=== PATIENT | female | born 1940 | race Caucasian/White ===

== ENCOUNTER 2020-10-06 14:09 | Outpatient (NON) | payer MEDICARE, OTHER, SELFPAY ==
[2020-10-06 17:10] LABS: Appearance Synovial Fluid Cloudy (Clear); Color Synovial Fluid Yellow (Colorless); Lymphocytes Synovial Fluid 51 %; Macrophages Synovial Fluid 28 %; Neutrophils Synovial Fluid 21 % (0-25); Nucleated Cell Synovial Fluid 56 /uL (0-200); RBC Synovial Fluid 6065 /uL (0-0); Source Synovial Fluid Synovial fluid
== END 2020-10-06 14:10 ==
PROVIDERS: PCP Internal Medicine; Visit Provider Orthopaedic Surgery
DX: M25.461 Effusion, right knee (principal)
CPT/HCPCS: 87070; 87075; 87076; 87205; 89051

== ENCOUNTER 2020-10-18 10:23 | Outpatient (CLI) | payer MEDICARE, OTHER, SELFPAY ==
--- NOTE | ~2020-10-18 | CT_ITS ---
EXAMINATION: CT knee RT wo con DATE: 10/18/2020 10:48 INDICATION: Right knee pain due to internal orthopedic prosthetic device. TECHNIQUE: High resolution computed tomography (CT) of the right knee was performed without intraveno us contrast. Additional sagittal and coronal reconstructions were performed. Automated exposure contr ol and iterative reconstruction technique were employed. The dose-length product was 517.01 mGy-cm. COMPARISON: Radiographs dated 10/06/2020 FINDINGS: Cemented right total knee arthroplasty with patellar resurfacing which appears well seated with no pe riprosthetic lucency to suggest loosening or infection. Alignment appears near-anatomic. No fracture. Small knee joint effusion at the suprapatellar pouch. Moderate-sized Valenzuela's cyst. There is thickeni ng of the distal quadriceps tendon with several tiny foci of increased density with appearance sugges ting suture material possibly for prior quadriceps tendon tear repair. Alternatively this could repre sent enthesopathic calcifications. The central portion of the tendon appears to attenuate proximally without visible right rectus femoris musculature suggesting tear along the distal myotendinous juncti on proximal retraction of the muscle belly beyond the cephalad margin of the [id number]. The vastu s intermedius lateralis and medialis musculature and associated portion of the tendon appear to remai n intact. IMPRESSION: 1. Expected appearance of a right total knee arthroplasty with patellar resurfacing which appears in near-anatomic alignment with no evident loosening or other acute osseous abnormality. 2. Suggestion of tear at the myotendinous junction of the rectus femoris portion of the quadriceps te ndon with proximal retraction of the muscle belly. There appears to be possible suture material sugge sting an earlier repair. Correlate with surgical history and if clinically indicated could consider f urther evaluation with MRI. 3. Small right knee joint effusion and moderate-sized Valenzuela's cyst. Reviewed, dictated and finalized at location A. OL AGE TEACHER IMPRESSION: 1. Expected appearance of a right total knee arthroplasty with patellar resurfa cing which appears in near-anatomic alignment with no evident loosening or othe r acute osseous abnormality. 2. Suggestion of tear at the myotendinous junction of the rectus femoris portio n of the quadriceps tendon with proximal retraction of the muscle belly. There appears to be possible suture material suggesting an earlier repair. Correlate with surgical history and if clinically indicated could consider further evalua tion with MRI. 3. Small right knee joint effusion and moderate-sized Valenzuela's cyst.
== END 2020-10-18 10:24 | disposition home or self-care (01) ==
LOC: ANHIMG 10:32
PROVIDERS: PCP Internal Medicine; Visit Provider Orthopaedic Surgery
DX: T84.84XA Pain due to internal orthopedic prosthetic devices, implants and grafts, initial encounter (principal); Z96.651 Presence of right artificial knee joint; M25.461 Effusion, right knee
CPT/HCPCS: 73700

== ENCOUNTER 2020-11-04 12:30 | Outpatient (NON) | payer MEDICARE, OTHER, SELFPAY ==
[2020-11-04 13:37] LABS: Appearance Synovial Fluid Clear (Clear); Color Synovial Fluid Yellow (Colorless); Nucleated Cell Synovial Fluid 1610 /uL (0-200); RBC Synovial Fluid 3940 /uL (0-0); Source Synovial Fluid Synovial fluid
[2020-11-04 13:59] LABS: Crystals Synovial Fluid None Seen (None Seen)
[2020-11-04 14:12] LABS: Lymphocytes Synovial Fluid 56 %; Monocytes Synovial Fluid 15 %; Neutrophils Synovial Fluid 22 % (0-25)
[2020-11-04 14:15] LABS: Other Cells Synovial Fluid 7 %
[2020-11-07 22:42] LABS: Glucose Synovial Fluid 36 mg/dL
== END 2020-11-04 12:31 ==
PROVIDERS: PCP Internal Medicine; Visit Provider Orthopaedic Surgery
DX: M25.461 Effusion, right knee (principal)
CPT/HCPCS: 82945; 84157; 86430; 87070; 87075; 87076; 87205; 89051; 89060

== ENCOUNTER 2021-02-02 07:38 | Outpatient (CLI) | payer MEDICARE, OTHER, SELFPAY | END 2021-02-02 07:39 | disposition home or self-care (01) | LOC: ANHAUDIO 07:40 | PROVIDERS: PCP Internal Medicine; Visit Provider Otolaryngology | DX: H90.3 Sensorineural hearing loss, bilateral (principal); R42 Dizziness and giddiness | CPT/HCPCS: 92537; 92540; 92546; 92557; 92567 ==

== ENCOUNTER 2022-05-04 01:37 | Day surgery (SDC) | payer MEDICARE, OTHER, SELFPAY ==
[2022-04-17 12:52] VITALS: BMI 29.5
--- NOTE | 2022-05-03 13:13 | P.HP_ITS ---
History of Present Illness History of Present Illness Consent: Risks, benefits, and alternatives have been discussed and questions answered. Patient agrees to proceed with procedure. Chief complaint: ulcerative colitis Narrative: Nikky Pena is a 82 year old female With a long history of ulcerative colitis. She is doing relatively well on medication at this time. However she had an episode of fecal incontinence several months ago. She was having ab dominal pain and went to the emergency room where she was found to have a tear of her celiac artery. She has had follow-up scans that are unchanged and has an appointment to see a vascular surgeon. Review of Systems Review of Systems: All systems reviewed & are unremarkable except as noted in HPI and below PMFSH Past Medical History Medical History Arthritis Bleeding nose Claustrophobia Depression Glaucoma History of adverse reaction to anesthesia History of Clostridioides difficile infection History of postoperative complication of surgical procedure Hypertension Myocardial infarction 2006 Painful total knee replacement, right Right knee pain Ulcerative colitis Surgical History Surgical History History of colon resection History of hysterectomy vaginal wall repair History of surgery History of total right knee replacement (TKR) Family History Family History Other History of bone cancer History of lung cancer Social History Social History Smoking status: Never smoker Alcohol intake: never Substance use: never Substance use type: does not use Living arrangements: alone Gender identity (if verbalized by the patient): Female Spiritual care concerns: No Meds Home Medications and Allergies Home Medications Medication Instructions Recorded Confirmed Type amlodipine 5 mg tablet 5 mg PO DAILY 10/06/20 05/04/22 History aspirin 81 mg PO DAILY 04/17/22 05/04/22 History latanoprost 2 ophthalmic insert EACH EYE DAILY 04/17/22 05/04/22 History mesalamine 400 mg capsule (with See Rx Instructions .Route 04/24/22 05/04/22 Rx delayed release tablets inside) .COMPLEX #120 caps Allergies Allergy/AdvReac Type Severity Reaction Status Date / Time meperidine [From Demerol] Allergy Unknown Unknown Verified 05/04/22 09:58 adhesive tape Allergy Blister Verified 05/04/22 09:58 Exam Resp: Auscultation: clear to auscultation bilaterally Cardio: Rate: regular rate Rhythm: regular rhythm GI: GI Palp: Yes Soft to palpation and No Tenderness to palpation present (GI) Assessment and Plan Assessment and plan (1) Ulcerative colitis: Code(s): K51.90 - Ulcerative colitis, unspecified, without complications Status: Acute Assessment and Plan: Colonoscopy with possible biopsy or polypectomy or cautery or injection of substances.
--- NOTE | 2022-05-03 14:40 | WPDANESEPPF ---
Anes - Initial Pre Proc Eval Procedure: Operation Date: 05/04/22 11:00 Proposed Procedures p Colonoscopy - Chin Pedraza MD <Mingo Castro DO - Last Filed: 05/03/22 14:41> Date/Time: 05/03/22 14:40 <Mingo Castro DO - Last Filed: 05/03/22 14:41> Surgeon: Chin Pedraza MD <Mingo Castro DO - Last Filed: 05/03/22 14:41> Pre Op Diagnosis: ulcerative colitis <Mingo Castro DO - Last Filed: 05/03/22 14:41> Patient Data Age: 82 Gender: F Height: 1.73 m Weight: 88 kg <Mingo Castro DO - Last Filed: 05/03/22 14:41> Allergies Allergy/AdvReac Type Severity Reaction Status Date / Time meperidine [From Demerol] Allergy Unknown Unknown Verified 04/10/22 10:02 adhesive tape Allergy Blister Verified 04/17/22 12:53 <Mingo Castro DO - Last Filed: 05/03/22 14:41> Home Medications Medication Instructions Recorded Confirmed Type amlodipine 5 mg tablet 5 mg PO DAILY 10/06/20 04/17/22 History sodium sul 1.479 gram-potas ch See Rx Instructions PO PER PKG DIR 04/12/22 04/17/22 Rx 0.188 gram-magnes sul 0.225 gram #24 tabs tablet (Sutab) aspirin 81 mg PO DAILY 04/17/22 04/17/22 History latanoprost 2 ophthalmic insert EACH EYE DAILY 04/17/22 04/17/22 History mesalamine 400 mg capsule (with See Rx Instructions .Route 04/24/22 Rx delayed release tablets inside) .COMPLEX #120 caps <Mingo Castro DO - Last Filed: 05/03/22 14:41> Patient hx anesthesia problems: post op nausea/vomiting <Randee Montaño CRNA - Last Filed: 05/04/22 09:39> Family hx anesthesia problems: none <Randee Montaño CRNA - Last Filed: 05/04/22 09:39> Results Review: All pre-operative results and documents have been reviewed as part of the pre-operative evaluation. <Mingo Castro DO - Last Filed: 05/03/22 14:41> [facility] [place] Past Medical History Medical History: Medical History (Updated 05/03/22 @ 14:41 by Mingo Castro DO) Arthritis Bleeding nose Claustrophobia Depression Glaucoma History of adverse reaction to anesthesia History of Clostridioides difficile infection History of postoperative complication of surgical procedure Hypertension Myocardial infarction 2006 Painful total knee replacement, right Right knee pain Ulcerative colitis <Mingo Castro DO - Last Filed: 05/03/22 14:41> Surgical History Surgical History: Surgical History History of colon resection History of hysterectomy vaginal wall repair History of surgery History of total right knee replacement (TKR) <Mingo Castro DO - Last Filed: 05/03/22 14:41> Family History Family History: Family History Other History of bone cancer History of lung cancer <Mingo Castro DO - Last Filed: 05/03/22 14:41> Social History Social History: Social History Smoking status: Never smoker Alcohol intake: never Substance use: never Substance use type: does not use Living arrangements: alone Gender identity (if verbalized by the patient): Female Spiritual care concerns: No <Mingo Castro DO - Last Filed: 05/03/22 14:41> Anes - Eval Final PreProcedure Day of Procedure 05/03/22 14:40 <Mingo Castro DO - Last Filed: 05/03/22 14:41> Patient weight: overweight <Mingo Castro DO - Last Filed: 05/03/22 14:41> Heart: regular rate and rhythm <Mingo Castro DO - Last Filed: 05/03/22 14:41> Lungs: clear to auscultation <Mingo Castro DO - Last Filed: 05/03/22 14:41> Airway: Mallampati scale class II <Mingo Castro DO - Last Filed: 05/03/22 14:41> Neurological: alert and oriented <Mingo Castro DO - Last Filed: 05/03/22 14:
[2022-05-04 10:00] VITALS: BP 130/82; PULSE 72; RESP 20; TEMP 36.3; O2SAT 97; BMI 28.6
[2022-05-04] MEDS: LACTATED RINGERS 1,000 ML 150 ML IV CONT (10:12)
[2022-05-04 11:10] VITALS: BP 113/72; PULSE 77; RESP 24; O2SAT 96
[2022-05-04 11:20] VITALS: BP 138/87; PULSE 69; RESP 24; O2SAT 96
[2022-05-04 11:30] VITALS: BP 141/78; PULSE 66; RESP 18; O2SAT 96
== END 2022-05-04 11:39 | disposition home or self-care (01) ==
PROVIDERS: PCP Internal Medicine; Visit Provider Internal Medicine Gastroenterology
PROC: 0DJD8ZZ Inspection of Lower Intestinal Tract, Via Natural or Artificial Opening Endoscopic (ICD-10-PCS; CPT 45378; principal; 2022-05-04 11:00)
DX: K51.00 Ulcerative (chronic) pancolitis without complications (principal); K64.8 Other hemorrhoids; K57.30 Diverticulosis of large intestine without perforation or abscess without bleeding; H40.9 Unspecified glaucoma; I25.2 Old myocardial infarction; I10 Essential (primary) hypertension
CPT/HCPCS: 45380; 88305; J2704; J7120

== ENCOUNTER 2023-11-09 12:41 | Emergency (ER) | payer MEDICARE, OTHER, SELFPAY ==
--- NOTE | ~2023-11-09 | XR_ITS ---
XR hand LT min 3V DATE: 11/09/2023 13:05 INDICATION: Patient fell and struck hand against wall. Swelling, bruising TECHNIQUE: 3 views COMPARISON: None FINDINGS: There is a linear oblique fracture through the distal shaft, neck and head of the fifth met acarpal bone, with overriding and one cortical width lateral displacement at the fracture site. There is severe osteoarthritic change at the first carpometacarpal joint. There is osteoarthritic change at multiple interphalangeal joints as well as first metacarpal phalang eal joint. IMPRESSION: Fifth metacarpal fracture Polyarticular osteoarthritis Reviewed, dictated and finalized at location A. P CHIEF OPERATOR
[2023-11-09 12:52] VITALS: BP 144/82; PULSE 79; RESP 16; TEMP 36.2; O2SAT 95
--- NOTE | 2023-11-09 13:07 | ED.UPPEXIN ---
HPI - Extremity Injury (Upper) General Chief Complaint: Extremity Injury, Upper Stated Complaint: Left Hand Swollen Time Seen by Provider: 11/09/23 13:07 Source: patient Mode of arrival: ambulatory Limitations: no limitations History of Present Illness HPI narrative: 83 yo F presents with c/o L hand pain and swelling. Two nights ago stood up from table and tripped and hit L hand against wall. Was able to catch herself and did not fall to the ground. ROM decreased due to pain. distal NV intact. Pt's son concerned for fracture. All systems reviewed and negative except as noted above. Related Data Home Medications Medication Instructions Recorded Confirmed amlodipine 5 mg tablet 5 mg PO DAILY 10/06/20 11/09/23 aspirin 81 mg PO DAILY 04/17/22 11/09/23 latanoprost 2 drp EACH EYE DAILY 04/17/22 11/09/23 mesalamine 400 mg capsule (with 400 mg PO DAILY 11/09/23 11/09/23 delayed release tablets inside) Allergies Allergy/AdvReac Type Severity Reaction Status Date / Time meperidine [From Demerol] Allergy Unknown Unknown Verified 11/09/23 13:09 adhesive tape Allergy Blister Verified 11/09/23 13:09 Review of Systems Review of Systems: CONSTITUTIONAL: Denies fever, chills, or sweats. EYES: Denies visual changes, redness, or discharge. ENT: Denies rhinorrhea, congestion, sore throat, or otalgia. CARDIOVASCULAR: Denies chest pain, palpitations, or edema. RESPIRATORY: Denies cough or dyspnea. GASTROINTESTINAL: Denies abdominal pain, nausea, vomiting, or diarrhea. GENITOURINARY: Denies dysuria or hematuria. SKIN: Denies rash or itching. MUSCULOSKELETAL: Denies back pain, joint pain, or myalgia. Reports pain and swelling to left hand. NEUROLOGIC: Denies headache, numbness, or weakness. PSYCHIATRIC: Denies anxiety or depression. All other systems reviewed are negative, except as documented in HPI. [facility] Past Medical History Medical History Arthritis Bleeding nose Claustrophobia Depression Glaucoma History of adverse reaction to anesthesia History of Clostridioides difficile infection History of postoperative complication of surgical procedure Hypertension Myocardial infarction 2006 Painful total knee replacement, right Right knee pain Ulcerative colitis Surgical History Surgical History History of colon resection History of hysterectomy vaginal wall repair History of surgery History of total right knee replacement (TKR) Family History Family History Other History of bone cancer History of lung cancer Social History Social History Smoking status: Never smoker Alcohol intake: never Substance use: never Substance use type: does not use Living arrangements: alone Gender identity (if verbalized by the patient): Female Spiritual care concerns: No Comments At time of signature, agree with nursing past medical, surgical, social and family history. There is no relevant family history pertinent to the presenting complaint. Exam Narrative: GENERAL: This is a well-nourished, well-developed patient, in no apparent distress. HEAD: normocephalic, atraumatic. EYES: PERRL. Sclera clear/white. Vision is grossly intact. EARS: External ears normal NOSE: External nose normal NECK: Neck supple, non-tender without lymphadenopathy, masses or thyromegaly. CARDIOVASCULAR: Regular rate and rhythm without murmurs, gallops, or rubs. RESPIRATORY: Clear to auscultation. Breath sounds equal bilaterally. No wheezes, rales, or rhonchi. SKIN: warm, Dry, intact with no suspicious lesions or rash, good texture and turgor. NEURO: awake, alert, and oriented to person, place and time. There were no obvious focal neurologic abnormalities. EXTREMITIES: tenderness on palpation of L 5th metacarpal with
== END 2023-11-09 13:45 | disposition home or self-care (01) ==
PROVIDERS: Emergency Provider Nurse Practitioner Family; PCP Internal Medicine
DX: S62.337A Displaced fracture of neck of fifth metacarpal bone, left hand, initial encounter for closed fracture (principal); W01.198A Fall on same level from slipping, tripping and stumbling with subsequent striking against other object, initial encounter; M19.90 Unspecified osteoarthritis, unspecified site; H40.9 Unspecified glaucoma; I10 Essential (primary) hypertension; I25.2 Old myocardial infarction; Z96.651 Presence of right artificial knee joint
CPT/HCPCS: 29125; 73130; 99214; A4565; G0463

== ENCOUNTER 2023-11-14 01:30 | Day surgery (SDC) | payer MEDICARE, OTHER, SELFPAY ==
--- NOTE | 2023-11-13 13:14 | WPDANESEPPF ---
Anes - Initial Pre Proc Eval Procedure: Operation Date: 11/14/23 12:00 Proposed Procedures p Left Fifth Metacarpal Closed Reduction Percutaneous Pinning, Possible Open Reduction Internal Fixation - Desmond Matias MD Date/Time: 11/13/23 13:14 Surgeon: Desmond Matias MD Pre Op Diagnosis: fx left metacarpal bone Patient Data Age: 83 Gender: F Height: Weight: Allergies Allergy/AdvReac Type Severity Reaction Status Date / Time meperidine [From Demerol] Allergy Unknown Nausea and Verified 11/14/23 10:04 Vomiting adhesive tape Allergy Blister Verified 11/14/23 10:04 Home Medications Medication Instructions Recorded Confirmed Type amlodipine 5 mg tablet 5 mg PO DAILY 10/06/20 11/14/23 History aspirin 81 mg PO HS 04/17/22 11/14/23 History latanoprost 1 drp EACH EYE HS 04/17/22 11/14/23 History mesalamine 400 mg capsule (with 800 mg PO BID 11/09/23 11/14/23 History delayed release tablets inside) acetaminophen 500 mg capsule 1,000 mg PO Q6H PRN Pain 11/13/23 11/14/23 History pantoprazole 40 mg tablet,delayed 40 mg PO DAILY 11/13/23 11/14/23 History release Patient hx anesthesia problems: none Family hx anesthesia problems: none Results Review: All pre-operative results and documents have been reviewed as part of the pre-operative evaluation. [facility] Past Medical History Medical History Arthritis Bleeding nose Claustrophobia Depression Glaucoma History of adverse reaction to anesthesia History of Clostridioides difficile infection History of postoperative complication of surgical procedure Hypertension Myocardial infarction 2006 Painful total knee replacement, right Right knee pain Ulcerative colitis Surgical History Surgical History History of colon resection History of hysterectomy vaginal wall repair History of surgery History of total right knee replacement (TKR) Family History Family History Other History of bone cancer History of lung cancer Social History Social History (Updated 11/12/23 @ 14:23 by Trinidad Puente MA) Smoking status: Never smoker Alcohol intake: never Substance use: never Substance use type: does not use Do You Feel Safe in your Home?: Yes Lack of Transportation: No Lack of Food: Never True Current Housing: I Have Housing Concerned About Future Housing: No Difficulty Paying Gas/Electric Bills: No Difficulty Paying for Meds: No Currently Unemployed: No Education: High School Diploma/GED Difficulty w/ Childcare or Family Care: No Living arrangements: alone Gender identity (if verbalized by the patient): Female Spiritual care concerns: No Anes - Eval Final PreProcedure Day of Procedure 11/13/23 13:14 Patient weight: normal Heart: regular rate and rhythm Lungs: clear to auscultation and normal air movement Airway: Mallampati scale class II Neurological: alert and oriented Last oral intake: >/= 8 hours ASA classification: III Emergent: no Anesthetic plan: proceed Anesthesia type and monitoring: general GIVS and standard monitoring Results Review: All pre-operative results and documents have been reviewed as part of the pre-operative evaluation. Informed Consent: The patient's anesthetic plan and its attendant risks and benefits were discussed with the patient/family/POA. Questions were solicited and answers provided to the satisfaction of the patient/family/POA.
--- NOTE | 2023-11-13 13:44 | PC.NURSE ---
Report to the Outpatient Waiting Room, entrance under the green pavilion located off [facility], at time __1000 on date _11/14/23 . Planned Procedure Time: ___1200 . Time changes happen often and if your time is changed the preop area will call you the afternoon before. - You and your visitor will be asked to self-screen and do not enter if you have any COVID symptoms. - A mask is optional within the hospital at this time. Take the following medications with a SIP of water the morning of surgery: ____AMLODIPINE DO NOT STOP ANY OF YOUR OTHER PRESCRIPTION MEDICATIONS PRIOR TO SURGERY ?EXCEPT THE FOLLOWING Medications to discontinue per physician NOTHING TO EAT OR DRINK 8 HOURS PRIOR TO SURGERY Please no make-up, nail bahamian, hairspray, perfume, deodorant, or body powder the day of surgery. No jewelry (including any body piercings) or valuables the day of surgery, leave them at home. Please take a shower or bath the night before, or the morning of, surgery with an antibacterial soap. Wear comfortable, loose fitting clothing. Children are encouraged to wear pajamas. - Jewelry must be removed prior to entering the operating room. Rings and piercings that are not removed may be cut off. - The hospital will not accept responsibility for valuables. - Please leave all valuables, including medications, at home the day of surgery. If you are going home after surgery, a licensed paratransit driver must drive you home. - NO public transportation without another adult if you receive anesthesia. - We recommend that an adult stay with you for 24 hours following discharge. - We also recommend that you do not drive, make important decision, drink alcoholic beverages, or take any drugs that were not prescribed by your health care provider for at least 24 hours after your discharge time. Follow any additional instructions given to you from your surgeon. If you or anyone in your household have experienced Covid symptoms in the past week, please notify your surgeon or the nurse liaison at the phone number below for possible testing. Telephone instructions given to __PATIENT and asked if any additional questions and then verbalized understanding. Patient advised to call surgeon office or pre surgery nurse liaison [phone] if any additional questions.
[2023-11-13 13:51] VITALS: BMI 30.4
--- NOTE | ~2023-11-14 | XR_ITS ---
EXAMINATION: XR surgery orthopedic DATE: 11/14/2023 12:27 INDICATION: ORIF left fifth metacarpal fracture TECHNIQUE: 2 fluoroscopic images of the left hand were obtained during procedure performed by Dr. Julien lal. Radiologist was not present for the imaging or procedure. The amount of fluoroscopy time use d during this procedure was 0.6 minutes. COMPARISON: 11/09/2023 FINDINGS: Interval reduction and percutaneous pin fixation of the oblique fracture at the head and neck of the left fifth metacarpal. The fracture is fixed with an axially directed and extending from the head to the base of the fifth metacarpal as well as a transversely directed percutaneous pin extending across the heads of the fourth and fifth metatarsals. Alignment appears near anatomic. No other fractures i dentified. Mild joint space widening at the fifth metacarpophalangeal joint. IMPRESSION: 1. Fluoroscopy utilized during reduction and percutaneous pin fixation of a fracture of the distal le ft fifth metacarpal. Reviewed, dictated and finalized at location A. NG TUMBLER OPERATOR IMPRESSION: 1. Fluoroscopy utilized during reduction and percutaneous pin fixation of a fra cture of the distal left fifth metacarpal.
[2023-11-14 10:00] VITALS: BP 138/79; PULSE 78; RESP 18; TEMP 36.4; O2SAT 96
[2023-11-14] MEDS: LACTATED RINGERS 1,000 ML 30 ML IV CONT (10:30)
[2023-11-14 10:46] LABS: Anion Gap 9 mmol/L (8-16); Blood Urea Nitrogen 17 mg/dL (7-17); Calcium 9.7 mg/dL (8.4-10.2); Carbon Dioxide 24 mmol/L (22-30); Chloride 105 mmol/L (98-107); Estimated CRCL calculation 51 ml/min; Estimated Glomerular Filt Rate 60; Glucose 105 mg/dL (65-110); Potassium 4.2 mmol/L (3.4-5.0); Sodium 138 mmol/L (137-145)
[2023-11-14 10:48] LABS: Prothrombin Time 13.7 Seconds (11.1-14.7)
[2023-11-14 10:49] LABS: Partial Thromboplastin Time 43.5 SECONDS (22.3-36.8)
--- NOTE | 2023-11-14 11:25 | WPDHPUPDATE1 ---
History and Physical Update Update Date/Time: 11/14/23 11:25 Patient seen and examined in pre-operative holding area. No interval change in medical history or symptoms. Patient recalls previous discussion of benefits and alternatives to procedure. Continues to desire to proceed with left fifth metacarpal fracture closed possible open reduction and fixation. Reviewed procedure, post-op expectations and risks including but not limited to bleeding, infection, injury to tendon/nerve/vessel, decreased hand function, stiffness, RSD, no change or worsening of symptoms, malunion, nonunion. I discussed the possible use of assistants and their participation in the case. Patient stated understanding and signed the consent form wishing to proceed.
--- NOTE | 2023-11-14 11:26 | W.PM.PROC2 ---
Procedure Note - Detailed Date of Procedure 11/14/23 Pre-op Diagnosis fx left fifth metacarpal Post-op Diagnosis Same Procedure Performed closed reduction perc pinning left fith metacarpal Surgeon Desmond Matias MD Anesthesia General Description of Procedure INFORMED CONSENT: The patient was seen and examined and marked in the pre-op area.? The patient signed the consent form. PROCEDURE IN DETAIL:The patient taken back to OR on the stretcher in supine position. Time out performed with anesthesia, surgeon and staff agreeing on patient's name site and surgery to be performed SCDs were placed on the lower extremities and inflated. A tourniquet was placed on {left} upper extremity and antibiotics given IV After anesthesia administered sedation I injected {8}cc 1%lido with epi and 0.5% marcaine plain at the operative site The?{left upper extremity}?was prepped and draped in sterile fashion the??{left upper extremity} was? exsanguinated with Esmarch bandage and tourniquet inflated to 250mmHg The mini c-arm was brought into the field verifying fracture and displacement. Reduction maneuvers were performed achieving adequate reduction of the fracture fragment of 5th metacarpal. This reduction was maintained with placing two 0.045 k-wires, one retrograde and the second to anchor 5th metacarpal head into 4th metacarpal head, with verification on multiple views of fluoroscopy. There was no impingement on finger range of motion with near full passive ROM. The pins were trimmed and covered with betadine soaked alcohol swabs. A dressing of , 4x4, koffi, and an ulnar gutter splint was applied in safe position and secured with an sissy bandage after the tourniquet was let down noting the hand was warm and well perfused. The patient was then awaken from anesthesia and transferred to the recovery room in stable condition.? Complications - none EBL- 0cc Disposition - home in stable conditions [facility] Billing Surgery - Charge Forward: Surgery Billing ([id number] )
[2023-11-14] MEDS: ceFAZolin 2 GM/D5W 50 ML 2 GM/50 ML BAG IVPB (11:56)
[2023-11-14] MEDS: BUPivacaine HCL 0.5% PF 30 ML VIAL INFILTRATE (12:12)
[2023-11-14] MEDS: LIDOCAINE HCL 1% LOCAL INJ 20 ML VIAL INFILTRATE (12:12)
[2023-11-14 12:26] VITALS: BP 96/76; PULSE 70; RESP 17; O2SAT 94
[2023-11-14 12:50] VITALS: BP 115/74; PULSE 76; RESP 16; O2SAT 93
[2023-11-14 13:20] VITALS: BP 131/77; PULSE 70
== END 2023-11-14 13:40 | disposition home or self-care (01) ==
PROVIDERS: Anesthesiology; PCP Internal Medicine; Visit Provider Plastic Surgery
PROC: (CPT 26608; principal; 2023-11-14 12:00)
DX: S62.337A Displaced fracture of neck of fifth metacarpal bone, left hand, initial encounter for closed fracture (principal); W22.01XA Walked into wall, initial encounter; H40.9 Unspecified glaucoma; I10 Essential (primary) hypertension; I25.2 Old myocardial infarction; K51.90 Ulcerative colitis, unspecified, without complications; Z79.82 Long term (current) use of aspirin; Z90.49 Acquired absence of other specified parts of digestive tract
CPT/HCPCS: 26608; 36415; 80048; 85610; 85730; 99199; A9270; C1713; J0690; J1100; J2405; J2704; J3010; J7120

== ENCOUNTER 2023-11-28 09:41 | Outpatient (CLI) | payer MEDICARE, OTHER, SELFPAY ==
--- NOTE | ~2023-11-28 | XR_ITS ---
EXAMINATION: XR hand LT min 3V INDICATION: Displaced fracture of the fifth metacarpal, follow-up TECHNIQUE: Three views of the left hand are obtained. COMPARISON: 11/09/2023 FINDINGS: There has been interval percutaneous pinning of the previously described fifth metacarpal n david fracture. The distal fracture fragment remains laterally displaced by approximately 2 mm. No geo tional fracture is identified. No definite calcified callus is identified. A splint has been applied. There is advanced osteoarthritis at the first carpometacarpal joint. Mild osteoarthritis is noted in multiple interphalangeal joints. IMPRESSION: 1. Interval percutaneous pinning and splinting of the previously described fifth metacarpal neck frac ture, otherwise no change. Reviewed, dictated and finalized at location L. TION SPECIALIST IMPRESSION: 1. Interval percutaneous pinning and splinting of the previously described fift h metacarpal neck fracture, otherwise no change.
== END 2023-11-28 09:42 | disposition home or self-care (01) ==
LOC: ANHIMG 09:43
PROVIDERS: PCP Internal Medicine; Visit Provider Physician Assistant Surgical
DX: S62.339A Displaced fracture of neck of unspecified metacarpal bone, initial encounter for closed fracture (principal); X58.XXXA Exposure to other specified factors, initial encounter
CPT/HCPCS: 73130

== ENCOUNTER 2023-12-12 12:39 | Outpatient (CLI) | payer MEDICARE, OTHER, SELFPAY ==
--- NOTE | ~2023-12-12 | XR_ITS ---
EXAMINATION: XR hand LT min 3V DATE: 12/12/2023 13:01 INDICATION: Left fifth metacarpal fracture 5 days prior now post fixation pin removal TECHNIQUE: Posteroanterior, oblique and lateral views of the left hand were obtained. COMPARISON: None. FINDINGS: The prior fixation pins which extended across the heads of the fourth and fifth metacarpals and along the length of the fifth metacarpal have been removed. No retained radiopaque foreign bodies. No funez ge in 2 mm palmar/radial displacement of the oblique fracture at the neck of the fifth metacarpal. Th ere is suggestion of small amount of callus formation however assessment of fine bone and soft tissue detail is limited by the superimposed fiberglass splinting material. There is still some discernible lucency along the fracture plane. Diffuse osteopenia. No other fractures identified. 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 There is some widening of the scapholunate in terval which suggests possibility of scapholunate ligament insufficiency. IMPRESSION: 1. Unchanged 2 mm pulmonary/radial displacement of a likely healing external to the fracture the neck of the fifth metacarpal with removal of prior fixation pins. Reviewed, dictated and finalized at location A. IT DEPARTMENT MANAGER IMPRESSION: 1. Unchanged 2 mm pulmonary/radial displacement of a likely healing external to the fracture the neck of the fifth metacarpal with removal of prior fixation p ins.
== END 2023-12-12 12:40 | disposition home or self-care (01) ==
PROVIDERS: PCP Internal Medicine; Visit Provider Physician Assistant Surgical
DX: S62.337A Displaced fracture of neck of fifth metacarpal bone, left hand, initial encounter for closed fracture (principal); X58.XXXA Exposure to other specified factors, initial encounter
CPT/HCPCS: 73130

== ENCOUNTER 2024-01-13 15:23 | Inpatient (IN) | payer MEDICARE, OTHER, SELFPAY ==
[2024-01-13] VITALS (23 sets, daily range): BP systolic 80–157; BP diastolic 43–103; PULSE 88–124; RESP 16–31; TEMP 36.4–36.6; O2SAT 92–98
--- NOTE | ~2024-01-13 | CT_ITS ---
EXAMINATION: CTA chest PE protocol DATE: 01/13/2024 20:59 INDICATION: Shortness of breath, upper back pain TECHNIQUE: Computed tomography angiography (CTA) of the chest was performed with 100 mL Omnipaque-350 intravenous contrast timed to evaluate the pulmonary arteries. Coronal maximum intensity projection 3D-reconstructions were created by the technologist. The dose-length product (DLP) was 432.27 mGy-cm. Automated exposure control and iterative reconstruction technique were employed. COMPARISON: None. FINDINGS: The pulmonary arteries are well-opacified. No pulmonary embolism is identified. Cardiomegal y is noted. There are small pleural effusions. There is smooth interlobular septal thickening of the lungs. There are a few areas of focal airspace opacity in the right lung. There are patchy airspace o pacities of the left lung. There is mild bilateral hilar lymphadenopathy. There is moderate thoracic spondylosis. There is a 2.2 cm cyst of the left kidney. IMPRESSION: 1. No pulmonary embolism identified. 2. Bilateral airspace opacities, consistent with pneumonia and mild pulmonary edema. Reviewed, dictated and finalized at location F. IMPRESSION: 1. No pulmonary embolism identified. 2. Bilateral airspace opacities, consistent with pneumonia and mild pulmonary e eric.
--- NOTE | ~2024-01-13 | XR_ITS ---
EXAMINATION: XR chest 2V DATE: 01/13/2024 15:53 INDICATION: Shortness of breath TECHNIQUE: PA and lateral views of the chest are obtained. COMPARISON: None FINDINGS: There are patchy opacities of the mid and lower lung zones. There are small pleural effusio ns. No pneumothorax is identified. The cardiomediastinal silhouette is normal. There is moderate thor acic spondylosis. IMPRESSION: 1. Airspace opacities of the mid and lower lung zones, consistent with atelectasis versus pneumonia. Reviewed, dictated and finalized at location F. IMPRESSION: 1. Airspace opacities of the mid and lower lung zones, consistent with atelecta sis versus pneumonia.
--- NOTE | 2024-01-13 15:24 | ECG_ITS ---
Measurements Intervals [place] Rate: 115 P: GA: 0 QRS: 11 QRSD: 90 T: 46 QT: 334 QTc: 463 Interpretive Statements ATRIAL FIBRILLATION WITH RAPID VENTRICULAR RESPONSE VENTRICULAR PREMATURE COMPLEX LOW QRS VOLTAGE IN PRECORDIAL LEADS BORDERLINE T WAVE ABNORMALITY- INFERIOR LEADS BASELINE ARTIFACT- I, II, AVR, AVL ABNORMAL ECG NO PREVIOUS ECG AVAILABLE FOR COMPARISON Electronically Signed On 01-13-2024 16:52:57 CDT by Jairo Spivey D.O.
--- NOTE | 2024-01-13 17:33 | ED.SOB ---
HPI - SOB/Dyspnea General Chief Complaint: Shortness of Breath/Dyspnea <Randa Jain PA-C - Last Filed: 01/13/24 23:24> Stated Complaint: SOB/nausea/back pain <Randa Jain PA-C - Last Filed: 01/13/24 23:24> Time Seen by Provider: 01/13/24 17:25 <Randa Jain PA-C - Last Filed: 01/13/24 23:24> Source: patient <Randa Jain PA-C - Last Filed: 01/13/24 23:24> Mode of arrival: ambulatory <VIVIANA Hatch Last Filed: 01/13/24 23:24> Limitations: no limitations <VIVIANA Hatch Last Filed: 01/13/24 23:24> History of Present Illness HPI Narrative: Patient is a 84 y/o female who presents the ED with report of shortness of breath. Patient reports she has been feeling intermittently short of breath over the last several weeks. Shortness became worse today, worse with exertion. Denies CP. She has been having intermittent pain in her upper back, between her scapula for the last few weeks as well, but denies any currently. Denies pain or swelling in lower extremities. Denies recent fevers, cough, cold sx's. Denies palpations. Denies dizziness, lightheadedness, nausea, vomiting. Denies history of AFib. She was scheduled to see Dr. Short with cardiology next week. She has been seen Dr. Matias for a recent L 5th metacarpal fx and undergoing therapy for this. <Randa Jain PA-C - Last Filed: 01/13/24 23:24> Related Data Home Medications: Home Medications Medication Instructions Recorded Confirmed amlodipine 5 mg tablet 5 mg PO DAILY 10/06/20 01/14/24 aspirin 81 mg capsule 81 mg PO HS ##0 04/17/22 01/14/24 latanoprost 1 drp EACH EYE HS 04/17/22 01/14/24 mesalamine 400 mg capsule (with 800 mg PO BID 11/09/23 01/14/24 delayed release tablets inside) acetaminophen 500 mg capsule 1,000 mg PO Q6H PRN Pain 11/13/23 01/14/24 pantoprazole 40 mg tablet,delayed 40 mg PO DAILY 11/13/23 01/14/24 release lorazepam 1 mg tablet 1 mg PO HS PRN Anxiety 01/14/24 01/14/24 <Randa Jain PA-C - Last Filed: 01/13/24 23:24> Allergies/Adverse Reactions: Allergies Allergy/AdvReac Type Severity Reaction Status Date / Time meperidine [From Demerol] Allergy Unknown Nausea and Verified 01/13/24 14:33 Vomiting adhesive tape Allergy Blister Verified 01/13/24 14:33 <Randa Jain PA-C - Last Filed: 01/13/24 23:24> Review of Systems Review of Systems: CONSTITUTIONAL: Denies fever, chills, or sweats. ENT: Denies rhinorrhea, congestion, sore throat. CARDIOVASCULAR: Denies chest pain, palpitations, or edema. RESPIRATORY: See HPI GASTROINTESTINAL: Denies abdominal pain, nausea, vomiting MUSCULOSKELETAL: See HPI NEUROLOGIC: Denies headache, dizziness, numbness, or weakness. <Randa Jain PA-C - Last Filed: 01/13/24 23:24> All systems reviewed & are unremarkable except as noted in HPI and below <Randa Jain PA-C - Last Filed: 01/13/24 23:24> [facility] Past Medical History Medical History: Medical History (Updated 01/14/24 @ 14:34 by Radha Peters PA-C) Arthritis Claustrophobia Depression Glaucoma History of adverse reaction to anesthesia History of Clostridioides difficile infection Hypertension Myocardial infarction 2006 Steatohepatitis Ulcerative colitis <Randa Jain PA-C - Last Filed: 01/13/24 23:24> Surgical History Surgical History: Surgical History (Updated 01/14/24 @ 14:36 by Radha Peters PA-C) History of bilateral knee arthroplasty History of colonoscopy with polypectomy History of hysterectomy History of partial colectomy For hemorrhoidal bleeding. History of repair of right rotator cuff History of uterosacral colpopexy History of ventral hernia repair <Randa Jain PA-C - Last Filed: 01/13/24 23:24> Family History Family History: Family History Other His
[2024-01-13 17:42] LABS: Basophils Absolute Auto 0.2 K/mm3 (0.0-0.1); Basophils Percent Auto 1.6 % (0.2-1.2); Eosinophils Absolute Auto 0.4 K/mm3 (0-0.3); Hematocrit 37.5 % (37.0-47.0); Hemoglobin 11.6 g/dL (12.0-15.0); Immature Granulocyte Absolute 0.06 K/mm3 (0.00-0.031); Immature Granulocyte Percent A 0.6 % (0-0.5); Lymphocytes Absolute Auto 2.38 K/mm3 (0.9-3.2); Lymphocytes Percent Auto 23.3 % (18.3-44.2); Mean Corpuscular HGB Conc 30.9 g/dl (32-36); Mean Corpuscular Volume 84.1 fl (80-100); Mean Platelet Volume 10.9 fl (7.4-10.4); Monocytes Absolute Auto 1.3 K/mm3 (0.1-0.6); Monocytes Percent Auto 12.3 % (2.6-8.5); Neutrophils Absolute Auto 5.9 K/mm3 (1.3-6.7); Neutrophils Percent Auto 58.2 % (45.5-73.1); Platelet Count Result 420 k/mm3 (150-375); Red Blood Count 4.46 M/mm3 (4.2-5.4); Red Cell Distribution Width 16.9 % (11.5-14.5); White Blood Count 10.2 K/mm3 (4.5-10.0)
[2024-01-13 17:52] LABS: Alanine Aminotransferase 53 U/L (6-35); Albumin Level 4.4 g/dL (3.5-5.1); Alkaline Phosphatase 111 U/L (38-126); Anion Gap 6 mmol/L (8-16); Aspartate Amino Transferase 44 U/L (14-36); Bilirubin,Total 0.9 mg/dL (0.2-1.3); Blood Urea Nitrogen 17 mg/dL (7-17); Calcium 9.7 mg/dL (8.4-10.2); Carbon Dioxide 24 mmol/L (22-30); Chloride 109 mmol/L (98-107); Estimated CRCL calculation 56 ml/min; Estimated Glomerular Filt Rate > 60; Glucose 102 mg/dL (65-110); Sodium 139 mmol/L (137-145)
[2024-01-13] MEDS: METOPROLOL TARTRATE INJ 5 MG/5 ML VIAL IV PUSH (18:03)
[2024-01-13 18:04] LABS: NT Pro B Type Natriuretic Pept 2330 pg/mL (19.9-100); Troponin I < 0.012 ng/mL (0.000-0.034)
[2024-01-13 18:07] LABS: Magnesium 2.2 mg/dL (1.6-2.3)
[2024-01-13 18:22] LABS: D Dimer 1.38 ug/mL (<0.48)
[2024-01-13 18:30] LABS: Prothrombin Time 14.1 Seconds (11.1-14.7)
[2024-01-13] MEDS: METOPROLOL TARTRATE 25 MG TABLET PO ×2 (18:30→23:17)
[2024-01-13 18:31] LABS: Partial Thromboplastin Time 39.4 Seconds (22.3-36.8)
[2024-01-13 18:37] LABS: Influenza A QL RT-PCR Negative (Negative); Influenza B QL RT-PCR Negative (Negative); RSV RNA, RT-PCR Negative (Negative); SARS-CoV-2 RNA PCR Negative (Negative)
[2024-01-13] MEDS: ACETAMINOPHEN 500 MG TABLET 1000 MG PO (20:58)
[2024-01-13] MEDS: ONDANSETRON INJ 4 MG/2 ML VIAL IV PUSH (20:58)
--- NOTE | 2024-01-13 22:39 | PM.IMHP ---
H&P: HPI History of Present Illness Date/Time: 01/13/24 21:30 Chief Complaint: Shortness of breath. Narrative: This is a very pleasant 84-year-old female with reports of [place] in 2006, hypertension, gastroesophageal reflux disease, and ulcerative colitis who presented to the emergency department via private vehicle for evaluation of shortness of breath. The patient provides the following history. She endorses intermittent but increasing dyspnea on exertion over the last month or so which has gotten worse in the past couple of days. She has occasional sensations of racing heart and irregular heartbeat which she notices when sitting down and resting but that seems to be fleeting. At times she feels a bit lightheaded or dizzy with that and can have some nausea with that as well. She also complains of pain in the mid to low back but that is a chronic and unchanged finding for her. She is scheduled to see Dr. Short sometime next week for evaluation of the symptoms. Due to worsening shortness of breath she decided to come in today for evaluation. She denies syncope, near syncope, sweats, pleuritic pain, orthopnea (although she does report feelings of restlessness at night causing her to get up for appeared of time), paroxysmal nocturnal dyspnea, lower extremity edema, and calf pain. No known history of cardiac dysrhythmia. She denies significant caffeine and alcohol use. No history of thyroid disease or sleep apnea to her knowledge. She denies sick contacts, sinus congestion, sore throat, and cough. In the ED she was found to be in atrial fibrillation with rapid ventricular response; her rate has not gone above 120. She was given metoprolol tartrate 25 mg p.o. x1 and her heart rate has been in the 80s to 90 since that time. Labs were significant for a WBC count of 10.2, hemoglobin 11.6, D-dimer 1.39, AST 44, ALT 53, troponin less than 0.012, proBNP 2330. She tested negative for influenza, RSV, and COVID. Chest x-ray showed airspace opacities of the mid and lower lung zones consistent with atelectasis versus pneumonia. Chest CTA showed no evidence of pulmonary embolism but did show bilaterally status opacities consistent with pneumonia and mild pulmonary edema. Review of Systems Review of Systems: 12 systems were reviewed and are negative except for as per HPI. [facility] Past Medical History Medical History (Updated 01/14/24 @ 14:34 by Radha Peters PA-C) Arthritis Claustrophobia Depression Glaucoma History of adverse reaction to anesthesia History of Clostridioides difficile infection Hypertension Myocardial infarction 2006 Steatohepatitis Ulcerative colitis Surgical History Surgical History (Updated 01/14/24 @ 14:36 by Radha Peters PA-C) History of bilateral knee arthroplasty History of colonoscopy with polypectomy History of hysterectomy History of partial colectomy For hemorrhoidal bleeding. History of repair of right rotator cuff History of uterosacral colpopexy History of ventral hernia repair Family History Family History Other History of bone cancer History of lung cancer Social History Social History (Updated 01/14/24 @ 14:36 by Radha Peters PA-C) Smoking status: Never smoker Alcohol intake: never Substance use: never Substance use type: does not use Do You Feel Safe in your Home?: Yes Lack of Transportation: No Lack of Food: Never True Current Housing: I Have Housing Concerned About Future Housing: No Difficulty Paying Gas/Electric Bills: No Difficulty Paying for Meds: No Currently Unemployed: No Education: High School Diploma/GED Difficulty w/ Childcare or Family Care: No Living arrangements: alone Spiritual care concerns: No Meds Home Medications and Allergies Home Medications Medication Instructions Recorded Confirmed Type amlodipine 5 mg tablet 5 mg PO DAILY 10/06/20 01/14/24 History aspirin
[2024-01-13] MEDS: LORazepam INJ (*CRX) 2 MG/ML VIAL 0.5 MG IV PUSH (23:17)
[2024-01-13] MEDS: DOXYCYCLINE HYCLATE 100 MG TABLET PO (23:17)
[2024-01-13] MEDS: ENOXAPARIN 100 MG/ML SYRINGE 90 MG SUB-Q (23:18)
[2024-01-14] VITALS (39 sets, daily range): BP systolic 104–142; BP diastolic 56–106; PULSE 74–118; RESP 15–38; TEMP 36.3–36.6; O2SAT 91–98; BMI 31.1
--- NOTE | 2024-01-14 | PC.NURSE ---
Pt continues to try and get out of bed and is pacing around the room. Pt continues to explain she is very anxious. States Normal behavior for her at night time.
[2024-01-14] MEDS: LORazepam INJ (*CRX) 2 MG/ML VIAL 1 MG IV PUSH (00:49)
--- NOTE | 2024-01-14 06:00 | ECHO_ITS ---
Patient Info Name: Nikky Pena Age: 84 years : 1940 Gender: Female Ht: 68 in Wt: 200 lbs BSA: 2.11 m2 HR: 94 bpm BP: 142 / 90 mmHg Technical Quality: Good Exam Date: 01/14/2024 9:55 AM Exam Location: Echo Lab Patient Status: Outpatient Admit Date: 01/13/2024 Staff Ordering Physician: Randa Jain PA-C Stationary Plant Operators: Jose Eduardo Patel RDCS Attending Provider: Sancho Rosario MD Referring Physician: Cristobal WORTHY; Exam Type: CA echo dop color flow w con Study Info Indications - new onset A FIB with RVR, elevated bnp Complete two-dimensional, color flow and Doppler transthoracic echocardiogram is performed with contrast to opacify the left ventricle and to improve the deliniation of the left ventricle endocardial borders. Contrast/Agitated Saline Contrast/Ag. Saline: Definity Amount: 2.00 ml Summary 1. Left ventricular chamber dimension is normal. 2. Left ventricular systolic function is mildly reduced, estimated at 45-50%. 3. Right ventricular chamber dimension is moderately enlarged. 4. Right ventricular systolic function is normal. 5. Left atrial chamber dimension is severely enlarged. 6. Right atrial chamber dimension is severely enlarged. 7. There is severe mitral valve regurgitation. 8. There is severe tricuspid valve regurgitation. Left Ventricle Left ventricular chamber dimension is normal. Left ventricular systolic function is mildly reduced, estimated at 45-50%. There is no increased left ventricular wall thickness. Right Ventricle Right ventricular chamber dimension is moderately enlarged. Right ventricular systolic function is normal. Left Atria Left atrial chamber dimension is severely enlarged. Right Atria Right atrial chamber dimension is severely enlarged. Atrial Septum Intact interatrial septum visualized by color flow imaging. Aortic Valve The aortic valve is trileaflet. There is no aortic valve stenosis. There is no aortic valve regurgitation. Pulmonic Valve The pulmonic valve is not well visualized. Mitral Valve There is severe mitral valve regurgitation. Tricuspid Valve There is severe tricuspid valve regurgitation. Pericardium/Pleural There is no pericardial effusion. Inferior Vena Cava Inferior vena cava is not well visualized. Aorta The aortic root size at the sinus of Valsalva is normal. Left Ventricular Outflow Tract Name Value Normal LVOT 2D LVOT Diameter 2.06 cm LVOT Doppler LVOT Peak Gradient 3 mmHg LVOT Mean Gradient 2 mmHg LVOT VTI 14.87 cm LVOT VTI/AV VTI Ratio 0.76 LVOT Stroke Volume 49.36 ml LVOT CO 4.59 l/min LVOT CI 2.17 L/min/m2 Pulmonic Valve Name Value Normal RVOT Doppler RVOT Peak Gradient 2 mmHg
--- NOTE | 2024-01-14 06:20 | ADMGEN ---
This patient, Nikky Pena, was admitted to IMU Room 206-01. Patient/family oriented to hospital policies and general routines including ID bracelet, bed and alarms, visiting hours, pain management, procedures, bathroom and other care routines, personal items, smoking policy, room service/diet, and visiting hours. Information on how to activate the Rapid Response Team has been discussed. Patient/Family are encouraged to report perceived risks to care and to ask questions if they do not understand what they are told or what they should do.
[2024-01-14 08:36] LABS: Anion Gap 8 mmol/L (8-16); Blood Urea Nitrogen 22 mg/dL (7-17); CRP 2.5 mg/dL (<1.0); Calcium 9.2 mg/dL (8.4-10.2); Carbon Dioxide 22 mmol/L (22-30); Chloride 109 mmol/L (98-107); Estimated CRCL calculation 42 ml/min; Estimated Glomerular Filt Rate 48; Glucose 116 mg/dL (65-110); Magnesium 2.2 mg/dL (1.6-2.3); Potassium 4.1 mmol/L (3.4-5.0); Sodium 139 mmol/L (137-145)
[2024-01-14 08:42] LABS: Basophils Absolute Auto 0.2 K/mm3 (0.0-0.1); Basophils Percent Auto 1.7 % (0.2-1.2); Eosinophils Absolute Auto 0.2 K/mm3 (0-0.3); Eosinophils Percent Auto 2.3 % (0-4.4); Hematocrit 36.4 % (37.0-47.0); Hemoglobin 10.8 g/dL (12.0-15.0); Immature Granulocyte Absolute 0.07 K/mm3 (0.00-0.031); Immature Granulocyte Percent A 0.7 % (0-0.5); Lymphocytes Absolute Auto 1.74 K/mm3 (0.9-3.2); Lymphocytes Percent Auto 17.3 % (18.3-44.2); Mean Corpuscular HGB Conc 29.7 g/dl (32-36); Mean Corpuscular Hemoglobin 25.3 pg (26-34); Mean Corpuscular Volume 85.2 fl (80-100); Mean Platelet Volume 11.1 fl (7.4-10.4); Monocytes Absolute Auto 1.5 K/mm3 (0.1-0.6); Monocytes Percent Auto 14.4 % (2.6-8.5); Neutrophils Absolute Auto 6.4 K/mm3 (1.3-6.7); Neutrophils Percent Auto 63.6 % (45.5-73.1); Platelet Count Result 397 k/mm3 (150-375); Red Blood Count 4.27 M/mm3 (4.2-5.4); Red Cell Distribution Width 17.2 % (11.5-14.5); White Blood Count 10.1 K/mm3 (4.5-10.0)
[2024-01-14] MEDS: DOXYCYCLINE HYCLATE 100 MG TABLET PO ×2 (08:58→20:15)
[2024-01-14] MEDS: METOPROLOL TARTRATE 25 MG TABLET PO (08:58)
[2024-01-14 08:59] LABS: Procalcitonin 0.1 ng/mL
--- NOTE | 2024-01-14 09:00 | PM.CNCAR ---
Assessment and Plan Assessment and plan (1) Atrial fibrillation with RVR: Code(s): I48.91 - Unspecified atrial fibrillation Status: Acute Assessment and Plan: This is a new diagnosis. Likely recent onset with symptoms recognized ~36 hours ago. I discussed this diagnosis including pathophysiology, complications, and management strategies. Discussed rate control vs. rhythm control. She has already been started on oral metoprolol and her rate is better controlled. Will continue with rate control and begin anticoagulation with intention of outpatient cardioversion in ~4 weeks. Will increase metoprolol to 37.5mg q12h to achieve better rate control. This can be up titrated as needed/BP tolerates She has a CHADs2 Vasc score of 5 (age, female gender, HTN, CAD). Anticoagulation is recommended. Will start Eliquis 5mg b.i.d. Echo has been ordered Continue to monitor on telemetry If echo unremarkable and rate remains controlled, OK for d/c later today from a cardiac perspective (2) Shortness of breath: Code(s): R06.02 - Shortness of breath Status: Acute Assessment and Plan: Resolved. Secondary to tachycardia, possible pneumonia. (3) Elevated brain natriuretic peptide (BNP) level: Code(s): R79.89 - Other specified abnormal findings of blood chemistry Status: Acute Assessment and Plan: NTpro BNP elevated at 2330 but clinically she does not have any evidence of congestive heart failure. Echo has been ordered and is pending. (4) Hypertension: Code(s): I10 - Essential (primary) hypertension Status: Acute Assessment and Plan: Currently at goal. (5) CAD (coronary artery disease): Code(s): I25.10 - Atherosclerotic heart disease of [place] coronary artery without angina pectoris Status: Acute Assessment and Plan: History of [place] in 2006. Not reporting any anginal symptoms, however, new AF may be related to worsening CAD. Troponin levels were negative. Can perform outpatient ischemia evaluation History of Present Illness History of Present Illness Consult date/time: 01/14/24 09:00 Requesting physician: Randa Jain PA-C Consult reason: atrial fibrillation Reason For Visit: New onset AFib w/RVR, SOB, Elevated BNP Narrative: Nikky Pena is an 84 year old female with history of coronary artery disease who was previously followed at [facility] by Dr. Short, but patient has not followed up in several years. She comes to the hospital with a chief complaint of shortness of breath. She began experiencing shortness of breath yesterday morning around 0300. She was also feeling palpitations. On her arrival to the emergency department, EKG showed atrial fibrillation with rapid ventricular response with a heart rate of 115. She's been started on oral metoprolol and her rate is generally reasonably controlled, but she does still have heart rates in the 120's at times. She is now free from any symptoms. She denies ever having chest pain. Review of Systems Review of Systems: All systems reviewed & are unremarkable except as noted in HPI and below PMFSH Past Medical History Medical History Arthritis Claustrophobia Depression Glaucoma History of adverse reaction to anesthesia History of Clostridioides difficile infection History of postoperative complication of surgical procedure Hypertension Myocardial infarction 2006 Painful total knee replacement, right Right knee pain Steatohepatitis Ulcerative colitis Surgical History Surgical History History of colon resection History of hysterectomy vaginal wall repair History of surgery History of total right knee replacement (TKR) Family History Family History Other History of bone cancer History of lung cancer Soci
--- NOTE | 2024-01-14 09:45 | PM.IMPN ---
Progress Note: A&P Assessment and Plan (1) New onset atrial fibrillation: Code(s): I48.91 - Unspecified atrial fibrillation Status: Acute Assessment and Plan: EKG on admission shows atrial fibrillation with a rapid ventricular response, rate 115 She received metoprolol tartrate 25 mg 1 dose in the ER and her rate has been controlled in the 80s and 90s Chads Vasc score of 5 She was started on metoprolol tartrate 37.5 mg p.o. b.i.d. Eliquis 5 mg p.o. b.i.d. Monitor on telemetry BMP 2330 Echo pending TSH elevated 11.7. Free T4 pending Cardiology consult and recommendations appreciated (2) Pneumonia: Code(s): J18.9 - Pneumonia, unspecified organism Status: Acute Assessment and Plan: CTA chest shows bilateral air opacities consistent with pneumonia and pulmonary edema Mild leukocytosis of 10.2 on admission Mycoplasma some IgM, urine pneumococcal antigen, urine Legionella pneumophila antigen pending Blood cultures ordered Procalcitonin 0.1, CRP mildly elevated 2.5 Incentive spirometry, pep therapy Started on Rocephin and doxycycline (3) Hypertension: Code(s): I10 - Essential (primary) hypertension Status: Acute Assessment and Plan: On amlodipine 5 mg daily Resume antihypertensive agent Blood pressure stable 105-115 systolic She is being started on metoprolol tartrate 37.5 mg b.i.d. Monitor blood pressures Subjective Date/time seen: 01/14/24 09:45 Interval history: This is a very pleasant 84-year-old female with reports of [place] in 2006, hypertension, gastroesophageal reflux disease, and ulcerative colitis who presented to the emergency department via private vehicle for evaluation of shortness of breath.? Please see the remainder of H&P for further details. 01/13: Patient is seen today resting in bed in no acute distress. She is tired because she did not sleep much last night. She reports that her shortness of breath has resolved with control of her rate. She no longer is having fluttering in her chest. She denies lightheaded or dizziness today. Review of Systems Review of Systems: All systems reviewed & are unremarkable except as noted in HPI and below Exam Narrative: General: well appearing, well developed, well nourished, appears stated age. HEENT: normocephalic, atraumatic. Mucous membranes moist. EOMI, PERRLA, bilateral sclera anicteric, no conjunctival injection. Neck supple without JVD, lymphadenopathy, or bruit. Respiratory: clear to auscultation bilaterally. No rales/rhonic/wheezes. Cardiovascular: irregular rate and rhythm, normal S1-S2 upon auscultation. No murmurs, rubs, or clicks. PMI is nondisplaced, capillary re-fill less than 3 second. Abdomen: Soft, flat, no pulsatile masses, non-distended and non-tender. No rebound, no guarding. No CVA tenderness, no hepatosplenomegaly. Bowel sounds present to all four quadrants. No high pitch or tinkling sounds, resonant to percussion. Extremities: No cyanosis, clubbing, or edema present. Pulses are palpable 2/2. Active ROM to all four extremities. Neuro: Alert and orientated x 4. PERRLA. Cranial nerves 2-12 intact without focal deficit. Skin: Warm, dry, and intact, without rash, erythema, or lesion. Lines: Incisions: Psych: pleasant, cooperative, normal speech, normal affect, no hallucinations, no dysarthria Objective Data Vital Signs Vital Signs: Vital Signs - 24 hr 01/13/24 15:29 01/13/24 18:03 01/13/24 18:19 Temperature 97.9 F Pulse Rate 100 108 H Respiratory Rate 20 Blood Pressure 148/98 H Pulse Oximetry 98 Oxygen Delivery Room Air Room Air 01/13/24 18:00 01/13/24 18:21 01/13/24 18:30 Temperature 97.6 F Pulse Rate 115 H 89 102 H Respiratory Rate 20 20 Blood Pressure 157/103 H 135/100 H Pulse Oximetry 95 95 Oxygen Delivery 01/13/24 23:17 01/13/24 17:41 01/13/24 17:47 Temperature Pulse Rate 124 H 112 H 121 H Respiratory Rate 23 H 25 H
[2024-01-14] MEDS: PERFLUTREN LIPID MICROSPHERES 1.5 ML VIAL DILUTED TO 10 ML TOTAL VOLUME IV PUSH (09:50)
[2024-01-14 10:54] LABS: Free T4 Free Thyroxine Reflex 1.17 ng/dL (0.78-2.19)
[2024-01-14] MEDS: MESALAMINE 400 MG DELAYED RELEASE CAPSULE 800 MG PO ×2 (12:22→20:40)
[2024-01-14] MEDS: APIXABAN 5 MG TABLET PO ×2 (12:22→20:15)
[2024-01-14] MEDS: ACETAMINOPHEN 500 MG TABLET 1000 MG PO (12:23)
[2024-01-14 12:27] LABS: Total Triiodothyronine (T3) 1.38 NG/ML (0.97-1.69)
[2024-01-14] MEDS: SODIUM CHLORIDE 0.9% IV 1,000 ML 75 ML IV CONT (18:53)
[2024-01-14] MEDS: ASPIRIN 81 MG ENTERIC TABLET PO (20:15)
[2024-01-14] MEDS: METOPROLOL TARTRATE 12.5 MG TABLET 37.5 MG PO (20:15)
[2024-01-14] MEDS: LORazepam (*CRX) 1 MG TABLET PO (20:15)
[2024-01-14] MEDS: LATANOPROST 0.005% OP SOLN 2.5 ML BTL 1 DROP EACH EYE (20:15)
[2024-01-15] VITALS (11 sets, daily range): BP systolic 94–132; BP diastolic 48–93; PULSE 81–116; RESP 18–24; TEMP 36.2–36.7; O2SAT 93–98
[2024-01-15 05:03] LABS: Basophils Absolute Auto 0.2 K/mm3 (0.0-0.1); Basophils Percent Auto 1.8 % (0.2-1.2); Eosinophils Absolute Auto 0.2 K/mm3 (0-0.3); Eosinophils Percent Auto 2.6 % (0-4.4); Hematocrit 34.3 % (37.0-47.0); Hemoglobin 10.2 g/dL (12.0-15.0); Immature Granulocyte Absolute 0.06 K/mm3 (0.00-0.031); Immature Granulocyte Percent A 0.7 % (0-0.5); Lymphocytes Absolute Auto 1.83 K/mm3 (0.9-3.2); Lymphocytes Percent Auto 20.6 % (18.3-44.2); Mean Corpuscular HGB Conc 29.7 g/dl (32-36); Mean Corpuscular Hemoglobin 25.5 pg (26-34); Mean Corpuscular Volume 85.8 fl (80-100); Mean Platelet Volume 11.9 fl (7.4-10.4); Monocytes Absolute Auto 1.3 K/mm3 (0.1-0.6); Monocytes Percent Auto 15.1 % (2.6-8.5); Neutrophils Absolute Auto 5.3 K/mm3 (1.3-6.7); Neutrophils Percent Auto 59.2 % (45.5-73.1); Platelet Count Result 350 k/mm3 (150-375); Red Cell Distribution Width 17.1 % (11.5-14.5); White Blood Count 8.9 K/mm3 (4.5-10.0)
[2024-01-15 05:10] LABS: Alanine Aminotransferase 76 U/L (6-35); Albumin Level 3.4 g/dL (3.5-5.1); Alkaline Phosphatase 74 U/L (38-126); Anion Gap 7 mmol/L (4-12); Aspartate Amino Transferase 86 U/L (14-36); Bilirubin,Total 0.9 mg/dL (0.2-1.3); Blood Urea Nitrogen 23 mg/dL (7-17); Calcium 8.7 mg/dL (8.4-10.2); Carbon Dioxide 22 mmol/L (22-30); Chloride 110 mmol/L (98-107); Estimated CRCL calculation 42 ml/min; Estimated Glomerular Filt Rate 48; Glucose 91 mg/dL (65-110); Potassium 3.9 mmol/L (3.4-5.0); Sodium 139 mmol/L (137-145)
[2024-01-15 05:36] LABS: Anisocytosis 1+; Hypochromasia 1+; Platelet Estimate Adequate (Adequate); Poikilocytosis 1+; Schistocytes None Seen
[2024-01-15] MEDS: DOXYCYCLINE HYCLATE 100 MG TABLET PO ×2 (09:06→19:55)
[2024-01-15] MEDS: PANTOPRAZOLE 40 MG TABLET PO (09:07)
[2024-01-15] MEDS: MESALAMINE 400 MG DELAYED RELEASE CAPSULE 800 MG PO ×2 (09:07→17:08)
[2024-01-15] MEDS: METOPROLOL TARTRATE 12.5 MG TABLET 37.5 MG PO (09:07)
[2024-01-15] MEDS: amLODIPine BESYLATE 5 MG TABLET PO (09:08)
[2024-01-15] MEDS: APIXABAN 5 MG TABLET PO ×2 (09:09→19:55)
--- NOTE | 2024-01-15 11:16 | PM.PNCARD ---
Progress Note: A&P Assessment and Plan (1) Atrial fibrillation with RVR: Code(s): I48.91 - Unspecified atrial fibrillation Status: Acute Assessment and Plan: This is a new diagnosis. Likely recent onset with symptoms recognized ~36 hours ago. I discussed this diagnosis including pathophysiology, complications, and management strategies. Discussed rate control vs. rhythm control. She has already been started on oral metoprolol and her rate is better controlled. Will continue with rate control and begin anticoagulation with intention of outpatient cardioversion in ~4 weeks. Because of her cardiomyopathy, will transition her to Toprol XL 75 mg p.o. daily and up titrate as able. She has a CHADs2 Vasc score of 5 (age, female gender, HTN, CAD). Continue Eliquis 5mg b.i.d. Severe mitral and tricuspid regurgitation. Continue to monitor on telemetry (2) Shortness of breath: Code(s): R06.02 - Shortness of breath Status: Acute Assessment and Plan: Recurrent. Will start furosemide (3) Elevated brain natriuretic peptide (BNP) level: Code(s): R79.89 - Other specified abnormal findings of blood chemistry Status: Acute Assessment and Plan: She has a mild cardiomyopathy insignificant valvular heart disease. Will start furosemide 40 mg daily and 20 mEq of potassium chloride. Discontinue amlodipine and will add low-dose Entresto 12/13 mg 1 tablet p.o. b.i.d.. (4) Hypertension: Code(s): I10 - Essential (primary) hypertension Status: Acute Assessment and Plan: Currently at goal. But with the additions to her regimen, BP will need to be monitored (5) CAD (coronary artery disease): Code(s): I25.10 - Atherosclerotic heart disease of [place] coronary artery without angina pectoris Status: Acute Assessment and Plan: History of [place] in 2006. Not reporting any anginal symptoms, however, new AF may be related to worsening CAD. Troponin levels were negative. Can perform outpatient ischemia evaluation (6) Valvular heart disease: Code(s): I38 - Endocarditis, valve unspecified Status: Acute Assessment and Plan: Echo shows severe mitral and tricuspid regurgitation. (7) Cardiomyopathy: Code(s): I42.9 - Cardiomyopathy, unspecified Status: Acute Assessment and Plan: EF 45-50%. Changing to long-acting metoprolol. Adding Entresto. Starting furosemide and potassium supplementation. Needs ischemic evaluation. And heart rate control. Subjective Date/time seen: 01/15/24 11:16 Interval history: This is a very pleasant 84-year-old female with reports of [place] in 2006, hypertension, gastroesophageal reflux disease, and ulcerative colitis who presented to the emergency department via private vehicle for evaluation of shortness of breath.? Date of service 01/15/2024: Still short of breath. Heart rate 95-110. No chest pain Review of Systems Review of Systems: All systems reviewed & are unremarkable except as noted in HPI and below Cardiovascular: Cardiovascular: Denies chest pain and Denies palpitations Respiratory: Respiratory: Reports dyspnea Exam Const: General: comfortable, no acute distress, alert and awake Orientation/consciousness: patient oriented x3 HENMT: Head: normal to inspection Eyes: General: appearance normal, both eyes and all related structures Sclera: sclerae normal Neck: Neck: normal visual inspection, supple and no JVD Carotids: normal carotid upstroke Resp: Effort & Inspection: normal respiratory effort Auscultation: clear to auscultation bilaterally Cardio: Rate: tachycardic Rhythm: abnormal rhythm irregularly irregular Heart sounds: S1 normal heart sound present, S2 normal heart sound present and no murmurs GI: Auscultation: normal bowel sounds Skin: General skin exam: normal color Neuro: General: patient oriented x3 Cranial nerves: Yes Equal, round and reactive pupils present Ex
[2024-01-15] MEDS: METOPROLOL SUCCINATE EXT REL 25 MG, METOPROLOL SUCCINATE EXT REL 50 MG 75 MG PO (13:08)
[2024-01-15] MEDS: FUROSEMIDE 40 MG TABLET PO (13:09)
--- NOTE | 2024-01-15 15:40 | PM.IMPN ---
Progress Note: A&P Assessment and Plan (1) New onset atrial fibrillation: Code(s): I48.91 - Unspecified atrial fibrillation Status: Acute Assessment and Plan: EKG on admission shows atrial fibrillation with a rapid ventricular response, rate 115 Chads Vasc score of 5 Cardiology following change metoprolol to 75 XL and titrate as able Eliquis 5 mg p.o. b.i.d. Monitor on telemetry Echo showed severe mitral and tricuspid regurgitation TSH elevated 11.7. Free T4 WNL Adding Entresto. Starting furosemide and potassium supplementation. Needs ischemic evaluation (2) Pneumonia: Code(s): J18.9 - Pneumonia, unspecified organism Status: Acute Assessment and Plan: CTA chest shows bilateral air opacities consistent with pneumonia and pulmonary edema Mycoplasma some IgM, urine pneumococcal antigen, urine Legionella pneumophila antigen pending Blood cultures pending Procalcitonin 0.1, CRP mildly elevated 2.5 Incentive spirometry, pep therapy con't Rocephin and doxycycline (3) Hypertension: Code(s): I10 - Essential (primary) hypertension Status: Chronic Assessment and Plan: On amlodipine 5 mg daily Resume antihypertensive agent Monitor blood pressures Subjective Date/time seen: 01/15/24 15:40 Interval history: Patient in no acute distress, denies any pain, chest but endorses SOB with exertion and when out of bed. Cardiology following, will follow recs and plan for d/c when cleared and stable. Continue to treat for PNA, patient reports improvement with her cough. Review of Systems Review of Systems: All systems reviewed & are unremarkable except as noted in HPI and below Exam Narrative: General: well appearing, well developed, well nourished, appears stated age. HEENT: normocephalic, atraumatic. Mucous membranes moist. EOMI, PERRLA Respiratory: clear to auscultation bilaterally. No rales/rhonic/wheezes. Cardiovascular: irregular rate and rhythm, normal S1-S2 u Abdomen: Soft, flat, non-distended and non-tender. Bowel sounds present to all four quadrants. Extremities: No cyanosis, clubbing, or edema present. Pulses are palpable 2/2. Active ROM to all four extremities. Neuro: Alert and orientated x 3. Cranial nerves 2-12 intact without focal deficit. Skin: Warm, dry, and intact, without rash, erythema, or lesion. Psych: pleasant, cooperative, normal speech, normal affect, no hallucinations, no dysarthria Objective Data Vital Signs Vital Signs: Vital Signs - 24 hr 01/14/24 16:00 01/14/24 18:56 01/14/24 16:00 Temperature 97.3 F L 97.4 F L Pulse Rate 106 H 99 99 Respiratory Rate 20 22 H Blood Pressure 113/83 135/98 H Pulse Oximetry 98 98 Oxygen Delivery 01/14/24 20:00 01/14/24 20:15 01/14/24 20:00 Temperature Pulse Rate 99 93 114 H Respiratory Rate 22 H Blood Pressure Pulse Oximetry 98 Oxygen Delivery Room Air 01/14/24 23:49 01/15/24 00:00 01/15/24 04:00 Temperature 97.7 F Pulse Rate 90 81 100 Respiratory Rate 18 Blood Pressure 106/56 L Pulse Oximetry 92 Oxygen Delivery 01/15/24 05:21 01/15/24 08:12 01/15/24 09:07 Temperature 97.9 F 97.7 F Pulse Rate 103 H 107 H 84 Respiratory Rate 18 20 Blood Pressure 117/51 L 126/93 H Pulse Oximetry 97 94 Oxygen Delivery 01/15/24 08:00 01/15/24 08:00 01/15/24 12:09 Temperature 97.5 F L Pulse Rate 84 101 H Respiratory Rate 24 H Blood Pressure 113/65 Pulse Oximetry 93 Oxygen Delivery Room Air 01/15/24 12:00 01/15/24 13:08 Temperature Pulse Rate 107 H 98 Respiratory Rate Blood Pressure Pulse Oximetry Oxygen Delivery Intake/Output Intake/Output: Intake & Output 01/12/24 01/13/24 01/14/24 01/15/24 23:59 23:59 23:59 23:59 Intake Total 50 1120 1670 Output Total 750 Balance 50 370 1670 Meds/Results Medications: Active Medications Generic Name Dose Route Start Last Admin Trade
[2024-01-15] MEDS: POTASSIUM CHLORIDE 20 MEQ ER TABLET PO (17:04)
[2024-01-15] MEDS: LATANOPROST 0.005% OP SOLN 2.5 ML BTL 1 DROP EACH EYE (19:55)
[2024-01-15] MEDS: ASPIRIN 81 MG ENTERIC TABLET PO (19:55)
[2024-01-15] MEDS: SACUBITRIL/VALSARTAN 12-13 MG TABLET 1 TAB PO (20:10)
[2024-01-16] VITALS (11 sets, daily range): BP systolic 106–127; BP diastolic 59–89; PULSE 52–108; RESP 18; TEMP 36.3–36.7; O2SAT 92–97
[2024-01-16] MEDS: LORazepam (*CRX) 1 MG TABLET PO (01:20)
[2024-01-16 04:58] LABS: Basophils Absolute Auto 0.2 K/mm3 (0.0-0.1); Basophils Percent Auto 1.5 % (0.2-1.2); Eosinophils Absolute Auto 0.2 K/mm3 (0-0.3); Eosinophils Percent Auto 2.2 % (0-4.4); Hematocrit 32.6 % (37.0-47.0); Hemoglobin 9.9 g/dL (12.0-15.0); Immature Granulocyte Absolute 0.11 K/mm3 (0.00-0.031); Lymphocytes Percent Auto 22.7 % (18.3-44.2); Mean Corpuscular HGB Conc 30.4 g/dl (32-36); Mean Corpuscular Volume 85.6 fl (80-100); Mean Platelet Volume 11.8 fl (7.4-10.4); Monocytes Absolute Auto 1.5 K/mm3 (0.1-0.6); Monocytes Percent Auto 13.2 % (2.6-8.5); Neutrophils Absolute Auto 6.6 K/mm3 (1.3-6.7); Neutrophils Percent Auto 59.4 % (45.5-73.1); Nucleated Red Blood Cells Perc 0.3 % (0.0-0.2); Platelet Count Result 341 k/mm3 (150-375); Red Blood Count 3.81 M/mm3 (4.2-5.4); Red Cell Distribution Width 17.2 % (11.5-14.5)
[2024-01-16 05:08] LABS: Alanine Aminotransferase 138 U/L (6-35); Albumin Level 3.3 g/dL (3.5-5.1); Alkaline Phosphatase 83 U/L (38-126); Anion Gap 4 mmol/L (4-12); Aspartate Amino Transferase 161 U/L (14-36); Bilirubin,Total 0.8 mg/dL (0.2-1.3); Blood Urea Nitrogen 22 mg/dL (7-17); Calcium 8.8 mg/dL (8.4-10.2); Carbon Dioxide 25 mmol/L (22-30); Chloride 109 mmol/L (98-107); Estimated CRCL calculation 42 ml/min; Estimated Glomerular Filt Rate 48; Glucose 95 mg/dL (65-110); Sodium 138 mmol/L (137-145)
[2024-01-16 05:54] LABS: Potassium 3.5 mmol/L (3.4-5.0)
[2024-01-16 08:54] LABS: Hepatitis B Surface Antigen Negative (Negative)
[2024-01-16 09:00] LABS: HAV RESULT Negative (Negative); Hepatitis B Core IgM Result Negative (Negative)
[2024-01-16] MEDS: METOPROLOL SUCCINATE EXT REL 25 MG, METOPROLOL SUCCINATE EXT REL 50 MG 75 MG PO (09:05)
[2024-01-16] MEDS: DOXYCYCLINE HYCLATE 100 MG TABLET PO ×2 (09:06→21:31)
[2024-01-16] MEDS: MESALAMINE 400 MG DELAYED RELEASE CAPSULE 800 MG PO ×2 (09:06→17:10)
[2024-01-16] MEDS: FUROSEMIDE 40 MG TABLET PO (09:06)
[2024-01-16] MEDS: SACUBITRIL/VALSARTAN 12-13 MG TABLET 1 TAB PO ×2 (09:06→21:31)
[2024-01-16] MEDS: APIXABAN 5 MG TABLET PO ×2 (09:06→21:31)
[2024-01-16] MEDS: POTASSIUM CHLORIDE 20 MEQ ER TABLET PO (09:07)
[2024-01-16] MEDS: PANTOPRAZOLE 40 MG TABLET PO (09:07)
[2024-01-16 09:12] LABS: Hepatitis C Virus Antibody Negative (Negative)
--- NOTE | 2024-01-16 10:13 | PM.PNCARD ---
Progress Note: A&P Assessment and Plan (1) Atrial fibrillation with RVR: Code(s): I48.91 - Unspecified atrial fibrillation Status: Acute Assessment and Plan: This is a new diagnosis. Likely recent onset with symptoms recognized ~36 hours ago. I discussed this diagnosis including pathophysiology, complications, and management strategies. Discussed rate control vs. rhythm control. She has already been started on oral metoprolol and her rate is better controlled. Will continue with rate control and begin anticoagulation with intention of outpatient cardioversion in ~4 weeks. Because of her cardiomyopathy, will transition her to Toprol XL 75 mg p.o. daily and up titrate as able. She has a CHADs2 Vasc score of 5 (age, female gender, HTN, CAD). Continue Eliquis 5mg b.i.d. Severe mitral and tricuspid regurgitation. Continue to monitor on telemetry (2) Shortness of breath: Code(s): R06.02 - Shortness of breath Status: Acute Assessment and Plan: Improving. Continue furosemide. (3) Elevated brain natriuretic peptide (BNP) level: Code(s): R79.89 - Other specified abnormal findings of blood chemistry Status: Acute Assessment and Plan: She has a mild cardiomyopathy and significant valvular heart disease. - furosemide 40 mg daily and 20 mEq of potassium chloride. - Entresto 12/13 mg 1 tablet p.o. b.i.d.. (4) Hypertension: Code(s): I10 - Essential (primary) hypertension Status: Chronic Assessment and Plan: Currently at goal. But with the additions to her regimen, BP will need to be monitored. Tolerating GSMT so far. (5) CAD (coronary artery disease): Code(s): I25.10 - Atherosclerotic heart disease of [place] coronary artery without angina pectoris Status: Acute Assessment and Plan: History of [place] in 2006. Not reporting any anginal symptoms, however, new AF may be related to worsening CAD. Troponin levels were negative. Can perform outpatient ischemia evaluation (6) Valvular heart disease: Code(s): I38 - Endocarditis, valve unspecified Status: Acute Assessment and Plan: Echo shows severe mitral and tricuspid regurgitation. (7) Cardiomyopathy: Code(s): I42.9 - Cardiomyopathy, unspecified Status: Acute Assessment and Plan: EF 45-50%. -Continue Toprol XL -Continue Entresto. -Continue furosemide -Needs ischemic evaluation. -Heart rate control. Subjective Date/time seen: 01/16/24 10:13 Interval history: This is a very pleasant 84-year-old female with reports of [place] in 2006, hypertension, gastroesophageal reflux disease, and ulcerative colitis who presented to the emergency department via private vehicle for evaluation of shortness of breath.? Date of service 01/15/2024: Still short of breath. Heart rate 95-110. No chest pain Date of service 01/16/2024: Feeling better today. Heart rate remains controlled. Denies shortness of breath, chest pain. Review of Systems Review of Systems: All systems reviewed & are unremarkable except as noted in HPI and below Cardiovascular: Cardiovascular: Denies chest pain, Denies palpitations and Reports dyspnea Respiratory: Respiratory: Reports dyspnea Endocrine: Endocrine: Denies palpitations Exam Const: General: comfortable, no acute distress, alert and awake Orientation/consciousness: patient oriented x3 HENMT: Head: normal to inspection Eyes: General: appearance normal, both eyes and all related structures Sclera: sclerae normal Pupils: Equal, round and reactive pupils present Neck: Neck: normal visual inspection, supple and no JVD Carotids: normal carotid upstroke Resp: Effort & Inspection: normal respiratory effort Auscultation: clear to auscultation bilaterally Cardio: Rate: regular rate Rhythm: abnormal rhythm irregularly irregular Heart sounds: S1 normal heart sound present, S2 normal heart sound present and no murmurs GI:
--- NOTE | 2024-01-16 15:48 | IVDEFINITY ---
Prior to administration of IV Definity the patient was educated on the risks and benefits of the imaging enhancing agent including potential adverse side effects. The patient verbalized understanding. Allergies were verified. No exclusion criteria were identified and at least one of the following inclusion criteria were met: 1) physician request, 2) patient technically difficult to image (per the [place] [employer] guidelines of two or more segments not discernable within the apical view), or 3) questionable left ventricular function. ?
--- NOTE | 2024-01-16 16:02 | PM.IMPN ---
Progress Note: A&P Assessment and Plan (1) New onset atrial fibrillation: Code(s): I48.91 - Unspecified atrial fibrillation Status: Acute Assessment and Plan: EKG on admission shows atrial fibrillation with a rapid ventricular response, rate 115 Chads Vasc score of 5 Cardiology following change metoprolol to 75 XL and titrate as able Eliquis 5 mg p.o. b.i.d. Monitor on telemetry Echo showed severe mitral and tricuspid regurgitation TSH elevated 11.7. Free T4 WNL Adding Entresto. Starting furosemide and potassium supplementation. Needs ischemic evaluation, can be done outpatient per cardiology (2) Pneumonia: Code(s): J18.9 - Pneumonia, unspecified organism Status: Acute Assessment and Plan: CTA chest shows bilateral air opacities consistent with pneumonia and pulmonary edema Mycoplasma some IgM, urine pneumococcal antigen, urine Legionella pneumophila antigen pending Blood cultures pending Procalcitonin 0.1, CRP mildly elevated 2.5 Incentive spirometry, pep therapy con't Rocephin and doxycycline (3) Hypertension: Code(s): I10 - Essential (primary) hypertension Status: Chronic Assessment and Plan: On amlodipine 5 mg daily Resume antihypertensive agent Monitor blood pressures Subjective Date/time seen: 01/16/24 16:02 Interval history: Patient in no acute distress, denies any pain, chest but endorses SOB with exertion and when out of bed. Cardiology following, will plan for d/c when cleared and stable. Review of Systems Review of Systems: All systems reviewed & are unremarkable except as noted in HPI and below Exam Narrative: General: well appearing, well developed, well nourished, appears stated age. HEENT: normocephalic, atraumatic. Mucous membranes moist. EOMI, PERRLA Respiratory: clear to auscultation bilaterally. No rales/rhonic/wheezes. Cardiovascular: irregular rate and rhythm, normal S1-S2 u Abdomen: Soft, flat, non-distended and non-tender. Bowel sounds present to all four quadrants. Extremities: No cyanosis, clubbing, or edema present. Pulses are palpable 2/2. Active ROM to all four extremities. Neuro: Alert and orientated x 3. Cranial nerves 2-12 intact without focal deficit. Skin: Warm, dry, and intact, without rash, erythema, or lesion. Psych: pleasant, cooperative, normal speech, normal affect, no hallucinations, no dysarthria Objective Data Vital Signs Vital Signs: Vital Signs - 24 hr 01/15/24 20:00 01/15/24 20:00 01/15/24 20:00 Temperature 98.0 F Pulse Rate 116 H 116 H 113 H Respiratory Rate 20 20 Blood Pressure 132/78 Pulse Oximetry 93 96 Oxygen Delivery Nasal Cannula Oxygen Flow Rate 2 01/16/24 00:00 01/16/24 00:36 01/16/24 04:00 Temperature 97.4 F L Pulse Rate 97 103 H 90 Respiratory Rate 18 Blood Pressure 116/76 Pulse Oximetry 92 Oxygen Delivery Oxygen Flow Rate 01/16/24 04:00 01/16/24 08:00 01/16/24 08:33 Temperature 97.7 F 97.6 F Pulse Rate 75 108 H Respiratory Rate 18 18 Blood Pressure 127/85 115/59 L Pulse Oximetry 93 92 92 Oxygen Delivery Room Air Oxygen Flow Rate 01/16/24 09:05 01/16/24 08:00 01/16/24 08:00 Temperature Pulse Rate 97 97 Respiratory Rate Blood Pressure Pulse Oximetry Oxygen Delivery Room Air Oxygen Flow Rate 01/16/24 12:00 01/16/24 12:00 Temperature 97.5 F L Pulse Rate 65 103 H Respiratory Rate 18 Blood Pressure 122/88 Pulse Oximetry 97 Oxygen Delivery Oxygen Flow Rate Intake/Output Intake/Output: Intake & Output 01/13/24 01/14/24 01/15/24 01/16/24 23:59 23:59 23:59 23:59 Intake Total 50 1120 2210 560 Output Total 750 400 Balance 50 370 1810 560 Meds/Results Medications: Active Medications Generic Name Dose Route Start Last Admin Trade Name Freq PRN Reason Stop Dose Admin Acetaminophen 1,000 mg 01/14/24 10:04 01/14/24 12:23 Acetaminophen 500 Mg Tab
--- NOTE | 2024-01-16 17:27 | PC.NURSE ---
patient to room 244 from IMU 206. Oriented to new room and instructed to use call button for any assistance.
[2024-01-16] MEDS: ASPIRIN 81 MG ENTERIC TABLET PO (21:31)
[2024-01-16] MEDS: LATANOPROST 0.005% OP SOLN 2.5 ML BTL 1 DROP EACH EYE (21:33)
[2024-01-17] VITALS (11 sets, daily range): BP systolic 122–126; BP diastolic 69–74; PULSE 72–125; RESP 16–18; TEMP 36.3–36.5; O2SAT 96
[2024-01-17 00:32] LABS: Legionella pneumophila Ag Ur Not Detected (Not Detected)
[2024-01-17 01:27] LABS: Pneumococcal Antigen Urine Not Detected (Not Detected)
[2024-01-17 05:44] LABS: Basophils Absolute Auto 0.2 K/mm3 (0.0-0.1); Basophils Percent Auto 1.6 % (0.2-1.2); Eosinophils Absolute Auto 0.3 K/mm3 (0-0.3); Eosinophils Percent Auto 2.6 % (0-4.4); Hematocrit 35.2 % (37.0-47.0); Hemoglobin 10.5 g/dL (12.0-15.0); Immature Granulocyte Absolute 0.08 K/mm3 (0.00-0.031); Immature Granulocyte Percent A 0.7 % (0-0.5); Lymphocytes Absolute Auto 2.29 K/mm3 (0.9-3.2); Lymphocytes Percent Auto 20.2 % (18.3-44.2); Mean Corpuscular HGB Conc 29.8 g/dl (32-36); Mean Corpuscular Hemoglobin 25.1 pg (26-34); Mean Corpuscular Volume 84.2 fl (80-100); Mean Platelet Volume 11.7 fl (7.4-10.4); Monocytes Absolute Auto 1.6 K/mm3 (0.1-0.6); Monocytes Percent Auto 14.1 % (2.6-8.5); Neutrophils Absolute Auto 6.9 K/mm3 (1.3-6.7); Neutrophils Percent Auto 60.8 % (45.5-73.1); Nucleated Red Blood Cells Perc 0.2 % (0.0-0.2); Platelet Count Result 411 k/mm3 (150-375); Red Blood Count 4.18 M/mm3 (4.2-5.4); Red Cell Distribution Width 17.2 % (11.5-14.5); White Blood Count 11.3 K/mm3 (4.5-10.0)
[2024-01-17 05:53] LABS: Alanine Aminotransferase 119 U/L (6-35); Albumin Level 3.4 g/dL (3.5-5.1); Alkaline Phosphatase 84 U/L (38-126); Anion Gap 3 mmol/L (4-12); Aspartate Amino Transferase 87 U/L (14-36); Bilirubin,Total 0.9 mg/dL (0.2-1.3); Blood Urea Nitrogen 17 mg/dL (7-17); Calcium 8.6 mg/dL (8.4-10.2); Carbon Dioxide 28 mmol/L (22-30); Chloride 107 mmol/L (98-107); Estimated CRCL calculation 51 ml/min; Estimated Glomerular Filt Rate 60; Glucose 97 mg/dL (65-110); Potassium 3.5 mmol/L (3.4-5.0); Sodium 138 mmol/L (137-145)
[2024-01-17 06:33] LABS: Anisocytosis 1+; Hypochromasia 1+; Platelet Estimate Adequate (Adequate)
[2024-01-17 06:34] LABS: Poikilocytosis 1+; Schistocytes None Seen
--- NOTE | 2024-01-17 08:36 | PM.PNCARD ---
Progress Note: A&P Assessment and Plan (1) Atrial fibrillation with RVR: Code(s): I48.91 - Unspecified atrial fibrillation Status: Acute Assessment and Plan: This is a new diagnosis. Likely recent onset with symptoms recognized ~36 hours ago. I discussed this diagnosis including pathophysiology, complications, and management strategies. Discussed rate control vs. rhythm control. She has already been started on oral metoprolol and her rate is better controlled. Will continue with rate control and begin anticoagulation with intention of outpatient cardioversion in ~4 weeks. Generally rate controlled but does have some tachycardia with activity Increase Toprol XL to 100 mg p.o. daily and up titrate as able Give additional Toprol XL 25mg now She has a CHADs2 Vasc score of 5 (age, female gender, HTN, CAD). Continue Eliquis 5mg b.i.d. Severe mitral and tricuspid regurgitation. Continue to monitor on telemetry If heart rate better controlled with increased dose of metoprolol, OK for discharge later today (2) Shortness of breath: Code(s): R06.02 - Shortness of breath Status: Acute Assessment and Plan: Improving. Continue furosemide. (3) Elevated brain natriuretic peptide (BNP) level: Code(s): R79.89 - Other specified abnormal findings of blood chemistry Status: Acute Assessment and Plan: She has a mild cardiomyopathy and significant valvular heart disease. - furosemide 40 mg daily and 20 mEq of potassium chloride. - Entresto 12/13 mg 1 tablet p.o. b.i.d.. (4) Hypertension: Code(s): I10 - Essential (primary) hypertension Status: Chronic Assessment and Plan: Currently at goal. But with the additions to her regimen, BP will need to be monitored. Tolerating GSMT so far. (5) CAD (coronary artery disease): Code(s): I25.10 - Atherosclerotic heart disease of [place] coronary artery without angina pectoris Status: Acute Assessment and Plan: History of [place] in 2006. Not reporting any anginal symptoms, however, new AF may be related to worsening CAD. Troponin levels were negative. Can perform outpatient ischemia evaluation (6) Valvular heart disease: Code(s): I38 - Endocarditis, valve unspecified Status: Acute Assessment and Plan: Echo shows severe mitral and tricuspid regurgitation. (7) Cardiomyopathy: Code(s): I42.9 - Cardiomyopathy, unspecified Status: Acute Assessment and Plan: EF 45-50%. -Continue Toprol XL -Continue Entresto. -Continue furosemide -Needs ischemic evaluation. -Heart rate control. Subjective Date/time seen: 01/17/24 08:36 Interval history: This is a very pleasant 84-year-old female with reports of [place] in 2005, hypertension, gastroesophageal reflux disease, and ulcerative colitis who presented to the emergency department via private vehicle for evaluation of shortness of breath.? Date of service 01/15/2024: Still short of breath. Heart rate 95-110. No chest pain Date of service 01/16/2024: Feeling better today. Heart rate remains controlled. Denies shortness of breath, chest pain. Date of service 01/17/2024: Feels okay today. She does have some tachycardia with activity - she does not feel palpitations or shortness of breath when she is tachycardic but states she feels tired. No chest pain. Review of Systems Review of Systems: All systems reviewed & are unremarkable except as noted in HPI and below Cardiovascular: Cardiovascular: Denies chest pain, Denies palpitations and Reports dyspnea Respiratory: Respiratory: Reports dyspnea Endocrine: Endocrine: Denies palpitations Exam Const: General: comfortable, no acute distress, alert and awake Orientation/consciousness: patient oriented x3 HENMT: Head: normal to inspection Eyes: General: appearance normal, both eyes and all related structures Sclera: sclerae normal Pupils: Equal, round and reactive
[2024-01-17] MEDS: FUROSEMIDE 40 MG TABLET PO (09:07)
[2024-01-17] MEDS: APIXABAN 5 MG TABLET PO ×2 (09:07→20:42)
[2024-01-17] MEDS: DOXYCYCLINE HYCLATE 100 MG TABLET PO ×2 (09:07→20:42)
[2024-01-17] MEDS: MESALAMINE 400 MG DELAYED RELEASE CAPSULE 800 MG PO ×2 (09:07→17:52)
[2024-01-17] MEDS: METOPROLOL SUCCINATE EXT REL 25 MG, METOPROLOL SUCCINATE EXT REL 50 MG 75 MG PO (09:07)
[2024-01-17] MEDS: POTASSIUM CHLORIDE 20 MEQ ER TABLET PO (09:08)
[2024-01-17] MEDS: PANTOPRAZOLE 40 MG TABLET PO (09:08)
[2024-01-17] MEDS: SACUBITRIL/VALSARTAN 12-13 MG TABLET 1 TAB PO ×2 (09:08→20:42)
[2024-01-17] MEDS: METOPROLOL SUCCINATE EXT REL 25 MG TABCR PO (12:42)
[2024-01-17 13:15] LABS: Mycoplasma IgM Antibody Titer 19 U/mL (<770)
--- NOTE | 2024-01-17 16:08 | PM.IMPN ---
Progress Note: A&P Assessment and Plan (1) New onset atrial fibrillation: Code(s): I48.91 - Unspecified atrial fibrillation Status: Acute Assessment and Plan: EKG on admission shows atrial fibrillation with a rapid ventricular response, rate 115 Chads Vasc score of 5 Cardiology following metoprolol increased to 100 XL daily, additional 25 mg given this am Eliquis 5 mg p.o. b.i.d. Monitor on telemetry Echo showed severe mitral and tricuspid regurgitation TSH elevated 11.7. Free T4 WNL Entresto. furosemide and potassium supplementation. Needs ischemic evaluation, can be done outpatient per cardiology (2) Pneumonia: Code(s): J18.9 - Pneumonia, unspecified organism Status: Acute Assessment and Plan: CTA chest shows bilateral air opacities consistent with pneumonia and pulmonary edema Mycoplasma some IgM, urine pneumococcal antigen, urine Legionella pneumophila antigen pending Blood cultures pending Procalcitonin 0.1, CRP mildly elevated 2.5 Incentive spirometry, pep therapy transition to PO Augmentin and doxycycline for 5 day course (3) Hypertension: Code(s): I10 - Essential (primary) hypertension Status: Chronic Assessment and Plan: amlodipine 5 mg daily Monitor blood pressures Subjective Date/time seen: 01/17/24 16:08 Interval history: Patient feels ready to go home. No distress, denies chest pain or SOB. Her heart rate is still not controlled. Cardiology following, hopeful for d/c tomorrow if rate can be better controlled as it was still tachycardic at times on tele this afternoon. Review of Systems Review of Systems: All systems reviewed & are unremarkable except as noted in HPI and below Exam Narrative: General: well appearing, well developed, well nourished, appears stated age. HEENT: normocephalic, atraumatic. Mucous membranes moist. EOMI, PERRLA Respiratory: clear to auscultation bilaterally. Cardiovascular: irregular rate and rhythm, normal S1-S2 Abdomen: Soft, flat, non-distended and non-tender. Bowel sounds present Extremities: No cyanosis, clubbing, or edema present. Pulses are palpable 2/2. Neuro: Alert and orientated x 3. Cranial nerves 2-12 intact without focal deficit. Skin: Warm, dry, and intact, without rash, erythema, or lesion. Psych: pleasant, cooperative, normal speech, normal affect Objective Data Vital Signs Vital Signs: Vital Signs - 24 hr 01/16/24 16:30 01/16/24 22:01 01/16/24 20:00 Temperature 97.6 F 98.1 F Pulse Rate 52 L 107 H Respiratory Rate 18 18 Blood Pressure 106/89 122/82 Pulse Oximetry 94 97 Oxygen Delivery Room Air 01/16/24 20:00 01/17/24 00:00 01/17/24 04:00 Temperature Pulse Rate 95 104 H 99 Respiratory Rate Blood Pressure Pulse Oximetry Oxygen Delivery 01/17/24 05:55 01/17/24 09:07 01/17/24 08:00 Temperature 97.7 F Pulse Rate 88 88 103 H Respiratory Rate 18 Blood Pressure 122/69 Pulse Oximetry 96 Oxygen Delivery 01/17/24 08:00 01/17/24 12:42 01/17/24 12:00 Temperature Pulse Rate 88 114 H Respiratory Rate Blood Pressure Pulse Oximetry Oxygen Delivery Room Air 01/17/24 14:00 Temperature 97.6 F Pulse Rate 72 Respiratory Rate 18 Blood Pressure 124/74 Pulse Oximetry 96 Oxygen Delivery Intake/Output Intake/Output: Intake & Output 01/14/24 01/15/24 01/16/24 01/17/24 23:59 23:59 23:59 23:59 Intake Total 1120 2210 1330 240 Output Total 824 673 4058 Balance 370 1810 330 240 Meds/Results Medications: Active Medications Generic Name Dose Route Start Last Admin Trade Name Freq PRN Reason Stop Dose Admin Acetaminophen 1,000 mg 01/14/24 10:04 01/14/24 12:23 Acetaminophen 500 Mg Tablet PO 1,000 mg Q6H PRN Administration Pain Amoxicillin/Clavulanate Potassium 1 tablet 01/17/24 21:00 Amoxicillin/Clavulanate K 875-125 Mg Tab PO 01/18/24 09:01 Q12HR [facility]
[2024-01-17] MEDS: ACETAMINOPHEN 500 MG TABLET 1000 MG PO (20:41)
[2024-01-17] MEDS: LATANOPROST 0.005% OP SOLN 2.5 ML BTL 1 DROP EACH EYE (20:41)
[2024-01-17] MEDS: AMOXICILLIN/CLAVULANATE K 875-125 MG TAB 1 TABLET PO (20:42)
[2024-01-17] MEDS: LORazepam (*CRX) 1 MG TABLET PO (20:42)
[2024-01-17] MEDS: ASPIRIN 81 MG ENTERIC TABLET PO (20:42)
[2024-01-18] VITALS (8 sets, daily range): BP systolic 110–128; BP diastolic 83–89; PULSE 78–126; RESP 16–20; TEMP 36.3–36.6; O2SAT 94–96
[2024-01-18 06:01] LABS: Hematocrit 35.6 % (37.0-47.0); Hemoglobin 10.8 g/dL (12.0-15.0); Mean Corpuscular HGB Conc 30.3 g/dl (32-36); Mean Corpuscular Hemoglobin 25.5 pg (26-34); Mean Corpuscular Volume 84.2 fl (80-100); Mean Platelet Volume 11.7 fl (7.4-10.4); Platelet Count Result 418 k/mm3 (150-375); Red Blood Count 4.23 M/mm3 (4.2-5.4); Red Cell Distribution Width 17.2 % (11.5-14.5); White Blood Count 9.5 K/mm3 (4.5-10.0)
[2024-01-18 06:12] LABS: Anion Gap 7 mmol/L (4-12); Blood Urea Nitrogen 18 mg/dL (7-17); Calcium 8.7 mg/dL (8.4-10.2); Carbon Dioxide 26 mmol/L (22-30); Chloride 105 mmol/L (98-107); Estimated CRCL calculation 51 ml/min; Estimated Glomerular Filt Rate 60; Glucose 134 mg/dL (65-110); Sodium 138 mmol/L (137-145)
[2024-01-18] MEDS: FUROSEMIDE 40 MG TABLET PO (08:50)
[2024-01-18] MEDS: POTASSIUM CHLORIDE 20 MEQ PACKET (FOR LIQUID) 40 MEQ PO (08:50)
[2024-01-18] MEDS: MESALAMINE 400 MG DELAYED RELEASE CAPSULE 800 MG PO (08:50)
[2024-01-18] MEDS: APIXABAN 5 MG TABLET PO (08:51)
[2024-01-18] MEDS: DOXYCYCLINE HYCLATE 100 MG TABLET PO (08:51)
[2024-01-18] MEDS: POTASSIUM CHLORIDE 20 MEQ ER TABLET PO (08:51)
[2024-01-18] MEDS: METOPROLOL SUCCINATE EXT REL 100 MG TABCR PO (08:51)
[2024-01-18] MEDS: SACUBITRIL/VALSARTAN 12-13 MG TABLET 1 TAB PO (09:02)
[2024-01-18] MEDS: AMOXICILLIN/CLAVULANATE K 875-125 MG TAB 1 TABLET PO (09:02)
[2024-01-18] MEDS: PANTOPRAZOLE 40 MG TABLET PO (09:03)
--- NOTE | 2024-01-18 13:07 | PM.PNCARD ---
Progress Note: A&P Assessment and Plan (1) Atrial fibrillation with RVR: Code(s): I48.91 - Unspecified atrial fibrillation Status: Acute Assessment and Plan: This is a new diagnosis. Likely recent onset with symptoms recognized ~36 hours ago. I discussed this diagnosis including pathophysiology, complications, and management strategies. Discussed rate control vs. rhythm control. She has already been started on oral metoprolol and her rate is better controlled. Will continue with rate control and begin anticoagulation with intention of outpatient cardioversion in ~4 weeks. Generally rate controlled but does have some tachycardia with activity Increase Toprol XL to 100 mg p.o. daily and up titrate as able Give additional Toprol XL 25mg now She has a CHADs2 Vasc score of 5 (age, female gender, HTN, CAD). Continue Eliquis 5mg b.i.d. Severe mitral and tricuspid regurgitation. Continue to monitor on telemetry Heart rate control marginal with activity up to 130s very brief feel to 140 in AFib. Will given additional Toprol XL 25 mg p.o. x1 as she received yesterday and recommend increase Toprol XL to 150 mg daily starting tomorrow. Heart rate is acceptable although not ideal for reason for discharge at this time. Patient is hemodynamically stable and tolerating activity. She would like to go home which I feel is reasonable. She is well compensated at present. Follow-up in the office as scheduled. Will observe for least an hour so after additional Toprol XL p.o. x1 now and if stable be discharged this afternoon. (2) Cardiomyopathy: Code(s): I42.9 - Cardiomyopathy, unspecified Status: Acute Assessment and Plan: EF 45-50%. -Continue Toprol XL -Continue Entresto. -Continue furosemide -Needs ischemic evaluation. -Heart rate control. Management as above. Optimize medical therapy as tolerated. (3) CAD (coronary artery disease): Code(s): I25.10 - Atherosclerotic heart disease of [place] coronary artery without angina pectoris Status: Acute Assessment and Plan: History of OK in 2006. Not reporting any anginal symptoms, however, new AF may be related to worsening CAD. Troponin levels were negative. Can perform outpatient ischemia evaluation (4) Hypertension: Code(s): I10 - Essential (primary) hypertension Status: Chronic Assessment and Plan: Currently at goal. But with the additions to her regimen, BP will need to be monitored. Tolerating GSMT so far. BP stable. (5) Elevated brain natriuretic peptide (BNP) level: Code(s): R79.89 - Other specified abnormal findings of blood chemistry Status: Acute Assessment and Plan: She has a mild cardiomyopathy and significant valvular heart disease. - furosemide 40 mg daily and 20 mEq of potassium chloride. -continue Entresto 12/13 mg 1 tablet p.o. b.i.d.. (6) Shortness of breath: Code(s): R06.02 - Shortness of breath Status: Acute Assessment and Plan: Improving. Continue furosemide 40 mg daily. Compensated.. (7) Valvular heart disease: Code(s): I38 - Endocarditis, valve unspecified Status: Acute Assessment and Plan: Echo shows severe mitral and tricuspid regurgitation. Outpatient management. Subjective Date/time seen: Date of service: 01/18/24 13:07 Interval history: This is a very pleasant 84-year-old female with reports of OK in 2005, hypertension, gastroesophageal reflux disease, and ulcerative colitis who presented to the emergency department via private vehicle for evaluation of shortness of breath.? Date of service 01/15/2024: Still short of breath. Heart rate 95-110. No chest pain Date of service 01/16/2024: Feeling better today. Heart rate remains controlled. Denies shortness of breath, chest pain. Date of service 01/17/2024: Feels okay today. She does have some tachycardia with activity - she does not feel palpitations or shortn
[2024-01-18] MEDS: METOPROLOL SUCCINATE EXT REL 25 MG TABCR PO (13:18)
--- NOTE | 2024-01-18 15:05 | PM.DS ---
DS: Admitting Diagnosis Discharge Date 01/18/24 Admitting Diagnosis New onset Atrial fibrillation Pneumonia Hypertension DS: Discharge Diagnosis Discharge Diagnosis (1) New onset atrial fibrillation: Code(s): I48.91 - Unspecified atrial fibrillation Status: Acute (2) Pneumonia: Code(s): J18.9 - Pneumonia, unspecified organism Status: Acute (3) Hypertension: Code(s): I10 - Essential (primary) hypertension Status: Chronic DS: Summary Hospital Course Reason for hospitalization: New onset Atrial fibrillation Pneumonia Hypertension Hospital Course: This is an 84-year-old female who presented to the hospital on 01/13/2024 with complaints of shortness of breath. In the ED they found that she was in AFib with RVR her rate was 120 and she was given and metoprolol 25 mg x 1 and her heart rate came down into the 80s to 90s. Other workup in the hospital includes a chest x-ray which showed airspace opacities of the mid and lower lung zones consistent with atelectasis versus pneumonia. She also had a chest CTA which was negative for pulmonary embolism but did show bilaterally opacities consistent with pneumonia and mild pulmonary edema. Labs are significant for a white blood cell count of 10.2, hemoglobin 11.6, D-dimer 1.39, AST 44, ALT 53, troponin was less than 0.12, proBNP was 2330. She did have blood cultures which were negative to date however this is preliminary reading. She did finish a course of antibiotics for the pneumonia. An echo was performed which shown mildly reduced LV systolic function with an estimated EF of 45-50%, normal RV systolic function, severe mitral and tricuspid valve regurgitation, left atrial enlargement. Cardiology was consulted and recommended metoprolol succinate XL 150 mg daily for rate control and they will follow up with her on an outpatient basis. On the metoprolol she is rate controlled while at rest she is 80s to 90s, with activity she can range 110 to 115. Cardiology was fine with her being discharged today. Labs today showed a white blood cell count down to 9.5 today, hemoglobin 10.8, potassium 3.0. She was given some potassium replacement. On exam today she is alert oriented x3, walking about the room. She is more than ready to go home however cardiology needed to see her 1st. She denies any fever, chills, nausea, vomiting, diarrhea, abdominal pain, chest pain, shortness a breath. She is stable for discharge at this time. She will need to follow up with her primary care in 1 week and with Cardiology within 2 weeks. Final diagnosis: New onset atrial fibrillation, pneumonia, hypertension Status at Discharge Cognitive/behavioral status at discharge: Alert oriented x4 Functional status at discharge: independent ambulation Overall status at discharge: patient is progressing back to baseline Time Spent with Patient Time attestation: Total time spent providing and/or coordinating discharge services: Time spent: Greater than 30 minutes Exam Narrative: General: In no acute distress, well nourished Head: atraumatic, no encephalopathy Eyes: EOMI, PERRLA, sclera clear ENT: moist mucous membranes, nasal passages clear Neck: supple, no JVD, no adenopathy, trachea midline Cardiac: Normal S1 and S2. Irregular rate and rhythm, AFib on monitor,, No murmur, gallops or friction rubs, peripheral pulses intact. Respiratory: Lungs clear to auscultation, no adventitious lung sounds currently on room air Gastrointestinal: soft, non-distended, non-tender, normoactive bowel sounds. : voiding without difficulty. Extremities: moves all extremities well, no edema, good ROM, strength 5/5 Skin: clean, dry, intact. No wounds or lesions. Neuro: Alert and oriented x4, cranial nerves intact, no neuro deficits. Psych: normal mood, normal affect, interactive DS: Data Data Completed and Pending Completed studies during hospitalization: Chest x-ray Chest CTA Pending studies at discha
--- NOTE | 2024-01-21 10:20 | PC.NURSE ---
Blood cx are negative.
== END 2024-01-18 15:45 | disposition home or self-care (01) | DRG 308 ==
LOC: ANHED 19:08 → ANH3MEDSUR 22:32 → ANHIMU 01-14 05:54 → ANH2MED 01-16 16:24
PROVIDERS: Emergency Medicine; Nurse Practitioner; Nurse Practitioner Acute Care; Physician Assistant; Admitting Provider Internal Medicine; Emergency Provider Physician Assistant; PCP Internal Medicine; Visit Provider Nurse Practitioner Acute Care
DX: I48.91 Unspecified atrial fibrillation (principal); J18.9 Pneumonia, unspecified organism; I10 Essential (primary) hypertension; Z20.822 Contact with and (suspected) exposure to COVID-19; M19.90 Unspecified osteoarthritis, unspecified site; H40.9 Unspecified glaucoma; F32.A Depression, unspecified; I25.10 Atherosclerotic heart disease of native coronary artery without angina pectoris; K21.9 Gastro-esophageal reflux disease without esophagitis; S62.307G Unspecified fracture of fifth metacarpal bone, left hand, subsequent encounter for fracture with delayed healing; X58.XXXD Exposure to other specified factors, subsequent encounter; I25.2 Old myocardial infarction; Z79.82 Long term (current) use of aspirin; Z96.653 Presence of artificial knee joint, bilateral; Z90.710 Acquired absence of both cervix and uterus; I42.9 Cardiomyopathy, unspecified; I34.0 Nonrheumatic mitral (valve) insufficiency; I07.1 Rheumatic tricuspid insufficiency
CPT/HCPCS: 36415; 71046; 71275; 80048; 80053; 80074; 83735; 83880; 84145; 84439; 84443; 84480; 84484; 85025; 85027; 85380; 85610; 85730; 86140; 86738; 87040; 87449; 87637; 87899; 93005; 94667; 96365; 96372; 96375; 96376; 97161; 97165; 97530; 97535; 99285; A9270; C8929; G0378; J0696; J1650; J2060; J2405; J7030; Q9957; Q9967

== ENCOUNTER 2024-02-12 12:41 | Outpatient (CLI) | payer MEDICARE, OTHER, SELFPAY ==
[2024-02-12 13:22] LABS: Anion Gap 8 mmol/L (4-12); Blood Urea Nitrogen 28 mg/dL (7-17); Calcium 9.8 mg/dL (8.4-10.2); Carbon Dioxide 24 mmol/L (22-30); Chloride 104 mmol/L (98-107); Estimated Glomerular Filt Rate 39; Glucose 113 mg/dL (65-110); Potassium 4.3 mmol/L (3.4-5.0); Sodium 136 mmol/L (137-145)
== END 2024-02-12 12:42 | disposition home or self-care (01) ==
PROVIDERS: PCP Internal Medicine; Visit Provider Nurse Practitioner
DX: I42.0 Dilated cardiomyopathy (principal)
CPT/HCPCS: 36415; 80048

== ENCOUNTER 2024-02-19 02:24 | Day surgery (SDC) | payer MEDICARE, OTHER, SELFPAY ==
[2024-02-19] VITALS (11 sets, daily range): BP systolic 87–127; BP diastolic 57–94; PULSE 62–125; RESP 14–24; TEMP 36.4; O2SAT 95–100; BMI 28.5
--- NOTE | 2024-02-19 09:00 | ECG_ITS ---
SEE SCANNED COPY FOR CONFIRMED REPORT. MTDD
[2024-02-19 09:21] LABS: Alanine Aminotransferase 20 U/L (6-35); Albumin Level 4.7 g/dL (3.5-5.1); Alkaline Phosphatase 83 U/L (38-126); Anion Gap 9 mmol/L (4-12); Aspartate Amino Transferase 28 U/L (14-36); Bilirubin,Total 1.1 mg/dL (0.2-1.3); Blood Urea Nitrogen 34 mg/dL (7-17); Calcium 10.1 mg/dL (8.4-10.2); Carbon Dioxide 24 mmol/L (22-30); Chloride 107 mmol/L (98-107); Estimated Glomerular Filt Rate 33; Glucose 117 mg/dL (65-110); Potassium 4.4 mmol/L (3.4-5.0); Sodium 140 mmol/L (137-145)
[2024-02-19 09:23] LABS: Magnesium 2.4 mg/dL (1.6-2.3)
--- NOTE | 2024-02-19 10:45 | ECG_ITS ---
SEE SCANNED COPY FOR CONFIRMED REPORT. MTDD
--- NOTE | 2024-02-19 10:48 | WPDHPUPDATE1 ---
History and Physical Update Update Date/Time: 02/19/24 10:48 History and Physical has been reviewed, including an updated exam of the patient. There are NO changes in the patient's condition. Risks, benefits, and alternatives have been discussed and questions answered. Patient agrees to proceed with procedure.
--- NOTE | 2024-02-19 10:49 | WPDMODSED ---
Moderate Sedation Note-Pt Data Patient Data Diagnosis: Atrial fibrillation Present Complaint: Atrial fibrillation Procedure to be performed/Plan: Synchronized electrical cardioversion Allergies Allergy/AdvReac Type Severity Reaction Status Date / Time meperidine [From Demerol] Allergy Unknown Nausea and Verified 02/19/24 08:55 Vomiting adhesive tape Allergy Blister Verified 02/19/24 08:55 morphine AdvReac Nausea Verified 02/19/24 08:55 Home Medications Medication Instructions Recorded Confirmed Type aspirin 81 mg capsule 81 mg PO HS ##0 04/17/22 02/19/24 History mesalamine 400 mg capsule (with 800 mg PO BID 11/09/23 02/19/24 History delayed release tablets inside) pantoprazole 40 mg tablet,delayed 40 mg PO DAILY 11/13/23 02/19/24 History release lorazepam 1 mg tablet 1 mg PO HS PRN Anxiety 01/14/24 02/19/24 History apixaban 5 mg tablet (Eliquis) 5 mg PO Q12HR 30 days #60 tabs 01/17/24 02/19/24 Rx furosemide 40 mg tablet 40 mg PO DAILY #30 tabs 01/17/24 02/18/24 Rx potassium chloride 20 mEq 20 meq PO DAILY #30 tabs 01/17/24 02/19/24 Rx tablet,extended release (K-Tab) sacubitril 24 mg-valsartan 26 mg 1 tablet PO Q12HR 30 days #60 tabs 01/17/24 02/19/24 Rx tablet (Entresto) acetaminophen 325 mg tablet 650 mg PO Q4-6H PRN Pain 02/18/24 02/19/24 History azelastine 137 mcg (0.1 %) nasal 1 spray intranasal Q12H PRN 02/18/24 02/19/24 History spray aerosol Allergy Symptoms latanoprost 0.005 % eye drops 1 drp EACH EYE HS 02/18/24 02/19/24 History metoprolol succinate 100 mg 150 mg PO HS Atrial fibrillation 02/18/24 02/19/24 History tablet,extended release 24 hr Current Medications: Active Medications Sodium Chloride (Normal Saline Iv) 1,000 mls @ 30 mls/hr IV CONT .Q24H [facility] Sedation/Anesthesia: No previous sedation/anesthesia problems (including family history). [facility] Past Medical History Medical History Arthritis Cardiomyopathy Claustrophobia Depression Glaucoma History of adverse reaction to anesthesia History of Clostridioides difficile infection Hypertension Myocardial infarction 2006 Steatohepatitis Ulcerative colitis Surgical History Surgical History History of bilateral knee arthroplasty History of colonoscopy with polypectomy History of hysterectomy History of partial colectomy For hemorrhoidal bleeding. History of repair of right rotator cuff History of uterosacral colpopexy History of ventral hernia repair Family History Family History Other History of bone cancer History of lung cancer Social History Social History Smoking packs per day: 0 Smoking cigarettes per day: 0.0 Years smoked: 0 Smoking pack-years: 0.00 Smoking status: Never smoker Second hand tobacco smoke exposure: No Alcohol intake: current Substance use: never Substance use type: does not use Do You Feel Safe in your Home?: Yes Lack of Transportation: No Lack of Food: Never True Current Housing: I Have Housing Concerned About Future Housing: No Difficulty Paying Gas/Electric Bills: No Difficulty Paying for Meds: No Currently Unemployed: No Education: High School Diploma/GED Difficulty w/ Childcare or Family Care: No Living arrangements: alone Gender identity (if verbalized by the patient): Female Sexual Orientation (if Verbalized by the Patient): Straight or Heterosexual Spiritual care concerns: No Mod Sed Physical Exam Physical Exam Pre Procedural Exam: Normal: Appearance, Lungs, Neuro Exam, Extremities and Skin and Variation: Heart Rate (Atrial fibrillation with RVR) and Heart Rhythm (Atrial fibrillation with RVR) Hours since solid foods: 12 Hours since liquid intake: 8 Mallampati Classification: class II Internal Medicine - PN: Obj
--- NOTE | 2024-02-19 10:50 | WPDCARDVER ---
Cardioversion Cardioversion Date of procedure: 02/19/24 Procedure: Synchronized electrical cardioversion Pre-op diagnosis: Atrial fibrillation Post-op diagnosis: Other (Sinus bradycardia ) Indications: Atrial fibrillation Description of procedure: Written informed consent obtained. Defibrillator pads placed in an AP position. Time out performed by HARRIETT Ramirez. Total of Propofol 40mg IV was administered by me. Once patient was adequately sedated, synchronized electrical cardioversion was performed with 1 shock at 200 joules, which successfully restored sinus rhythm. Patient was hemodynamically monitored throughout the procedure. Procedure start time: 10:42 Procedure end time: 1046 Sedation: Total of Propofol 40mg IV was administered by me. Findings: Successful cardioversion to sinus rhythm with 1 shock at 200 joules. Conclusion: Successful cardioversion to sinus rhythm with 1 shock at 200 joules.
== END 2024-02-19 12:00 | disposition home or self-care (01) ==
PROVIDERS: PCP Internal Medicine; Visit Provider Internal Medicine
PROC: 5A2204Z Restoration of Cardiac Rhythm, Single (ICD-10-PCS; principal; 2024-02-19 10:30)
DX: I48.91 Unspecified atrial fibrillation (principal); R00.1 Bradycardia, unspecified; I42.0 Dilated cardiomyopathy; I10 Essential (primary) hypertension; I25.2 Old myocardial infarction; I25.10 Atherosclerotic heart disease of native coronary artery without angina pectoris; K76.0 Fatty (change of) liver, not elsewhere classified; H40.9 Unspecified glaucoma; Z90.49 Acquired absence of other specified parts of digestive tract; Z79.01 Long term (current) use of anticoagulants; Z79.82 Long term (current) use of aspirin; Z95.1 Presence of aortocoronary bypass graft
CPT/HCPCS: 36415; 80053; 83735; 92960; J2704; J7030

== ENCOUNTER 2024-03-25 01:04 | Day surgery (SDC) | payer MEDICARE, OTHER, SELFPAY ==
[2024-03-24 10:24] VITALS: BMI 28.1
[2024-03-25] VITALS (13 sets, daily range): BP systolic 100–127; BP diastolic 52–86; PULSE 48–75; RESP 14–20; TEMP 36; O2SAT 93–97; BMI 29.0
[2024-03-25 07:39] LABS: Basophils Absolute Auto 0.2 K/mm3 (0.0-0.1); Eosinophils Absolute Auto 0.4 K/mm3 (0-0.3); Eosinophils Percent Auto 5.1 % (0-4.4); Hematocrit 45.3 % (37.0-47.0); Hemoglobin 13.9 g/dL (12.0-15.0); Immature Granulocyte Absolute 0.04 K/mm3 (0.00-0.031); Immature Granulocyte Percent A 0.5 % (0-0.5); Lymphocytes Absolute Auto 1.66 K/mm3 (0.9-3.2); Lymphocytes Percent Auto 20.5 % (18.3-44.2); Mean Corpuscular HGB Conc 30.7 g/dl (32-36); Mean Corpuscular Volume 81.6 fl (80-100); Mean Platelet Volume 10.5 fl (7.4-10.4); Neutrophils Absolute Auto 4.9 K/mm3 (1.3-6.7); Neutrophils Percent Auto 59.9 % (45.5-73.1); Platelet Count Result 339 k/mm3 (150-375); Red Blood Count 5.55 M/mm3 (4.2-5.4); White Blood Count 8.1 K/mm3 (4.5-10.0)
[2024-03-25 07:40] LABS: Anion Gap 7 mmol/L (4-12); Blood Urea Nitrogen 22 mg/dL (7-17); Calcium 9.8 mg/dL (8.4-10.2); Carbon Dioxide 26 mmol/L (22-30); Chloride 102 mmol/L (98-107); Estimated CRCL calculation 37 ml/min; Estimated Glomerular Filt Rate 43; Glucose 102 mg/dL (65-110); Potassium 4.4 mmol/L (3.4-5.0); Sodium 135 mmol/L (137-145)
--- NOTE | 2024-03-25 08:26 | WPDHPUPDATE1 ---
History and Physical Update Update Date/Time: 03/25/24 08:26 History and Physical has been reviewed, including an updated exam of the patient. There are NO changes in the patient's condition. Risks, benefits, and alternatives have been discussed and questions answered. Patient agrees to proceed with procedure.
--- NOTE | 2024-03-25 08:26 | WPDMODSED ---
Moderate Sedation Note-Pt Data Patient Data Diagnosis: Coronary artery disease Present Complaint: Coronary artery disease Procedure to be performed/Plan: Coronary angiography, left heart cath, +/- PCI Allergies Allergy/AdvReac Type Severity Reaction Status Date / Time adhesive tape Allergy Blister Verified 03/25/24 07:21 meperidine [From Demerol] AdvReac Unknown Nausea and Verified 03/25/24 07:21 Vomiting morphine AdvReac Nausea Verified 03/25/24 07:21 Home Medications Medication Instructions Recorded Confirmed Type aspirin 81 mg capsule 81 mg PO HS ##0 04/17/22 03/24/24 History mesalamine 400 mg capsule (with 800 mg PO BID 11/09/23 03/24/24 History delayed release tablets inside) pantoprazole 40 mg tablet,delayed 40 mg PO DAILY 11/13/23 03/24/24 History release lorazepam 1 mg tablet 1 mg PO HS PRN Anxiety 01/14/24 03/24/24 History apixaban 5 mg tablet (Eliquis) 5 mg PO Q12HR 30 days #60 tabs 01/17/24 03/24/24 Rx furosemide 40 mg tablet 40 mg PO DAILY #30 tabs 01/17/24 03/24/24 Rx potassium chloride 20 mEq 20 meq PO DAILY #30 tabs 01/17/24 03/24/24 Rx tablet,extended release (K-Tab) sacubitril 24 mg-valsartan 26 mg 1 tablet PO Q12HR 30 days #60 tabs 01/17/24 03/24/24 Rx tablet (Entresto) acetaminophen 325 mg tablet 650 mg PO Q4-6H PRN Pain 02/18/24 03/24/24 History azelastine 137 mcg (0.1 %) nasal 1 spray intranasal Q12H PRN 02/18/24 03/24/24 History spray aerosol Allergy Symptoms latanoprost 0.005 % eye drops 1 drp EACH EYE DAILY 02/18/24 03/24/24 History metoprolol succinate 100 mg 150 mg PO HS Atrial fibrillation 02/18/24 03/24/24 History tablet,extended release 24 hr Current Medications: Active Medications Sodium Chloride (Normal Saline Iv) 500 mls @ 100 mls/hr IV CONT .Q5H [facility] Sedation/Anesthesia: No previous sedation/anesthesia problems (including family history). PMFSH Past Medical History Medical History Arthritis Cardiomyopathy Claustrophobia Depression Glaucoma History of adverse reaction to anesthesia History of Clostridioides difficile infection Hypertension Myocardial infarction 2006 Steatohepatitis Ulcerative colitis Surgical History Surgical History History of bilateral knee arthroplasty History of colonoscopy with polypectomy History of hysterectomy History of partial colectomy For hemorrhoidal bleeding. History of repair of right rotator cuff History of uterosacral colpopexy History of ventral hernia repair Family History Family History Other History of bone cancer History of lung cancer Social History Social History Smoking packs per day: 0 Smoking cigarettes per day: 0.0 Years smoked: 0 Smoking pack-years: 0.00 Smoking status: Never smoker Second hand tobacco smoke exposure: No Alcohol intake: current Alcohol use details: Beer 1/3 bottle every other day Substance use: never Substance use type: does not use Do You Feel Safe in your Home?: Yes Lack of Transportation: No Lack of Food: Never True Current Housing: I Have Housing Concerned About Future Housing: No Difficulty Paying Gas/Electric Bills: No Difficulty Paying for Meds: No Currently Unemployed: No Education: High School Diploma/GED Difficulty w/ Childcare or Family Care: No Living arrangements: alone Gender identity (if verbalized by the patient): Female Sexual Orientation (if Verbalized by the Patient): Straight or Heterosexual Spiritual care concerns: No Mod Sed Physical Exam Physical Exam Pre Procedural Exam: Normal: Appearance, Lungs, Heart Rate, Heart Rhythm, Neuro Exam, Abdomen, Extremities and Skin Hours since solid foods: 12 Hours since liquid intake: 8 Mallampati Classification: class II Internal Medicine - PN: O
--- NOTE | 2024-03-25 08:27 | WPDCARDPROC ---
Cardiac Cath Procedure Note Date of procedure:: 03/25/24 Performing physician:: CATHETERIZATION LABORATORY REPORT Procedure Date: 03/25/2024 Supervisor Accounts Receivable: Adalgisa Randolph M.D., [facility]? Referring Physician: Adalgisa Randolph M.D. Anesthesia: Versed and Fentanyl were ordered and given in my presence at 08:52, procedure ended at 09:13. Supervision of nurse monitored moderate sedation with Versed and Fentanyl was provided for 21 minutes. Total of Versed 1.5mg and Fentanyl 50mcg were administered by the Cable Rigger RN Carley Juan. Pre-op Diagnosis: Coronary artery disease Post-op Diagnosis: 1. Mild non-obstructive coronary artery disease 2. Left ventricular end-diastolic pressure of 13mmHg Procedure(s): 1. Moderate sedation 2. Ultrasound-guided access of the right radial artery 3. Coronary angiography 4. Left heart catheterization Access Site: Right radial artery Brief History and Clinical Indications: Patient is an 84 year old female who is referred for [facility] for abnormal stress test. All risks, benefits and alternatives to left heart catheterization with or without percutaneous coronary intervention was discussed at length with the patient. Risk of complications including but not limited to bleeding, infection, arrhythmia, stroke, worsening kidney function, blood loss, groin hematoma, limb loss, emergency coronary artery bypass grafting, and even were discussed with the patient and all questions were answered. The patient understood and wished to proceed. Time out called, patient name, date of , medical record number, allergies, procedure performed, identify Supervisor Accounts Receivable, patient and staff member concurred with accurate data, procedure carried on. Findings: LEFT HEART CATHETERIZATION FINDINGS: 1. Left main: The left main coronary artery is widely patent without any significant obstructive disease. 2. Left anterior descending: The proximal and mid LAD has mild diffuse disease. Slow flow noted in LAD. Diagonal branches have luminal irregularities. 3. Left circumflex: The left circumflex is co-dominant. The left circumflex and main marginal branches ave mild luminal irregularities without any significant obstructive angiographic disease. 4. Right coronary artery: The RCA is a co-dominant vessel. The mid RCA has mild diffuse disease. No significant obstructive angiographic disease. Slow flow noted on initial RCA angiogram. 5. Left ventricle: A. End-diastolic pressure 13 mmHg. B. LV gram deferred. C. No significant gradient across aortic valve on catheter pullback. Description of Procedure: Informed consent signed and placed in the chart. Patient transferred to rags laborer room. Prepped and draped in usual sterile fashion. 2% lidocaine injected subcutaneously in right wrist area. 22-gauge venipuncture catheter used to access the right radial artery under ultrasound guidance. 6-FR slender sheath placed in right radial artery. Nitroglycerine and Verapamil were given intraarterial through the sheath. Versacore wire advanced under fluoroscopy 5F Tig 4 diagnostic catheter engaged Left Main Coronary Artery. 5F Tig 4 diagnostic catheter engaged Right Coronary Artery Multiple orthogonal angiogram obtained and reviewed 5F Pigtail diagnostic catheter crossed aortic valve to obtain LVEDP, LV angiogram deferred. Hemostasis was achieved by application of TR band. Post Operative Condition: Stable No significant blood loss Disposition: Home Plan: The patient will be monitored in the recovery area. Discharge home after post cath bed rest is completed. The above findings were discussed with the referring physician. Continue aggressive medical therapy and risk factor modification. ? Adalgisa Randolph M.D. Interventional Cardiology
== END 2024-03-25 12:05 | disposition home or self-care (01) ==
PROVIDERS: PCP Internal Medicine; Visit Provider Internal Medicine
PROC: 4A023N7 Measurement of Cardiac Sampling and Pressure, Left Heart, Percutaneous Approach (ICD-10-PCS; CPT 93452; principal; 2024-03-25 08:30)
DX: I25.10 Atherosclerotic heart disease of native coronary artery without angina pectoris (principal); R94.39 Abnormal result of other cardiovascular function study; I10 Essential (primary) hypertension; I25.2 Old myocardial infarction; I42.9 Cardiomyopathy, unspecified; K75.81 Nonalcoholic steatohepatitis (NASH); H40.9 Unspecified glaucoma; F32.A Depression, unspecified; Z79.82 Long term (current) use of aspirin; Z79.01 Long term (current) use of anticoagulants
CPT/HCPCS: 36415; 80048; 85025; 93458; C1769; C1887; C1894; J1644; J2250; J2305; J3010; J7040

== ENCOUNTER 2024-06-23 09:05 | Outpatient (CLI) | payer MEDICARE, OTHER, SELFPAY ==
--- NOTE | 2024-07-16 12:11 | WPDSLEEPSTUD ---
Sleep Study Date of Study: 06/23/24 Ordering Provider: SID Gottlieb Interpreting Physician: Carolyn Briones DO Sleep Study Type: Polysomnogram Height: 1.73 m Weight: 84.822 kg Body Mass Index: 28.4 Neck Circumference (inches): 14.5 [place]: 10 Reason for Sleep Study Difficulty staying asleep Sleep History The patient is an 84-year-old female had a sleep study ordered by the pulmonary group evaluation sleep apnea. She rarely awakens from sleep short of breath. She rarely awakens at night with heartburn, belching or cough. She rarely has trouble sleeping when she has a cold. She denies waking up gasping for air throughout the night. She denies sweating excessively at night. She rarely has heart palpitations or irregular heartbeats during the night. She frequently falls asleep during the day but never while driving. She denies sleep paralysis, cataplexy and hypnagogic / hypnopompic hallucinations. She denies having trouble at school or work due to sleepiness. She denies feeling afraid of to sleep. She rarely has nightmares. She rarely remembers her dreams. She frequently has thoughts racing through her mind. She rarely feels sad or depressed. She occasionally has anxiety. She occasionally has muscular tension. She occasionally notices parts of her body jerk. She rarely kicks during the night. She occasionally has crawling and aching feelings in her legs but rarely has leg pain during the night. She rarely grinds her teeth during sleep and rarely awakens with morning jaw pain. She is frequently bothered by pain during the day and occasionally awakened by pain during the night. She occasionally wakes up feeling stiff morning. She rarely wakes up with sore or achy muscles. She goes to bed between 10:30 p.m. to 12:00 a.m. on both weekdays and weekends. She wakes up twice throughout the night for unknown reasons and a can take anywhere from 15 minutes to 2 hours to fall back asleep. She wakes up between 6-7 a.m. both weekdays and weekends. She typically gets 5 hours of sleep per night. She will stay in bed for 30-60 minutes after waking morning. She currently lives alone. She denies consuming any caffeinated beverages within 2 hours of bedtime. She denies engaging in physical exercise before bedtime. She will watch television before falling asleep. She will take naps in the afternoon or the evening. She does consume caffeinated soda throughout the day. She does not consume a significant amount of alcohol. She denies tobacco use. [facility] Past Medical History Medical History Arthritis Cardiomyopathy Claustrophobia Depression Glaucoma History of adverse reaction to anesthesia History of Clostridioides difficile infection Hypertension Myocardial infarction 2006 Steatohepatitis Ulcerative colitis Surgical History Surgical History History of bilateral knee arthroplasty History of colonoscopy with polypectomy History of hysterectomy History of partial colectomy For hemorrhoidal bleeding. History of repair of right rotator cuff History of uterosacral colpopexy History of ventral hernia repair Family History Family History Other History of bone cancer History of lung cancer Social History Social History Smoking packs per day: 0 Smoking cigarettes per day: 0.0 Years smoked: 0 Smoking pack-years: 0.00 Smoking status: Never smoker Second hand tobacco smoke exposure: No Alcohol intake: current Alcohol use details: Beer 1/3 bottle every other day Substance use: never Substance use type: does not use Do You Feel Safe in your Home?: Yes Lack of Transportation: No Lack of Food: Never True Current Housing: I Have Housing Concerned About Future
[2024-07-16 12:12] VITALS: BMI 28.4
== END 2024-06-24 03:46 | disposition home or self-care (01) ==
LOC: ANHCSM 09:05
PROVIDERS: PCP Internal Medicine; Visit Provider Physician Assistant
DX: G47.10 Hypersomnia, unspecified (principal); I48.91 Unspecified atrial fibrillation; G47.33 Obstructive sleep apnea (adult) (pediatric)
CPT/HCPCS: 95810

== ENCOUNTER 2024-07-08 10:10 | Outpatient (CLI) | payer MEDICARE, OTHER, SELFPAY ==
[2024-07-08 11:00] LABS: Anion Gap 9 mmol/L (4-12); Blood Urea Nitrogen 18 mg/dL (7-17); Calcium 9.5 mg/dL (8.4-10.2); Carbon Dioxide 24 mmol/L (22-30); Chloride 104 mmol/L (98-107); Estimated Glomerular Filt Rate 53; Glucose 110 mg/dL (65-110); Potassium 3.8 mmol/L (3.4-5.0); Sodium 137 mmol/L (137-145)
== END 2024-07-08 10:11 | disposition home or self-care (01) ==
LOC: ANHLAB 10:12
PROVIDERS: PCP Internal Medicine; Visit Provider Nurse Practitioner Adult Health
DX: I42.0 Dilated cardiomyopathy (principal)
CPT/HCPCS: 36415; 80048

== ENCOUNTER 2024-09-01 07:54 | Outpatient (CLI) | payer MEDICARE, OTHER, SELFPAY ==
--- NOTE | 2024-09-28 12:45 | WPDSLEEPSTUD ---
Sleep Study Date of Study: 09/01/2024 Ordering Provider: Luis Manuel Gaviria APRN Interpreting Physician: Carolyn Briones DO Sleep Study Type: CPAP Titration Height: 1.73 m Weight: 88.904 kg Body Mass Index: 29.7 Neck Circumference (inches): 14.5 [place]: 10 Reason for Sleep Study Polysomnogram on 06/23/2024 showed an overall AHI of 50 with desaturation down to 84%. Sleep History The patient is an 84-year-old female had a sleep study ordered by the pulmonary group evaluation sleep apnea. She rarely awakens from sleep short of breath. She rarely awakens at night with heartburn, belching or cough. She rarely has trouble sleeping when she has a cold. She denies waking up gasping for air throughout the night. She denies sweating excessively at night. She rarely has heart palpitations or irregular heartbeats during the night. She frequently falls asleep during the day but never while driving. She denies sleep paralysis, cataplexy and hypnagogic / hypnopompic hallucinations. She denies having trouble at school or work due to sleepiness. She denies feeling afraid of to sleep. She rarely has nightmares. She rarely remembers her dreams. She frequently has thoughts racing through her mind. She rarely feels sad or depressed. She occasionally has anxiety. She occasionally has muscular tension. She occasionally notices parts of her body jerk. She rarely kicks during the night. She occasionally has crawling and aching feelings in her legs but rarely has leg pain during the night. She rarely grinds her teeth during sleep and rarely awakens with morning jaw pain. She is frequently bothered by pain during the day and occasionally awakened by pain during the night. She occasionally wakes up feeling stiff morning. She rarely wakes up with sore or achy muscles. She goes to bed between 10:30 p.m. to 12:00 a.m. on both weekdays and weekends. She wakes up twice throughout the night for unknown reasons and a can take anywhere from 15 minutes to 2 hours to fall back asleep. She wakes up between 6-7 a.m. both weekdays and weekends. She typically gets 5 hours of sleep per night. She will stay in bed for 30-60 minutes after waking morning. She currently lives alone. She denies consuming any caffeinated beverages within 2 hours of bedtime. She denies engaging in physical exercise before bedtime. She will watch television before falling asleep. She will take naps in the afternoon or the evening. She does consume caffeinated soda throughout the day. She does not consume a significant amount of alcohol. She denies tobacco use. [facility] Past Medical History Medical History Arthritis Cardiomyopathy Claustrophobia Depression Glaucoma History of adverse reaction to anesthesia History of Clostridioides difficile infection Hypertension Myocardial infarction 2006 Steatohepatitis Ulcerative colitis Surgical History Surgical History History of bilateral knee arthroplasty History of colonoscopy with polypectomy History of hysterectomy History of partial colectomy For hemorrhoidal bleeding. History of repair of right rotator cuff History of uterosacral colpopexy History of ventral hernia repair Family History Family History Other History of bone cancer History of lung cancer Social History Social History Smoking packs per day: 0 Smoking cigarettes per day: 0.0 Years smoked: 0 Smoking pack-years: 0.00 Smoking status: Never smoker Second hand tobacco smoke exposure: No Alcohol intake: current Alcohol use details: Beer 1/3 bottle every other day Substance use: never Substance use type: does not use Do You Feel Safe in your Home?: Yes Lack of Transportation: No Lack of Food: Never True Current Housing: I Have Housing Concerned About Future Housing: No Difficulty Paying Gas/Electric Bills: No Difficulty Paying for Meds: No Currently Unemployed: No Education: High School Diploma/GED Difficulty w/ Childcare or Family Care: No Living arrangements: alone Gender identity (if verbalized by the patient): Female Sexual Orientation (if Verbalized by the Patient): Straight or Heterosexual Spiritual care concerns: No Medications Home Medications Medication Instructions Recorded Confirmed Type aspirin 81 mg capsule 81 mg PO HS ##0 04/17/22 05/11/24 History mesalamine 400 mg capsule (with 800 mg PO BID 11/09/23 05/11/24 History delayed release tablets inside) pantoprazole 40 mg tablet,delayed 40 mg PO DAILY 11/13/23 05/11/24 History release apixaban 5 mg tablet (Eliquis) 5 mg PO Q12HR 30 days #60 tabs 01/17/24 05/11/24 Rx furosemide 40 mg tablet 40 mg PO DAILY #30 tabs 01/17/24 05/11/24 Rx potassium chloride 20 mEq 20 meq PO DAILY #30 tabs 01/17/24 05/11/24 Rx tablet,extended release (K-Tab) sacubitril 24 mg-valsartan 26 mg 1 tablet PO Q12HR 30 days #60 tabs 01/17/24 05/11/24 Rx tablet (Entresto) azelastine 137 mcg (0.1 %) nasal 1 spray intranasal Q12H PRN 02/18/24 05/11/24 History spray Allergy Symptoms latanoprost 0.005 % eye drops 1 drp EACH EYE DAILY 02/18/24 05/11/24 History metoprolol succinate 100 mg 150 mg PO HS Atrial fibrillation 02/18/24 05/11/24 History tablet,extended release 24 hr acetaminophen 325 mg tablet 650 mg PO Q4-6H PRN Pain 05/11/24 05/11/24 History zolpidem 10 mg tablet 10 mg PO ONCE #1 tablet 08/31/24 Rx Sleep Procedure A full night CPAP Titration using the [employer] multi-channel system recorded the standard physiologic parameters including EEG, EOG, submentalis EMG, anterior tibialis EMG, EKG, body position, nasal and oral airflow using nasal pressure sensor and thermistor.? Respiratory parameters of chest and abdominal movements were recorded with Respiratory Inductance Plethysmography belts. Oxygen saturation was recorded by pulse oximetry. Video monitoring was also performed. Sleep stages, periodic limb movements, and EEG arousals were scored in 30 second epochs according to the criteria of the AASM Scoring Manual. The Apnea-Hypopnea Index was calculated using CMS guidelines for definition of hypopnea with 4% O2 desaturations while scoring respiratory events. Sleep Architecture The total recording time was 435.2 minutes.? The total sleep time was 0 minutes. Sleep was never achieved. REM sleep was never achieved. Sleep efficiency was 0.0%. Respiratory Analysis The patient had no respiratory events during sleep for an overall Apnea Hypopnea Index of 0 events per hour because she spent the entire study awake. Arousals There were no arousals scored during sleep because the patient did not fall asleep. Periodic Limb Movements There were no isolated or periodic limb movements scored during sleep because the patient did not fall asleep. Oximetry Data The patient had an average oxygen saturation of 93.7% in wake with a minimum oxygen saturation of 83% and a maximum oxygen saturation of 98%. The patient spent 48.9 minutes, 11.4% of total sleep time with an oxygen saturation below 88%. Snoring Profile Snoring was not present during this study. Cardiac Profile The EKG showed normal sinus rhythm with occasional PVCs. The patient had an average pulse rate of 63.9 bpm with a minimum pulse rate of 33 bpm and a maximum pulse rate of 214 bpm. EEG Profile No signs of seizure activity seen. Assessment and Plan Assessment and Plan (1) CAYLA (obstructive sleep apnea): Code(s): G47.33 - Obstructive sleep apnea (adult) (pediatric) Status: Acute Assessment and Plan: The patient was unable to fall asleep during this study due to anxiety. She was started on CPAP 5 cm H2O but was unable to keep the mask on. She ran the remainder of the study with only the EKG leads and pulse ox on. I recommend that the patient work on treating her anxiety of CPAP with exposure therapy while wearing the CPAP mask and then eventually repeating the CPAP Titration. The patient should be counseled that her sleep apnea is likely contributing to her atrial fibrillation, cardiomyopathy and increasing her risk of future heart attacks. Data The data obtained during this sleep study is NOT adequate for interpretation. Certification This sleep study has been reviewed by a board certified sleep medicine physician.
[2024-09-28 16:10] VITALS: BMI 29.7
== END 2024-09-02 07:36 | disposition home or self-care (01) ==
LOC: ANHCSM 07:54
PROVIDERS: PCP Internal Medicine; Visit Provider Nurse Practitioner Family
DX: G47.33 Obstructive sleep apnea (adult) (pediatric) (principal)
CPT/HCPCS: 95811

== ENCOUNTER 2024-10-29 14:02 | Outpatient (CLI) | payer MEDICARE, OTHER, SELFPAY ==
[2024-10-29 15:26] LABS: Hematocrit 40.6 % (37.0-47.0); Hemoglobin 12.7 g/dL (12.0-15.0); Mean Corpuscular HGB Conc 31.3 g/dl (32-36); Mean Corpuscular Hemoglobin 26.8 pg (26-34); Mean Corpuscular Volume 85.7 fl (80-100); Mean Platelet Volume 10.5 fl (7.4-10.4); Platelet Count Result 427 k/mm3 (150-375); Red Blood Count 4.74 M/mm3 (4.2-5.4); Red Cell Distribution Width 15.2 % (11.5-14.5); White Blood Count 9.4 K/mm3 (4.5-10.0)
[2024-10-29 15:40] LABS: INR 1.3; Prothrombin Time 16.7 Seconds (11.1-14.7)
[2024-10-29 15:58] LABS: Erythrocyte Sedimentation Rate 19 mm/hr (0-20)
[2024-10-29 16:41] LABS: Potassium 4.2 mmol/L (3.4-5.0)
[2024-10-29 16:57] LABS: Alanine Aminotransferase 14 U/L (6-35); Albumin Level 4.3 g/dL (3.5-5.1); Alkaline Phosphatase 111 U/L (38-126); Anion Gap 10 mmol/L (4-12); Aspartate Amino Transferase 26 U/L (14-36); Bilirubin,Total 0.6 mg/dL (0.2-1.3); Blood Urea Nitrogen 20 mg/dL (7-17); CRP < 0.5 mg/dL (<1.0); Carbon Dioxide 24 mmol/L (22-30); Chloride 103 mmol/L (98-107); Estimated Glomerular Filt Rate 49; Glucose 96 mg/dL (65-110); Sodium 137 mmol/L (137-145)
[2024-11-03 16:37] LABS: ALT 10 U/L (6-29); Alpha-2-Macroglobulin 288 mg/dL (106-279); Apolipoprotein A1 182 mg/dL (101-198); Fibrosis Score 0.25; Fibrosis Stage F0-F1; GGT 17 U/L (3-65); Haptoglobin 156 mg/dL (43-212); Necroinflammat Act Grade A0; Reference ID 5285471; Total Bilirubin 0.3 mg/dL (0.2-1.2)
== END 2024-10-29 14:03 | disposition home or self-care (01) ==
LOC: ANHLAB 14:04
PROVIDERS: PCP Internal Medicine; Visit Provider Nurse Practitioner
DX: K51.90 Ulcerative colitis, unspecified, without complications (principal); K75.81 Nonalcoholic steatohepatitis (NASH)
CPT/HCPCS: 36415; 80053; 81596; 85027; 85610; 85652; 86140

== ENCOUNTER 2024-11-16 09:32 | Outpatient (CLI) | payer MEDICARE, OTHER, SELFPAY ==
--- OUTSIDE RECORDS SUMMARY | 2024-11-16 10:11 | XMS_ITS | Continuity of Care Document ---
Author Organization [facility] Address [address] [place] [phone] Phone Care Team Providers Care Dredge Pipe Installer Name Role Phone Rivas Francois Unavailable Unavailable Procedures Procedure Date Office/outpatient Visit, Est Optic Nerve Head Eval IPO Reduced 15% Visual Field Examination-Professional Harini Visual Field Examination(s) Office/outpatient Visit, Est Optic Nerve Head Eval IPO Reduced 15% Office/outpatient Visit, Est Optic Nerve Head Eval IPO Reduced 15% No Script Visual Field Examination-Professional Martinez -2008 Visual Field Examination(s) Eye Exam & Treatment Optic Nerve Head Eval Office/outpatient Visit, Est Optic Nerve Head Eval Fundus Photography W/ Report Visual Field Examination-Professional Seamus r-2007 Visual Field Examination(s) Office/outpatient Visit, Est Optic Nerve Head Eval Office/outpatient Visit, Est Optic Nerve Head Eval Visual Functional Status Assessed Visual Field Examination-Professional Martinez r--2006 Visual Field Examination(s) Advance Directives Directive Yes / No Effective Date File Name No Information Encounters Encounter Description Practice Location Reason(s) For Visit Diagnoses Date Provider Providers Copied on Encounter [facility]pat [facility], [facility], [address], [place], [place], [id number], [place] tel:[phone] [facility] [place] No Information 2-201 0 Alessandro Hathaway. [address] [place] [address] , [address], [place], [place], [facility], . tel:[phone] [facility], [address] [place] [address] [address], [place], [place], [id number], [place] tel:[phone] [facility] No Information 4-201 0 Alessandro Hathaway. [address] [place] [address] , [address], [place], [place], [facility], . tel:[phone] Referring Provider: Rivas Garcia, [address] [place] [address] [address], [place], [place], [facility]. tel:[phone] [facility], [address] [place] [address] [address], [place], [place], [id number], [place] tel:[phone] [facility] No Information 0-201 0 Alessandro Hathaway. [address] [place] [address] , [address], [place], [place], [facility], . tel:[phone] Referring Provider: Rivas Garcia, [address] [place], [place] [address]ate Center [address], [place], [facility]. tel:[phone] [facility]pat [facility], [facility], [address] [place] [address] [address], [place], [place], [id number], [place] tel:[phone] [facility] [place] No Information 8-201 0 Alessandro Hathaway. [address] [place] [address] Center , [address], [place], [facility], . tel:[phone] Office/outpat ient Visit, [facility], [address], [place], [place], [id number], [place] tel:[phone] [facility] No Information Oct-0 5-200 9 Alessandro Hathaway. [address] [place], [place] [address]ate Center , [address], [place], [facility], [place]. tel:[phone] [facility], [address], [place], [place], [id number], [place] tel:[phone] [facility] No Information February-2 9-200 9 Doiyuni Hathaway. [address] [place], [place] [address]ate Center , [address], [place], [facility], [place]. tel:[phone] Referring Provider: Rivas Garcia, [address] [place], [place] [address]ate [address], [place], [facility]. tel:[phone] [facility], [address] [place] [address] [address], [place], [place], [id number], [place] tel:[phone] [facility] No Information 2 8-200 9 Alessandro Hathaway. [address] [place], [place] [address]ate Center , [address], [place], [facility], [place]. tel:[phone] Referring Provider: Rivas Garcia, [address] [place], [place] [address]ate [address], [place], [facility]. tel:[phone] [facility], [address] [place] [address] [address], [place], [place], [id number], [place] tel:[phone] [facility] No Information 2 2-200 8 Alessandro Hathaway. [address] [place], [place] [address]ate Center , [address], [place], [address], [place]. tel:[phone] Office/outpat ient Visit, Est [facility], [address], [place], [place], [id number], [place] tel:[phone] [facility] [place] No Information May-1 3-200 8 Alessandro Hathaway. [address] , [address], [place], [facility], . tel:[phone] Referring Provider: Rivas Garcia, [facility] [address], [place], [facility]. tel:[phone] [facility], [address] [place] [address] [address], [place], [place], [id number], [place] tel:[phone] [facility] [place] No Information Apr-3 0-200 8 Alessandro Hathaway. [address] [place] [address] Center , [address], [place], [facility], [place]. tel:[phone] Referring Provider: Rivas Garcia, [address] [place], [place] [address]ate Center [address], [place], [facility]. tel:[phone] [facility], [address] [place] [address] [address], [place], [place], [id number], tel:[phone] [facility] [place] No Information Apr-1 5-200 8 Alessandro Hathaway. [address] [place] [address] , [address], [place], [facility], [place]. tel:[phone] Referring Provider: Rivas Garcia, [address] [place], [place] [address]ate Center [address], [place], [facility]. tel:[phone] Office/outpat ient Visit, [facility], [address] [place] [address] [address], [place], [place], [id number], [place] tel:[phone] [facility] [place] No Information Dec-1 0-200 7 Alessandro Hathaway. [address] [place] [address] Center , [address], [place], [facility], [place]. tel:[phone] Office/outpat ient Visit, [facility], [address] [place] [address] [address], [place], [place], [id number], [place] tel:[phone] [facility] [place] No Information Naren-0 9-200 7 Alessandro Hathaway. [facility] [address], [address], [place], [facility], . tel:[phone] Referring Provider: Adalgisa [facility] [address], [place], [facility]. tel:[phone] [facility], [address] [place] [address] [address], [place], [place], [id number], tel:[phone] [facility] [place] No Information Mar-1 3-200 7 Alessandro Hathaway. Adalgisa [facility] [address], [place], [facility], . tel:[phone] Referring Provider: Adalgisa [facility] [address], [place], [facility]. tel:[phone] [facility], [address] [place] [address] [address], [place], [place], [id number], tel:[phone] [facility] [place] No Information Mar-0 7-200 7 Alessandro Hathaway. [facility] [address], [place], [facility], . tel:[phone] Referring Provider: Adalgisa [facility] [address], [place], [facility]. tel:[phone] Family History Family Member Type Diagnosis Age At Onset No Information Payers Payer name Insurance type Covered green party ID Authorluisa aubree(s) [place] [id number] Social History Type Description Quantity Date Captured Comments Sex Female Smoking Status No Information Chief Complaint And Reason For Visit No Information Reason For Referral Reason For Referral No Information History Of Present Illness Encounter Date Complaint History Of Prese nt Illness No Information Functional Status Date Functional Assessmen t No Information Instructions Date Instruction Additional Infor mation No Information Assessments Type Assessment Date No Information Patient Care Teams Name Effective Dates (start - stop) Status Members No Information
--- OUTSIDE RECORDS SUMMARY | 2024-11-16 10:11 | XMS_ITS | Clinical Summary ---
Author Organization [facility] Address [address] [place] [address] Care Team Providers Care Bread Racker Name Role Phone Tnavir Davalos MD Primary Care Provider [phone] Source Comments [facility],non-owned Affiliates and Associated Physician Practices is amultiple site organization consisting of ambulatory clinics and hospital sitesin [place], [place], [place] and [place]. This disclosure is being madepursuant to the Care Everywhere program and may not contain all information available regarding this patient. Last updated 18.[facility] Allergies Active Allergy Reactions Criticality Noted Date Comments Aspirin Other 01/29/2022 Clopidogrel Other 01/29/2022 Meperidine 09/07/2014 Morphine Other Low 10/22/2019 Upset stomach Ranexa Other 07/05/2015 Medications * Be aware that medications may not be up to date on this document. Alwaysverify current medications with the patient. Medication Sig Dispensed Refills Start Date End Date Status piroxicam (FELDENE) 20 MG capsule Take 1 Cap by mouth once daily. 30 Cap 11 09/01/2014 Active Additional Information Patient not taking.Reported on 01/29/2022 amLODIPine (NORVASC) 5 MG tablet Take 5 mg by mouth once daily. Active rosuvastatin (CRESTOR) 5 MG tablet Take 5 mg by mouth once daily. Active LORazepam (ATIVAN) 0.5 MG tablet Take 0.5 mg by mouth every 8 hours as needed for Anxiety. Active azelastine (ASTELIN) 0.1 % nasal spray azelastine 137 mcg (0.1 %) nasal spray aerosol 01/17/[address] (DELZICOL) 400 MG capsule 01/19/2022 Active Social History Tobacco Use Types Packs/Day Years Used Date Smoking Tobacco: Never Smokeless Tobacco: Never Alcohol Use Standard Drinks/Week Comments No 0 (1 standard drink = 0.6 oz pur e alcohol) AUDIT-C Answer Date Recorded Q1: How often do you have a drink containing alc ohol? Never 01/04/2022 Average Number of Drinks Not on file 022 Q3: How often do you have si x or more drinks on one occasion? Never 01/04/2022 Sex and Gender Information Value Date Recorded Sex Assigned at Not on file Gender Identity Not on file Sexual Orientation Not on file Last Filed Vital Signs Vital Sign Reading Time Taken Comments Blood Pressure 142/78 01/29/2022 1:26 PM CDT Pulse 68 01/29/2022 1:26 PM CDT Temperature 36.8 ??C (98.2 ??F) 01/29/2022 1:26 PM CD T Respiratory Rate 17 01/04/2022 8:37 AM CDT Oxygen Saturation 98% 01/29/2022 1:26 PM CDT Inhaled Oxygen Concentration - - Weight 90.7 kg (200 lb) 01/04/2022 8:37 AM CDT Height 172.7 cm (5' 8 ) 01/29/2022 1:26 PM CDT Body Mass Index 30.41 01/04/2022 8:37 AM CDT Plan of Treatment Health Maintenance Due Date Last Done Comments BONE DENSITY TESTING 1940 MEDICARE AWV ? 12 MONTHS 1940 DTAP/TDAP/TD VACCINES (1 - Tdap) 1961 PNEUMOCOCCAL VACCINE 50+ (1 of 1 - PCV) 01/02/1992 ZOSTER VACCINE (1 of 2) 01/02/1992 Respiratory Syncytial Virus (RSV) Vaccine Pt: or over 60 yrs (1 - 1-dose 75+ series) 2017 COVID-19 VACCINE ( - 2023-2 5 season) 2024 INFLUENZA VACCINE (#1) 2024 DEPRESSION SCREENING 10/21/2024 HEPATITIS B VACCINE Aged Out No longe r eligible based on patient's age to complete this topic HIB VACCINE Aged Out No longer eligi ble based on patient's age to complete this topic HPV VACCINE Aged Out No longer eligi ble based on patient's age to complete this topic MENINGOCOCCAL (Group B) VACCINE Aged Out No longer eligible based on patient's age to complete this topic MENINGOCOCCAL VACCINE Aged Out No selene rosette eligible based on patient's age to complete this topic Care Teams Bread Racker Relationship Specialty Start Date End Date Tanvir Davalos MD [address] [place] [address] [address] [place] [address] PCP - General Internal Medicine 01/04/22
--- OUTSIDE RECORDS SUMMARY | 2024-11-16 10:11 | XMS_ITS | Clinical Summary ---
Author Organization [facility] Address [address] [place] [address] Care Team Providers Care Merchandise Adjustment Clerk Name Role Phone Tanvir Davalos MD Primary Care Provider Allergies Active Allergy Reactions Criticality Noted Date Comments Meperidine Vomiting Low Morphine Other (See comments) Low 10/22/2019 Upset stomach Medications latanoprost (XALATAN) 0.005 % ophthalmic solutionIndicati ons:open angle glaucoma Administer 1 drop into both eyes nightly 4 08/13/20 19 Active DELZICOL 400 mg capsule (with del rel tablets)Indicati ons:Ulcerative Colitis Take 2 capsules (800 mg total) by mouth 2 (two) times a day 08/05/[address] (PROTONIX) 40 mg EC tabletIndication s:gerd Take 1 tablet (40 mg total) by mouth every morning 04/14/20 20 Active azelastine (ASTELIN) 137 mcg (0.1 %) nasal spray Administer 2 sprays into each nostril as needed 01/18/20 21 Active acetaminophen 500 mg capsuleIndicatio ns:Pain Take 2 capsules (1,000 mg total) by mouth every 8 (eight) hours as needed for pain 30 tablet 03/10/20 21 Active aspirin 81 mg enteric coated tablet Take 1 tablet (81 mg total) by mouth daily Active Entresto 24-26 mg tablet TAKE 1 TABLET TWICE A DAY 180 tablet 2 05/19/20 24 Active Additional Information Patient taking differently: 0.5 tabletoral 2 times daily, Reported on 09/28/2024 metoprolol XL (TOPROL-XL) 100 mg 24 hr tabletIndication s:Paroxysmal atrial fibrillation (CMS/HCC) (HCC) Take 0.5 tablets (50 mg total) by mouth daily 09/28/20 24 Active Eliquis 5 mg tablet Take 1 tablet (5 mg total) by mouth 2 (two) times a day 180 tablet 3 10/30/19 25 Active Eliquis 5 mg tablet Take 1 tablet (5 mg total) by mouth 2 (two) times a day 28 tablet 08/19/20 24 025 Discontin ued(Reord er) Active Problems Problem Noted Date Diagnosed Date Heart failure with mid-range ejection fraction 0 03/13/2024 Abnormal stress test 03/13/2024 Nonrheumatic mitral valve regurgitation 03/13/20 Atrial fibrillation (CMS/HCC) 03/13/2024 Nonrheumatic tricuspid valve regurgitation 03/13 Coronary arteriosclerosis 03/10/2021 Essential hypertension 03/10/2021 Ulcerative colitis 03/10/2021 Incisional hernia, without obstruction or gangre ne 04/15/2020 Encounters Date Type Department Care Team Description 10/29/2024 Telephone [facility] Cardiology [address] [place] [address] [place] [phone] Adalgisa Randolph MD 09/28/2024 11:00 AM SAMPLE TESTER GRINDER Office Visit [facility] Cardiology [address] [place] [phone] Urvashi Frank NP History of CHF (congestive heart failure) (Primary Dx); History of cardiomyopathy; Hypertensive heart disease without heart failure; Paroxysmal atrial fibrillation (CMS/HCC) (HCC) 08/19/2024 Telephone [facility] Cardiology [address] [place] [phone] Adalgisa Randolph MD from Last 3 Months Surgical History Surgery Date Site/Laterality Comments COLECTOMY HYSTERECTOMY JOINT REPLACEMENT knee replacement INCISIONAL HERNIA REPAIR 03/09/2021 Robotic AWR Medical History Medical History Date Comments Hypertension GERD (gastroesophageal reflux disease) Myocardial infarction (HCC) PONV (postoperative nausea and vomiting) Family History Medical History Relation Name Comments Cancer Father Stroke Mother Bone cancer Sister Relation Name Status Comments Father Mother Sister Social History Tobacco Use Types Packs/Day Years Used Date Smoking Tobacco: Never Smokeless Tobacco: Never Tobacco Cessation:Counseling Given: Not Answered AUDIT-C Answer Date Recorded Q1: How often do you have a drink containing alc ohol? Never 02/09/2021 Average Number of Drinks Not on file 021 Q3: How often do you have si x or more drinks on one occasion? Never 02/09/2021 Comments No Sex and Gender Information Value Date Recorded Sex Assigned at Not on file Legal Sex Female 8:38 PM SAMPLE TESTER GRINDER Gender Identity Not on file Sexual Orientation Not on file Obstetrics History Last Filed Vital Signs Vital Sign Reading Time Taken Comments Blood Pressure 142/76 09/28/2024 10:56 AM SAMPLE TESTER GRINDER Pulse 64 09/28/2024 10:56 AM SAMPLE TESTER GRINDER Temperature 36.2 ??C (97.2 ??F) 04/27/2022 10:59 AM C DT Respiratory Rate 16 03/10/2021 11:00 AM CDT Oxygen Saturation 95% 09/28/2024 10:56 AM SAMPLE TESTER GRINDER Inhaled Oxygen Concentration - - Weight 90.3 kg (199 lb) 09/28/2024 10:56 AM SAMPLE TESTER GRINDER Height 172.7 cm (5' 8 ) 09/28/2024 10:56 AM SAMPLE TESTER GRINDER Body Mass Index 30.26 09/28/2024 10:56 AM SAMPLE TESTER GRINDER Plan of Treatment Health Maintenance Due Date Last Done Comments Depression Screening 1940 Osteoporosis Screening-Bone Density Scan 1940 Hepatitis B Screening 01/02/1960 Zoster Vaccine (1 of 2) 01/02/1992 Pneumococcal vaccine 65+ (1 of 1 - PCV) 2007 Well Visit 65+ 2007 Fall Risk Assessment 03/10/2022 03/10/2021 Influenza Vaccine (#1) 2024 DTaP/Tdap/Td Vaccine (3 - Td or Tdap) 02/27/202707/2017, 02/27/2017 Medical Devices Implanted Type Area Sample Color Maker Device Identifier Shelf Expiration Date Model / Serial / Lot [employer]/C R Bard [id number] Monofilament Soft Lightweight Low Profile Square - [id number] - [id number] Implanted:Qty: 1 on 03/09/2021 by Jesu Breen MD at [facility] Mesh N/A: Abdomen [employer] Bard [id number] 10/17/2025 [id number] / [id number] / [id number] Insurance MEDICARE [facility] MEDICARE MEDICARE [facility] Advance Directives For more information, please contact: [phone] * Full Code (Latest Code Status on File) Date Activated Date Inactivated Comments 03/09/2021 3:21 PM 03/10/2021 6:44 PM Care Teams Merchandise Adjustment Clerk Relationship Specialty Start Date End Date Tanvir Davalos MD [address] [place] [address] PCP - General Internal Medicine 08/21/19
--- OUTSIDE RECORDS SUMMARY | 2024-11-16 10:11 | XMS_ITS | Referral Summary ---
Author Organization [facility] Address [address] [place] [address] Care Team Providers Care Logistics Account Manager Name Role Phone Tanvir Davalos MD Primary Care Provider Encounters Date Type Department Care Team Description 10/29/[address] [facility] Medical [facility] Cardiology [address] [place] [phone] Adalgisa Randolph MD 09/28/2024 11:00 AM CONSERVATION ENGINEER Office Visit [facility] Cardiology [address] [place] [phone] Urvashi Frank NP History of CHF (congestive heart failure) (Primary Dx); History of cardiomyopathy; Hypertensive heart disease without heart failure; Paroxysmal atrial fibrillation (CMS/HCC) (HCC) 08/19/2024 Telephone [facility] Cardiology [address] [place] [phone] Adalgisa Randolph MD from Last 3 Months Allergies Active Allergy Reactions Criticality Noted Date [...] mg total) by mouth every morning 04/14/20 Active azelastine (ASTELIN) 137 mcg (0.1 %) nasal spray Administer 2 sprays into each nostril as needed 01/18/20 Active acetaminophen 500 mg capsuleIndicatio ns:Pain Take [...] (50 mg total) by mouth daily 09/28/20 Active Eliquis 5 mg tablet Take 1 [...] hernia, without obstruction or gangre ne 04/15/2020 Social History Tobacco Use Types Packs/Day Years [...] on file Legal Sex Female 8:38 PM CONSERVATION ENGINEER Gender Identity Not on file Sexual Orientation Not on file Last Filed Vital Signs Vital Sign Reading Time Taken Comments Blood Pressure 142/76 09/28/2024 10:56 AM CONSERVATION ENGINEER Pulse 64 09/28/2024 10:56 AM CONSERVATION ENGINEER Temperature 36.2 ??C (97.2 ??F) 04/27/2022 10:59 AM C DT Respiratory Rate 16 03/10/2021 11:00 AM CDT Oxygen Saturation 95% 09/28/2024 10:56 AM CONSERVATION ENGINEER Inhaled Oxygen Concentration - - Weight 90.3 kg (199 lb) 09/28/2024 10:56 AM CONSERVATION ENGINEER Height 172.7 cm (5' 8 ) 09/28/2024 10:56 AM CONSERVATION ENGINEER Body Mass Index 30.26 09/28/2024 10:56 AM CONSERVATION ENGINEER Plan of Treatment Not on file Medical Devices Implanted Type Area Time Analysis Clerk Device Identifier Shelf Expiration Date Model / Serial / Lot [employer]/C R Bard [id number] Monofilament Soft Lightweight Low Profile Square - [id number] - [id number] Implanted:Qty: 1 on 03/09/2021 by Jesu Breen MD at [facility] Mesh N/A: Abdomen [employer] Bard [id number] 10/17/2025 [id number] / [id number] / [id number] Insurance MEDICARE [facility] Advance Directives For more information, please contact: [phone] * Full Code (Latest Code Status on File) Date Activated Date Inactivated Comments 03/09/2021 3:21 PM 03/10/2021 6:44 PM Care Teams Logistics Account Manager Relationship Specialty Start Date End Date Tanvir Davalos MD [address] [address] PCP - General Internal Medicine 08/21/19
--- OUTSIDE RECORDS SUMMARY | 2024-11-16 10:12 | XMS_ITS | Referral Summary ---
Author Organization [facility] [employer] Address [address] [place] [address] Care Team Providers Care Lens Silverer Name Role Phone Tanvir Davalos MD Primary Care Provider [phone] Source Comments [facility],non-owned Affiliates and Associated Physician Practices is amultiple site organization consisting of ambulatory clinics and hospital sitesin [place] and [place]. This disclosure is being madepursuant to the Care Everywhere program and may not contain all information available regarding this patient. Last updated 18.[facility] [employer] Allergies Active Allergy Reactions Criticality Noted Date [...] 01/04/2022 8:37 AM CDT Plan of Treatment Not on file Care Teams Lens Silverer Relationship Specialty Start Date End Date Tanvir Davalos MD [address] [place] [address] [address] [place] [address] PCP - General Internal Medicine 01/04/22
--- OUTSIDE RECORDS SUMMARY | 2024-11-16 10:12 | XMS_ITS | Patient Health Summary ---
Author Organization [facility] Address [address] [place] [address] Care Team Providers Care Dynamo Tender Name Role Phone Tanvir Davalos MD Primary Care Provider [phone] Note from [facility],non-owned Affiliates and Associated Physician Practices is amultiple site organization consisting of ambulatory clinics and hospital sitesin [place], [place], [place] and [place]. This disclosure is being madepursuant to the Care Everywhere program and may not contain all information available regarding this patient. Last updated 18.[facility] Allergies * Aspirin(Other) * Clopidogrel(Other) * Meperidine * Morphine(Other) -Low Criticality * Ranexa(Other) Medications * Be aware that medications may not be up to date on this document. Alwaysverify current medications with the patient. * piroxicam (FELDENE) 20 MG capsule(Started 09/01/2014) Take 1 Cap by mouth once daily. 11 refills left * amLODIPine (NORVASC) 5 MG tablet Take 5 mg by mouth once daily. * rosuvastatin (CRESTOR) 5 MG tablet Take 5 mg by mouth once daily. * LORazepam (ATIVAN) 0.5 MG tablet Take 0.5 mg by mouth every 8 hours as needed for Anxiety. * azelastine (ASTELIN) 0.1 % nasal spray(Started 01/17/2021) azelastine 137 mcg (0.1 %) nasal spray aerosol * mesalamine DR (DELZICOL) 400 MG capsule(Started 01/19/2022) Social History Tobacco Use Types Packs/Day Years [...] Mass Index 30.41 01/04/2022 8:37 AM CDT Procedures * CT ANGIO ABDOMEN PELVIS(Performed 08/06/2022) Performed for Celiac artery dissection (HCC) * CREATININE - POCT INTERFACED(Performed 08/06/2022) * CT ANGIO ABDOMEN(Performed 01/29/2022) Performed for Celiac artery dissection (HCC) * CREATININE - POCT INTERFACED(Performed 01/29/2022) * PTT [facility](Performed 01/04/2022) * PT-INR [facility](Performed 01/04/2022) Results * CT ANGIO ABDOMEN PELVIS (08/06/2022 12:49 PM CDT) Anatomical Region Laterality Modality Abdomen, Pelvis Computed Tomogra phy 08/06/2022 2:34 PM CDT Impressions 08/06/2022 3:28 PM CDT Impression: 1.Redemonstrated unchanged appearance of short segment intimal flap of the celiac trunk without occlusion. There is no evidence of dissection in the common hepatic, splenic, left gastric arteries. 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 2.Small hiatal hernia. > Dictated by Gideon Young MD (radiology transporter) I, Kylah Lux MD have personally reviewed and interpreted this examination/study. 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 including 3D post processing CTA image reconstruction. CONTRAST: ?? IOPAMIDOL 76 % IV SOLN:100 mL FINDINGS: Abdominal aorta: There is no aortic dissection, intramural hematoma, penetrating atherosclerotic ulcer, or aneurysm. The aorta is normal in course and caliber. Abdominal aortic branches: Celiac axis: Atherosclerosis at the origin of the celiac axis causing mild stenosis with poststenotic dilatation measuring approximately 1 cm in small diameter unchanged. Redemonstrated intimal flap of the celiac trunk extending to its bifurcation consistent with dissection (series 8 image 42 and series 11 image 66), grossly unchanged as compared to prior exam. The common hepatic and splenic arteries as well as left gastric artery appears to arise from the true lumen and do not show signs of dissection. There is no evidence of occlusion. Superior mesenteric artery: Patent without significant focal stenosis. Inferior mesenteric artery: Atherosclerotic at its origin with focal stenosis but patent. Right renal artery: Atherosclerotic at the origin but patent without significant focal stenosis. Left renal artery: Atherosclerotic at the origin but patent without significant focal stenosis. Right common iliac artery: Atherosclerotic but patent without significant focal stenosis. Left common iliac artery: Atherosclerotic but patent without significant focal stenosis. The vessel is slightly ectatic. Lower Chest: Mild bilateral dependent atelectasis is present in the visualized lung bases. Subtle ground glass opacities are seen at the bilateral lung bases with associated interlobular septal thickening which can be seen in the setting of pulmonary edema. Heart size appears prominent. There is no pericardial thickening or effusion. Hepatobiliary: Diffuse hepatic status is noted. There is no intra or extra hepatic biliary dilatation. The gallbladder is nondistended. There is no gallbladder wall thickening or pericholecystic fluid. No radiopaque gallstones are seen.. Spleen: Normal. Pancreas: There is fatty atrophy of the pancreas. Adrenals: The right adrenal gland is normal. There is a 1.0 cm stable indeterminate nodule of the medial limb of the left adrenal gland, unchanged. Kidneys: The right kidney is normal. There is a 2.4 cm hypoattenuating lesion within the superior pole of the left kidney, likely a simple cyst. Gastrointestinal: The distal esophagus appear unremarkable. Small hiatal hernia is noted. Hyperdense foci within the gastric lumen likely ingested materials. There is no abnormally dilated loops of small or large bowel. Mesentery/Peritoneum/Retroperitoneum: There are no enlarged lymph nodes. There is no free intraperitoneal air or fluid. Bones: There are multilevel degenerative changes seen through the visualized spine. The visible osseous structures are intact. Soft tissues: Complex fat-containing midline ventral abdominal hernia is noted. 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 including 3D post processing CTA image reconstruction. CONTRAST: IOPAMIDOL 76 % IV SOLN:100 mL FINDINGS: Abdominal aorta: There is no aortic dissection, intramural hematoma, penetrating atherosclerotic ulcer, or aneurysm. The aorta is normal in course and caliber. Abdominal aortic branches: Celiac axis: Atherosclerosis at the origin of the celiac axis causingmild stenosis with poststenotic dilatation measuring approximately 1 cm insmall diameter unchanged. Redemonstrated intimal flap of the celiac trunk extending to its bifurcation consistent with dissection (series 8 image42 and series 11 image 66), grossly unchanged as compared to prior exam.The common hepatic and splenic arteries as well as left gastric arteryappears to arise from the true lumen and do not show signs of dissection. Thereis no evidence of occlusion. Superior mesenteric artery: Patent without significant focal stenosis. Inferior mesenteric artery: Atherosclerotic at its origin with focal stenosis but patent. Right renal artery: Atherosclerotic at the origin but patent without significant focal stenosis. Left renal artery: Atherosclerotic at the origin but patent without significant focal stenosis. Right common iliac artery: Atherosclerotic but patent withoutsignificant focal stenosis. Left common iliac artery: Atherosclerotic but patent without significant focal stenosis. The vessel is slightly ectatic. Lower Chest: Mild bilateral dependent atelectasis is present in the visualized lung bases. Subtle ground glass opacities are seen at the bilateral lungbases with associated interlobular septal thickening which can be seen in the setting of pulmonary edema. Heart size appears prominent. There is no pericardial thickening or effusion. Hepatobiliary: Diffuse hepatic status is noted. There is no intra or extra hepaticbiliary dilatation. The gallbladder is nondistended. There is no gallbladderwall thickening or pericholecystic fluid. No radiopaque gallstones are seen.. Spleen: Normal. Pancreas: There is fatty atrophy of the pancreas. Adrenals: The right adrenal gland is normal. There is a 1.0 cm stableindeterminate nodule of the medial limb of the left adrenal gland, unchanged. Kidneys: The right kidney is normal. There is a 2.4 cm hypoattenuating lesionwithin the superior pole of the left kidney, likely a simple cyst. Gastrointestinal: The distal esophagus appear unremarkable. Small hiatal hernia is noted. Hyperdense foci within the gastric lumen likely ingested materials.There is no abnormally dilated loops of small or large bowel. Mesentery/Peritoneum/Retroperitoneum: There are no enlarged lymph nodes. There is no free intraperitoneal airor fluid. Bones: There are multilevel degenerative changes seen through the visualized spine. The visible osseous structures are intact. Soft tissues: Complex fat-containing midline ventral abdominal hernia is noted. Impression: 1.Redemonstrated unchanged appearance of short segment intimal flap ofthe celiac trunk without occlusion. There is no evidence of dissection inthe common hepatic, splenic, left gastric arteries. Stenosis at origin ofthe celiac axis with poststenotic dilatation is again noted withoutsignificant change from prior studies dating back to July 10, 2016. 2.Small hiatal hernia. > Dictated by Gideon Young MD (radiology transporter) I, Kylah Lux MD have personally reviewed and interpreted this examination/study. > Interpreting Provider: Kylah Lux MD on 23:28 PM Beth Lerner MD CT ORDERABLES * (ABNORMAL) CREATININE - POCT INTERFACED (08/06/2022 12:30 PM CDT) Only the most recent of2 resultswithin the time period is included. Creatinine POCT 1.10 0.30 - 1.30 mg/dL 08/06/2022 12:48 PM CDT [facility] Comment:CT range acceptable eGFR 51(L) >90 mL/min/1.7 3 m2 08/06/2022 12:48 PM CDT [facility] Blood BLOOD SPECIMEN / Unknown 08/06/2022 12:30 PM CDT 08/06/2022 12:48 PM CDT Beth Lerner MD LAB - POINT OF CARE ORDERABLES Performing Organization Address City/State/[facility] Co de Phone Number [address] [address], [facility] [phone] * CT ANGIO ABDOMEN (01/29/2022 12:19 PM CDT) Anatomical Region Laterality Modality Abdomen Computed Tomogra phy 01/29/2022 1:09 PM CDT Impressions 01/29/2022 2:57 PM CDT Impression: 1.Redemonstrated stable appearance of 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 There is no evidence of dissection in the common hepatic, splenic, left gastric arteries. 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 3. Left upper pole indeterminate renal cystic lesion has increased in size, now measuring approximately 2.1 cm, previously measuring 1.6 cm from study dated January 07, 2019. Recommend ultrasound evaluation. Dictated by Sigifredo Theodore MD (radiology transporter). I, Dr. JONNY COULTER M.D. have personally reviewed and interpreted this examination/study. This report was electronically signed by JONNY COULTER M.D. ??on 01/29/2022 2:57 PM . Narrative 01/29/2022 2:57 PM CDT Procedure Information: DATE: 01/29/2022 12:19 PM EXAMINATION: Computed tomography (CT) angiography of the abdomen without and with contrast TECHNIQUE: CT of the abdomen and pelvis was performed prior to and following the uneventful administration of 100 mL of Isovue 370 intravenous contrast according to an angiographic protocol. Three dimensional postprocessing was performed by the technologist and sent to the workstation for review. 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 The aorta is normal in course and caliber. Abdominal aortic branches: Celiac axis: Atherosclerosis at the origin of the celiac axis causing mild stenosis with poststenotic dilatation measuring 1 centimeter in diameter similar to the prior studies. Redemonstrated dissection of the celiac trunk up to its bifurcation. (series 10 image 40 and series 8 images 40-43). Dissection appears to be stable (coronal series 10 image 40 versus coronal series 203 image 42 on the prior study) The common hepatic and splenic arteries as well as left gastric artery appears to arise from the true lumen and do not show signs of dissection. There is no evidence of occlusion. Superior mesenteric artery: Patent without significant focal stenosis. Inferior mesenteric artery: Atherosclerotic at its origin with focal stenosis but patent. Right renal artery: Atherosclerotic at the origin but patent without significant focal stenosis. Left renal artery: Atherosclerotic at the origin but patent without significant focal stenosis. Right common iliac artery: Atherosclerotic but patent without significant focal stenosis. Left common iliac artery: Atherosclerotic but patent without significant focal stenosis. Lower Chest: Mild bilateral dependent atelectasis is present in the visualized lung bases. Liver: Normal. Gallbladder and Bile Ducts: Normal. Spleen: Normal. Pancreas: There is atrophy of the pancreas. Adrenals: The right adrenal gland is normal. There is a 1.5 cm stable indeterminate nodule of the medial limb of the left adrenal gland, stable. Kidneys: The right kidney is normal. There is a 2.4 cm hypoattenuating lesion within the superior pole of the left kidney - ?complex cyst. Gastrointestinal: Hiatal hernia. Mesentery/Peritoneum/Retroperitoneum: There are no enlarged lymph nodes. There is no free intraperitoneal air or fluid Bones: There are degenerative changes seen through the visualized spine. The visible osseous structures are intact. Soft tissues: Questionable ? small fat-containing umbilical hernia not completely imaged Procedure Note Jonny Coulter MD - 01/29/2022 Procedure Information: DATE: 01/29/2022 12:19 PM EXAMINATION: Computed tomography (CT) angiography of the abdomen without and with contrast TECHNIQUE: CT of the abdomen and pelvis was performed prior to and following the uneventful administration of 100 mL of Isovue 370 intravenous contrast according to an angiographic protocol. Three dimensional postprocessing was performed by the technologist and sent to the workstation for review. 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 The aorta is normal in course and caliber. Abdominal aortic branches: Celiac axis: Atherosclerosis at the origin of the celiac axis causingmild stenosis with poststenotic dilatation measuring 1 centimeter in diameter similar to the prior studies. Redemonstrated dissection of the celiac trunk up to its bifurcation. (series 10 image 40 and series 8 images 40-43). Dissection appears to be stable (coronal series 10 image 40versus coronal series 203 image 42 on the prior study) The common hepatic and splenic arteries as well as left gastric artery appears to arise fromthe true lumen and do not show signs of dissection. There is no evidence of occlusion. Superior mesenteric artery: Patent without significant focal stenosis. Inferior mesenteric artery: Atherosclerotic at its origin with focal stenosis but patent. Right renal artery: Atherosclerotic at the origin but patent without significant focal stenosis. Left renal artery: Atherosclerotic at the origin but patent without significant focal stenosis. Right common iliac artery: Atherosclerotic but patent withoutsignificant focal stenosis. Left common iliac artery: Atherosclerotic but patent without significant focal stenosis. Lower Chest: Mild bilateral dependent atelectasis is present in the visualized lung bases. Liver: Normal. Gallbladder and Bile Ducts: Normal. Spleen: Normal. Pancreas: There is atrophy of the pancreas. Adrenals: The right adrenal gland is normal. There is a 1.5 cm stableindeterminate nodule of the medial limb of the left adrenal gland, stable. Kidneys: The right kidney is normal. There is a 2.4 cm hypoattenuating lesion within the superior pole of the left kidney - ?complex cyst. Gastrointestinal: Hiatal hernia. Mesentery/Peritoneum/Retroperitoneum: There are no enlarged lymph nodes. There is no free intraperitoneal airor fluid Bones: There are degenerative changes seen through the visualized spine. The visible osseous structures are intact. Soft tissues: Questionable ? 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 There is no evidence of dissection inthe common hepatic, splenic, left gastric arteries. Stenosis at origin ofthe celiac axis with poststenotic dilatation is again noted without significant change from prior studies dating back to July 10, 2016 2.Small- moderate hiatal hernia. 3. Left upper pole indeterminate renal cystic lesion has increased in size, now measuring approximately 2.1 cm, previously measuring 1.6 cmfrom study dated January 07, 2019. Recommend ultrasound evaluation. Dictated by Sigifredo Theodore MD (radiology transporter). I, Dr. JONNY COULTER M.D. have personally reviewed and interpreted this examination/study. This report was electronically signed by JONNY COULTER M.D. on 01/29/2022 2:57 PM . Beth Lerner MD CT ORDERABLES * (ABNORMAL) PTT [facility] (01/04/2022 9:02 AM CDT) APTT 45.7(H) 23.0 - 38.4 Seconds 01/04/2022 9:32 AM CDT [facility] Comment:Suggested therapeuti c range for full dose I.V. unfractionated heparin therapy for venous thromboembolism is 71 to 109 seconds. Blood BLOOD SPECIMEN / Unknown Venipuncture / Unknown 01/04/2022 9:02 AM CDT 01/04/2022 9:04 AM CDT Steven Sal MD LAB - COAGULATI ON ORDERABLES Performing Organization Address City/[facility] Co de Phone Number [address] [address], [facility] [phone] * PT-INR [facility] (01/04/2022 9:02 AM CDT) PT 13.9 12.1 - 14.8 Seconds 01/04/2022 9:31 AM CDT [facility] INR 1.1 See Comment 01/04/2022 9:31 AM T [facility] Comment:The suggested therap eutic range for standard coumadin (warfarin) therapy is an INR of 2.0-3.0. For high-risk patients (Mechanical Mitral Valve Prosthesis, etc.), the suggested prophylactic therapeutic range is an INR of 2.5-3.5. Blood BLOOD SPECIMEN / Unknown Venipuncture / Unknown 01/04/2022 9:02 AM CDT 01/04/2022 9:04 AM CDT Steven Sal MD LAB - COAGULATI ON ORDERABLES [address] [address], [place] [phone] Care Teams Dynamo Tender Relationship Specialty Start Date End Date Tanvir Davalos MD [address] [place] [address] [phone] PCP - General Internal Medicine 01/04/22
--- OUTSIDE RECORDS SUMMARY | 2024-11-16 10:12 | XMS_ITS | Continuity of Care Document ---
Author Organization [facility] Address [address] [place] [address] Phone Care Team Providers Care Corrugator Supervisor Name Role Phone Kayla Calloway Unavailable Unavaila ble Advance Directives Directive Yes / No Effective Date File Name No Information Encounters Encounter Description Practice Location Reason(s) For Visit Diagnoses Date Provider Providers Copied on Encounter [facility], [address], [place], [place], [id number], [place] tel:[phone] [facility] No Information Claudio Garza. [id number] , [address] [facility] [address], [place], [place], [id number], [place]. tel:[phone] Family History Family Member Type Diagnosis Age At Onset No Information Payers Payer name Insurance type Covered alliance party ID Authoriza tion(s) No Information Social History Type Description Quantity Date Captured [...]
--- OUTSIDE RECORDS SUMMARY | 2024-11-16 10:12 | XMS_ITS | CONTINUITY OF CARE DOCUMENT ---
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 diff , has ventral hernia active Reji Short MD CardiomyopathyEf now 60% active Reji ledbetter MD EPISTAXIS, RECURRENT S/P CAUTERIZATION active Reji Short MD CARDIOMYOPATHY EF 45 %, ECHO 05, IMPROVED TO 60% 03/24/13 completed - Reji Short MD HTN CONTROLLED active Reji Short MD Hypercholesterolemia, mixed active Trina Hodges ENCOUNTERS Date Type Provider Location Encounter Diag nosis - In-person encounter Office Visit Reji Short MD [facility] - In-person encounter Office Visit Reji Short MD [facility] - In-person encounter Office Visit Reji Short MD [facility] - In-person encounter Office Visit Reji Short MD [facility] - In-person encounter Office Visit Reji Short MD [facility] CARDIOMYOPATHY EF 45 %, ECHO 05, IMPROVED TO 60% 03/24/13Abdominal pain s/p c. diff , has ventral herniaCardiomyopathyEf now 60% - In-person encounter Office Visit Reji Short MD [facility] CAD false pos stress test , tortous LAD, no significant CAD - In-person encounter Office Visit Reji Short MD [facility] CAD false pos stress test , tortous LAD, no significant CADAbdominal pain s/p c. diff , has ventral hernia - In-person encounter Office Visit Reji Short MD [facility] CAD false pos stress test , tortous LAD, no significant CAD - In-person encounter Office Visit Reji Short MD [facility] - In-person encounter Office Visit Reji Short MD [facility] EPISTAXIS, RECURRENT S/P CAUTERIZATION - In-person encounter Office Visit Reji Short MD [facility] - In-person encounter Office Visit Lori Hernandez MD [facility] - In-person encounter Office Visit Reji Short MD [facility] - In-person encounter Office Visit Reji Short MD [facility] CAD false pos stress test , tortous LAD, no significant CADHypercholesterolemia, mixedHTN CONTROLLEDCARDIOMYOPATHY EF 45 %, ECHO 05, IMPROVED TO 60% 03/24/13ARTHRITIS STATUS POST KNEE AND SHOULDER SURGERY VITAL SIGNS Date Observation Value Provider Body Mass Index (Ratio) 30.56 kg/m2 Feliberto Short MD blood pressure, diastolic 80 mm[Hg] Toni Shearer blood pressure, systolic 140 mm[Hg] Shelton minor Shearer oxygen saturation, oximetry 96 [facility]min Dov Martin pulse rate 79 /min Dov Shearer weight E&M 204 [lb_av] Dov Shearer height E&M 68.5 [in_i] Dov Shearer Body Mass Index (Ratio) 30.98 kg/m2 Feliberto Short MD blood pressure, diastolic 94 mm[Hg] Martinez Mistryabdon Casper blood pressure, systolic 158 mm[Hg] Vilma Casper oxygen saturation, oximetry 96 % Alfonzo Casper respiratory rate E&M 18 /min Mingo Casper pulse rate 79 /min Alfonzo Caceres nson weight E&M 206.8 [lb_av] Alfonzo escobedoon height E&M 68.5 [in_i] Alfonzo Caceres nson Body Mass Index (Ratio) 29.63 kg/m2 Feliberto Short MD blood pressure, cuff size regular Ke rri Carroll blood pressure, diastolic 80 mm[Hg] Ke rri Jaquelinenedelviner blood pressure, systolic 140 mm[Hg] Jim Hodges oxygen saturation, oximetry 97 % Trina Hodges respiratory rate E&M 18 /min Trina escalona pulse rate 65 /min Trina rizvier weight E&M 197.8 [lb_av] Trina borja height E&M 68.5 [in_i] Trina rizvier Body Mass Index (Ratio) 28.77 kg/m2 Feliberto Short MD blood pressure, diastolic 100 mm[Hg] Ki hailey Shearer blood pressure, systolic 160 mm[Hg] Shelton ivánabdon Calvertam oxygen saturation, oximetry 96 % [place] Shearer respiratory rate E&M 16 /min Dov Shearer pulse rate 78 /min Dovgene Calvertam weight E&M 192 [lb_av] Dov Cal[place]am height E&M 68.5 [in_i] Dov Calvertam Body Mass Index (Ratio) 26.97 kg/m2 Feliberto Short MD blood pressure, cuff size regular Mary Jane Bird blood pressure, diastolic 80 mm[Hg] aMry Jane salazar Bird blood pressure, systolic 140 mm[Hg] Nadine macdonald Bird oxygen saturation, oximetry 96 % Beatris Bird respiratory rate E&M 16 /min Beatris Bird pulse rate 71 /min Beatris Bird weight E&M 180 [lb_av] Beatris Bird height E&M 68.5 [in_i] Beatrisdakota Bird blood pressure, diastolic 86 mm[Hg] Martinez Townsend Casper blood pressure, systolic 120 mm[Hg] Vilma Porter Casper Body Mass Index (Ratio) 28.47 kg/m2 Kerri Casper pulse rate 66 /min Alfonzo Caceres kelly oxygen saturation, oximetry 96 % Alfonzo Casper respiratory rate E&M 16 /min Mingo marvin Casper weight E&M 190 [lb_av] Alfonzo Caceres kelly Body Mass Index (Ratio) 27.87 kg/m2 Sushma ssa Andry pulse rate 78 /min Makayla Andry respiratory rate E&M 16 /min Makayla Andry oxygen saturation, oximetry 96 % Makayla Andry blood pressure, diastolic 78 mm[Hg] Me radha Andry blood pressure, systolic 132 mm[Hg] Abena charles Andry weight E&M 186 [lb_av] Makayla Andry Body Mass Index (Ratio) 27.12 kg/m2 Sushma ssa Andry blood pressure, diastolic 94 mm[Hg] Me radha Wilde blood pressure, systolic 148 mm[Hg] Abena Wilde pulse rate 78 /min Makayla Wilde oxygen saturation, oximetry 97 % Makayla Wilde respiratory rate E&M 16 /min Makayla Wilde weight E&M 181 [lb_av] Makayla Wilde Body Mass Index (Ratio) 27.81 kg/m2 Pamela Bonnerdney blood pressure, diastolic 88 mm[Hg] Tomy Bonnerdney blood pressure, systolic 139 mm[Hg] Lelo Bonnerdney pulse rate 76 /min Gorge Bonnerdney oxygen saturation, oximetry 95 % Gorge Bonnerdney respiratory rate E&M 16 /min Gorge Yrn weight E&M 185.6 [lb_av] Gorge Yrn blood pressure, diastolic 82 mm[Hg] Ruben Duffy RN blood pressure, systolic 146 mm[Hg] Devyn Duffy RN pulse rate 58 /min Devyn Duffy RN oxygen saturation, oximetry 96 % Devyn Duffy RN respiratory rate E&M 17 /min Devyn rai RN Body Mass Index (Ratio) 27.97 kg/m2 Devyn Duffy RN weight E&M 186 [lb_av] Devyn Duffy RN height E&M 68.5 [in_i] Devyn Duffy RN pulse rate 76 /min Stephanie Hernandez [employer] respiratory rate E&M 22 /min Stephanie mancia [employer] blood pressure, diastolic 94 mm[Hg] Ruben Hernandez [employer] blood pressure, systolic 141 mm[Hg] Zak Hernandez [employer] weight E&M 180 [lb_av] Stephanie Hernandez [employer] blood pressure, diastolic, left arm 102 m m[Hg] Devyn Duffy RN blood pressure, systolic, left arm 139 mm [Hg] Devyn Zamans RN blood pressure, diastolic, right arm 91 m m[Hg] Devyn Zamans RN blood pressure, systolic, right arm 134 m m[Hg] Devyn Zamans RN blood pressure, diastolic 109 mm[Hg] Ruben coppola Duffy RN blood pressure, systolic 139 mm[Hg] Devyn Zamans RN pulse rate 98 /min Devyn Zamans RN oxygen saturation, oximetry 97 % Devyn Zamans RN respiratory rate E&M 18 /min Devyn rai RN weight E&M 180 [lb_av] Devyn Zamans RN blood pressure, diastolic, left arm 89 mm [Hg] Devyn Zamans RN blood pressure, systolic, left arm 132 mm [Hg] Devyn Zamans RN blood pressure, diastolic, right arm 92 m m[Hg] Devyn Zamans RN blood pressure, systolic, right arm 138 m m[Hg] Devyn Zamans RN blood pressure, diastolic 89 mm[Hg] Ruben coppola Duffy RN blood pressure, systolic 132 mm[Hg] Devyn Zamans RN pulse rate 69 /min Devyn Zamans RN oxygen saturation, oximetry 96 % Devyn Zamans RN respiratory rate E&M 18 /min Devyn toscanos RN weight E&M 182 [lb_av] Devyn Duffy RN blood pressure, diastolic 80 mm[Hg] Read blood pressure, systolic 134 mm[Hg] Donato Millan pulse rate 62 /min Sukhjinder Millan oxygen saturation, oximetry 97 % Sukhjinder Millan respiratory rate E&M 16 /min Sukhjinder Millan weight E&M 187 [lb_av] Sukhjinder Millan ALLERGIES Allergy Name Onset Date Reaction Criticality Status RANEXA brown urine Low Criticality active DEMEROL nausea vomiting Low Criticality acti ve RESULTS Date Observation Value Provider Reference Range Interpretation Location prothrombin time (patient) 10.0 s [facility] 9.0-11.5 Normal international normalized ratio (INR) 1.0 [facility] Normal basophils as percent of blood leukocytes 1.9 % [facility] Normal eosinophils as percent of blood leukocytes 5.4 % [facility] Normal monocyte count, blood 15.0 % [facility] Normal lymphocyte count, blood 28.5 % [facility] Normal neutrophils as percent of blood leukocytes 49.2 % [facility] Normal basophils, absolute, manual 116 cells/mcL [facility] 0-200 Normal eosinophils, absolute, manual 329 cells/mcL [facility] 15-500 Normal monocytes, absolute, manual 915 cells/mcL [facility] 200-950 Normal lymphocytes, absolute 1739 CELLS/UL [facility] 850-3900 Normal Absolute Neutrophil count 3001 cells/mcL [facility] 6047-5796 Normal mean platelet volume 10.0 fL [facility] 7.5-11.5 Normal platelet count 207 THOUSAND/UL [facility] 140-400 Normal red blood cell distribution width 14.3 % [facility] 11.0-15.0 Normal mean corpuscular hemoglobin concentration, RBC 32.7 G/DL [facility] 32.0-36.0 Normal mean corpuscular hemoglobin, RBC 29.8 pg [facility] 27.0-33.0 Normal mean corpuscular volume, RBC 91.3 fL [facility] 80.0-100.0 Normal hematocrit, blood 42.5 % [facility] 35.0-45.0 Normal hemoglobin electrophoresis, blood 13.9 [facility] 11.7-15.5 Normal erythrocyte (RBC) count 4.65 MILLION/UL [facility] 3.80-5.10 Normal leukocyte (white blood cells) count, blood 6.1 THOUSAND/UL [facility] 3.8-10.8 Normal calcium, serum 9.5 mg/dL [facility] 8.6-10.4 Normal carbon dioxide, venous blood 23 mmol/L [facility] 19-30 Normal chloride, serum 104 mmol/L [facility] 98-110 Normal potassium, serum 4.4 mmol/L [facility] 3.5-5.3 Normal sodium, serum 136 mmol/L [facility] 135-146 Normal urea nitrogen/creatinine ratio, serum NOT APPLICABLE (calc) [facility] 6-22 Estimated Glomerular Filtration Rate (calc) 79 mL/min/{1.73_ m2} [facility] > OR = 60 Normal creatinine, serum 0.85 mg/dL [facility] 0.60-0.93 Normal urea nitrogen, blood 19 mg/dL [facility] 7-25 Normal blood glucose, random 90 mg/dL [facility] 65-99 Normal cholesterol, non-HDL, total 106 MG/DL (CALC) [facility] Normal cholesterol/HDL ratio, serum, percent 2.7 (calc) [facility] < OR = 5.0 Normal LDL cholesterol, serum 83 MG/DL (CALC) [facility] <130 Normal triglyceride, serum, fasting 115 mg/dL [facility] <150 Normal HDL cholesterol, serum 61 mg/dL [facility] > OR = 46 Normal [facility], [facility] 167 [facility] Normal triglyceride, serum, fasting 74 mg/dL [facility] HDL cholesterol, serum 93 mg/dL [facility] cholesterol/HDL ratio, serum 1.6 [facility] lipoprotein, beta, serum, point, quantitative, calculated 38 mg/dL [facility] cholesterol, serum 146 mg/dL [facility] alanine aminotransferase (SGPT), serum 12 1/L [facility] aspartate aminotransferase (SGOT), serum 16 1/L [facility] creatinine, serum 0.87 mg/dL [email or web address] potassium, serum 4.4 mmol/L [facility] sodium, serum 140 mmol/L [facility] lipoprotein, beta, serum, point, quantitative, calculated 61 mg/dL [facility] cholesterol, serum 154 mg/dL [facility] alanine aminotransferase (SGPT), serum 15 1/L aspartate aminotransferase (SGOT), serum 18 1/L [facility] creatinine, serum 0.92 mg/dL [email or web address] potassium, serum 4.8 mmol/L [facility] sodium, serum 138 mmol/L [facility] lipoprotein, beta, serum, point, quantitative, calculated 61 mg/dL [facility] cholesterol, serum 164 mg/dL [facility] alanine aminotransferase (SGPT), serum 17 1/L aspartate aminotransferase (SGOT), serum 22 1/L [facility] creatinine, serum 1.00 mg/dL [facility] potassium, serum 4.9 mmol/L [facility] sodium, serum 141 mmol/L [facility] very low density lipoproteins 27 mg/dL [facility] triglyceride, serum, fasting 134 mg/dL [facility] HDL cholesterol, serum 75 mg/dL [facility] LDL cholesterol, serum 63 mg/dL [facility] cholesterol, serum 165 mg/dL [facility] globulins, serum, total 2.5 g/dL [facility] Estimated Glomerular Filtration Rate (calc) 62 mL/min/{1.73_ m2} [facility] albumin/globulin ratio, serum 1.8 [facility] protein, total, serum 7.0 g/dL [facility] albumin, serum 4.5 g/dL [facility] bilirubin, serum, total 0.7 mg/dL [facility] alkaline phosphatase, serum 91 1/L alanine aminotransferase (SGPT), serum 33 1/L aspartate aminotransferase (SGOT), serum 24 1/L [facility] calcium, serum 9.5 mg/dL [email or web address] blood glucose, fasting 85 mg/dL [facility] creatinine, serum 0.94 mg/dL [email or web address] urea nitrogen, blood 12 mg/dL [email or web address] carbon dioxide, serum, total 25 mmol/L chloride, serum 103 mmol/L potassium, serum 4.4 mmol/L [email or web address] sodium, serum 139 mmol/L [facility] very low density lipoproteins 22 mg/dL [facility] triglyceride, serum, fasting 109 mg/dL [email or web address] HDL cholesterol, serum 77 mg/dL [facility] LDL cholesterol, serum 68 mg/dL [email or web address] cholesterol, serum 167 mg/dL [email or web address] globulins, serum, total 2.7 g/dL [facility] Estimated Glomerular Filtration Rate (calc) 59 mL/min/{1.73_ m2} [facility] albumin/globulin ratio, serum 1.7 [email or web address] protein, total, serum 7.2 g/dL [email or web address] albumin, serum 4.5 g/dL [email or web address] bilirubin, serum, total 0.5 mg/dL [facility] alkaline phosphatase, serum 103 1/L [email or web address] alanine aminotransferase (SGPT), serum 14 1/L [facility] aspartate aminotransferase (SGOT), serum 18 1/L [facility] calcium, serum 9.8 mg/dL [facility] blood glucose, fasting 91 mg/dL [facility] creatinine, serum 0.98 mg/dL [facility] urea nitrogen, blood 16 mg/dL [facility] carbon dioxide, serum, total 23 mmol/L [facility] chloride, serum 105 mmol/L [facility] potassium, serum 4.3 mmol/L [facility] sodium, serum 139 mmol/L [facility] triglyceride, serum, fasting 141 mg/dL [facility] HDL cholesterol, serum 69 mg/dL [facility] LDL cholesterol, serum 62 mg/dL [facility] cholesterol, serum 159 mg/dL [facility] albumin/globulin ratio, serum 1.7 [facility] protein, total, serum 7.1 g/dL [facility] albumin, serum 4.5 g/dL [facility] bilirubin, serum, total 0.7 mg/dL [facility] alkaline phosphatase, serum 105 1/L [facility] alanine aminotransferase (SGPT), serum 18 1/L [facility] aspartate aminotransferase (SGOT), serum 21 1/L [facility] calcium, serum 9.5 mg/dL [facility] blood glucose, fasting 79 mg/dL [facility] creatinine, serum 0.85 mg/dL [facility] urea nitrogen, blood 12 mg/dL [facility] carbon dioxide, serum, total 22 mmol/L [facility] chloride, serum 102 mmol/L [facility] potassium, serum 4.4 mmol/L [facility] sodium, serum 138 mmol/L [facility] albumin/globulin ratio, serum 1.6 [facility] protein, total, serum 7.5 g/dL [facility] albumin, serum 4.6 g/dL [facility] bilirubin, serum, total 0.8 mg/dL [facility] alkaline phosphatase, serum 102 1/L [facility] alanine aminotransferase (SGPT), serum 20 1/L [facility] aspartate aminotransferase (SGOT), serum 23 1/L [facility] calcium, serum 9.9 mg/dL [facility] blood glucose, fasting 91 mg/dL [facility] creatinine, serum 0.91 mg/dL [facility] urea nitrogen, blood 10 mg/dL [facility] carbon dioxide, serum, total 22 mmol/L [facility] chloride, serum 101 mmol/L [facility] potassium, serum 4.5 mmol/L [facility] sodium, serum 139 mmol/L [facility] triglyceride, serum, fasting 140 mg/dL [facility] HDL cholesterol, serum 69 mg/dL [facility] LDL cholesterol, serum 59 mg/dL [facility] cholesterol, serum 156 mg/dL [facility] HISTORY OF MEDICATION USE Medication Status Instructions Dates Provider Indications Com ments PROTONIX 40 MG ORAL TABLET DELAYED RELEASE active Once a day Trina Hodges TYLENOL 325 MG ORAL TABLET completed 1 tab daily as needed for pain - [facility] TRAMADOL HCL 50 MG ORAL TABLET completed 1 tab daily as needed for pain - [facility] DELZICOL 400 MG ORAL CAPSULE DELAYED RELEASE active 2 caps 3x daily [facility] CENTRUM ADULTS ORAL TABLET completed 1 tab daily - [facility] FERROUS SULFATE 325 (65 FE) MG ORAL TABLET completed ONE PER DAY - [facility] ACID CONTROL MAXIMUM STRENGTH 20 MG ORAL TABLET completed Take 1 Tablet Once a Day. - Reji Short MD FELDENE 20 MG ORAL CAPSULE completed ONCE DAILY - Dov Shearer AYR INHA completed - Makayla Wilde LATANOPROST SOLUTION completed 1 gtt @hs - Reji Short MD FLORASTOR CAPSULE completed one tab daily - Makayla Andry VAGIFEM 10 MCG VAGINAL TABLET completed twice weekly - Makayla Wilde TRAMADOL HCL 50 MG ORAL TABLET completed as needed - Makayla Wilde AMLODIPINE BESYLATE 5 MG ORAL TABLET active Once a day Trina Hodges AMLODIPINE BESY-BENAZEPRIL HCL 5-10 MG ORAL CAPSULE completed 1 TAB DAILY - Devyn Duffy RN LORAZEPAM 0.5 MG ORAL TABLET completed 1 TAB DAILY as needed - Trina Hodges CRESTOR 5 MG ORAL TABLET completed 1 TAB every other day - Makayla Wilde ASPIRIN 81 MG ORAL TABLET completed 1 TAB DAILY - Devyn Duffy RN SOCIAL HISTORY Date Observation Value Provider social history E&M Marital Statu s: L mihir with family/friends E thnicity: Smoking History: P aamir has never smoked. Reji Short MD social history reviewed E&M revi ewed - no changes required Reji Short MD physical exercise, f requency, days per week yes [facility] alcohol use, average drinks per day none [facility] alcohol use no Dov Shearer caffeine use, averag e drinks per day no [place] drug use no Dov Shearer passive cigarette sm kenneth exposure no [facility] smoking status Never smoker Dov [facility] social history E&M Marital Statu s: L mihir with family/friends E thnicity: Reji Short MD social history reviewed E&M revi ewed - no changes required Reji Short MD physical exercise, f requency, days per week yes Alfonzo Casper alcohol use, average drinks per day none Alfonzo Casper alcohol use no Alfonzo mendoza caffeine use, averag e drinks per day no Alfonzo Casper drug use no Alfonzo yanon passive cigarette sm kenneth exposure no Alfonzo Casper smoking status Never smoker Alfonzo Granado social history reviewed E&M revi ewed - no changes required Reji Short MD physical exercise, f requency, days per week yes Trina Carroll alcohol use, average drinks per day none Trina Carroll alcohol use no Trina [place] caffeine use, averag e drinks per day no Trina Carroll drug use no Trina Baumderekrhiannon er passive cigarette sm kenneth exposure no Trina [place] smoking status Never smoker Trina Baumabdon garcia social history reviewed E&M revi ewed - no changes required Reji Short MD number of grandchildren Reji Short MD K antonellamarvin Shearer physical exercise, f requency, days per week yes Dov Shearer alcohol use, average drinks per day none Dov Shearer alcohol use no [place] Shearer caffeine use, averag e drinks per day no [place] Shearer drug use no Dov Shearer passive cigarette sm kenneth exposure no Dov Shearer smoking status Never smoker Dov Calvert m social history reviewed E&M revi ewed - no changes required Reji Short MD physical exercise, f requency, days per week yes Beatris Bird alcohol use, average drinks per day none Beatris Bird alcohol use no Beatris Bird caffeine use, averag e drinks per day no Beatris Pelon drug use no Beatris Bird passive cigarette sm kenneth exposure no Beatris Bird smoking status Never smoker Beatris Bird social history reviewed E&M revi ewed - no changes required Reji Short MD physical exercise, f requency, days per week yes Alfonzo Casper alcohol use, average drinks per day none Alfonzo Casper caffeine use, averag e drinks per day no Alfonzo Casper drug use no Alfonzo Caceres farrahon passive cigarette sm kenneth exposure no Alfonzo Casper smoking status Never smoker Alfonzo Granado social history reviewed E&M revi ewed - no changes required Reji Short MD physical exercise, f requency, days per week yes Makayla Wilde alcohol use, average drinks per day none Makayla Wilde caffeine use, averag e drinks per day no Makayla Wilde drug use no Makayla Wilde passive cigarette sm kenneth exposure no Makayla Wilde smoking status Never smoker Makayla Wilde social history reviewed E&M revi ewed - no changes required Reji Short MD physical exercise, f requency, days per week yes Makayla Andry alcohol use, average drinks per day none Makayla Wilde caffeine use, averag e drinks per day no Makayla Wilde drug use no Makayla Wilde passive cigarette sm kenneth exposure no Makayla Wilde smoking status Never smoker Makayla Wilde smoking status Never smoker Gorge gomez drug use no Devyn Duffy RN social history reviewed E&M reviewed Devyn Duffy RN smoking status never smoker Devyn Duffy RN passive cigarette sm kenneth exposure no Lori Hernandez MD smoking/tobacco cess ation, patient education and counseling yes Lori Hernandez MD social history reviewed E&M reviewed Devyn Duffy RN social history reviewed E&M reviewed Devyn Duffy RN social history E&M Marital Statu s: L mihir with family/friends E thnicity: Reji Short MD drug use none Reji Short MD social history reviewed E&M reviewed Reji Short MD physical exercise, f requency, days per week yes [facility] caffeine use, averag e drinks per day no [facility] alcohol use, average drinks per day none [facility] smoking status Non-smoker [facility] FUNCTIONAL STATUS Date Observation Value Provider HRA, CV Assess/Plan, Angina (inactive) Management Plan continue current therapy Reji Short MD HRA, CV Assess/Plan, Angina (inactive) Management Plan continue current therapy Reji Short MD HRA, CV Assess/Plan, Angina (inactive) Management Plan continue current therapy Reji Short MD HRA, CV Assess/Plan, Angina (inactive) Management Plan continue current therapy Reji Short MD HRA, CV Assess/Plan, Angina (inactive) Management Plan continue current therapy Reji Short MD MENTAL STATUS Date Observation Value Provider assessment of judgme nt and insight E&M anxious. Devyn Duffy RN assessment of judgme nt and insight E&M anxious. Stephanie Hernandez NP assessment of judgme nt and insight E&M anxious. Lori Hernandez MD assessment of judgme nt and insight E&M Alert and oriented to time, place and person. Mood and affect are normal. Devyn Duffy RN assessment of judgme nt and insight E&M Alert and oriented to time, place and person. Mood and affect are normal. Reji Short MD FAMILY HISTORY Family Member Condition Mother Family History of Co ronary Artery Disease: Mother Family History of Hy pertension: INSURANCE PROVIDERS Payer name Policy type / Coverage type [employer] party ID [place] [employer] Medicare [id number] [facility] [employer] [phone] ADVANCE DIRECTIVES Name Date DISCUSSED - NO DECISION MADE TREATMENT PLAN Date Name Performer Cardiology Reji Short MD Cardiology Reji Short MD Cardiology Reji Short MD Cardiology Reji Short MD Cardiology Reji Short MD Cardiology:BP today: 158/94 P rior BP: 140/80 (04/01/2018) She needs to get a new blood pressure monitor. Recommended to note her BP readings at home. If runs in 140s, please call the office and let us know. Reji Short MD Cardiology:LDL 98 Reji Shah Cardiology:Denies cp, sob. Nj Short MD Cardiology:04/07 ech o showed normal LV functio nof 60% with no regurgitation. Reji Short MD Cardiology Follow up Reji ledbetter MD Cardiology Follow up Reji ledbetter MD Cardiology Follow up Reji ledbetter MD Cardiology Follow up Reji ledbetter MD Cardiology:Had anoth er episode, used Afrin. 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 Reji Short MD Cardiology Reji Short MD Cardiology:Echo on a rrival for next visit. O rders: C omplete Echo ([id number]) Reji Short MD Cardiology:Elevated today. Will increase amlodipine to 10mg once daily. Updated Rx sent. B P today: 160/100 P rior BP: 140/80 (03/25/2017) Prior 10 Yr Risk Heart Disease: N/A (05/28/2012) Labs Reviewed: C reat: 0.85 (05/28/2015) C hol: 167 (05/28/2015) HDL: 61 (05/28/2015) LDL: 83 MG/DL (CALC) (05/28/2015) T (05/28/2015) Reji Short MD Cardiology Follow up Reji ledbetter MD Cardiology Follow up Reji ledbetter MD Cardiology Follow up Reji ledbetter MD Cardiology Follow up Reji ledbetter MD Cardiology Reji Short MD Cardiology Reji Short MD Cardiology Reji Short MD Cardiology Reji Short MD follow up:abnormal s tress test, cath H er updated medication list for this problem includes: Amlodipine Besylate 5 Mg Tabs (Amlodipine besylate) ..... One tab daily Reji Short MD FOLLOW UP: H er updated medication list for this problem includes: Crestor 5 Mg Tabs (Rosuvastatin calcium) ..... 1 tab every other day Reji Short MD FOLLOW UP Reji Short MD FOLLOW UP Reji Short MD FOLLOW UP: H er updated medication list for this problem includes: Amlodipine Besylate 5 Mg Tabs (Amlodipine besylate) ..... One tab daily Reji Short MD FOLLOW UP: H er updated medication list for this problem includes: Amlodipine Besylate 5 Mg Tabs (Amlodipine besylate) ..... One tab daily Reji Short MD routine: H er updated medication list for this problem includes: Crestor 5 Mg Tabs (Rosuvastatin calcium) ..... 1 tab every other day BP today: / Prior BP: 141/94 (05/28/2012) C HOL: 146 (01/30/2013) LDL: 38 (01/30/2013) HDL: 93 (01/30/2013) T (01/30/2013) Reji Short MD routine: T he following medications were removed from the medication list: Amlodipine Besy-benazepril Hcl 5-10 Mg Caps (Amlodipine besy-benazepril hcl) ..... 1 tab daily Her updated medication list for this problem includes: Amlodipine Besylate 5 Mg Tabs (Amlodipine besylate) ..... One tab daily Prior BP: 141/94 (05/28/2012) Prior 10 Yr Risk Heart Disease: N/A (05/28/2012) Labs Reviewed: C reat: 0.87 (01/30/2013) C hol: 146 (01/30/2013) HDL: 93 (01/30/2013) LDL: 38 (01/30/2013) T (01/30/2013) Reji Short MD routine: T he following medications were removed from the medication list: Amlodipine Besy-benazepril Hcl 5-10 Mg Caps (Amlodipine besy-benazepril hcl) ..... 1 tab daily Her updated medication list for this problem includes: Amlodipine Besylate 5 Mg Tabs (Amlodipine besylate) ..... One tab daily BP today: / Prior BP: 141/94 (05/28/2012) N uclear Stress Findings: 1. Normal Jose protocol exercise tolerance test. 2 . Normal left ventricular size and mildly reduced function with a calculated ejection fraction of 47%. 3 . Myocardial scintigraphy is normal without evidence for previous myocardial infarction or reversible ischemia. GC (03/07/2011) C HOL: 146 (01/30/2013) LDL: 38 (01/30/2013) HDL: 93 (01/30/2013) T (01/30/2013) B UN: 12 (08/20/2011) Creat: 0.87 (01/30/2013) Glucose: 85 (08/20/2011) N a+: 140 (01/30/2013) K+: 4.4 (01/30/2013) Cl: 103 (08/20/2011) Reji Short MD routine Reji Short MD routine: H er updated medication list for this problem includes: Crestor 5 Mg Tabs (Rosuvastatin calcium) ..... 1 tab daily BP today: 132/89 Prior BP: 134/80 (03/06/2011) C HOL: 165 (08/20/2011) LDL: 63 (08/20/2011) HDL: 75 (08/20/2011) T (08/20/2011) Reji Short MD routine: H er updated medication list for this problem includes: Aspirin 81 Mg Tabs (Aspirin) ..... 1 tab daily Amlodipine Besy-benazepril Hcl 5-10 Mg Caps (Amlodipine besy-benazepril hcl) ..... 1 tab daily BP today: 132/89 P rior BP: 134/80 (03/06/2011) Labs Reviewed: C reat: 0.94 (08/20/2011) C hol: 165 (08/20/2011) HDL: 75 (08/20/2011) LDL: 63 (08/20/2011) T (08/20/2011) Reji Short MD routine eRji Short MD routine: H er updated medication list for this problem includes: Aspirin 81 Mg Tabs (Aspirin) ..... 1 tab daily Amlodipine Besy-benazepril Hcl 5-10 Mg Caps (Amlodipine besy-benazepril hcl) ..... 1 tab daily BP today: 132/89 Prior BP: 134/80 (03/06/2011) N uclear Stress Findings: 1. Normal Jose protocol exercise tolerance test. 2 . Normal left ventricular size and mildly reduced function with a calculated ejection fraction of 47%. 3 . Myocardial scintigraphy is normal without evidence for previous myocardial infarction or reversible ischemia. GC (03/07/2011) C HOL: 165 (08/20/2011) LDL: 63 (08/20/2011) HDL: 75 (08/20/2011) T (08/20/2011) B UN: 12 (08/20/2011) Creat: 0.94 (08/20/2011) Glucose: 85 (08/20/2011) N a+: 139 (08/20/2011) K+: 4.4 (08/20/2011) Cl: 103 (08/20/2011) Reji Short MD new patient: H er updated medication list for this problem includes: Aspirin 81 Mg Tabs (Aspirin) ..... 1 tab daily Amlodipine Besy-benazepril Hcl 5-10 Mg Caps (Amlodipine besy-benazepril hcl) ..... 1 tab daily BP today: 134/80 Prior BP: / () C HOL: 167 (02/21/2011) LDL: 68 (02/21/2011) HDL: 77 (02/21/2011) T (02/21/2011) B UN: 16 (02/21/2011) Creat: 0.98 (02/21/2011) Glucose: 91 (02/21/2011) N a+: 139 (02/21/2011) K+: 4.3 (02/21/2011) Cl: 105 (02/21/2011) Reji Short MD new patient: H er updated medication list for this problem includes: Aspirin 81 Mg Tabs (Aspirin) ..... 1 tab daily Amlodipine Besy-benazepril Hcl 5-10 Mg Caps (Amlodipine besy-benazepril hcl) ..... 1 tab daily BP today: 134/80 Labs Reviewed: C reat: 0.98 (02/21/2011) C hol: 167 (02/21/2011) HDL: 77 (02/21/2011) LDL: 68 (02/21/2011) T (02/21/2011) Reji Short MD new patient: H er updated medication list for this problem includes: Aspirin 81 Mg Tabs (Aspirin) ..... 1 tab daily Crestor 5 Mg Tabs (Rosuvastatin calcium) ..... 1 tab daily Amlodipine Besy-benazepril Hcl 5-10 Mg Caps (Amlodipine besy-benazepril hcl) ..... 1 tab daily BP today: 134/80 Prior BP: / () C HOL: 167 (02/21/2011) LDL: 68 (02/21/2011) HDL: 77 (02/21/2011) T (02/21/2011) B UN: 16 (02/21/2011) Creat: 0.98 (02/21/2011) Glucose: 91 (02/21/2011) N a+: 139 (02/21/2011) K+: 4.3 (02/21/2011) Cl: 105 (02/21/2011) Reji Short MD new patient: H er updated medication list for this problem includes: Crestor 5 Mg Tabs (Rosuvastatin calcium) ..... 1 tab daily BP today: 134/80 Prior BP: / () C HOL: 167 (02/21/2011) LDL: 68 (02/21/2011) HDL: 77 (02/21/2011) T (02/21/2011) Reji Short MD Date Name Complete Echo PROTHROMBIN TIME WIT H INR CBC (INCLUDES DIFF/P LT) LIPID PANEL BASIC METABOLIC PANE L W/EGFR HISTORY OF PROCEDURES Procedure Date Procedure Name Provider Procedure Notes S tatus EKG Reji Short MD completed Cardiolite, 2 units Reij Short MD completed SPECT Images Adore Cruz MD completed Stress EKG Dileep Starkey MD completed EKG Reji Short MD completed SNOMED-CT: 031241913411808 Current Medications Documented Reji Short MD completed SNOMED-CT: 36285070 Physical Exam, Performed: Pulse Exam of Foot Reji Short MD completed EKG Reji Short MD completed SNOMED-CT: [id number] Current Medications Documented Reji Short MD completed EKG Reji Short MD completed EKG Reji Short MD completed EKG Reji Short MD completed Schedule Followup Lori cook MD in 2 to 3 months completed ePrescribe - Check t his box if eRx is used Reji Short MD completed EKG Reji Short MD completed
--- OUTSIDE RECORDS SUMMARY | 2024-11-16 10:12 | XMS_ITS | Data Portability ---
Author Organization [facility], Main Office Address [address] [place] [address] Assessment No assessment recorded. Plan of Treatment Reminders Order Date Submit Date Provider Last Modified By Organization Details Last Modified Time Details Appointments None recorded. Lab CBC w/ auto diff 2023 024 [facility], [address] [place], [address], 4 13:04:40 CMP, serum or plasma 2023 024 [facility], [address] [place], [address], 4 13:30:49 amylase + lipase, serum 2023 024 [email or web address] [facility], [address] [place], [address], 4 09:51:02 vitamin B12, serum 2023 024 [email or web address] [facility], [address] [place], [address], 4 10:39:33 magnesium, serum or plasma 2023 024 [email or web address] [facility], [address] [place], [address], 4 10:39:34 lipid panel, serum 2023 024 [email or web address] [facility], [address] [place], [address], 4 10:39:33 CMP, serum or plasma 2023 [email or web address] [facility], [address], [place], [address], 10:39:33 Referral None recorded. Procedures None recorded. Surgeries None recorded. Imaging None recorded. Medication Orders doxycycline hyclate 100 mg capsule 2023 [id number], [address] , [place], [place], [id number], 11:46:57 Patient TargetsNo targets recorded. Patient Instructions Encounter Date Encounter Id Patient Instructions Last Modified By Organization Details Last Modified Time 09/17/2023 [id number] dementia rating scale-2* [email or web address] Not available 09/17/2023 11:20:57 alcohol misuse* [email or web address] Not available 09/17/2023 11:20:57 depression screening* [email or web address] Not available 09/17/2023 11:20:57 Timed Up and Go test (TUG)* Not available 09/17/2023 11:20:57 multi-dimensiona l health assessment questionnaire* [email or web address] Not available 09/17/2023 11:20:57 Personalized [facility] Plan and Screening Recommendations Advance Directives - Do you have one? Yes Advance Directives - Do we have your advance directive on file in your health record? Primary Prevention/Interven tion (prevents or decreases the chance of common diseases from occurring) Smoking Risk: Non Smoker Alcohol Misuse Screening: Negative Weight: Appropriate Overwei ght continue your current weight loss efforts try to lose 5% of your body weight try to lose 10% of your body weight Physical activity: Nutrition: Good Average Fall Risk (screened today): Low Intermediate Vaccines Pneumococcal: Ordered Recommended today Recommended today, but you have declined Influenza: Ordered Recommended today Recommended today, but you have declined Chronic Disease Risks Stroke: Low Risk Intermediate Risk I have no recommendations Act sunshine diagnosis, Continue current treatment plan Heart Attack: Low risk Intermediate Risk I have no recommendations Act sunshine diagnosis, Continue current treatment plan Clogging of the Arteries: Low risk Intermediate Risk I have no recommendations Act sunshine diagnosis, Continue current treatment plan Diabetes: Low Risk Intermediate Risk I have no recommendations Ref er to attached handout ? P re-diabetes: After Your Visit? Drastica lly limit sugar and products made with any type of flour (bread, pasta, cereal, cookies, crackers, etc.) Secondary Prevention/Interven tion (detects treatable diseases before they may cause symptoms, disability, or ) Breast Cancer Screening with mammogram: Cervical/Uterine/Ov zulay Cancer Screening: Osteoporosis Screening: Date Screening Last Performed: Colon Cancer Screening: Colonoscopy Date Screening Last Performed: _2019___ Eye Disease Screening: Dementia Risk: Low I have no recommendations Depression Screening: Negative Not available 09/17/2023 11:07:04 Medicare [facility] evaluation risk assessment stable. Follow-up for mild coronary artery disease -hypertension -mild hyperlipidemia -GERD -obesity class one. All clinically stable at this time. Last blood work looked excellent. This was back in May. Will hold off on any additional blood work at this time. He has refused to have any other immunizations and had recommended these past. Will continue on current Rx follow-up in four months. Standard immunizations of RSV, COVID, influenza and shingles as recommended. Portions of the record may have been created with voice recognition software. Occasional wrong-word or ? [id number]? substitutions may have occurred due to the inherent limitations of voice recognition software. Read the chart carefully and recognize, using context, where substitutions have occurred. [email or web address] Not available 09/17/2023 11:20:31 01/06/2024 [id number] Abdominal pain, coronary artery disease, hypertension and hyperlipidemia all clinically stable. Will need blood work in the form of CBC, CMP, lipase and amylase. Will set up for CT scan of the abdomen with contrast for evaluation of left lower quadrant abdominal pain. Will continue on current Rx pending those results instructed the pain recurs to go to the emergency room immediately. Portions of the record may have been created with voice recognition software. Occasional wrong-word or ? [id number]-t-[id number]? substitutions may have occurred due to the inherent limitations of voice recognition software. Read the chart carefully and recognize, using context, where substitutions have occurred. CT scan of abdomen pelvis with contrast either today or tomorrow for left lower quadrant abdominal pain. Keep Appt: Sat 09:50 AM Haley [email or web address] Not available 01/06/2024 16:09:23 01/24/2024 [id number] Follow-up hypertension, paroxysmal atrial fibrillation, hyperlipidemia and GERD all clinically stable. Will check a rhythm strip. Will continue on current medications. Scheduled to follow with cardiology next week. No change in medication. Was recently hospitalized needs no blood work at this time. Will follow-up in two months. Next Appt: 2 Months Approximate Date: 03/24/2024 Portions of the record may have been created with voice recognition software. Occasional wrong-word or ? [id number]? substitutions may have occurred due to the inherent limitations of voice recognition software. Read the chart carefully and recognize, using context, where substitutions have occurred. Not available 01/24/2024 15:12:30 04/28/2024 [id number] Follow-up talbert ry artery disease, paroxysmal atrial fibrillation, essential hypertension, hyperlipidemia and GERD all clinically stable. Check a lipid and CMP panel. Also check magnesium and B12 level. Otherwise doing well. Will continue on current Rx and follow-up in four months. Next Appointment: 4 Months Approximate Date: 08/26/2024 Portions of the record may have been created with voice recognition software. Occasional wrong-word or ? [id number]? substitutions may have occurred due to the inherent limitations of voice recognition software. Read the chart carefully and recognize, using context, where substitutions have occurred. [email or web address] Not available 04/28/2024 10:55:01 09/01/2024 [id number] Follow-up talbert ry artery disease, essential hypertension, atrial fibrillation and GERD all clinically stable. Does have a small lesion on the left angle of the mouth. Looked like it may have been a small furuncle which is subsequently broken. Has had some associated bleeding likely secondary to her Eliquis. Will cover with some antibiotics in the form of doxycycline 100 mg twice daily. Instructed to let us know this does not clear up. Will check blood work on next visit in four months. Continue on current Rx. Additional Orders - Directives - Recommendations 1. Doxycycline 100 mg twice daily for 10 days for a lesion on the left angle of the mouth. 2. Instructed with us know if there is no improvement or healing within the next week to 10 days. Follow Up: 4 Months Approximate Date: 12/30/2024 Portions of the record may have been created with voice recognition software. Occasional wrong-word or ? [id number]-h-[id number]? substitutions may have occurred due to the inherent limitations of voice recognition software. Read the chart carefully and recognize, using context, where substitutions have occurred. [email or web address] Not available 09/01/2024 11:45:56 Reason for Referral None Reported. Results Created Date Observation Date Name Description Value Unit Range Abnormal Flag Note LastModifiedBy Organization Detail LastModifiedTime 01/07/20 24 01/07/2024 CBC/C OMPLE TE BLD COUNT W/DIF F white blood cells 8.8 x10'3 /uL 4.2-10 .8 Not Available [facility] (Lab) [address] [place], [address], 01/07/2024 13:04:40 01/07/20 24 01/07/2024 CBC/C OMPLE TE BLD COUNT W/DIF F red blood cells 4.58 x10'6 /uL 3.80-5 .20 Not Available [facility] (Lab) [address] [place], [address], 01/07/2024 13:04:40 01/07/20 24 01/07/2024 CBC/C OMPLE TE BLD COUNT W/DIF F hemoglobin 12.0 g/dL 12.0-1 5.6 Not Available [facility] (Lab) [address] [place], [address], 01/07/2024 13:04:40 01/07/20 24 01/07/2024 CBC/C OMPLE TE BLD COUNT W/DIF F hematocrit 39.1 % 35.7-4 5.7 Not Available [facility] (Lab) [address] [place], [address], 01/07/2024 13:04:40 01/07/20 24 01/07/2024 CBC/C OMPLE TE BLD COUNT W/DIF F mean red cell volume 85.4 fL 82.0-9 9.0 Not Available [facility] (Lab) [address] [place], [address], 01/07/2024 13:04:40 01/07/20 24 01/07/2024 CBC/C OMPLE TE BLD COUNT W/DIF F mean red cell hemoglobin 26.2 pg 27.0-3 3.0 low Not Available [facility] (Lab) [address] [place], [address], 01/07/2024 13:04:40 01/07/20 24 01/07/2024 CBC/C OMPLE TE BLD COUNT W/DIF F mean RBC HGB concentratio n 30.7 g/dL 31.0-3 6.0 low Not Available [facility] (Lab) [address] [place], [address], 01/07/2024 13:04:40 01/07/20 24 01/07/2024 CBC/C OMPLE TE BLD COUNT W/DIF F red cell distribution width 16.5 % 11.8-1 5.5 high Not Available [facility] (Lab) [address] [place], [address], 01/07/2024 13:04:40 01/07/20 24 01/07/2024 CBC/C OMPLE TE BLD COUNT W/DIF F platelets 443 x10'3 /uL 150-40 0 high Not Available [facility] (Lab) [address] [place], [address], 01/07/2024 13:04:40 01/07/20 24 01/07/2024 CBC/C OMPLE TE BLD COUNT W/DIF F mean platelet volume 11.5 fL 9.0-12 .4 Not Available [facility] (Lab) [address] [place], [address], 01/07/2024 13:04:40 01/07/20 24 01/07/2024 CBC/C OMPLE TE BLD COUNT W/DIF F neutrophils 61.0 % 39.0-7 2.0 Not Available [facility] (Lab) [address] [place], [address], 01/07/2024 13:04:40 01/07/20 24 01/07/2024 CBC/C OMPLE TE BLD COUNT W/DIF F lymphocytes 22.4 % 16.0-4 7.0 Not Available [facility] (Lab) [address] [place], [address], 01/07/2024 13:04:40 01/07/20 24 01/07/2024 CBC/C OMPLE TE BLD COUNT W/DIF F monocytes 11.6 % 5.0-12 .0 Not Available [facility] (Lab) [address] [place], [address], 01/07/2024 13:04:40 01/07/20 24 01/07/2024 CBC/C OMPLE TE BLD COUNT W/DIF F eosinophils 3.0 % 1.0-7. 0 Not Available [facility] (Lab) [address] [place], [address], 01/07/2024 13:04:40 01/07/20 24 01/07/2024 CBC/C OMPLE TE BLD COUNT W/DIF F basophils 1.7 % 0.0-2. 0 Not Available [facility] (Lab) [address] [place], [address], 01/07/2024 13:04:40 01/07/20 24 01/07/2024 CBC/C OMPLE TE BLD COUNT W/DIF F immature granulocytes 0.3 % 0.00-0 .50 Not Available [facility] (Lab) [address] [place], [address], 01/07/2024 13:04:40 01/07/20 24 01/07/2024 CBC/C OMPLE TE BLD COUNT W/DIF F neutrophils, absolute count 5.34 x10'3 /uL 1.5-8. 0 Not Available [facility] (Lab) [address] [place], [address], 01/07/2024 13:04:40 01/07/20 24 01/07/2024 CBC/C OMPLE TE BLD COUNT W/DIF F lymphocytes, absolute count 1.96 x10'3 /uL 1.07-3 .43 Not Available [facility] (Lab) [address] [place], [address], 01/07/2024 13:04:40 01/07/20 24 01/07/2024 CBC/C OMPLE TE BLD COUNT W/DIF F monocytes, absolute count 1.02 x10'3 /uL 0.29-0 .99 high Not Available [facility] (Lab) [address] [place], [address], 01/07/2024 13:04:40 01/07/20 24 01/07/2024 CBC/C OMPLE TE BLD COUNT W/DIF F eosinophils, absolute count 0.26 x10'3 /uL 0.02-0 .53 Not Available [facility] (Lab) [address] [place], [address], 01/07/2024 13:04:40 01/07/20 24 01/07/2024 CBC/C OMPLE TE BLD COUNT W/DIF F basophils, absolute count 0.15 x10'3 /uL 0.01-0 .08 high Not Available [facility] (Lab) [address] [place], [address], 01/07/2024 13:04:40 01/07/20 24 01/07/2024 CBC/C OMPLE TE BLD COUNT W/DIF F immature granulocytes ,absolute 0.03 x10'3 /uL 0.00-0 .05 Not Available [facility] (Lab) [address] [place], [address], 01/07/2024 13:04:40 01/07/20 24 01/07/2024 CBC/C OMPLE TE BLD COUNT W/DIF F nucleated red blood cells 0.0 % -0 Not Available [facility] (Lab) [address] [place], [address], 01/07/2024 13:04:40 01/07/20 24 01/07/2024 CBC/C OMPLE TE BLD COUNT W/DIF F NRBC# 0.00 x10'3 /uL Not Available [facility] (Lab) [address] [place], [address], 01/07/2024 13:04:40 01/07/20 24 01/07/2024 COMPR EHENS SUNSHINE METAB OLIC PANEL sodium 139 mmol/ L 137-14 5 Not Available [facility] (Lab) [address] [place], [address], 01/07/2024 13:30:49 01/07/20 24 01/07/2024 COMPR EHENS SUNSHINE METAB OLIC PANEL potassium 5.1 mmol/ L 3.5-5. 1 Not Available [facility] (Lab) [address] [place], [address], 01/07/2024 13:30:49 01/07/20 24 01/07/2024 COMPR EHENS SUNSHINE METAB OLIC PANEL chloride 104 mmol/ L 98-107 Not Available [facility] (Lab) [address] [place], [address], 01/07/2024 13:30:49 01/07/20 24 01/07/2024 COMPR EHENS SUNSHINE METAB OLIC PANEL carbon dioxide 27 mmol/ L 22-30 Not Available [facility] (Lab) [address] [place], [address], 01/07/2024 13:30:49 01/07/20 24 01/07/2024 COMPR EHENS SUNSHINE METAB OLIC PANEL anion gap 13.1 mmol/ L 14-22 low Not Available [facility] (Lab) [address] [place], [address], 01/07/2024 13:30:49 01/07/20 24 01/07/2024 COMPR EHENS SUNSHINE METAB OLIC PANEL glucose 107 mg/dL 70-99 high Not Available [facility] (Lab) [address] [place], [address], 01/07/2024 13:30:49 01/07/20 24 01/07/2024 COMPR EHENS SUNSHINE METAB OLIC PANEL BUN 13 mg/dL 8-19 Not Available [facility] (Lab) [address] [place], [address], 01/07/2024 13:30:49 01/07/20 24 01/07/2024 COMPR EHENS SUNSHINE METAB OLIC PANEL creatinine 0.92 mg/dL 0.66-1 .25 Not Available [facility] (Lab) [address] [place], [address], 01/07/2024 13:30:49 01/07/20 24 01/07/2024 COMPR EHENS SUNSHINE METAB OLIC PANEL GFR 58 Refer ence Range : [place] ge GFR Healt hy Adult : >60 mL/mi n/1.7 3 m2 Chron ic Kidne y Disea se: 15-60 mL/mi n/1.7 3 m2 Kidne y Failu re: <15/m L/min /1.73 m2 www.n iddk. nih.g ov The MDRD study equat ion has not been valid ated in child beverly <18 years of age; pregn ant women ; the elder ly >85 years of age; or in some racia l or ethni c subgr oups, such as Hispa nics. Outsi de the valid ated abrahan eters , estim ated GFR is less accur ate, requi ring clini florence judgm ent on a case- by-ca se basis . Clini florence inter preta tion for other races and ages must be made by the clini florin. The MDRD study equat ion has not been valid ated for the evalu ation of serum creat inine relat ed to nutri ene l statu s or medic ation usage . For perso ns <18 years of age, a pedia tric GFR calcu lator is avail able on the [facility] websi te: https ://erika w.zuleika pearly.o rg/pr ofess ional s/kdo qi/gf r_cal culat or Not Available [facility] (Lab) [address] [place], [address], 01/07/2024 13:30:49 01/07/20 24 01/07/2024 COMPR EHENS SUNSHINE METAB OLIC PANEL alkaline phosphatase 92 U/L 38-126 Not Available [facility] (Lab) [address] [place], [address], 01/07/2024 13:30:49 01/07/20 24 01/07/2024 COMPR EHENS SUNSHINE METAB OLIC PANEL alanine aminotransfe rase 42 U/L 0-35 high Not Available [facility] (Lab) [address] [place], [address], 01/07/2024 13:30:49 01/07/20 24 01/07/2024 COMPR EHENS SUNSHINE METAB OLIC PANEL aspartate aminotransfe rase 42 U/L 15-37 high Not Available [facility] (Lab) [address] [place], [address], 01/07/2024 13:30:49 01/07/20 24 01/07/2024 COMPR EHENS SUNSHINE METAB OLIC PANEL bilirubin, total 1.30 mg/dL 0.20-1 .30 Not Available [facility] (Lab) [address] [place], [address], 01/07/2024 13:30:49 01/07/20 24 01/07/2024 COMPR EHENS SUNSHINE METAB OLIC PANEL calcium 9.9 mg/dL 8.4-10 .2 Not Available [facility] (Lab) [address] [place], [address], 01/07/2024 13:30:49 01/07/20 24 01/07/2024 COMPR EHENS SUNSHINE METAB OLIC PANEL total protein 7.5 g/dL 6.3-8. 2 Not Available [facility] (Lab) [address] [place], [address], 01/07/2024 13:30:49 01/07/20 24 01/07/2024 COMPR EHENS SUNSHINE METAB OLIC PANEL albumin 4.6 g/dL 3.0-4. 4 high Not Available [facility] (Lab) [address] [place], [address], 01/07/2024 13:30:49 01/07/20 24 01/07/2024 COMPR EHENS SUNSHINE METAB OLIC PANEL globulin 2.9 g/dL 2.6-4. 2 Not Available [facility] (Lab) [address] [place], [address], 01/07/2024 13:30:49 01/07/20 24 01/07/2024 COMPR EHENS SUNSHINE METAB OLIC PANEL A/G ratio 1.6 ratio 1.0-2. 0 Not Available [facility] (Lab) [address] [place], [address], 01/07/2024 13:30:49 01/07/20 24 01/07/2024 AMYLA SE SERUM amylase 38 U/L 30-110 Not Available [facility] (Lab) [address] [place], [address], 01/07/2024 13:30:51 01/07/20 24 01/07/2024 LIPAS E SERUM lipase 50 U/L 23-300 Not Available [facility] (Lab) [address] [place], [address], 01/07/2024 13:30:55 01/07/20 24 01/07/2024 CREAT INGIRMA , I-STA T creatinine 1.0 mg/dL 0.6-1. 3 Not Available [facility] (Lab) [address] [place], [address], 01/09/2024 10:35:05 05/14/20 24 05/14/2024 LIPID PANEL cholesterol 205 mg/dL 140-19 9 high NIH HANG NSUS RECOM MENDA TION FOR JAYLIN STERO L: ADULT CHILD LOW RISK: <200 <170 BORDE RLINE : <200- 239 ----- HIGH RISK: >240 >200 Not Available [facility] (Lab) [address] [place], [address], 05/14/2024 13:15:24 05/14/20 24 05/14/2024 LIPID PANEL triglyceride s 160 mg/dL 0-150 high NIH HANG NSUS REPOR T RECOM MENDA TION FOR TRIGL YCERI MICHAEL: ADULT CHILD LOW RISK: <150 ----- BODER LINE: 150-1 99 ----- HIGH RISK: >200 ----- Not Available [facility] (Lab) [address] [place], [address], 05/14/2024 13:15:24 05/14/20 24 05/14/2024 LIPID PANEL HDL cholesterol 64 mg/dL 40- Not Available [facility] (Lab) [address] [place], [address], 05/14/2024 13:15:24 05/14/20 24 05/14/2024 LIPID PANEL LDL cholesterol, calculated 109 mg/dL 0-130 NIH HANG NSUS REPOR T RECOM MENDA TIONS FOR LDL: ADULT CHILD LOW RISK <130 <110 (OPTI MAL LDL) <100 ----- BORDE RLINE : 130-1 59 ----- HIGH RISK: >160 >130 A TRIGL YCERI DE RESUL T >400 INVAL IDATE S THE CALCU LATIO N FOR LDL FRACT IONAT ION - THE LDL RESUL T WILL NOT BE REPOR ERIN. Not Available [facility] (Lab) [address] [place], [address], 05/14/2024 13:15:24 05/14/20 24 05/14/2024 COMPR EHENS SUNSHINE METAB OLIC PANEL sodium 138 mmol/ L 137-14 5 Not Available [facility] (Lab) [address] [place], [address], 05/14/2024 13:15:30 05/14/20 24 05/14/2024 COMPR EHENS SUNSHINE METAB OLIC PANEL potassium 4.7 mmol/ L 3.5-5. 1 Not Available [facility] (Lab) [address] [place], [address], 05/14/2024 13:15:30 05/14/20 24 05/14/2024 COMPR EHENS SUNSHINE METAB OLIC PANEL chloride 107 mmol/ L 98-107 Not Available [facility] (Lab) [address] [place], [address], 05/14/2024 13:15:30 05/14/20 24 05/14/2024 COMPR EHENS SUNSHINE METAB OLIC PANEL carbon dioxide 26 mmol/ L 22-30 Not Available [facility] (Lab) [address] [place], [address], 05/14/2024 13:15:30 05/14/20 24 05/14/2024 COMPR EHENS SUNSHINE METAB OLIC PANEL anion gap 9.7 mmol/ L 14-22 low Not Available [facility] (Lab) [address] [place], [address], 05/14/2024 13:15:30 05/14/20 24 05/14/2024 COMPR EHENS SUNSHINE METAB OLIC PANEL glucose 101 mg/dL 70-99 high Not Available [facility] (Lab) [address] [place], [address], 05/14/2024 13:15:30 05/14/20 24 05/14/2024 COMPR EHENS SUNSHINE METAB OLIC PANEL BUN 30 mg/dL 8-19 high Not Available [facility] (Lab) [address] [place], [address], 05/14/2024 13:15:30 05/14/20 24 05/14/2024 COMPR EHENS SUNSHINE METAB OLIC PANEL creatinine 1.20 mg/dL 0.66-1 .25 Not Available [facility] (Lab) [address] [place], [address], 05/14/2024 13:15:30 05/14/20 24 05/14/2024 COMPR EHENS SUNSHINE METAB OLIC PANEL GFR 43 Refer ence Range : [place] ge GFR Healt hy Adult : >60 mL/mi n/1.7 3 m2 Chron ic Kidne y Disea se: 15-60 mL/mi n/1.7 3 m2 Kidne y Failu re: <15/m L/min /1.73 m2 www.n iddk. nih.g ov The MDRD study equat ion has not been valid ated in child beverly <18 years of age; pregn ant women ; the elder ly >85 years of age; or in some racia l or ethni c subgr oups, such as [facility] nics. Outsi de the valid ated abrahan eters , estim ated GFR is less accur ate, requi ring clini florence judgm ent on a case- by-ca se basis . Clini [place] inter preta tion for other races and ages must be made by the clini florin. The MDRD study equat ion has not been valid ated for the evalu ation of serum creat inine relat ed to nutri ene l statu s or medic ation usage . For perso ns <18 years of age, a pedia tric GFR calcu lator is avail able on the [facility] websi te: https ://erika munoz.zuleika perdomo.o rg/pr ofess ional s/kdo qi/gf r_cal culat or Not Available [facility] (Lab[facility] [address] [facility] [place], [address], 05/14/2024 13:15:30 05/14/20 24 05/14/2024 COMPR EHENS SUNSHINE METAB OLIC PANEL alkaline phosphatase 132 U/L 38-126 high Not Available [facility] (Lab) [address] [place], [address], 05/14/2024 13:15:30 05/14/20 24 05/14/2024 COMPR EHENS SUNSHINE METAB OLIC PANEL alanine aminotransfe rase 14 U/L 0-35 Not Available [facility] (Lab) [address] [place], [address], 05/14/2024 13:15:30 05/14/20 24 05/14/2024 COMPR EHENS SUNSHINE METAB OLIC PANEL aspartate aminotransfe rase 27 U/L 15-37 Not Available [facility] (Lab) [address] [place], [address], 05/14/2024 13:15:30 05/14/20 24 05/14/2024 COMPR EHENS SUNSHINE METAB OLIC PANEL bilirubin, total 0.90 mg/dL 0.20-1 .30 Not Available [facility] (Lab) [address] [place], [address], 05/14/2024 13:15:30 05/14/20 24 05/14/2024 COMPR EHENS SUNSHINE METAB OLIC PANEL calcium 10.1 mg/dL 8.4-10 .2 Not Available [facility] (Lab) [address] [place], [address], 05/14/2024 13:15:30 05/14/20 24 05/14/2024 COMPR EHENS SUNSHINE METAB OLIC PANEL total protein 7.8 g/dL 6.3-8. 2 Not Available [facility] (Lab) [address] [place], [address], 05/14/2024 13:15:30 05/14/20 24 05/14/2024 COMPR EHENS SUNSHINE METAB OLIC PANEL albumin 4.4 g/dL 3.0-4. 4 Not Available [facility] (Lab) [address] [place], [address], 05/14/2024 13:15:30 05/14/20 24 05/14/2024 COMPR EHENS SUNSHINE METAB OLIC PANEL globulin 3.4 g/dL 2.6-4. 2 Not Available [facility] (Lab) [address] [place], [address], 05/14/2024 13:15:30 05/14/20 24 05/14/2024 COMPR EHENS SUNSHINE METAB OLIC PANEL A/G ratio 1.3 ratio 1.0-2. 0 Not Available [facility] (Lab) [address] [place], [address], 05/14/2024 13:15:30 05/14/20 24 05/14/2024 MAGNE SIUM magnesium 2.1 mg/dL 1.6-2. 3 Not Available [facility] (Lab) [address] [place], [address], 05/14/2024 13:15:34 05/14/20 24 05/14/2024 VITAM IN B12 (AUGUST FERMIN ) vb12 426 pg/mL 239-93 1 Not Available [facility] (Lab) [address] [place], [address], 05/14/2024 14:18:48 11/09/19 24 11/09/2023 XR, hand No observ ation record ed. [address], [place], [address], 11/10/2023 09:05:13 11/14/19 24 11/14/2023 XR, hand No observ ation record ed. [place] [id number] [facility] [address] [place] [place], [address], 11/14/2023 22:27:02 11/28/19 24 11/28/2023 XR, hand No observ ation record ed. [address] [facility] [address], [place], [address], 11/28/2023 13:43:22 12/12/19 24 12/12/2023 XR, hand No observ ation record ed. [place] [id number] [facility] [address], [place], [address], 12/13/2023 08:01:26 01/08/[address], abdom en + pelvi s, w/ contr ast [facility] [address] [place] [address] Patien t Name: NIKKY DAMON Access ion #: [id number] Sex: F : 1939 3 Dictat ed By: Bob Garcia Attend ing Physic preet: SHERRY DAVALOS CE Orderi Physic preet: SHERRY DAVALOS CE Exam Date: 2023 10:42 AM Exam Name: CT ABDOME N/PELV IS W Admitt ing Diagno sis(es ): Exam: CT abdome n and pelvis with contra st dated 024 10:42 AM CDT Histor y: 84 years old Female with nausea Compar kaylah Study: 5-12-2 3 TECHNI QUE: A digita l loading dock hand image was obtain ed. During the uneven tful, intrav enous admini strati on of contra st materi al, multis lice data acquis ition was obtain ed throug h the abdome n and pelvis . The data set was subseq uently recons tructe d into axial images . Images were review ed on a work statio n using a combin ation of axial and multip lanar using a variet y of window levels and settin gs. Radiat ion Dose Inform ation: CT Dose: CTDI volume is 25 mGy. Dose-l ength produc t is 250 mGy*cm FINDIN GS: Lung Bases: No acute or signif icant lung base findin g. Cardio megaly . No pleura l or perica rdial effusi on. Liver: Hepati c steato sis. Gallbl adder and Biliar y Tree: Unrema rkable Spleen : Unrema rkable Pancre as: The pancre as is normal in appear ance withou t focal lesion s or abnorm al enhanc ement. Adrena l Glands : Unrema rkable Page 1 [facility] [address] [place] [address] Patien t Name: NIKKY DAMON Access ion #: [id number] Sex: F : 1939 3 Dictat ed By: Bob Garcia Attend ing Physic preet: [facility] Physic preet: SHERRY DAVALOS CE Exam Date: 2023 10:42 AM Exam Name: CT ABDOME N/PELV IS W Admitt ing Diagno sis(es ): Kidney s: Kidney s demons trate normal symmet alida enhanc ement withou t focal lesion s, calcul i or hydron ephros is. 2 cm left renal cyst. Bladde r: Unrema rkable Bowel: The stomac h is grossl y normal in appear ance. Small bowel and colon are normal in calibe r and distri bution . The append ix is not visual ized; howeve r, no second jony findin gs of acute append icitis identi fied. Ascite s: Absent Lympha denopa thy: No mesent karla, retrop eriton eal or peripo rtal lympha denopa thy. Abdomi nal Wall and Mesent taz: Unrema rkable . Vascul ature: The visual ized abdomi nal aorta is normal in size and calibe r. Abdomi nal and pelvic vessel s demons trate normal enhanc ement. Pelvic Organs : Unrema rkable Muscul oskele beryl: No aggres sive focal bony lesion s, acute fractu res or disloc ation. Soft tissue s: Unrema rkable . IMPRES JERAD: No acute abnorm ality in the abdome n or pelvis . Cardio megaly Hepati c steato sis All CT scans at this medica l facili ty are perfor med using dose modula tion techni ques as approp riate to a perfor med exam includ ing the follow ing: Automa erin exposu re contro l was utiliz ed; adjust ment of the MA and/or KV accord ing to patien t size; and use of iterat sunshine recons tructi on techni que. Electr onical ly Signed by: Bob Garcia at 2023 08:02: 05 AM Page [address] (Imaging) [address] [place], [address], 01/08/2024 09:05:58 01/13/20 24 01/13/2024 XR, chest , 1 view No observ ation record ed. [place] [id number], [place], [address], 01/14/2024 07:56:45 01/13/20 24 01/13/2024 CT, chest , w/ contr ast No observ ation record ed. [address], [place], [address], 01/14/2024 08:01:25 01/14/20 24 01/14/2024 US, echoc ardio gram No observ ation record ed. [address], [place], [address], 01/14/2024 16:53:27 01/24/20 elect giovanna henry am No observ ation record ed. [place] [id number] Not Available 2023 15:46:26 07/16/20 24 06/23/2024 sleep study , diagn ostic (PROC ) No observ ation record ed. [address], [place], [address], 07/16/2024 14:27:19 09/28/20 24 09/01/2024 sleep study , diagn ostic (PROC ) No observ ation record ed. [address], [place], [address], 09/28/2024 17:44:11 Result Notes None recorded. 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 Not Available [facility] 4 23:36:51 Gastroesop hageal reflux disease 825707126 Active Not Available [facility] 4 23:36:51 Gastroesop hageal reflux disease without esophagiti s 338694479 Active Not Available [facility] 4 23:36:51 Anemia 162394720 Active Not Available [facility] 4 23:36:51 Knee pain Active Not Available [facility] 4 23:36:52 Restless legs 78225711 Active 2021 Not Available [facility] 4 23:36:52 Umbilical hernia 920349304 Active Not Available [facility] 4 23:36:52 Nausea 940252145 Active 2021 Not Available [facility] 4 23:36:52 Clostridiu m difficile colitis 532117655 Active Not Available [employer] 4 23:36:52 Coronary arterioscl erosis 68027511 Active Not Available [employer] 4 23:36:52 Essential hypertensi on 47828012 Active Not Available [facility] 4 23:36:52 Ulcerative colitis 34016294 Active Not Available [facility] 4 23:36:52 Hemorrhoid s 35476055 Active Not Available [facility] 4 23:36:52 Lightheade dness 217388140 Active 2022 Not Available [facility] 4 23:36:52 Obese class I 4700803525908 07 Active 2022 Not Available [facility] 4 23:36:52 Insomnia 086322451 Active 2022 Not Available [facility] 4 23:36:51 Anxiety 70353568 Active 2022 Not Available [facility] 4 23:36:52 Chronic insomnia 978852458 Active 2022 Not Available [facility] 4 23:36:52 Acute sinusitis 80222684 Active 2022 Not Available [facility] 4 23:36:51 Left lower quadrant pain 739972839 Active 2023 Tanvir Davalos MD [address], [place], [address] , [facility] [employer] [facility] 4 16:04:13 Gastroente ritis 59308636 Active 2023 Leena Bolton CMA null, [facility] [employer] [facility] 4 11:29:35 Atrial fibrillati on 60383897 Active 2023 Tanvir Davalos MD [address], [place], [address] , [facility] [employer] [facility] 4 15:06:42 Abscess of face 725488723 Active 2023 Tanvir Davalos MD [address], [place], [address] , [facility] [employer] [facility] 4 11:46:39 Problem Notes None recorded. Procedures Surgical History Date Name Laterality Status Provider Name and Address Organization Details Recorded Time 09/17/20 Medicare Wellness CPT Code, subsequent completed Greer Gong RN [facility] 09/17/2023 11:01:34 02/07/20 19 Date of Last Colonoscopy completed Not Available [facility] 12/19/2022 05:54:09 Imaging Results Imaging Date Name Status LastModified by Organization Details LastModified Time 11/09/2023 XR, hand completed [place] [address], [place], [address], 11/10/2023 09:05:13 11/14/2023 XR, hand completed [address], [address], 11/14/2023 22:27:02 11/28/2023 XR, hand completed [place] [address], [place], [address], 11/28/2023 13:43:22 12/12/2023 XR, hand completed [address], [address], 12/13/2023 08:01:26 01/08/2024 CT, abdomen + pelvis, w/ contrast completed [address] (Im[address]) [address] [place], [address], 01/08/2024 09:05:58 01/13/2024 XR, chest, 1 view completed [address], [address], 01/14/2024 07:56:45 01/13/2024 CT, chest, w/ contrast completed [address], [address], 01/14/2024 08:01:25 01/14/2024 US, echocardiogram completed [address], [address], 01/14/2024 16:53:27 01/24/2024 electrocardiogram completed [place] [address] Informa tion not available 01/24/2024 15:46:26 06/23/2024 sleep study, diagnostic (PROC) completed [address], [place], [address], 07/16/2024 14:27:19 09/01/2024 sleep study, diagnostic (PROC) completed [address], [place], [address], 09/28/2024 17:44:11 Procedure Notes None recorded. Medical Equipment None Reported. Allergies Allergen ID Allergen Name Allergen Category Reaction Reaction Severity Criticality Documentation Date Start Date Code Code System Note Provider Name and Address Organization Details Recorded Time 39910 Plavix medicatio n Not available Not available Not available 12/19/2022 99193 2 RxNorm bleed ing Not Available [facility] 3 06:04:11 59019 Demerol medicatio n vomiting severe Not available 12/19/2022 76388 1 RxNorm Not Available [facility] 3 06:04:11 86847 Product containin g angiotens in II receptor antagonis t (product) medicatio n cough Not available Not available 12/19/2022 52978 008 SNOMED Not Available [facility] 3 06:04:11 95864 Product containin g angiotens in-conver ting enzyme inhibitor (product) medicatio n cough Not available Not available 12/19/2022 49056 009 SNOMED Not Available [facility] 3 06:04:12 99401 aspirin medicatio n Not available Not available Not available 12/19/2022 1191 RxNorm bleed ing Not Available [facility] 3 06:04:12 Medications Name Sig Start Date Stop Date Status Note LastModified by Organization Details LastModified Time amoxicillin 500 mg capsule TAKE 4 CAPSULES BY MOUTH 1 HOUR BEFORE DENTAL APPOINTME NT active Not Available Not Available No t Available furosemide 40 mg tablet TAKE 1 TABLET BY MOUTH EVERY DAY active Not Available Not Available No t Available latanoprost 0.005 % eye drops INSTILL 1 DROP INTO BOTH EYES AT BEDTIME active Not Available Not Available No t Available doxycycline hyclate 100 mg capsule Take 1 capsule twice a day by oral route. active Not Available Not Available No t Available ropinirole 1 mg tablet TAKE 1 TABLET BY MOUTH EVERYDAY AT BEDTIME 05/24 completed Not Available Not Available Not Available azithromyci n 250 mg tablet TAKE 2 TABLETS BY MOUTH TODAY, THEN TAKE 1 TABLET DAILY FOR 4 DAYS 09/17 completed Not Available Not Available Not Available alprazolam 1 mg tablet Take 1 tablet as needed by oral route at bedtime. 06/07 completed Not Available Not Available Not Available benzonatate 200 mg capsule TAKE 1 CAPSULE BY MOUTH THREE TIMES A DAY 09/17 completed Not Available Not Available Not Available ondansetron HCl 4 mg tablet One qid as needed for nausea 09/17 completed Not Available Not Available Not Available prednisone 20 mg tablet Take by oral route. 2013 active Not Available Not Available Not Avai lable Toradol 10 mg tablet Take 1 tablet every 6 hours by oral route. 2013 active Not Available Not Available Not Avai lable metoprolol succinate ER 100 mg tablet,exte nded release 24 hr TAKE 1 AND 1/2 TABLETS BY MOUTH DAILY FOR ATRIAL FIBRILLAT ION active Not Available Not Available No t Available Anucort-HC 25 mg suppository active Not Available Not Available Not Available travoprost 0.004 % eye drops INSTILL 1 DROP INTO AFFECTED EYE(S) BY OPHTHALMI C ROUTE ONCE DAILY INTHE EVENING 04/28 completed Not Available Not Available Not Available promethazin e 6.25 mg-codeine 10 mg/5 mL syrup Take 5 ML EVERY 6 HOURS by oral route PRN for cough active Not Available Not Available No t Available meclizine 12.5 mg tablet Take 1 tablet 3 times a day by oral route. active Not Available Not Available No t Available metronidazo le 500 mg tablet active Not Available Not Available Not Available acetaminoph en 300 mg-codeine 30 mg tablet active Not Available Not Available Not Available amlodipine 5 mg tablet TAKE 1 TABLET DAILY 04/28 completed Not Available Not Available Not Available Tamiflu 75 mg capsule Take 1 capsule every day by oral route for 10 days. 11/20 completed Not Available Not Available Not Available aspirin 81 mg tablet,karin yed release Take 1 tablet every day by oral route. active Not Available Not Available No t Available tramadol 50 mg tablet Take 1 tablet(s) EVERY 8 HOURS by oral route for pain active Not Available Not Available No t Available amoxicillin 500 mg tablet Take 1 tablet 3 times a day by oral route. 08/14 completed Not Available Not Available Not Available oxycodone-a cetaminophe n 5 mg-325 mg tablet active Not Available Not Available No t Available potassium chloride ER 20 mEq tablet,exte nded release(par t/cryst) active Not Available Not Available Not Available famotidine 20 mg tablet active Not Available Not Available Not Available meclizine 25 mg tablet Take 1 tablet 3 times a day by oral route. 09/11 completed Not Available Not Available Not Available benzonatate 100 mg capsule 01/08 completed Not Available Not Available Not Available cephalexin 500 mg capsule TAKE 1 CAPSULE BY MOUTH EVERY 8 HOURS 01/23 completed Not Available Not Available Not Available pantoprazol e 40 mg tablet,karin yed release TAKE 1 TABLET DAILY active Not Available Not Available No t Available ferrous sulfate 325 mg (65 mg iron) tablet TAKE ONE TABLET TWICE DAILY 02/28 completed Not Available Not Available Not Available metoprolol tartrate 50 mg tablet Take 1 tablet twice a day by oral route. 2021 active Not Available Not Available Not Avai lable pramipexole 0.125 mg tablet ONE 2-3 HOURS BEFORE BEDTIME 09/17 completed Not Available Not Available Not Available Levaquin 500 mg tablet Take 1 tablet every 24 hours by oral route. 11/20 completed Not Available Not Available Not Available lorazepam 1 mg tablet TAKE 1 TABLET BY MOUTH EVERYDAY AT BEDTIME 09/17 completed Not Available Not Available Not Available azelastine 137 mcg (0.1 %) nasal spray [place] 2 sprays twice a day by intranasa l route for 30 days. active Not Available Not Available No t Available Ativan 0.5 mg tablet Take 1 tablet 3 times a day by oral route as needed. 11/20 completed Not Available Not Available Not Available zolpidem 10 mg tablet active Not Available Not Available No t Available methylpredn isolone 4 mg tablets in a dose pack TAKE 6 TABLETS ON DAY 1 DIRECTED ON PACKAGE AND DECREASE BY 1 TAB EACH DAY FOR A TOTAL OF 6 DAYS 01/05 completed Not Available Not Available Not Available neomycin 500 mg tablet active Not Available Not Available Not Available Lomotil 2.5 mg-0.025 mg tablet Take 1 tablet 4 times a day by oral route as needed. 04/08 completed Not Available Not Available Not Available Ethridge 5 mg-325 mg tablet Take 1 tablet every 6 hours by oral route. active Not Available Not Available No t Available cefdinir 300 mg capsule Take 1 capsule every 12 hours by oral route. 12/11 completed Not Available Not Available Not Available piroxicam 20 mg capsule TAKE 1 CAPSULE BY MOUTH EVERY DAY 09/17 completed Not Available Not Available Not Available Ambien 5 mg tablet Take 1 tablet every day by oral route at bedtime. 11/20 completed Not Available Not Available Not Available doxycycline hyclate 100 mg tablet TAKE 1 TABLET BY MOUTH EVERY 12 HOURS 01/23 completed Not Available Not Available Not Available amoxicillin 875 mg-potassiu m clavulanate 125 mg tablet TAKE 1 TABLET BY MOUTH EVERY 12 HOURS 01/23 completed Not Available Not Available Not Available Flexeril 10 mg tablet Take 1 tablet twice a day by oral route. 2013 active Not Available Not Available Not Avai lable oxycodone 5 mg tablet 04/21 completed Not Available Not Available Not Available Crestor 5 mg tablet Take 1 tablet every day by oral route. active Not Available Not Available No t Available eszopiclone 2 mg tablet TAKE 1 TABLET BY MOUTH ONCE. TAKE WITH YOU TO THE SLEEP LAB ON THE NIGHT OF SLEEP STUDY active Not Available Not Available No t Available Canasa 1,000 mg rectal suppository active Not Available Not Available Not Available vancomycin 2015 active Not Available Not Available Not Avai lable Ranexa 500 mg tablet,exte nded release active Not Available Not Available Not Available Eliquis 5 mg tablet TAKE 1 TABLET BY MOUTH EVERY 12 HOURS X 30 DAYS active Not Available Not Available No t Available Delzicol 04/08 completed Not Available Not Available Not Available potassium chloride ER 20 mEq tablet,exte nded release Take 1 tablet every day by oral route. active Not Available Not Available No t Available Entresto 24 mg-26 mg tablet TAKE 1 TABLET BY MOUTH EVERY 12 HOURS X 30 DAYS active Not Available Not Available No t Available mesalamine 400 mg capsule (with delayed release tablets inside) TAKE 2 CAPSULES BY MOUTH TWICE DAILY active Not Available Not Available No t Available Paxlovid 150 mg-100 mg tablets in a dose pack (Renal Dose) TAKE 1 TABLET (NIRMATRE LVIR) + 1 TABLET (RITONAVI R) BY MOUTH TWICE A DAY FOR 5 DAYS 09/01 completed Not Available Not Available Not Available Vitals Date Recorded Body height Body mass index (BMI) Body weight Heart rate Body temperature Oxygen saturation Oxygen saturation in Arterial blood by Pulse oximetry Systolic blood pressure Diastolic blood pressure Provider Name and Address Organization Details Last Updated DateTime 3 172.72 cm 30.9 kg/m2 67663.2 5 g 85 /min 97 [degF] 97 % 97 % 132 mm[Hg] 84 mm[Hg] [employer] 3 10:55:03 Date Recorded Body height Body mass index (BMI) Body weight Heart rate Body temperature Oxygen saturation Oxygen saturation in Arterial blood by Pulse oximetry Systolic blood pressure Diastolic blood pressure Provider Name and Address Organization Details Last Updated DateTime 4 172.72 cm 30.9 kg/m2 77680.2 5 g 108 /min 98.1 [degF] 94 % 94 % 120 mm[Hg] 64 mm[Hg] [employer] 4 15:59:08 Date Recorded Body height Body mass index (BMI) Body weight Heart rate Body temperature Oxygen saturation Oxygen saturation in Arterial blood by Pulse oximetry Systolic blood pressure Diastolic blood pressure Provider Name and Address Organization Details Last Updated DateTime 4 172.72 cm 29.6 kg/m2 52485.5 1 g 92 /min 97 [degF] 96 % 96 % 102 mm[Hg] 78 mm[Hg] [employer] 4 14:45:37 Date Recorded Body height Body mass index (BMI) Body weight Heart rate Body temperature Oxygen saturation Oxygen saturation in Arterial blood by Pulse oximetry Systolic blood pressure Diastolic blood pressure Provider Name and Address Organization Details Last Updated DateTime 4 172.72 cm 28.7 kg/m2 18118.9 6 g 63 /min 97.4 [degF] 98 % 98 % 118 mm[Hg] 80 mm[Hg] MAGDY Garcia - JACOB [facility] [employer] 4 10:38:40 Date Recorded Body height Body mass index (BMI) Body weight Heart rate Body temperature Oxygen saturation Oxygen saturation in Arterial blood by Pulse oximetry Systolic blood pressure Diastolic blood pressure Provider Name and Address Organization Details Last Updated DateTime 4 172.72 cm 29.8 kg/m2 58692.1 g 60 /min 97 [degF] 98 % 98 % 120 mm[Hg] 82 mm[Hg] MAGYD Garcia [facility] [employer] [facility] 4 11:07:16 Social History Question Answer Notes LastModified by Organization Details LastModified Time Tobacco Smoking Status Never Smoker Not Available [facility] 12/19/2022 05:53:27 Do You Have An Advance Directive? Yes [email or web address].[id number] [id number] Information not available 12/19/2022 What Is Your Level Of Alcohol Consumption? None [email or web address].030 [id number] Information not available 12/19/2022 Are You Blind Or Do You Have Difficulty Seeing? No MIGRATION.0301 [id number] Information not available 12/19/2022 Are You Deaf Or Do You Have Serious Difficulty Hearing? No MIGRATION.0301 [id number] Information not available 12/19/2022 What Type Of Diet Are You Following? REGULAR MIGRATION.0301 [id number] Information not available 12/19/2022 Do You Or Have You Ever Used E-cigarettes Or Vape? Never Used Electronic Cigarettes MIGRATION.0301 [id number] Information not available 12/19/2022 Have There Been Any Changes To Your Family Or Social Situation? Yes Patient Has Lost 5-6 Family Members/f riends In The Past 13 Months. MIGRATION.0301 [id number] Information not available 12/19/2022 What Is The Fluoride Status Of Your Home? Unknown MIGRATION.0301 [id number] Information not available 12/19/2022 Are There Any Guns Present In Your Home? Yes MIGRATION.0301 [id number] Information not available 12/19/2022 Do You Use Insect Repellent Routinely? No MIGRATION.0301 [id number] Information not available 12/19/2022 Where Do You Live? [place]House MIGRATION.0301 [id number] Information not available 12/19/2022 Guns Present In The Home? Yes [email or web address] Information not available 09/17/2023 Are You Able To Care For Yourself? Yes Information not available 09/17/2023 Are You Blind Or Do Yo Have Difficulty Seeing? No [email or web address] Information not available 09/17/2023 Are You Deaf Or Do You Have Serious Difficulty Hearing? No [email or web address] Information not available 09/17/2023 Live Alone Of With Others? Alone [email or web address] Information not available 09/17/2023 Do You Have A Medical Power Of Him Manager? Yes [email or web address] Information not available 09/17/2023 What Was The Date Of Your Most Recent Tobacco Screening? 09/17/2023 [email or web address] Information not available 09/17/2023 Do You Have Any Pets? No [email or web address] Information not available 09/17/2023 What Is Your Relationship Status? MIGRATION.0301 [id number] Information not available 12/19/2022 Do You Use Your Seat Belt Or Car Seat Routinely? No MIGRATION.0301 [id number] Information not available 12/19/2022 Do You Have Smoke And Carbon Monoxide Detectors In Your Home? Yes MIGRATION.0301 [id number] Information not available 12/19/2022 Are You Passively Exposed To Smoke? No MIGRATION.0301 [id number] Information not available 12/19/2022 Do You Or Have You Ever Used Smokeless Tobacco? Never Used Smokeless Tobacco MIGRATION.0301 [id number] Information not available 12/19/2022 Are There Any Smokers In Your House? No MIGRATION.0301 [id number] Information not available 12/19/2022 How Much Tobacco Do You Smoke? No MIGRATION.0301 [id number] Information not available 12/19/2022 Do You Feel Stressed (tense, Restless, Nervous, Or Anxious, Or Unable To Sleep At Night)? [id number] MIGRATION.0301 [id number] Information not available 12/19/2022 Do You Use Sunscreen Routinely? No MIGRATION.0301 [id number] Information not available 12/19/2022 Has Tobacco Cessation Counseling Been Provided? No MIGRATION.0301 [id number] Information not available 12/19/2022 Do You Have Any Dietary Restrictions? No MIGRATION.0301 551406 Information not available 12/19/2022 Do You Or Have You Ever Used Any Other Forms Of Tobacco Or Nicotine? No MIGRATION.0301 [id number] Information not available 12/19/2022 Sex: Unknown Functional Status Question Answer Note LastModified by Organizat ion Details LastModified Time Do you have difficulty walking or climbing stairs? Yes having knee problems MIGRATION.55147 [id number] Information not available 12/19/2022 Do you have transportation difficulties? No MIGRATION.93865 [id number] Information not available 12/19/2022 Are you able to walk? YESWOREST MIGRATION.33825 96468 Information not available 12/19/2022 Do you have difficulty doing errands alone? No MIGRATION.87796 74821 Information not available 12/19/2022 Are you able to care for yourself? Yes MIGRATION.59490 43530 Information not available 12/19/2022 Do you have difficulty dressing or bathing? No MIGRATION.65687 19114 Information not available 12/19/2022 What is your exercise level? None MIGRATION.71967 40400 Information not available 12/19/2022 Mental Status Question Answer Note LastModified by Organizat ion Details LastModified Time Do you have difficulty concentrating, remembering or making decisions? No MIGRATION.[id number] Information not available 12/19/2022 Family History Nothing Reported Notes:Mother 91 yea rs old Father 70 years old 1 Brothers 1 Living 2 Sisters 2 both from Cancer likely lung Mother Hx ASHD Father Hx Ca of Lung, COPD Brother Hx COPD (1) Medical History Condition Response BLINDNESS N NERVE DISEASE N RHEUMATIC FEVER N BLADDER PROBLEMS N KIDNEY STONES N MRSA N OTHER # 1 N POLIO N LUNG DISEASE/DISORDER N HISTORY OF DRUG ABUSE N RADIATION / CHEMOTHERAPY N COPD N Other # 2 N BLOOD DISEASES N EAR OR HEARING PROBLEMS N MUMPS N SHINGLES N BOWEL PROBLEMS N DEPRESSION (INCLUDING POST ) N STROKE/TIA N ULCERS N BENIGN PROSTATIC HYPERPLASIA N MEASLES N HYPOTENSION N MYOCARDIAL INFARCTION N OBESITY N GERD/NAUSEA N ANEURYSM N URINARY/BLADDER/KIDNEY PROBLEMS N CORONARY ARTERY DISEASE (CAD) Y ADDICTION CONCERNS N Impotence N ENDOMETRIOSIS N USE OF BLOOD THINNERS N SKIN PROBLEMS N GASTROINTESTINAL DISORDER N PERIPHERAL VASCULAR DISEASE N MUSCLE,JOINT OR BONE PROBLEMS N GASTROINTESTINAL BLEEDING N BLOOD CLOTS N ASTHMA N CATARACTS N ERECTILE DYSFUNCTION N VARICOSITIES N GI PROBLEMS N Low Testosterone N INFERTILITY N AIDS/HIV N CHEMOTHERAPY / RADIATION N LIVER DISEASE N MALE HYPOGONADISM N HYPERTENSION Y Deficiency N TOURETTE'S N ANXIETY DISORDER N BLOOD TRANSFUSION N ANEMIA/BLOOD DISORDER N CHRONIC EAR INFECTIONS N BRONCHITIS N TUBERCULOSIS N GLAUCOMA N FOOT PROBLEM N DIVERTICULITIS N SLEEP APNEA N CHICKENPOX N INFECTIOUS DISEASE N PROSTATE N HEART ARRHYTHMIA N INSOMNIA N HIGH CHOLESTEROL / HYPERLIPIDEMIA Y HYPERTHYROIDISM N EYE PROBLEMS N NEUROLOGICAL PROBLEMS Y EDEMA N CHRONIC PAIN SYNDROME N HYPOTHYROIDISM N CONSTIPATION N CAROTID BLOCKAGE N BACK / NECK PROBLEMS N HAVE YOU BEEN HOSPITALIZED OR SEEN IN [facility] IN THE PAST YEAR ? N ATHEROSCLEROSIS N BREAST PROBLEMS N DIALYSIS N ECZEMA N OSTEOPOROSIS N ARTHRITIS Y NO SIGNIFICANT PAST MEDICAL HISTORY N APPENDICITIS N DIABETES, TYPE N BAD TEETH N ENT N HEARTBURN / REFLUX N AUTISM SPECTRUM DISORDER (ASD) N HEPATITIS / LIVER DISEASE N GOUT N SLEEP DISORDER N ALZHEIMER'S DISEASE N Brain Problems N HERPES N DEMENTIA N SEIZURES/EPILEPSY N HEADACHES/MIGRAINES N VASCULAR DISEASE N PACEMAKER N Blood Disorder N DIZZINESS N KIDNEY DISEASE N HEART DISEASE/HEART PROBLEMS N MULTIPLE SCLEROSIS N CARDIAC ARRHYTHMIA N CANCER: SPECIFY N Gall Stones N ATRIAL FIBRILLATION N PULMONARY EMBOLISM N AUTOIMMUNE DISEASE N Gynecological History Statement/Question Response Date of Last Mammogram 04/28/2020 Date of Last Colonoscopy 02/06/2019 Most Recent Bone Density Obstetrics History GPAL:G 0 P 0 0 0 0 Immunizations Vaccine Type Date Status Note Provider Jose e and Address Organization Details Recorded Time Tdap 7 completed Not Available Critical access hospital 12/09/2023 23:36:52 Td (adult), 2 Lf tetanus toxoid, preservative free, adsorbed 7 completed Not Available Critical access hospital 12/09/2023 23:36:52 Past Encounters Encounter ID Performer Location Encounter Start Date Encounter Closed Date Diagnosis/Indication Diagnosis SNOMED-CT Code Diagnosis ICD10 Code Diagnosis Note [id number] [facility] [place] [address] [facility] [address] [place] [address] 01/12/2021 00:00:00 01/12/2021 11:45:56 [id number] [facility] [place] [address] [place] [address] 01/17/2021 00:00:00 01/17/2021 12:32:52 [id number] [facility] [place] [address] [place] [address] [place] [address] 04/21/2021 00:00:00 04/21/2021 12:43:37 [id number] [facility] Internal Med [place] [address] Liza, [address] [place] [address] 07/31/2021 00:00:00 07/31/2021 15:42:25 [id number] [facility] Internal Med [place] [address] [place] [address] [place] [address] 11/14/2021 00:00:00 11/14/2021 11:14:20 [id number] [facility] Internal [place] [address] [place] [address] [place] [address] 02/20/2022 00:00:00 02/20/2022 14:46:35 [id number] [facility] [place] [address] [place] [address] [place] [address] 05/15/2022 00:00:00 05/15/2022 11:05:36 [id number] [facility] Internal [facility] [place] [address] [place] [address] [place] [address] 09/11/2022 00:00:00 09/11/2022 11:27:01 [id number] Tanvir Davalos MD [facility] Internal [facility] [place] [address] [place] [address] [place] [address] 01/08/2023 11:25:54 01/08/2023 12:29:22 Coronary arteriosclerosis 53047490 I25.10 Essential hypertension 66815648 I10 Gastroesop hageal reflux disease 059336225 K21.9 Hypercholesterolemia 136 90004 E78.00 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.9 Restless legs 66668880 G 25.81 [id number] Tanvir Davalos MD [facility] Internal [facility] [place] [address] [place] [address] [place] [address] 05/21/2023 10:33:25 05/21/2023 11:03:58 Coronary arteriosclerosis 47257714 I25.10 Hypercholesterolemia 136 38496 E78.00 Ulcerative colitis 64683 004 K51.90 Lightheadedness 10434777 8 R42 Obese class I 3219005367 11504 E66.9 Gastroesop hageal reflux disease 362588378 K21.9 [id number] Tanvir Davalos MD [facility] Internal Med [place] [address] [place] [address] [place] [address] 09/17/2023 10:43:31 09/17/2023 11:27:27 Adult health examination 725472082 Z00.00 Screening for disorder 843810512 Z13.9 Coronary arteriosclerosis 14837924 I25.10 Essential hypertension 68903977 I10 Hypercholesterolemia 136 00226 E78.00 Gastroesop hageal reflux disease 983866636 K21.9 Obese class I 7328514776 89044 E66.9 [id number] Tanvir Davalos MD [facility] Internal Med [place] [address] [facility] [address] [place] [address] 01/06/2024 15:46:48 01/06/2024 16:15:26 Coronary arteriosclerosis 90066869 I25.10 Essential hypertension 07680268 I10 Hypercholesterolemia 136 73041 E78.00 Left lower quadrant pain 358568512 R10.32 [id number] Tanvir Davalos MD [facility] Internal Med [place] [address] [place] [address] [place] [address] 01/24/2024 14:37:52 01/24/2024 15:32:06 Essential hypertension 97939811 I10 Atrial fibrillation 4943 6004 I48.91 Hypercholesterolemia 136 35367 E78.00 Gastroesop hageal reflux disease without esophagitis 866894266 K21.9 [id number] Tanvir Davalos MD [facility] Internal Med [place] [address] [place] [address] [place] [address] 04/28/2024 10:28:42 04/28/2024 10:59:21 Coronary arteriosclerosis 74014702 I25.10 Atrial fibrillation 4943 6004 I48.91 Essential hypertension 06640974 I10 Hypercholesterolemia 136 47219 E78.00 Gastroesop hageal reflux disease without esophagitis 149720792 K21.9 [id number] Tanvir Davalos MD [facility] [place] [address] [facility] [place] [address] 09/01/2024 10:45:52 09/01/2024 11:53:16 Atrial fibrillation 12783385 I48.91 Coronary arteriosclerosis 41731010 I25.10 Essential hypertension 43079406 I10 Gastroesop hageal reflux disease 381042236 K21.9 Abscess of face 79740136 4 L02.01 Health Concerns Section Related Observation LastModified by Organization Detai ls LastModified Time None Recorded Concern Status LastModified by Organization Details LastModified Time None Recorded Advance Directives Directive Y: Payers Encounter Date Sequence Insurance Name Policy Number Policy Gerber Covered Member ID Gerber Member ID Guarantor Name 09/17/2023 1 [place] Nikky Jose Oestricker [id number] Nikky Garcia Oestricker 09/17/2023 2 [employer] [place] - PLAN G (MEDICARE SUPPLEMENT) Nikky Jose Oestricker [id number] Nikky Jose Oestricker 01/06/2024 1 [place] Nikky Garcia Oestricker [id number] Nikky Jose Oestricker 01/06/2024 2 [employer] [place] - PLAN G (MEDICARE SUPPLEMENT) Nikky Jose Oestricker [id number] Nikky Jose Oestricker 01/24/2024 1 [place] Nikky Jose Oestricker [id number] Nikky Jose Oestricker 01/24/2024 2 [employer] [place] - PLAN G (MEDICARE SUPPLEMENT) Nikky Jose Oestricker [id number] Nikky Jose Oestricker 04/28/2024 1 [place] Nikky Garcia Oestricker [id number] Nikky Jose Oestricker 04/28/2024 2 [employer] [place] - PLAN G (MEDICARE SUPPLEMENT) Nikky Jose Oestricker [id number] Nikky Garcia Oestricker 09/01/2024 1 [place] Nikky Pena [id number] Nikky Pena 09/01/2024 2 [employer] [place] - PLAN G (MEDICARE SUPPLEMENT) Nikky Pena [id number] Nikky Pena Notes Date Note Type Note Provider Name and Address Organization Details Recorded Time 3 text/html Patient Name: Nikky PenaDate Of Service: Saturday ( 09.17.2023 ): 1940 Age: 83 There has been approximately a 3 lb weight loss since 05/21/2023. This represents approximately a 1.5% change in weight. Weight change attributable to lifestyle changes. Vital Signs:Blood Pressure: Sitting Rt. Arm 132/84Pulse: Sitting 85 /min and RegularRespiratory Rate: 12Height 68 in or 1.7 mWeight 203 lb or 92.1 kgBMI 30.9Temperature: 97 F or 36.1 CPulse Oximetry: 97 % at rest on no oxygen Chief Complaint: Addressed in HPI Problems or conditions discussed in the HPI were the only ones reviewed during the encounter.Only social and family history addressed in the HPI were reviewed during this encounter. A significant, separate E/M service was performed to evaluate the current and new problems. Attendant(s): NoneConstitutional and Systemic Symptoms:none Medication Reconciliation: from medication list. History of Present Illness Reviewed the findings of the preventative health visit. Addressed all areas with the patient, patient's family or caregivers. Preventative examinations and testing immunizations - vaccinations, colonic neoplasm screening, mammograms and DEXA Scan all reviewed and ordered where patient was amenable to the recommendations. Cognitive function was normal. Depression addressed and where necessary medications were adjusted or instituted. End of life and living will briefly discussed with patient and where these can be filled out and legally executed. Other blood and imaging studies were ordered if considered necessary. Other recommendations may be found in the encounter note. #1. Coronary Artery Disease: There has been no change in frequency - duration - intensity in frequency, duration or intensity of chest pain. Other Complaints: none The frequency of anginal attacks is none at all. Additional Symptoms: none Therapy reviewed regarding cardiovascular management includes Aspirin and Norvasc #2. Essential Hypertension: Stage: Stage I Interval Neurological Complaints no headaches, dizziness, weakness, visual changes, ataxia, aphasia and apraxia. No shortness of breath, orthopnea or cardiovascular symptoms. No other symptoms related to end organ damage. Pressure has been under excellent control. Currently normal. No other end organ symptoms or findings. Therapy reviewed regarding management of hypertension and includes salt restriction and Norvasc. #3. Type II Hypercholesterolaemia: Currently not taking medication. No interval complaints of any muscle pain or arthralgia. No significant liver changes with medications. Last lipid panel: excellent control. Therapy reviewed regarding treatment of cholesterol management and include diet. #4. Hx of esophageal reflux currently stable. Hx of Complications: none The severity, duration and intensity of symptoms have improved. Frequency: most meals Treatment consists medications taken on intermittent basis. Current therapy includes Protonix. There has been no nausea, eructation, vomiting, hematemesis, dysphagia, velopharyngeal insufficiency and odynophagia. No change in he frequency or intensity of symptoms. Has had no melena. Has had no hematemesis. Discuss the possibility of trying to reduce the frequency of the use of any PPI inhibitors or H2 antagonist to see if symptoms can be controlled with last intensive therapy #5. Hx of obesity. Currently Class 1 Obesity BMI 30-34.99. Has tried numerous dietary support and supplements with no benefit. Instructed on the health consequences of the obese status particularly cancer - diabetes and heart disease. Discussed new modalities of weight loss including GLP-1 medications that are used to treat diabetes. Potential candidate for bariatric surgery: No. Wishes to be evaluated by Dietary: No and was offered to be evaluated and instructed by body shop floorperson on weight loss diet.Medication List Reviewed and Reconciled 09/17/2023Norvasc 5 MG One Daily For Blood PressureTravatan Z 0.004% One Drop Daily In Each EyeDelzicol 400 MG (CAPSULE, DELAYED RELEASE - ORAL) As DirectedProtonix 40 MG (FOR SUSPENSION, DELAYED RELEASE - ORAL) One DailyAspirin 81 MG TABLET Once DailyADRs List Reviewed 09/17/2023lavix Excessive BruisingVasotec CoughAvapro Cough And FlushingCapoten CoughStrattera VomittingVaccination and Fpsvdkxxluko3308-55 Tetanus BoosterSurgical HistoryLap Ventral Hernia Repair (Mesh), Lap Sigmoidectomy, Rt. Rotator Cuiff, Lt. Knee Replacement, Rt. Knee ReplacementPreventative Testing Confirmed by Our Gkztkpk8205/21/2023 ALBUMIN 4.4 G/DL N004/28/2020 MAMMOGRAM COLONOSCOPY (10 YEARS) DEXA SCANSocial HistorySOCIAL HISTORY:Does not smoke cigarettes. 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 HistoryFAMILY HISTORY:Mother 91 years oldFather 70 years old1 Brothers 1 Living2 Sisters 2 both from Cancer likely lungMother Hx: ASHDFather Hx: Ca of Lung, COPDBrother Hx: COPD (1) TEST RESULT RANGE UNITSCBC/COMPLETE BLD COUNT W/DIFF Date: 05/21/2023WHITE BLOOD CELLS 8.7 4.2-10.8 X10'3/ULHEMOGLOBIN 12.9 12.0-15.6 G/DLHEMATOCRIT 42.4 35.7-45.7 %PLATELETS 470 150-400 X10'3/ULLIPID PANEL Date: 05/21/2023HOLESTEROL 184 140-199 MG/DLTRIGLYCERIDES 149 0-150 MG/DLHDL CHOLESTEROL 72 40- MG/DLLDL CHOLESTEROL, CALCULATED 82 0-130 MG/DLCOMPREHENSIVE METABOLIC PANEL Date: 05/21/2023SODIUM 138 137-145 MMOL/LPOTASSIUM 5.3 3.5-5.1 MMOL/LGLUCOSE 103 70-99 MG/DLBUN 18 8-19 MG/DLCREATININE 0.98 0.66-1.25 MG/DLGFR 54ALKALINE PHOSPHATASE 116 38-126 U/LALANINE AMINOTRANSFERASE 25 0-35 U/LASPARTATE AMINOTRANSFERASE 31 15-37 U/LBILIRUBIN, TOTAL 0.50 0.20-1.30 MG/DL Tanvir Davalos MD [address] [facility], [place], [address], [facility] [employer] 09/17/2023 11:21:02 4 text/html Patient Name: Nikky Garcia JeanDate Of Service: Saturday ( 01.06.2024 ): 1940 Age: 84 Vital Signs:Blood Pressure: Sitting Rt. Arm 120/64Pulse: Sitting 108 /min and RegularRespiratory Rate: 12Height 68 in or 1.7 mWeight 203 lb or 92.1 kgBMI 30.9Temperature: 98.1 F or 36.7 CPulse Oximetry: 94 % at rest on no oxygen Chief Complaint: Addressed in HPI Problems or conditions discussed in the HPI were the only ones reviewed during the encounter.Only social and family history addressed in the HPI were reviewed during this encounter. Attendant(s): DaughterConstitutional and Systemic Symptoms:none Medication Reconciliation: from medication list. History of Present Illness #1. Approximately 4-5 day history of intermittent episodic abdominal pain. Location epigastrium left lower quadrant. No associated nausea, vomiting, diarrhea or constipation. Denied any associated fever, chills or other systemic or constitutional symptoms. This been no associated nausea or vomiting. Pain on a scale of 1-10 reaches a seven or eight. May last for 15-20 minutes the tends of 8 minutes recurrent. Denies any urinary tract symptomatology. No previous history of diverticulitis in the past has had a history of asymptomatic gallstones. Has been no change in the color of the urine.: #2. Coronary Artery Disease: There has been no change in frequency - duration - intensity in frequency, duration or intensity of chest pain. Other Complaints: none The frequency of anginal attacks is none at all. Additional Symptoms: none Therapy reviewed regarding cardiovascular management includes Aspirin and Norvasc #3. Essential Hypertension: Stage: Stage I Interval Neurological Complaints no headaches. No shortness of breath, orthopnea or cardiovascular symptoms. No other symptoms related to end organ damage. Pressure has been under fair control. Currently normal. No other end organ symptoms or findings. Therapy reviewed regarding management of hypertension and includes salt restriction and Norvasc. #4. Type II Hypercholesterolaemia: Currently not taking medication. No interval complaints of any muscle pain or arthralgia. No significant liver changes with medications. Last lipid panel: fair control. Therapy reviewed regarding treatment of cholesterol management and include diet. Active Medication ListNorvasc 5 MG One Daily For Blood PressureTravatan Z 0.004% One Drop Daily In Each EyeDelzicol 400 MG (CAPSULE, DELAYED RELEASE - ORAL) As DirectedProtonix 40 MG (FOR SUSPENSION, DELAYED RELEASE - ORAL) One DailyAspirin 81 MG TABLET Once Daily Adverse Drug Reactions ReviewedPlavix Excessive BruisingVasotec CoughAvapro Cough And FlushingCapoten CoughStrattera Vomitting Vaccination and Ctqokbtduavr4473-70 Tetanus Booster Surgical Xhejilh8162-20 Lap Ventral Hernia Repair (Mesh)2015- Lap Yufllmmilcgso1420-09 Rt. Rotator Jmpne6560-81 Lt. Knee Vxvoodzgntq8846-62 Rt. Knee Replacement Preventative Fcwmvuj6305/21/2023 ALBUMIN 4.4 G/DL N004/28/2020 MAMMOGRAM COLONOSCOPY (10 YEARS) DEXA SCAN Social HistorySOCIAL HISTORY:Does not smoke cigarettes. 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 This represents approximately a 3.9% change in weight. Weight change attributable to lifestyle changes. Vital Signs:Blood Pressure: Sitting Rt. Arm 102/78Pulse: Sitting 92 /min and IrregularRespiratory Rate: 12Height 68 in or 1.7 mWeight 195 lb or 88.5 kgBMI 29.6Temperature: 97 F or 36.1 CPulse Oximetry: 96 % at rest on no oxygen Chief Complaint: Addressed in HPI Problems or conditions discussed in the HPI were the only ones reviewed during the encounter.Only social and family history addressed in the HPI were reviewed during this encounter. Attendant(s): DaughterConstitutional and Systemic Symptoms:none, night sweats, anorexia, weight loss, weight gain, generalized fatigue, myalgia and arthralgia Medication Reconciliation: from medication list. [id number]: CT of abdomen and pelvis unremarkable. No findings to suggest cause of abdominal pain. Blood work was fine as well. If persists with need to see GI 01-13-2024: Echocardiogram shows an estimated ejection fraction 45-50% with severe tricuspid as well as mitral valve regurgitation. Mild decrease any and left ventricular systolic function. History of Present Illness #1. Essential Hypertension: Stage: Stage I Interval Neurological Complaints no headaches, dizziness, weakness, visual changes, ataxia, aphasia and apraxia. No shortness of breath, orthopnea or cardiovascular symptoms. No other symptoms related to end organ damage. Pressure has been under excellent control. Currently normal. No other end organ symptoms or findings. Therapy reviewed regarding management of hypertension and includes salt restriction and Entresto, Metoprolol Succinate and Norvasc. #2. Coronary Artery Disease: There has been no change in frequency - duration - intensity in frequency, duration or intensity of chest pain. Other Complaints: none The frequency of anginal attacks is none at all. Additional Symptoms: none Therapy reviewed regarding cardiovascular management includes Aspirin, Eliquis, Entresto, Lasix, Metoprolol Succinate and Norvasc #3. Type II Hypercholesterolaemia: Currently not taking medication. No interval complaints of any muscle pain or arthralgia. No significant liver changes with medications. Last lipid panel: no testing done recently. Therapy reviewed regarding treatment of cholesterol management and include cannot tolerate statins or related agents. #4. Hx of esophageal reflux currently stable. Hx of Complications: none The severity, duration and intensity of symptoms have improved. Frequency: most meals Treatment consists medications taken on a regular basis. Current therapy includes Protonix. There has been no nausea, eructation, vomiting, hematemesis, dysphagia, velopharyngeal insufficiency and odynophagia. No change in he frequency or intensity of symptoms. Has had no melena. Has had no . Discussed use of H2 antagonists and the possibility of trying to reduce the frequency of the use of any PPI inhibitors and try H2 antagonists to see if symptoms can be controlled with lease intensive therapy since a number of complications are associated with chronic prolonged use of PPI inhibitors. Active Medication ListNorvasc 5 MG One Daily For Blood PressureTravatan Z 0.004% One Drop Daily In Each EyeDelzicol 400 MG (CAPSULE, DELAYED RELEASE - ORAL) As DirectedProtonix 40 MG (FOR SUSPENSION, DELAYED RELEASE - ORAL) One DailyAspirin 81 MG TABLET Once DailyEliquis 5 MG TABLET, FILM COATED One Twice A DayEntresto 24; 26 MG; MG TABLET, FILM COATED One Twice A DayLasix 40 MG TABLET Once DailyPotassium Chloride 20 MEQ TABLET, EXTENDED RELEASE One Tablet DailyMesalamine 400 MG CAPSULE, DELAYED RELEASE Take 2 Capsultes Twice A DayMetoprolol Succinate 100 MG CAPSULE, EXTENDED RELEASE Take One And Half Tablets For Atrial Fib Adverse Drug Reactions ReviewedPlavix Excessive BruisingVasotec CoughAvapro Cough And FlushingCapoten CoughStrattera Vomitting Vaccination and Qqgkctphojgv7591-61 Tetanus Booster Surgical Mrcfqnp2696-37 Lap Ventral Hernia Repair (Mesh)2016-01 Lap Zqvehsyhfisss9860-00 Rt. Rotator Kxakx4475-16 Lt. Knee Gcpzkfcoqfc5090-84 Rt. Knee Replacement Preventative Mjtoplb7101/07/2024 ALBUMIN 4.6 G/DL 04/28/2020 MAMMOGRAM COLONOSCOPY (10 YEARS) DEXA SCAN Social HistorySOCIAL HISTORY:Does not smoke cigarettes. 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 This represents approximately a 3.1% change in weight. Weight change attributable to lifestyle changes. Vital Signs:Blood Pressure: Sitting Rt. Arm 118/80Pulse: Sitting 63 /min and RegularRespiratory Rate: 12Height 68 in or 1.7 mWeight 189 lb or 85.7 kgBMI 28.7Temperature: 97.4 F or 36.3 CPulse Oximetry: 98 % at rest on no oxygen Chief Complaint: Addressed in HPI Problems or conditions discussed in the HPI were the only ones reviewed during the encounter.Only social and family history addressed in the HPI were reviewed during this encounter. Attendant(s): NoneConstitutional and Systemic Symptoms:none Medication Reconciliation: from medication list. [id number]: CT of abdomen and pelvis unremarkable. No findings to suggest cause of abdominal pain. Blood work was fine as well. If persists with need to see GI 01-13-2024: Echocardiogram shows an estimated ejection fraction 45-50% with severe tricuspid as well as mitral valve regurgitation. Mild decrease any and left ventricular systolic function. 03-25-2024: Cardiac catheterization left main coronary is widely patent without any significant obstructive disease. LAD and proximal LAD mid mild diffuse disease with no significant stenosis. Left circumflex mild luminal irregularities but no significant obstructive disease noted. Right coronary artery is codominant some mild diffuse disease but no significant obstruction. End-diastolic pressure 13 mmHg. History of Present Illness #1. Coronary Artery Disease: There has been no change in frequency - duration - intensity in frequency, duration or intensity of chest pain. Other Complaints: none The frequency of anginal attacks is none at all. Additional Symptoms: none Therapy reviewed regarding cardiovascular management includes Aspirin, Eliquis, Entresto, Lasix and Metoprolol Succinate #2. Essential Hypertension: Stage: Stage I Interval Neurological Complaints no headaches. No shortness of breath, orthopnea or cardiovascular symptoms. No other symptoms related to end organ damage. Pressure has been under excellent control. Currently normal. No other end organ symptoms or findings. Therapy reviewed regarding management of hypertension and includes salt restriction and Entresto, Lasix and Metoprolol Succinate. #3. Atrial Fibrillation: Type: Paroxysmal with recurrent episodes lasting less than 7 days. Further classification: Non-valvular. Associated history of essential hypertension. No attending hx of any shortness of breath, palpitations, syncopal or neurological symptoms. Current medications: Eliquis and Metoprolol Succinate. Rate control: controlled ventricular response [id number] Criteria: Age > 75 and and considered moderate risk for embolic phenomenon. Anticoagulation: Eliquis #4. Type II Hypercholesterolaemia: Currently taking medication and tolerating well. No interval complaints of any muscle pain or arthralgia. No significant liver changes with medications. Last lipid panel: fair control. Therapy reviewed regarding treatment of cholesterol management and include diet. #5. Hx of esophageal reflux currently stable. Hx of Complications: none The severity, duration and intensity of symptoms have improved. Frequency: most meals Treatment consists medications taken on intermittent basis. Current therapy includes Protonix. There has been no nausea. No change in he frequency or intensity of symptoms. Has had no melena. Has had no . Discussed use of H2 antagonists and the possibility of trying to reduce the frequency of the use of any PPI inhibitors and try H2 antagonists to see if symptoms can be controlled with lease intensive therapy since a number of complications are associated with chronic prolonged use of PPI inhibitors. Active Medication ListProtonix 40 MG (FOR SUSPENSION, DELAYED RELEASE - ORAL) One DailyLatanoprost .05 MG/ML SOLUTION/ DROPS Every Night At BedtimeAspirin 81 MG TABLET Once DailyEliquis 5 MG TABLET, FILM COATED One Twice A DayEntresto 24; 26 MG; MG TABLET, FILM COATED One Twice A DayLasix 40 MG TABLET Once DailyPotassium Chloride 20 MEQ TABLET, EXTENDED RELEASE One Tablet DailyMesalamine 400 MG CAPSULE, DELAYED RELEASE Take 2 Capsultes Twice A DayMetoprolol Succinate 100 MG CAPSULE, EXTENDED RELEASE Take One And Half Tablets For Atrial Fib Adverse Drug Reactions ReviewedPlavix Excessive BruisingVasotec CoughAvapro Cough And FlushingCapoten CoughStrattera Vomitting Vaccination and [id number] Tetanus Booster Surgical [id number] Lap Ventral Hernia Repair (Mesh)2015- Lap Zqetuqdgokcra9781-04 Rt. Rotator [id number] Lt. Knee Xqynpttwaon7989-25 Rt. Knee Replacement Preventative Vsxxivq6302/04/2024 ZKGTTOCWJKVZL54/19/2024 ALBUMIN 4.6 G/DL H004/28/2020 MAMMOGRAM COLONOSCOPY (10 YEARS) DEXA SCAN Social HistorySOCIAL HISTORY:Does not smoke cigarettes. 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 Family HistoryFAMILY HISTORY:Mother 91 years oldFather 70 years old1 Brothers 1 Living2 Sisters 2 both from Cancer likely lungMother Hx: ASHDFather Hx: Ca of Lung, COPDBrother Hx: COPD (1) TEST RESULT RANGE UNITSLIPID PANEL Date: 3CHOLESTEROL 184 140-199 MG/DLTRIGLYCERIDES 149 0-150 MG/DLHDL CHOLESTEROL 72 40- MG/DLLDL CHOLESTEROL, CALCULATED 82 0-130 MG/DL Tanvir Davalos MD [address] [facility], [address], [place], [address], [facility] 04/28/2024 10:55:24 4 text/html Patient Name: Nikky PenaDate Of Service: Saturday ( 09.01.2024 ): 1940 Age: 84 There has been approximately a 7 lb weight gain since 04/28/2024. This represents approximately a 3.7% change in weight. Weight change attributable to lifestyle changes. Vital Signs:Blood Pressure: Sitting Rt. Arm 120/82Pulse: Sitting 60 /min and RegularRespiratory Rate: 16Height 68 in or 1.7 mWeight 196 lb or 88.9 kgBMI 29.8Temperature: 97 F or 36.1 CPulse Oximetry: 98 % at rest on no oxygen Chief Complaint: Addressed in HPI Problems or conditions discussed in the HPI were the only ones reviewed during the encounter.Only social and family history addressed in the HPI were reviewed during this encounter. Attendant(s): NoneConstitutional and Systemic Symptoms:none Medication Reconciliation: from medication list. [id number]: CT of abdomen and pelvis unremarkable. No findings to suggest cause of abdominal pain. Blood work was fine as well. If persists with need to see GI 01-13-2024: Echocardiogram shows an estimated ejection fraction 45-50% with severe tricuspid as well as mitral valve regurgitation. Mild decrease any and left ventricular systolic function. 03-25-2024: Cardiac catheterization left main coronary is widely patent without any significant obstructive disease. LAD and proximal LAD mid mild diffuse disease with no significant stenosis. Left circumflex mild luminal irregularities but no significant obstructive disease noted. Right coronary artery is codominant some mild diffuse disease but no significant obstruction. End-diastolic pressure 13 mmHg. History of Present Illness #1. Essential Hypertension: Stage: Stage I Interval Neurological Complaints no headaches, dizziness, weakness, visual changes, ataxia, aphasia and apraxia. No shortness of breath, orthopnea or cardiovascular symptoms. No other symptoms related to end organ damage. Pressure has been under excellent control. Currently normal. No other end organ symptoms or findings. Therapy reviewed regarding management of hypertension and includes salt restriction. #2. Type II Hypercholesterolaemia: Currently not taking medication. No interval complaints of any muscle pain or arthralgia. No significant liver changes with medications. Last lipid panel: suboptimal by ATP III guidelines. Therapy reviewed regarding treatment of cholesterol management and include diet. #3. Atrial Fibrillation: Type: Paroxysmal with recurrent episodes lasting less than 7 days. Further classification: Non-valvular. Associated history of HTN. No attending hx of any shortness of breath, palpitations, syncopal or neurological symptoms. Current medications: Eliquis, Entresto and Metoprolol Succinate. Rate control: controlled ventricular response [id number] Criteria: congestive heart failure for embolic phenomenon. Anticoagulation: Eliquis #4. Hx of esophageal reflux currently stable. Hx of Complications: none The severity, duration and intensity of symptoms have improved. Frequency: most meals Treatment consists medications taken on no regular basis. Current therapy includes Protonix. There has been no nausea, eructation, vomiting, hematemesis, dysphagia, velopharyngeal insufficiency and odynophagia. No change in he frequency or intensity of symptoms. Has had no melena. Has had no . Discussed use of H2 antagonists and the possibility of trying to reduce the frequency of the use of any PPI inhibitors and try H2 antagonists to see if symptoms can be controlled with lease intensive therapy since a number of complications are associated with chronic prolonged use of PPI inhibitors. Active Medication ListProtonix 40 MG (FOR SUSPENSION, DELAYED RELEASE - ORAL) One DailyLatanoprost .05 MG/ML SOLUTION/ DROPS Every Night At BedtimeAspirin 81 MG TABLET Once DailyEliquis 5 MG TABLET, FILM COATED One Twice A DayEntresto 24; 26 MG; MG TABLET, FILM COATED One Twice A DayLasix 40 MG TABLET Once DailyPotassium Chloride 20 MEQ TABLET, EXTENDED RELEASE One Tablet DailyMesalamine 400 MG CAPSULE, DELAYED RELEASE Take 2 Capsultes Twice A DayMetoprolol Succinate 100 MG CAPSULE, EXTENDED RELEASE Take One And Half Tablets For Atrial Fib Adverse Drug Reactions ReviewedPlavix Excessive BruisingVasotec CoughAvapro Cough And FlushingCapoten CoughStrattera Vomitting Vaccination and Immunization(X) 2004- TETANUS BOOSTER Surgical Stkisld1885-60 Lap Ventral Hernia Repair (Mesh)2015- Lap Eiycbipeesmka2566-80 Rt. Rotator Icunu7928-83 Lt. Knee Umvtowurjnu5836-96 Rt. Knee Replacement Preventative Testing( ) 07/30/2024 Ophthalmology( ) 05/14/2024 Albumin 4.4 G/DL( ) 04/28/2020 Mammogram( ) 01/27/2019 Colonoscopy (10 Years) 01/27/2029( ) 09/06/2009 DEXA Scan 09/06/2011 Social HistorySOCIAL HISTORY:Does not smoke cigarettes. 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
--- OUTSIDE RECORDS SUMMARY | 2024-11-16 10:12 | XMS_ITS | Encounter Summary ---
Author Organization [facility] Healthcare Address [address] [place] [address] Care Team Providers Care Scrub Wheel Operator Name Role Phone Tanvir Davalos MD Primary Care Provider Encounter Details Date Type Department Care Team (Late st Contact Info) Description 01/13/2024 Orders Only [facility] Health Information Management [address] [place] [address] [id number] Scanning, Provider Social History Tobacco Use Types Packs/Day Years Used Date Smoking Tobacco: Never Smokeless Tobacco: Never AUDIT-C Answer Date Recorded Q1: How often do you have a drink containing alc ohol? Never 02/09/2021 Average Number of Drinks Not on file 021 Q3: How often do you have si x or more drinks on one occasion? Never 02/09/2021 Comments No Sex and Gender Information Value Date Recorded Sex Assigned at Not on file Legal Sex Female 8:38 PM [employer] Gender Identity Not on file Sexual Orientation Not on file documented as of this encounter Plan of Treatment Not on file documented as of this encounter Procedures Procedure Name Priority Date/Time Associated Diagnosis Comments SCAN - RADIOLOGY/IMAGING 01/13/2024 documented in this encounter Results * SCAN - RADIOLOGY/IMAGING (01/13/2024) Anatomical Region Laterality Modality Other us Provider Scanning Edited Result - Final documented in this encounter Visit Diagnoses Not on filedocumented in this encounter Care Teams Scrub Wheel Operator Relationship Specialty Start Date End Date Tavnir Davalos MD [address] [facility] [address] [place], [place] [id number] PCP - General Internal Medicine 08/21/19 documented as of this encounter
[2024-11-20 15:39] LABS: Calprotectin, Stool 115 mcg/g
== END 2024-11-16 09:33 | disposition home or self-care (01) ==
LOC: ANHLAB 09:33
PROVIDERS: PCP Internal Medicine; Visit Provider Nurse Practitioner
DX: K51.90 Ulcerative colitis, unspecified, without complications (principal)
CPT/HCPCS: 83993

== ENCOUNTER 2025-01-15 10:14 | Outpatient (CLI) | payer MEDICARE, OTHER, SELFPAY ==
--- NOTE | ~2025-01-15 | XR_ITS ---
EXAMINATION: XR abdomen/kub 1V DATE: 01/15/2025 10:30 INDICATION: Constipation with cramping and possible fecal impaction TECHNIQUE: A supine view of the abdomen on 2 radiographs was obtained. COMPARISON: None. FINDINGS: No dilated loops of gas-filled bowel to suggest obstruction. Sigmoid anastomotic suture line projects of the central pelvis. There is a moderate amount of stool scattered throughout the colon. 6.5 cm ba ll of stool projecting over the right lower pelvis and is more likely in the cecum than in the rectum based upon position of the bowels on CT from one week prior. Moderate osteitis pubis. Severe lumbar spondylosis. Visual is mid to lower lungs are clear with no pleural effusion. Heart size is normal. IMPRESSION: 1. Moderate amount of colonic stool which appears predominantly in the proximal to mid colon. Reviewed, dictated and finalized at location B.
--- OUTSIDE RECORDS SUMMARY | 2025-01-15 11:08 | XMS_ITS | Clinical Summary ---
Author Organization [facility] Address [address] [place] [address] Care Team Providers Care Program Director Air Talent Name Role Phone Tanvir Davalos MD Primary Care Provider Allergies Active Allergy Reactions Criticality Noted Date Comments Meperidine Vomiting Low Morphine Other (See comments) Low 10/22/2019 Upset stomach Medications latanoprost (XALATAN) 0.005 % ophthalmic solutionIndicatio ns:open angle glaucoma Administer 1 drop into both eyes nightly 4 9 Active DELZICOL 400 mg capsule (with del rel tablets)Indicatio ns:Ulcerative Colitis Take 2 capsules (800 mg total) by mouth 2 (two) times a day [address] (PROTONIX) 40 mg EC tabletIndications :gerd Take 1 tablet (40 mg total) by mouth every morning 0 Active azelastine (ASTELIN) 137 mcg (0.1 %) nasal spray Administer 2 sprays into each nostril as needed 1 Active acetaminophen 500 mg capsuleIndication s:Pain Take 2 capsules (1,000 mg total) by mouth every 8 (eight) hours as needed for pain 30 tablet 1 Active aspirin 81 mg enteric coated tablet Take 1 tablet (81 mg total) by mouth daily Active metoprolol XL (TOPROL-XL) 100 mg 24 hr tabletIndications :Paroxysmal atrial fibrillation (HCC) Take 0.5 tablets (50 mg total) by mouth daily 4 Active Eliquis 5 mg tablet Take 1 tablet (5 mg total) by mouth 2 (two) times a day 180 tablet 3 5 Active Entresto 24-26 mg tablet Take 0.5 tablets by mouth 2 (two) times a day 90 tablet 3 5 Active Active Problems Problem Noted Date Diagnosed Date Heart failure with mid-range ejection fraction 0 03/13/2024 Abnormal stress test 03/13/2024 Nonrheumatic mitral valve regurgitation 03/13/20 Atrial fibrillation 03/13/2024 Nonrheumatic tricuspid valve regurgitation 03/13 Coronary arteriosclerosis 03/10/2021 Essential hypertension 03/10/2021 Ulcerative colitis 03/10/2021 Incisional hernia, without obstruction or gangre ne 04/15/2020 Encounters Date Type Department Care Team Description 12/15/2024 Telephone [facility] Cardiology [address] [place] [address] Adalgisa Randolph MD 10/29/2024 Telephone [facility] Medical [facility] Cardiology [address] [place] [address] Adalgisa Randolph MD from Last 3 [...] on file 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 Gender Identity Not on file Sexual Orientation Not on file Obstetrics History Last Filed Vital Signs Vital Sign Reading Time Taken Comments Blood Pressure 142/76 09/28/2024 10:56 AM SUPERVISOR [employer]IL[employer] Pulse 64 09/28/2024 10:56 AM SUPERVISOR [employer] SILVERING Temperature 36.2 C (97.2 F) 04/27/2022 10:59 AM CDT Respiratory Rate 16 03/10/2021 11:00 AM CDT Oxygen Saturation 95% 09/28/2024 10:56 AM SUPERVISOR [employer] SIL[employer]ING Inhaled Oxygen Concentration - - Weight 90.3 kg (199 lb) 09/28/2024 10:56 AM SUPERVISOR [employer] SILVERING Height 172.7 cm (5' 8 ) 09/28/2024 10:56 AM SUPERVISOR [employer] SILVERING Body Mass Index 30.26 09/28/2024 10:56 AM SUPERVISOR [employer] SILVERING Plan of Treatment Health Maintenance Due Date Last Done Comments Depression Screening 1940 Osteoporosis Screening-Bone Density Scan 1940 Hepatitis B Screening 01/02/1960 Pneumococcal vaccine 65+ (1 of 2 - PCV) 1961 Zoster Vaccine (1 of 2) 01/02/1992 Well Visit 65+ 2007 Fall Risk Assessment 03/10/2022 03/10/2021 Influenza Vaccine (#1) 2024 DTaP/Tdap/Td Vaccine (3 - Td or Tdap) 02/27/202707/2017, 02/27/2017 Medical Devices Implanted Type Area Environmental Aid Device Identifier Shelf Expiration Date Model / Serial / Lot [employer] Bard [id number] Monofilament Soft Lightweight Low Profile Square - [id number] - [id number] Implanted:Qty: 1 on 03/09/2021 by Jesu Breen MD at [facility] Mesh N/A: Abdomen [employer] [id number] 10/17/2025 [id number] / [id number] / [id number] Insurance MEDICARE [place] [facility] GLENN SHUKLA [id number] MEDICARE [facility] Advance Directives For more information, please contact: [phone] * Full Code (Latest Code Status on File) Date Activated Date Inactivated Comments 03/09/2021 3:21 PM 03/10/2021 6:44 PM Care Teams Program Director Air Talent Relationship Specialty Start Date End Date Tanvir Davalos MD [address] [facility] [address] [address] PCP - General Internal Medicine 08/21/19
--- OUTSIDE RECORDS SUMMARY | 2025-01-15 11:08 | XMS_ITS | Continuity of Care Document ---
Author Organization [employer] [facility] Address [address] [facility] [address] [place] [phone] Phone Care Team Providers Care Finance Executive Name Role Phone Rivas Francois Unavailable Unavailable [...] Copied on Encounter Office[facility]outpat ient Visit, [facility], [address], [place], [place], [id number], [place] tel:[phone] [facility] No Information 2-201 0 Alessandro Hathaway. [address] [place] [address] , [address], [place], [place], [facility] [facility], . tel:[phone] [facility], [address] [place] [address] [address], [place], [place], [id number], [place] tel:[phone] [facility] No Information 4-201 0 Alessandro Hathaway. [address] [place] [address] , [address], [place], [place], [facility], . tel:[phone] Referring Provider: Rivas Garcia, [address] [place] [address] [address], [place], [place], [facility]. tel:[phone] [facility], [address] [place] [address] [address], [place], [place], [id number], [place] tel:[phone] [facility] No Information 0-201 0 Alessandro Hathaway. [address] [place] [address] , [address], [place], [place], [facility], . tel:[phone] Referring Provider: Rivas Garcia, [address] [place], [place] [address]ate Center [address], [place], [facility] [place]. tel:[phone] Office/outpat ient Visit, [facility], [address] [place] [address] [address], [place], [place], [id number], [place] tel:[phone] [facility] No Information 8-201 0 Alessandro Hathaway. [address] [place] [address] Center , [address], [place], [facility] [place] [place], . tel:[phone] Office/outpat ient Visit, [facility], [address], [place], [place], [id number], [place] tel:[phone] [facility] No Information Oct-0 5-200 9 Alessandro Hathaway. [address] [place], [place] [address]ate Center , [address], [place], [facility] [place], [place]. tel:[phone] [facility], [address], [place], [place], [id number], [place] tel:[phone] [facility] No Information February-2 9-200 9 Doiyuni Hathaway. [address] [place], [place] [address]ate Center , [address], [place], [facility] [place], [place]. tel:[phone] Referring Provider: Rivas Garcia, [address] [place], [place] [address]ate Center [address], [place], [facility] [place]. tel:[phone] [facility], [address] [place] [address] [address], [place], [place], [id number], [place] tel:[phone] [facility] No Information 2 8-200 9 Alessandro Hathaway. [address] [place], [place] [address]ate Center , [address], [place], [facility] [place], [place]. tel:[phone] Referring Provider: Rivas Garcia, [address] [place], [place] [address]ate Center [address], [place], [facility] [place]. tel:[phone] [facility], [address] [place] [address] [address], [place], [place], [id number], [place] tel:[phone] SEC [facility] Center No Information 2 2-200 8 Alessandro Hathaway. [address] [place], [place] [address]ate Center , [address], [place], [address], [place]. tel:[phone] Office/outpat ient Visit, [facility], [address], [place], [place], [address], [place] tel:[phone] [facility] No Information May-1 3-200 8 Alessandro Hathaway. [address] , [address], [place], [facility], . tel:[phone] Referring Provider: Rivas Garcia, [facility] [address], [place], [facility] [place] [place]. tel:[phone] [facility], [address] [place] [address] [address], [place], [place], [address], [place] tel:[phone] [facility] [place] No Information Apr-3 0-200 8 Alessandro Hathaway. [address] [place] [address] Center , [address], [place], [facility] [place], [place]. tel:[phone] Referring Provider: Rivas Garcia, [address] [place], [place] [address]ate Center [address], [place], [facility] [place]. tel:[phone] [facility], [address] [place] [address] [address], [place], [place], [id number], tel:[phone] [facility] [place] No Information Apr-1 5-200 8 Alessandro Hathaway. [address] [place] [address] , [address], [place], [facility] [place], [place]. tel:[phone] Referring Provider: Rivas Garcia, [address] [place], [place] [address]ate Center [address], [place], [facility] [place]. tel:[phone] Office/outpat ient Visit, [facility], [address] [place] [address] [address], [place], [place], [address], [place] tel:[phone] [facility] [place] No Information Dec-1 0-200 7 Alessandro Hathaway. [address] [place] [address] Center , [address], [place], [facility] [place], [place]. tel:[phone] Office/outpat ient Visit, [facility], [address] [place] [address] [address], [place], [place], [id number], [place] tel:[phone] [facility] [place] No Information Naren-0 9-200 7 Alessandro Hathaway. [facility] [address], [address], [place], [facility] [place], . tel:[phone] Referring Provider: Adalgisa [facility] [address], [place], [facility] [place]. tel:[phone] [facility], [address] [place] [address] [address], [place], [place], [id number], tel:[phone] [facility] [place] No Information Mar-1 3-200 7 Alessandro Hathaway. Adalgisa [address], [place], [facility] [place], . tel:[phone] Referring Provider: Adalgisa [facility] [address], [place], [facility] [place]. tel:[phone] [facility], [address] [place] [address] [address], [place], [place], [id number], tel:[phone] [facility] [place] No Information Mar-0 7-200 7 Alessandro Hathaway. [facility] [address], [place], [facility] [place], . tel:[phone] Referring Provider: Adalgisa [facility] [address], [place], [facility]. tel:[phone] Family History Family Member Type Diagnosis Age At Onset No Information Payers Payer name Insurance type Covered republican ID Authorluisa aubree(s) [place] [id number] Social History Type Description Quantity Date Captured [...]
--- OUTSIDE RECORDS SUMMARY | 2025-01-15 11:08 | XMS_ITS | Encounter Summary ---
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
--- OUTSIDE RECORDS SUMMARY | 2025-01-15 11:08 | XMS_ITS | Clinical Summary ---
Author Organization [facility] [employer] Address [address] [place] [address] Care Team Providers Care Proof Coins Inspector Name Role Phone Tanvir Davalos MD Primary Care Provider [phone] Source Comments [facility] [employer],non-owned Affiliates and Associated Physician Practices is amultiple site organization consisting of ambulatory clinics and hospital sitesin [place], [place]. This disclosure is being madepursuant to the Care Everywhere program and may not contain all information available regarding this patient. Last updated 18.[facility] [employer] Allergies Active Allergy Reactions Criticality Noted Date [...] 68 01/29/2022 1:26 PM CDT Temperature 36.8 C (98.2 F) 01/29/2022 1:26 PM CDT Respiratory Rate 17 01/04/2022 8:37 AM CDT Oxygen Saturation 98% 01/29/2022 1:26 PM CDT Inhaled Oxygen Concentration - - Weight 90.7 kg (200 lb) 01/04/2022 8:37 AM CDT Height 172.7 cm (5' 8 ) 01/29/2022 1:26 PM CDT Body Mass Index 30.41 01/04/2022 8:37 AM CDT Plan of Treatment Health Maintenance Due Date Last Done Comments BONE DENSITY TESTING 1940 MEDICARE AWV 12 MONTHS 1940 DTAP/TDAP/TD VACCINES (1 - [...] to complete this topic MENINGOCOCCAL (Group B) VACC INE SHARED DECISION-MAKING Aged Out No longer eligibl e based on patient's age to complete this topic MENINGOCOCCAL GROUPS A/C/Y/W VACCINE Aged Out No longer eligible b ased on patient's age to complete this topic Care Teams Proof Coins Inspector Relationship Specialty Start Date End Date Tanvir Davalos MD [address] [place] [phone] PCP - General Internal Medicine 01/04/22
--- OUTSIDE RECORDS SUMMARY | 2025-01-15 11:08 | XMS_ITS | Referral Summary ---
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 Gender Identity Not on file Sexual Orientation Not on file Last Filed Vital Signs Vital Sign Reading Time Taken Comments Blood Pressure 142/76 09/28/2024 10:56 AM SLICING MACHINE OPERATOR/TENDER Pulse 64 09/28/2024 10:56 AM SLICING MACHINE OPERATOR/TENDER Temperature 36.2 C (97.2 F) 04/27/2022 10:59 AM CDT Respiratory Rate 16 03/10/2021 11:00 AM CDT Oxygen Saturation 95% 09/28/2024 10:56 AM SLICING MACHINE OPERATOR/TENDER Inhaled Oxygen Concentration - - Weight 90.3 kg (199 lb) 09/28/2024 10:56 AM SLICING MACHINE OPERATOR/TENDER Height 172.7 cm (5' 8 ) 09/28/2024 10:56 AM SLICING MACHINE OPERATOR/TENDER Body Mass Index 30.26 09/28/2024 10:56 AM SLICING MACHINE OPERATOR/TENDER Plan of Treatment Not on file Medical Devices Implanted Type Area Youth Worker Device Identifier Shelf Expiration Date Model / Serial / Lot [employer]/C R Bard [id number] Monofilament Soft Lightweight Low Profile Square - [id number] - [id number] Implanted:Qty: 1 on 03/09/2021 by Jesu Breen MD at [facility] Mesh N/A: Abdomen [employer] [id number] 10/17/2025 [id number] / [id number] / [id number] Insurance MEDICARE [facility] [place] [address] MEDICARE MEDICARE [facility] Advance Directives For more information, please contact: [phone] * Full Code (Latest Code Status on File) Date Activated Date Inactivated Comments 03/09/2021 3:21 PM 03/10/2021 6:44 PM Care Teams Rim Roller Setter Relationship Specialty Start Date End Date Tanvir Davalos MD [address] [facility] [address] [place] [address] PCP - General Internal Medicine 08/21/19
--- OUTSIDE RECORDS SUMMARY | 2025-01-15 11:09 | XMS_ITS | Continuity of Care Document ---
Author Organization [facility] Address [address] [place] [address] Phone Care Team Providers Care Shoulder Pad Molder Name Role Phone Kayla Calloway Unavailable Unavaila ble Advance Directives Directive Yes / No Effective Date File Name No Information Encounters Encounter Description Practice Location Reason(s) For Visit Diagnoses Date Provider Providers Copied on Encounter [facility], [address], [place], [place], [id number], [place] tel:[phone] [facility] No Information Claudio Garza. [address] , [facility] [address], [place], [place], [address], [place]. tel:[phone] Family History Family Member Type Diagnosis Age [...]
--- OUTSIDE RECORDS SUMMARY | 2025-01-15 11:09 | XMS_ITS | CONTINUITY OF CARE DOCUMENT ---
Author Name doris george Address Unknown Organization [facility] Address [address] [place] [address] Phone [phone] Care Team Providers Care Appraisal Analyst Name Role Phone Han COOPER, Reji Unavailable SANDI COOPER, NANDA Unavailable [phone] SANDI COOPER, NANDA Unavailable PROBLEMS Condition Status Date Provider Notes CAD false pos stress test , tortous LAD, no significant CAD active Reji Short MD abnormal nuclear stress test with inferior wall ischemia 05/04 Hypercholesterolemia, mixed active Trina Hodges HTN CONTROLLED active Reji Short MD CARDIOMYOPATHY EF 45 %, ECHO 05, IMPROVED TO 60% 03/24/13 completed - Reji Short MD ARTHRITIS STATUS POST KNEE AND SHOULDER SURGERY active Reji Short MD EPISTAXIS, RECURRENT S/P CAUTERIZATION active Reji Short MD Abdominal pain s/p c. diff , has ventral hernia active Reji Short MD CardiomyopathyEf now 60% active Reji ledbetter MD ENCOUNTERS Date Type Provider Location Encounter Diag nosis - In-person encounter Office Visit Reji Short MD [facility] - In-person encounter Office Visit Reji Short MD [facility] - In-person encounter Office Visit Reji Short MD [facility] - In-person encounter Office Visit Reji Short MD [facility] - In-person encounter Office Visit Reji Short MD [facility] CARDIOMYOPATHY EF 45 %, ECHO 05, IMPROVED TO 60% 03/24/13Abdominal pain s/p c. diff , has ventral herniaCardiomyopathyEf now 60% - In-person encounter Office Visit Reji Short MD [facility] CAD false pos stress test , tortous LAD, no significant CAD - In-person encounter Office Visit Reji Short MD [facility] CAD false pos stress test , tortous LAD, no significant CADAbdominal pain s/p c. diff , has ventral hernia - In-person encounter Office Visit Reji Short MD [facility] CAD false pos stress test , tortous LAD, no significant CAD - In-person encounter Office Visit Reji Short MD [facility] - In-person encounter Office Visit Reji Short MD [facility] EPISTAXIS, RECURRENT S/P CAUTERIZATION - In-person encounter Office Visit Reji Shrot MD [facility] - In-person encounter Office Visit Lori Hernandez MD [facility] - In-person encounter Office Visit Reji Short MD [facility] - In-person encounter Office Visit Reji Short MD [facility] CAD false pos stress test , [...] minor Shearer oxygen saturation, oximetry 96 % [facility] 16 /min Dov [place] pulse rate 79 /min [place] weight E&M 204 [lb_av] Dov [place] height E&M 68.5 [in_i] [place] Body Mass Index (Ratio) 30.98 kg/m2 [...] ivánabdon [place] oxygen saturation, oximetry 96 % Dov [place] respiratory rate E&M 16 /min Dov [place] pulse rate 78 /min [place] weight E&M 192 [lb_av] Dov [place] height E&M 68.5 [in_i] Dov [place] Body Mass Index (Ratio) 26.97 kg/m2 Feliberto Short MD blood pressure, cuff size regular Mary Jane Bird blood pressure, diastolic 80 mm[Hg] Mary Jane salazar Bird blood pressure, systolic 140 mm[Hg] Nadine macdonald Bird oxygen saturation, oximetry 96 % Beatris Bird respiratory rate E&M 16 /min Beatris Bird pulse rate 71 /min Beatris Bird weight E&M 180 [lb_av] Beatris Bird height E&M 68.5 [in_i] Beatrisdakota Bird blood pressure, diastolic 86 mm[Hg] Martienz Townsend [place] blood pressure, systolic 120 mm[Hg] Vilma Porter [place] Body Mass Index (Ratio) 28.47 kg/m2 Kerri Casper pulse rate 66 /min Alfonzo Caceres kelly oxygen saturation, oximetry 96 % Alfonzo Casper respiratory rate E&M 16 /min Mingo marvin Casper weight E&M 190 [lb_av] Alfonzo Caecres kelly Body Mass Index (Ratio) 27.87 kg/m2 Sushma ssa Andry pulse rate 78 /min Makayla Andry respiratory rate E&M 16 /min Makayla Nadry oxygen saturation, oximetry 96 % Makayla Andry [...] RN pulse rate 76 /min Stephanie Hernandez [employer] respiratory rate E&M 22 /min Stephanie mancia [employer] blood pressure, diastolic 94 mm[Hg] Ruben Hernandez [employer] blood pressure, systolic 141 mm[Hg] Zak Hernandez [employer] weight E&M 180 [lb_av] Stephanie Hernandez [employer] blood pressure, diastolic, left arm 102 m [...] Normal Absolute Neutrophil count 3001 cells/mcL [facility] [id number] Normal mean platelet volume 10.0 fL [facility] [...] = 46 Normal cholesterol, serum 167 mg/[facility] Normal triglyceride, serum, fasting 74 mg/dL [facility] HDL cholesterol, serum 93 mg/dL [facility] cholesterol/HDL ratio, serum 1.6 [facility] lipoprotein, beta, serum, point, quantitative, calculated 38 mg/dL [facility] cholesterol, serum 146 mg/dL [facility] alanine aminotransferase (SGPT), serum 12 1/L [facility] aspartate aminotransferase (SGOT), serum 16 1/L [facility] creatinine, serum 0.87 mg/dL [facility] potassium, serum 4.4 mmol/L [facility] sodium, serum 140 mmol/L [facility] lipoprotein, beta, serum, point, quantitative, calculated 61 mg/dL [facility] cholesterol, serum 154 mg/dL [facility] alanine aminotransferase (SGPT), serum 15 1/L aspartate aminotransferase (SGOT), serum 18 1/L [facility] creatinine, serum 0.92 mg/dL [facility] potassium, serum 4.8 mmol/L [facility] sodium, serum 138 mmol/L [facility] lipoprotein, beta, serum, point, quantitative, calculated 61 mg/dL [facility] cholesterol, serum 164 mg/dL [facility] alanine aminotransferase (SGPT), serum 17 1/L aspartate aminotransferase (SGOT), serum 22 1/L [facility] creatinine, serum 1.00 mg/dL [facility] potassium, serum 4.9 mmol/L [facility] sodium, serum 141 mmol/L [facility] very low density lipoproteins 27 mg/dL [facility] triglyceride, serum, fasting 134 mg/dL [facility] HDL cholesterol, serum 75 mg/dL [facility] LDL cholesterol, serum 63 mg/dL [facility] cholesterol, serum 165 mg/dL [facility] globulins, serum, total 2.5 g/dL [facility] Estimated Glomerular Filtration Rate (calc) 62 mL/min/{1.73_ m2} [facility] albumin/globulin ratio, serum 1.8 [facility] protein, total, serum 7.0 g/dL [facility] albumin, serum 4.5 g/dL [facility] bilirubin, serum, total 0.7 mg/dL [facility] alkaline phosphatase, serum 91 1/L alanine aminotransferase (SGPT), serum 33 1/L aspartate aminotransferase (SGOT), serum 24 1/L [facility] calcium, serum 9.5 mg/dL [facility] blood glucose, fasting 85 mg/dL [facility] creatinine, serum 0.94 mg/dL [facility] urea nitrogen, blood 12 mg/dL [facility] carbon dioxide, serum, total 25 mmol/L chloride, serum 103 mmol/L potassium, serum 4.4 mmol/L [facility] sodium, serum 139 mmol/L [facility] very low density lipoproteins 22 mg/dL [facility] triglyceride, serum, fasting 109 mg/dL [facility] HDL cholesterol, serum 77 mg/dL [facility] LDL cholesterol, serum 68 mg/dL [facility] cholesterol, serum 167 mg/dL [facility] globulins, serum, total 2.7 g/dL [facility] Estimated Glomerular Filtration Rate (calc) 59 mL/min/{1.73_ m2} [facility] albumin/globulin ratio, serum 1.7 [facility] protein, total, serum 7.2 g/dL [facility] albumin, serum 4.5 g/dL [facility] bilirubin, serum, total 0.5 mg/dL [facility] alkaline phosphatase, serum 103 1/L [facility] alanine aminotransferase (SGPT), serum 14 1/L [facility] aspartate aminotransferase (SGOT), serum 18 1/L [facility] calcium, serum 9.8 mg/dL [facility] blood glucose, fasting 91 mg/dL [facility] creatinine, serum 0.98 mg/dL [facility] urea nitrogen, blood 16 mg/dL [facility] carbon dioxide, serum, total 23 mmol/L [facility] chloride, serum 105 mmol/L [facility] potassium, serum 4.3 mmol/L [facility] sodium, serum 139 mmol/L [facility] triglyceride, serum, fasting 141 mg/dL [facility] HDL cholesterol, serum 69 mg/dL [facility] LDL cholesterol, serum 62 mg/dL [facility] cholesterol, serum 159 mg/dL [facility] albumin/globulin ratio, serum 1.7 [facility] protein, total, serum 7.1 g/dL [facility] albumin, serum 4.5 g/dL [facility] bilirubin, serum, total 0.7 mg/dL [facility] alkaline phosphatase, serum 105 1/L [facility] alanine aminotransferase (SGPT), serum 18 1/L [facility] aspartate aminotransferase (SGOT), serum 21 1/L [facility] calcium, serum 9.5 mg/dL [facility] blood glucose, fasting 79 mg/dL [facility] creatinine, serum 0.85 mg/dL [facility] urea nitrogen, blood 12 mg/dL [facility] carbon dioxide, serum, total 22 mmol/L [facility] chloride, serum 102 mmol/L [facility] potassium, serum 4.4 mmol/L [facility] sodium, serum 138 mmol/L [facility] albumin/globulin ratio, serum 1.6 [facility] protein, total, serum 7.5 g/dL [facility] albumin, serum 4.6 g/dL [facility] bilirubin, serum, total 0.8 mg/dL [facility] alkaline phosphatase, serum 102 1/L [facility] alanine aminotransferase (SGPT), serum 20 1/L [facility] aspartate aminotransferase (SGOT), serum 23 1/L [facility] calcium, serum 9.9 mg/dL [facility] blood glucose, fasting 91 mg/dL [facility] creatinine, serum 0.91 mg/dL [facility] urea nitrogen, blood 10 mg/dL [facility] carbon dioxide, serum, total 22 mmol/L [facility] chloride, serum 101 mmol/L [facility] potassium, serum 4.5 mmol/L [facility] sodium, serum 139 mmol/L [facility] triglyceride, serum, fasting 140 mg/dL [facility] HDL cholesterol, serum 69 mg/dL [facility] LDL cholesterol, serum 59 mg/dL [facility] cholesterol, serum 156 mg/dL [facility] HISTORY OF MEDICATION USE Medication Status Instructions Dates Provider Indications Com ments PROTONIX 40 MG ORAL TABLET DELAYED RELEASE active Once a day Trina Hodges TYLENOL 325 MG ORAL TABLET completed 1 tab daily as needed for pain - [facility] TRAMADOL HCL 50 MG ORAL TABLET completed 1 tab daily as needed for pain - [facility] DELZICOL 400 MG ORAL CAPSULE DELAYED RELEASE active 2 caps 3x daily [facility] CENTRUM ADULTS ORAL TABLET completed 1 tab daily - [facility] FERROUS SULFATE 325 (65 FE) MG ORAL TABLET completed ONE PER DAY - [facility] ACID CONTROL MAXIMUM STRENGTH 20 MG ORAL [...] exercise, f requency, days per week yes [facility] alcohol use, average drinks per day none [facility] alcohol use no [place] caffeine use, averag e drinks per day no Dov drug use no [place] passive cigarette sm kenneth exposure no [facility] smoking status Never smoker Dov [facility] social history E&M Marital Statu s: [...] day none Trina Carroll alcohol use no [facility] [place] [facility] caffeine use, averag e drinks [...] alcohol use, average drinks per day none [place] [facility] alcohol use no Dov She[place] caffeine use, averag e drinks per day no [place] drug use no Dov She[place] passive [...] Payer name Policy type / Coverage type [place] red republican ID [place] [employer] Medicare [id number] [facility] [place] [phone] ADVANCE DIRECTIVES Name Date DISCUSSED [...] used Afrin. Counseled to avoid that as chcf solution. Reji Short MD Cardiology Reji Short MD Cardiology:Echo on a rrival for next visit. O rders: C omplete Echo ([id number]) Reji Short MD Cardiology:Elevated today. Will increase [...] (08/20/2011) T (08/20/2011) Reji Short MD routine Reji Short [...] Reji Short MD completed Cardiolite, 2 units Reji Short MD completed SPECT Images Adore Cruz MD completed Stress EKG Dileep Starkey MD completed EKG Reji Short MD completed SNOMED-CT: [id number] Current Medications Documented Reji Short MD completed SNOMED-CT: [id number] Physical Exam, Performed: Pulse Exam of Foot Reji Short MD completed EKG Reji Short MD completed SNOMED-CT: [id number] Current Medications Documented Reji Short MD completed EKG Reji Short MD completed EKG Reji Short MD completed EKG Reji Short MD completed Schedule Followup Lori cook MD in 2 to 3 months completed ePrescribe - Check t his box if eRx is used Reji Short MD completed EKG Reji Short MD completed
== END 2025-01-15 10:15 | disposition home or self-care (01) ==
LOC: ANHIMG 10:16
PROVIDERS: PCP Internal Medicine; Visit Provider Nurse Practitioner
DX: K56.41 Fecal impaction (principal); R10.9 Unspecified abdominal pain
CPT/HCPCS: 74018

== ENCOUNTER 2025-02-01 08:37 | Outpatient (CLI) | payer MEDICARE, OTHER, SELFPAY ==
--- OUTSIDE RECORDS SUMMARY | 2025-02-01 08:57 | XMS_ITS | Data Portability ---
Author Organization [facility], Main Office Address [address] [place] [address] Assessment No assessment recorded. Plan of Treatment Reminders Order Date Submit Date Provider Last Modified By Organization Details Last Modified Time Details Appointments None recorded. Lab C-reactive protein, quantitativ e, serum or plasma 2024 025 [email or web address] [facility] - Outpatient Lab, [address] [place], [address], 5 10:05:00 magnesium, serum or plasma 2024 025 [email or web address] [facility] - Outpatient Lab, [address] [place], [address], 5 10:05:00 vitamin B12, serum [id number] [place] [address] Outpatient Lab, [address] [place], [address], 5 10:05:00 CBC w/ auto diff [id number] [place] [address] - Outpatient Lab, [address] [place], [address], 5 10:04:59 CMP, serum or plasma [email or web address] [place] [address] - Outpatient Lab, [address] [place], [address], 5 10:04:59 lipid panel, serum [id number] [place] [address] Outpatient Lab, [address] [place], [address], 5 10:04:59 TSH, serum or plasma 2024 025 [id number] [facility] Outpatient Lab, [address] [place], [address], 5 10:04:59 T4, free, serum 2024 025 [email or web address] [facility] Outpatient Lab, [address] [place], [address], 5 10:04:59 vitamin B12, serum 2023 024 [email or web address] [facility] Outpatient Lab, [address] [place], [address], 4 10:39:33 magnesium, serum or plasma 2023 024 [email or web address] [facility] Outpatient Lab, [address] [place], [address], 4 10:39:34 lipid panel, serum 2023 024 [id number] [facility] Outpatient Lab, [address] [place], [address], 4 10:39:33 CMP, serum or plasma 2023 024 [email or web address] [facility] Outpatient Lab, [address] [place], [address], 4 10:39:33 CBC w/ auto diff 2023 [facility]24 [facility] [address] [place], [address], 4 13:04:40 CMP, serum or plasma 2023 024 [facility] Outpatient Lab, [address] [place], [address], 4 13:30:49 amylase + lipase, serum 2023 024 [email or web address] [facility] - Outpatient Lab, [address], [place], [address], 4 09:51:02 Referral None recorded. Procedures None recorded. Surgeries None recorded. Imaging None recorded. Medication Orders doxycycline hyclate 100 mg capsule 2023 024 [email or web address] [id number], [address], [place], [place], [id number], 5 11:25:27 Patient TargetsNo targets recorded. Patient Instructions Encounter Date Encounter Id Patient Instructions Last Modified By Organization Details Last Modified Time 01/06/2024 [id number] Abdominal pain, coronary artery disease, hypertension and [...] with voice recognition software. Occasional wrong-word or s ound-a-like substitutions may have occurred due to the inherent limitations of voice recognition software. Read the chart carefully and recognize, using context, where substitutions have occurred. CT scan of abdomen pelvis with contrast either today or tomorrow for left lower quadrant abdominal pain. Keep Appt: Sat 09[email or web address] 01/06/2024 16:09:23 01/24/2024 [id number] Follow-up hypertension, paroxysmal atrial fibrillation, hyperlipidemia and [...] with voice recognition software. Occasional wrong-word or s ound-a-like substitutions may have occurred due to the inherent limitations of voice recognition software. Read the chart carefully and recognize, using context, where substitutions have occurred. Not available 01/24/2024 15:12:30 04/28/2024 [id number] Follow-up talbert ry artery disease, paroxysmal atrial fibrillation, essential hypertension, hyperlipidemia and GERD all clinically stable. Check a lipid and CMP panel. Also check magnesium and B12 level. Otherwise doing well. Will continue on current Rx and follow-up in four months. Next Appointment: 4 Months Approximate Date: 08/26/2024 Portions of the record may have been created with voice recognition software. Occasional wrong-word or s ound-a-like substitutions may have occurred due to the inherent limitations of voice recognition software. Read the chart carefully and recognize, using context, where substitutions have occurred. Not available 04/28/2024 10:55:01 09/01/2024 [id number] Follow-up talbert ry artery disease, essential hypertension, [...] with voice recognition software. Occasional wrong-word or s ound-a-like substitutions may have occurred due to the inherent limitations of voice recognition software. Read the chart carefully and recognize, using context, where substitutions have occurred. [email or web address] Not available 09/01/2024 11:45:56 12/29/2024 [id number] Essential hypertension, paroxysmal atrial fibrillation, GERD and obesity class one all clinically stable. Overall is doing well. Also has a history of ulcerative colitis which is under good control with mesalamine. . Check blood work consisting of CBC, CMP, lipid, thyroid, B12, Magnesium and CRP. Continue on current medications follow-up in four months Follow Up: 4 Months Approximate Date: 04/28/2025 Portions of record are template driven. When necessary additional context will be provided. Additionally some portions have been created with voice recognition software. Occasional wrong-word or s ound-a-like substitutions may have occurred due to the inherent limitations of voice recognition software. Read the chart carefully and recognize, using context, where substitutions may have occurred. Created: Tanvir Davalos M.D. 12.29.2024 10:41 AM [email or web address] Not available 12/29/2024 11:41:42 Reason for Referral None Reported. Results Created Date Observation Date Name Description Value Unit Range Abnormal Flag Note LastModifiedBy Organization Detail LastModifiedTime 01/07/2001/07/2024 CBC/C OMPLE TE BLD COUNT W/DIF F white blood cells 8.8 x10'3 /uL 4.2-10 .8 Not Available [facility] (Lab) [address] [place], [address], 01/07/2024 13:04:40 01/07/20 24 01/07/2024 CBC/C OMPLE TE BLD COUNT W/DIF F red blood cells 4.58 x10'6 /uL 3.80-5 .20 Not Available [facility] (Lab) [address] [place], [address], 01/07/2024 13:04:40 01/07/20 24 01/07/2024 CBC/C OMPLE TE BLD COUNT W/DIF F hemoglobin 12.0 g/dL 12.0-1 5.6 Not Available [facility] (Lab) [address] [place], [address], 01/07/2024 13:04:40 01/07/20 24 01/07/2024 CBC/C OMPLE TE BLD COUNT W/DIF F hematocrit 39.1 % 35.7-4 5.7 Not Available [facility] (Lab) [address] [place], [address], 01/07/2024 13:04:40 01/07/20 24 01/07/2024 CBC/C OMPLE TE BLD COUNT W/DIF F mean red cell volume 85.4 fL 82.0-9 9.0 Not Available [facility] (Lab) [address] [place], [address], 01/07/2024 13:04:40 01/07/20 24 01/07/2024 CBC/C OMPLE TE BLD COUNT W/DIF F mean red cell hemoglobin 26.2 pg 27.0-3 3.0 low Not Available [facility] (Lab) [address] [place], [address], 01/07/2024 13:04:40 01/07/20 24 01/07/2024 CBC/C OMPLE TE BLD COUNT W/DIF F mean RBC HGB concentratio n 30.7 g/dL 31.0-3 6.0 low Not Available [facility] (Lab) [address] [place], [address], 01/07/2024 13:04:40 01/07/20 24 01/07/2024 CBC/C OMPLE TE BLD COUNT W/DIF F red cell distribution width 16.5 % 11.8-1 5.5 high Not Available [facility] (Lab) [address] [place], [address], 01/07/2024 13:04:40 01/07/20 24 01/07/2024 CBC/C OMPLE TE BLD COUNT W/DIF F platelets 443 x10'3 /uL 150-40 0 high Not Available [facility] (Lab) [address] [place], [address], 01/07/2024 13:04:40 01/07/20 24 01/07/2024 CBC/C OMPLE TE BLD COUNT W/DIF F mean platelet volume 11.5 fL 9.0-12 .4 Not Available [facility] (Lab) [address] [place], [address], 01/07/2024 13:04:40 01/07/20 24 01/07/2024 CBC/C OMPLE TE BLD COUNT W/DIF F neutrophils 61.0 % 39.0-7 2.0 Not Available [facility] (Lab) [address] [place], [address], 01/07/2024 13:04:40 01/07/20 24 01/07/2024 CBC/C OMPLE TE BLD COUNT W/DIF F lymphocytes 22.4 % 16.0-4 7.0 Not Available [facility] (Lab) [address] [place], [address], 01/07/2024 13:04:40 01/07/20 24 01/07/2024 CBC/C OMPLE TE BLD COUNT W/DIF F monocytes 11.6 % 5.0-12 .0 Not Available [facility] (Lab) [address] [place], [address], 01/07/2024 13:04:40 01/07/20 24 01/07/2024 CBC/C OMPLE TE BLD COUNT W/DIF F eosinophils 3.0 % 1.0-7. 0 Not Available [facility] (Lab) [address] [place], [address], 01/07/2024 13:04:40 01/07/20 24 01/07/2024 CBC/C OMPLE TE BLD COUNT W/DIF F basophils 1.7 % 0.0-2. 0 Not Available [facility] (Lab) [address] [place], [address], 01/07/2024 13:04:40 01/07/20 24 01/07/2024 CBC/C OMPLE TE BLD COUNT W/DIF F immature granulocytes 0.3 % 0.00-0 .50 Not Available [facility] (Lab) [address] [place], [address], 01/07/2024 13:04:40 01/07/20 24 01/07/2024 CBC/C OMPLE TE BLD COUNT W/DIF F neutrophils, absolute count 5.34 x10'3 /uL 1.5-8. 0 Not Available [facility] (Lab) [address] [place], [address], 01/07/2024 13:04:40 01/07/20 24 01/07/2024 CBC/C OMPLE TE BLD COUNT W/DIF F lymphocytes, absolute count 1.96 x10'3 /uL 1.07-3 .43 Not Available [facility] (Lab) [address] [place], [address], 01/07/2024 13:04:40 01/07/20 24 01/07/2024 CBC/C OMPLE TE BLD COUNT W/DIF F monocytes, absolute count 1.02 x10'3 /uL 0.29-0 .99 high Not Available [facility] (Lab) [address] [place], [address], 01/07/2024 13:04:40 01/07/20 24 01/07/2024 CBC/C OMPLE TE BLD COUNT W/DIF F eosinophils, absolute count 0.26 x10'3 /uL 0.02-0 .53 Not Available [facility] (Lab) [address] [place], [address], 01/07/2024 13:04:40 01/07/20 24 01/07/2024 CBC/C OMPLE TE BLD COUNT W/DIF F basophils, absolute count 0.15 x10'3 /uL 0.01-0 .08 high Not Available [facility] (Lab) [address] [place], [address], 01/07/2024 13:04:40 01/07/20 24 01/07/2024 CBC/C OMPLE TE BLD COUNT W/DIF F immature granulocytes ,absolute 0.03 x10'3 /uL 0.00-0 .05 Not Available [facility] (Lab) [address] [place], [address], 01/07/2024 13:04:40 01/07/20 24 01/07/2024 CBC/C OMPLE TE BLD COUNT W/DIF F nucleated red blood cells 0.0 % -[address] [facility] (Lab) [address] [place], [address], 01/07/2024 13:04:40 01/07/20 24 01/07/2024 CBC/C OMPLE TE BLD COUNT W/DIF F NRBC# 0.00 x10'3 /uL Not Available [facility] (Lab) [address] [place], [address], 01/07/2024 13:04:40 01/07/20 24 01/07/2024 COMPR EHENS SUNSHINE METAB OLIC PANEL sodium 139 mmol/ L 137-14 5 Not Available [facility] (Lab) [address] [place], [address], 01/07/2024 13:30:49 01/07/20 24 01/07/2024 COMPR EHENS SUNSHINE METAB OLIC PANEL potassium 5.1 mmol/ L 3.5-5. 1 Not Available [facility] (Lab) [address] [place], [address], 01/07/2024 13:30:49 01/07/20 24 01/07/2024 COMPR EHENS SUNSHINE METAB OLIC PANEL chloride 104 mmol/ L 98-107 Not Available [facility] (Lab) [address] [place], [address], 01/07/2024 13:30:49 01/07/20 24 01/07/2024 COMPR EHENS SUNSHINE METAB OLIC PANEL carbon dioxide 27 mmol/ L 22-30 Not Available [facility] (Lab) [address] [place], [address], 01/07/2024 13:30:49 01/07/20 24 01/07/2024 COMPR EHENS SUNSHINE METAB OLIC PANEL anion gap 13.1 mmol/ L 14-22 low Not Available [facility] (Lab) [address] [place], [address], 01/07/2024 13:30:49 01/07/20 24 01/07/2024 COMPR EHENS SUNSHINE METAB OLIC PANEL glucose 107 mg/dL 70-99 high Not Available [facility] (Lab) [address] [place], [address], 01/07/2024 13:30:49 01/07/20 24 01/07/2024 COMPR EHENS SUNSHINE METAB OLIC PANEL BUN 13 mg/dL 8-19 Not Available [facility] (Lab) [address] [place], [address], 01/07/2024 13:30:49 01/07/20 24 01/07/2024 COMPR EHENS SUNSHINE METAB OLIC PANEL creatinine 0.92 mg/dL 0.66-1 .25 Not Available [facility] (Lab) [address] [place], [address], 01/07/2024 13:30:49 01/07/20 24 01/07/2024 COMPR EHENS SUNSHINE METAB OLIC PANEL GFR 58 Refer ence Range : Bonnie ge GFR Healt hy Adult : >60 [...] calcu lator is avail able on the [facility] websi te: https ://ww w.kid conor.o rg/pr ofess ional s/kdo qi/gf r_cal culat or Not Available [facility] (Lab) [address] [place], [address], 01/07/2024 13:30:49 01/07/20 24 01/07/2024 COMPR EHENS SUNSHINE METAB OLIC PANEL alkaline phosphatase 92 U/L 38-126 Not Available [facility] (Lab) [address] [place], [address], 01/07/2024 13:30:49 01/07/20 24 01/07/2024 COMPR EHENS SUNSHINE METAB OLIC PANEL alanine aminotransfe rase 42 U/L 0-[address] [facility] (Lab) [address] [place], [address], 01/07/2024 13:30:49 01/07/20 24 01/07/2024 COMPR EHENS SUNSHINE METAB OLIC PANEL aspartate aminotransfe rase 42 U/L 15-[address] [facility] (Lab) [address] [place], [address], 01/07/2024 13:30:49 01/07/20 24 01/07/2024 COMPR EHENS SUNSHINE METAB OLIC PANEL bilirubin, total 1.30 mg/dL 0.20-1 .30 Not Available [facility] (Lab) [address] [place], [address], 01/07/2024 13:30:49 01/07/20 24 01/07/2024 COMPR EHENS SUNSHINE METAB OLIC PANEL calcium 9.9 mg/dL 8.4-10 .2 Not Available [facility] (Lab) [address] [place], [address], 01/07/2024 13:30:49 01/07/20 24 01/07/2024 COMPR EHENS SUNSHINE METAB OLIC PANEL total protein 7.5 g/dL 6.3-8. 2 Not Available [facility] (Lab) [address] [place], [address], 01/07/2024 13:30:49 01/07/20 24 01/07/2024 COMPR EHENS SUNSHINE METAB OLIC PANEL albumin 4.6 g/dL 3.0-4. 4 high Not Available [facility] (Lab) [address] [place], [address], 01/07/2024 13:30:49 01/07/20 24 01/07/2024 COMPR EHENS SUNSHINE METAB OLIC PANEL globulin 2.9 g/dL 2.6-4. 2 Not Available [facility] (Lab) [address] [place], [address], 01/07/2024 13:30:49 01/07/20 24 01/07/2024 COMPR EHENS SUNSHINE METAB OLIC PANEL A/G ratio 1.6 ratio 1.0-2. 0 Not Available [facility] (Lab) [address] [place], [address], 01/07/2024 13:30:49 01/07/20 24 01/07/2024 AMYLA SE SERUM amylase 38 U/L 30-110 Not Available [facility] (Lab) [address] [place], [address], 01/07/2024 13:30:51 01/07/20 24 01/07/2024 LIPAS E SERUM lipase 50 U/L 23-300 Not Available [facility] (Lab) [address] [place], [address], 01/07/2024 13:30:55 01/07/20 24 01/07/2024 CREAT ININE , I-STA T creatinine 1.0 mg/dL 0.6-1. 3 Not Available [facility] (Lab) [address] [place], [address], 01/09/2024 10:35:05 05/14/20 24 05/14/2024 LIPID PANEL cholesterol 205 mg/dL 140-19 9 high NIH HANG NSUS RECOM MENDA TION FOR JAYLIN STERO L: ADULT CHILD LOW RISK: <200 <170 BORDE RLINE : <200- 239 ----- HIGH RISK: >240 >200 Not Available [facility] (Lab) [address] [place], [address], 05/14/2024 13:15:24 05/14/20 24 05/14/2024 LIPID PANEL triglyceride s 160 mg/dL 0-150 high NIH HANG NSUS REPOR T RECOM MENDA TION FOR TRIGL YCERI MICHAEL: ADULT CHILD LOW RISK: <150 ----- BODER LINE: 150-1 99 ----- HIGH RISK: >200 ----- Not Available [facility] (Lab) [address] [place], [address], 05/14/2024 13:15:24 05/14/20 24 05/14/2024 LIPID PANEL HDL cholesterol 64 mg/dL 40- Not Available [facility] (Lab) [address] [place], [address], 05/14/2024 13:15:24 05/14/20 24 05/14/2024 LIPID PANEL LDL cholesterol, calculated 109 mg/dL 0-130 NIH HANG NSUS REPOR T RECOM MENDA TIONS FOR LDL: ADULT CHILD LOW RISK <130 <110 (OPTI MAL LDL) <100 ----- NICHOLAS RLINE : 130-1 59 ----- HIGH RISK: >160 >130 A TRIGL YCERI DE RESUL T >400 INVAL IDATE S THE CALCU LATIO N FOR LDL FRACT IONAT ION - THE LDL RESUL T WILL NOT BE REPOR ERIN. Not Available [facility] (Lab) [address] [place], [address], 05/14/2024 13:15:24 05/14/20 24 05/14/2024 COMPR EHENS SUNSHINE METAB OLIC PANEL sodium 138 mmol/ L 137-14 5 Not Available [facility] (Lab) [address] [place], [address], 05/14/2024 13:15:30 05/14/20 24 05/14/2024 COMPR EHENS SUNSHINE METAB OLIC PANEL potassium 4.7 mmol/ L 3.5-5. 1 Not Available [facility] (Lab) [address] [place], [address], 05/14/2024 13:15:30 05/14/20 24 05/14/2024 COMPR EHENS SUNSHINE METAB OLIC PANEL chloride 107 mmol/ L 98-107 Not Available [facility] (Lab) [address] [place], [address], 05/14/2024 13:15:30 05/14/20 24 05/14/2024 COMPR EHENS SUNSHINE METAB OLIC PANEL carbon dioxide 26 mmol/ L 22-30 Not Available [facility] (Lab) [address] [place], [address], 05/14/2024 13:15:30 05/14/20 24 05/14/2024 COMPR EHENS SUNSHINE METAB OLIC PANEL anion gap 9.7 mmol/ L 14-22 low Not Available [facility] (Lab) [address] [place], [address], 05/14/2024 13:15:30 05/14/20 24 05/14/2024 COMPR EHENS SUNSHINE METAB OLIC PANEL glucose 101 mg/dL 70-99 high Not Available [facility] (Lab) [address] [place], [address], 05/14/2024 13:15:30 05/14/20 24 05/14/2024 COMPR EHENS SUNSHINE METAB OLIC PANEL BUN 30 mg/dL 8-19 high Not Available [facility] (Lab) [address] [place], [address], 05/14/2024 13:15:30 05/14/20 24 05/14/2024 COMPR EHENS SUNSHINE METAB OLIC PANEL creatinine 1.20 mg/dL 0.66-1 .25 Not Available [facility] (Lab) [address] [place], [address], 05/14/2024 13:15:30 05/14/20 24 05/14/2024 COMPR EHENS SUNSHINE METAB OLIC PANEL GFR 43 Refer ence Range : Bonnie ge GFR Healt hy Adult : >60 [...] or ethni c subgr oups, such as [facility] nics. Outsi de the valid ated [...] calcu lator is avail able on the [facility] websi te: https ://erika munoz.zuleika perdomo.o nyasia/pr hinaess ional s/kdo qi/gf r_cal culat or Not Available [facility] (Lab) [address] [place], [address], 05/14/2024 13:15:30 05/14/20 24 05/14/2024 COMPR EHENS SUNSHINE METAB OLIC PANEL alkaline phosphatase 132 U/L 38-126 high Not Available [facility] (Lab) [address] [place], [address], 05/14/2024 13:15:30 05/14/20 24 05/14/2024 COMPR EHENS SUNSHINE METAB OLIC PANEL alanine aminotransfe rase 14 U/L 0-[address] [facility] (Lab) [address] [place], [address], 05/14/2024 13:15:30 05/14/20 24 05/14/2024 COMPR EHENS SUNSHINE METAB OLIC PANEL aspartate aminotransfe rase 27 U/L 15-[address] [facility] (Lab) [address] [place], [address], 05/14/2024 13:15:30 05/14/20 24 05/14/2024 COMPR EHENS SUNSHINE METAB OLIC PANEL bilirubin, total 0.90 mg/dL 0.20-1 .30 Not Available [facility] (Lab) [address] [place], [address], 05/14/2024 13:15:30 05/14/20 24 05/14/2024 COMPR EHENS SUNSHINE METAB OLIC PANEL calcium 10.1 mg/dL 8.4-10 .2 Not Available [facility] (Lab) [address] [place], [address], 05/14/2024 13:15:30 05/14/20 24 05/14/2024 COMPR EHENS SUNSHINE METAB OLIC PANEL total protein 7.8 g/dL 6.3-8. 2 Not Available [facility] (Lab) [address] [place], [address], 05/14/2024 13:15:30 05/14/20 24 05/14/2024 COMPR EHENS SUNSHINE METAB OLIC PANEL albumin 4.4 g/dL 3.0-4. 4 Not Available [facility] (Lab) [address] [place], [address], 05/14/2024 13:15:30 05/14/20 24 05/14/2024 COMPR EHENS SUNSHINE METAB OLIC PANEL globulin 3.4 g/dL 2.6-4. 2 Not Available [facility] (Lab) [address] [place], [address], 05/14/2024 13:15:30 05/14/20 24 05/14/2024 COMPR EHENS SUNSHINE METAB OLIC PANEL A/G ratio 1.3 ratio 1.0-2. 0 Not Available [facility] (Lab) [address] [place], [address], 05/14/2024 13:15:30 05/14/20 24 05/14/2024 MAGNE SIUM magnesium 2.1 mg/dL 1.6-2. 3 Not Available [facility] (Lab) [address] [place], [address], 05/14/2024 13:15:34 05/14/20 24 05/14/2024 VITAM IN B12 (AUGUST FERMIN ) vb12 426 pg/mL 239-93 1 Not Available [facility] (Lab) [address] [place], [address], 05/14/2024 14:18:48 12/12/19 24 12/12/2023 XR, hand No observ ation record ed. [address], [place], [address], 12/13/2023 08:01:26 01/08/[address], abdom en + pelvi s, w/ contr ast [facility] [address] [place] [address] Patien t Name: NIKKY DAMON Access ion #: [id number] Sex: F : 1939 3 Dictat ed By: Bob Garcia Attend ing Physic preet: SHERRY DAVALOS CE Orderi ng Physic preet: SHERRY DAVALOS CE Exam Date: 2023 10:42 AM Exam Name: CT ABDOME N/PELV IS W Admitt ing Diagno sis(es ): Exam: CT abdome n and pelvis with contra st dated 024 10:42 AM CDT Histor y: 84 years old Female with nausea Compar kaylah Study: 5-12-2 3 TECHNI QUE: A digita l diagnostic radiologist image was obtain ed. During the uneven [...] 1 [facility] [address] [place] [address] Patien t Name: NIKKY DAMON Access ion #: [id number] Sex: F : 1939 3 Dictat ed By: Bob Garcia Attend ing Physic preet: SANDI CHENG Physic preet: SHERRY DAVALOS Exam Date: 2023 10:42 AM Exam Name: [...] c steato sis All CT scans at [facility] facili ty are perfor med [...] at 2023 08:02: 05 AM Page [address] (Imaging) [address], [place], [address], 01/08/2024 09:05:58 01/13/20 24 01/13/2024 XR, chest , 1 view No observ ation record ed. [address] [facility], [place], [address], 01/14/2024 07:56:45 01/13/20 24 01/13/2024 CT, chest , w/ contr ast No observ ation record ed. [address] [address], [place], [address], 01/14/2024 08:01:25 01/14/20 24 01/14/2024 US, echo ardio gram No observ ation record ed. [address] [address], [place], [address], 01/14/2024 16:53:27 01/24/20 24 elect goivanna hoffmanngr am No observ ation record ed. [place] [address] Not Available 2023 15:46:26 07/16/20 24 06/23/2024 sleep study , diagn ostic (PROC ) No observ ation record ed. [address] [address], [place], [address], 07/16/2024 14:27:19 09/28/20 24 09/01/2024 sleep study , diagn ostic (PROC ) No observ ation record ed. [address], [place], [address], 09/28/2024 17:44:11 01/16/20 25 01/15/2025 XR, abdom en No observ ation record ed. [address] [address], [place], [address], 01/19/2025 09:09:42 Result Notes None recorded. 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 Not Available [facility] 4 23:36:51 Gastroesop hageal reflux disease 378142767 Active Not Available [facility] 4 23:36:51 Gastroesop hageal reflux disease without esophagiti s 726807558 Active Not Available [facility] 4 23:36:51 Anemia 936647158 Active Not Available [facility] 4 23:36:51 Knee pain Active Not Available [facility] 4 23:36:52 Restless legs 39505113 Active 2021 Not Available [facility] 4 23:36:52 Umbilical hernia 303866955 Active Not Available [facility] 4 23:36:52 Nausea 088895121 Active 2021 Not Available [facility] 4 23:36:52 Clostridiu m difficile colitis 371099128 Active Not Available [facility] 4 23:36:52 Coronary arterioscl erosis 71533677 Active Not Available [facility] 4 23:36:52 Essential hypertensi on 54745494 Active Not Available [facility] 4 23:36:52 Ulcerative colitis 11025403 Active Not Available [facility] 4 23:36:52 Hemorrhoid s 53872900 Active Not Available [facility] 4 23:36:52 Lightheade dness 556243137 Active 2022 Not Available [facility] [facility] 4 23:36:52 Obese class I 0423329884823 07 Active 2022 Not Available [facility] 4 23:36:52 Insomnia 086879862 Active 2022 Not Available [facility] 4 23:36:51 Anxiety 32708392 Active 2022 Not Available [facility] 4 23:36:52 Chronic insomnia 272126658 Active 2022 Not Available [facility] 4 23:36:52 Acute sinusitis 75403377 Active 2022 Not Available [facility] 4 23:36:51 Left lower quadrant pain 850407196 Active 2023 Tanvir Davalos MD [address], [place], [address] , [facility] 4 16:04:13 Gastroente ritis 38379006 Active 2023 Leena Bolton CMA null, [facility] 4 11:29:35 Atrial fibrillati on 24284081 Active 2023 Tanvir Davalos MD [address], [place], [address] , [facility] 4 15:06:42 Abscess of face 606909077 Active 2023 Tanvir Davalos MD [address], [place], [address] , [facility] 4 11:46:39 Problem Notes None recorded. Procedures Surgical History Date Name Laterality Status Provider Name and Address Organization Details Recorded Time 09/17/20 Medicare Wellness CPT Code, subsequent completed Greer Gong RN [facility] [employer] 09/17/2023 11:01:34 02/07/20 Date of Last Colonoscopy completed Not Available [facility] 12/19/2022 05:54:09 Imaging Results Imaging Date Name Status LastModified by Organization Details LastModified Time 12/12/2023 XR, hand completed [place] [address], [place], [address], 12/13/2023 08:01:26 01/08/2024 CT, abdomen + pelvis, w/ contrast completed [address] (Imaging) [address] [place], [address], 01/08/2024 09:05:58 01/13/2024 XR, chest, 1 view [address], [address], 01/14/2024 07:56:45 01/13/2024 CT, chest, w/ contrast completed [address], [address], 01/14/2024 08:01:25 01/14/2024 US, echocardiogram completed [address], [address], 01/14/2024 16:53:27 01/24/2024 electrocardiogram [place] [address] Informa tion not available 01/24/2024 15:46:26 06/23/2024 sleep study, diagnostic (PROC) completed [address], [address], 07/16/2024 14:27:19 09/01/2024 sleep study, diagnostic (PROC) completed [address], [address], 09/28/2024 17:44:11 01/15/2025 XR, abdomen completed [address], [address], 01/19/2025 09:09:42 Procedure Notes None recorded. Medical Equipment None Reported. Allergies Allergen ID Allergen Name Allergen Category Reaction Reaction Severity Criticality Documentation Date Start Date Code Code System Note Provider Name and Address Organization Details Recorded Time 33327 Plavix medicatio n Not available Not available Not available 12/19/2022 71941 2 RxNorm bleed ing Not Available [facility] 3 06:04:11 58765 Demerol medicatio n vomiting severe Not available 12/19/2022 89783 1 RxNorm Not Available [facility] 3 06:04:11 24085 Product containin g angiotens in II receptor antagonis t (product) medicatio n cough Not available Not available 12/19/2022 55771 008 SNOMED Not Available [facility] 3 06:04:11 80079 Product containin g angiotens in-conver ting enzyme inhibitor (product) medicatio n cough Not available Not available 12/19/2022 22669 009 SNOMED Not Available [facility] 3 06:04:12 99958 aspirin medicatio n Not available Not available Not available 12/19/2022 1191 RxNorm bleed ing Not Available [facility] 3 06:04:12 Medications Name Sig Start Date Stop Date Status Note LastModified by Organization Details LastModified Time amoxicillin 500 mg capsule TAKE 4 CAPSULES BY MOUTH 1 HOUR BEFORE DENTAL APPOINTME NT 12/29 completed Not Available Not Available Not Available furosemide 40 mg tablet TAKE 1 TABLET BY MOUTH EVERY DAY active Not Available Not Available No t Available latanoprost 0.005 % eye drops INSTILL 1 DROP INTO BOTH EYES AT BEDTIME active Not Available Not Available No t Available doxycycline hyclate 100 mg capsule Take 1 capsule twice a day by oral route. 12/29 completed Not Available Not Available Not Available ropinirole 1 mg tablet TAKE 1 [...] ER 20 mEq tablet,exte nded release(par t/cryst) 12/29 completed Not Available Not Available Not Available famotidine [...] azelastine 137 mcg (0.1 %) nasal spray [place] 2 sprays twice a day by intranasa l route for 30 days. active Not Available Not Available No t Available Ativan 0.5 mg tablet Take 1 tablet 3 times a day by oral route as needed. 11/20 completed Not Available Not Available Not Available zolpidem 10 mg tablet 12/29 completed Not Available Not Available Not Available methylpredn isolone 4 mg tablets in [...] completed Not Available Not Available Not Available [place] 5 mg-325 mg tablet Take 1 tablet [...] Available Not Available Not Available amoxicillin 875 mg-ewelinau m clavulanate 125 mg tablet TAKE 1 [...] LAB ON THE NIGHT OF SLEEP STUDY 12/29 completed Not Available Not Available Not Available Canasa 1,000 mg rectal suppository active [...] Available Entresto 24 mg-26 mg tablet TAKE 1/2 TABLET BY MOUTH TWICE DAILY active Not Available [...] Updated DateTime 4 172.72 cm 30.9 kg/m2 67562.2 5 g 108 /min 98.1 [degF] 94 % 94 % 120 mm[Hg] 64 mm[Hg] Jayde Montez [facility] 4 15:59:08 Date Recorded Body height Body mass index (BMI) Body weight Heart rate Body temperature Oxygen saturation Oxygen saturation in Arterial blood by Pulse oximetry Systolic blood pressure Diastolic blood pressure Provider Name and Address Organization Details Last Updated DateTime 4 172.72 cm 29.6 kg/m2 82416.5 1 g 92 /min 97 [degF] 96 % 96 % 102 mm[Hg] 78 mm[Hg] Jayde Montez [facility] 4 14:45:37 Date Recorded Body height Body mass index (BMI) Body weight Heart rate Body temperature Oxygen saturation Oxygen saturation in Arterial blood by Pulse oximetry Systolic blood pressure Diastolic blood pressure Provider Name and Address Organization Details Last Updated DateTime 4 172.72 cm 28.7 kg/m2 42054.9 6 g 63 /min 97.4 [degF] 98 % 98 % 118 mm[Hg] 80 mm[Hg] Whitney Yang HERMELINDAJose Lawn [employer] [facility] [employer] [facility] 4 10:38:40 Date Recorded Body height Body mass index (BMI) Body weight Heart rate Body temperature Oxygen saturation Oxygen saturation in Arterial blood by Pulse oximetry Systolic blood pressure Diastolic blood pressure Provider Name and Address Organization Details Last Updated DateTime 4 172.72 cm 29.8 kg/m2 10547.1 g 60 /min 97 [degF] 98 % 98 % 120 mm[Hg] 82 mm[Hg] MAGDY Garcia [employer] [facility] [employer] [facility] 4 11:07:16 Date Recorded Body height Body mass index (BMI) Body weight Heart rate Body temperature Oxygen saturation Oxygen saturation in Arterial blood by Pulse oximetry Systolic blood pressure Diastolic blood pressure Provider Name and Address Organization Details Last Updated DateTime 5 172.72 cm 30.3 kg/m2 21304.8 8 g 69 /min 97 [degF] 99 % 99 % 122 mm[Hg] 78 mm[Hg] Jayde Montez [facility] 5 11:25:09 Social History Question Answer Notes LastModified by Organization Details LastModified Time Tobacco Smoking Status Never Smoker Not Available [facility] 12/19/2022 05:53:27 Do You Have An Advance Directive? Yes MIGRATION.0301 479508 Information not available 12/19/2022 What Is Your Level Of Alcohol Consumption? None MIGRATION.0301 843951 Information not available 12/19/2022 Are You Blind Or Do You Have Difficulty Seeing? No MIGRATION.0301 364099 Information not available 12/19/2022 Are You Deaf Or Do You Have Serious Difficulty Hearing? No MIGRATION.0301 232379 Information not available 12/19/2022 What Type Of Diet Are You Following? REGULAR MIGRATION.0301 626379 Information not available 12/19/2022 Do You Or Have You Ever Used E-cigarettes Or Vape? Never Used Electronic Cigarettes MIGRATION.0301 303127 Information not available 12/19/2022 Have There Been Any Changes To Your Family Or Social Situation? Yes Patient Has Lost 5-6 Family Members/f riends In The Past 13 Months. MIGRATION.0301 560588 Information not available 12/19/2022 What Is The Fluoride Status Of Your Home? Unknown MIGRATION.0301 482529 Information not available 12/19/2022 Are There Any Guns Present In Your Home? Yes MIGRATION.0301 843410 Information not available 12/19/2022 Do You Use Insect Repellent Routinely? No MIGRATION.0301 001861 Information not available 12/19/2022 Where Do You Live? SingleLevelHouse MIGRATION.0301 634824 Information not available 12/19/2022 Guns Present In The Home? Yes [email or web address] Information not available 09/17/2023 Are You Able To Care For Yourself? Yes Information not available 09/17/2023 Are You Blind Or Do Yo Have Difficulty Seeing? No [email or web address] Information not available 09/17/2023 Are You Deaf Or Do You Have Serious Difficulty Hearing? No [email or web address] Information not available 09/17/2023 Live Alone Of With Others? Alone [email or web address] Information not available 09/17/2023 Do You Have A Medical Power Of Technical Coordinator? Yes [email or web address] Information not available 09/17/2023 What Was The Date Of Your Most Recent Tobacco Screening? 09/17/2023 [email or web address] Information not available 09/17/2023 Do You Have Any Pets? No [email or web address] Information not available 09/17/2023 What Is Your Relationship Status? MIGRATION.0301 828347 Information not available 12/19/2022 Do You Use Your Seat Belt Or Car Seat Routinely? No MIGRATION.0301 574533 Information not available 12/19/2022 Do You Have Smoke And Carbon Monoxide Detectors In Your Home? Yes MIGRATION.0301 357067 Information not available 12/19/2022 Are You Passively Exposed To Smoke? No MIGRATION.0301 260226 Information not available 12/19/2022 Do You Or Have You Ever Used Smokeless Tobacco? Never Used Smokeless Tobacco MIGRATION.0301 985753 Information not available 12/19/2022 Are There Any Smokers In Your House? No MIGRATION.0301 361844 Information not available 12/19/2022 How Much Tobacco Do You Smoke? No MIGRATION.0301 352277 Information not available 12/19/2022 Do You Feel Stressed (tense, Restless, Nervous, Or Anxious, Or Unable To Sleep At Night)? [id number] MIGRATION.0301 976549 Information not available 12/19/2022 Do You Use Sunscreen Routinely? No MIGRATION.0301 512229 Information not available 12/19/2022 Has Tobacco Cessation Counseling Been Provided? No MIGRATION.0301 734801 Information not available 12/19/2022 Do You Have Any Dietary Restrictions? No MIGRATION.0301 031314 Information not available 12/19/2022 Do You Or Have You Ever Used Any Other Forms Of Tobacco Or Nicotine? No MIGRATION.0301 299329 Information not available 12/19/2022 Sex: Unknown Functional Status Question Answer Note LastModified by Organizat ion Details LastModified Time Do you have difficulty walking or climbing stairs? Yes having knee problems MIGRATION.33423 44846 Information not available 12/19/2022 Do you have transportation difficulties? No MIGRATION.99264 21964 Information not available 12/19/2022 Are you able to walk? YESWOREST MIGRATION.33130 50977 Information not available 12/19/2022 Do you have difficulty doing errands alone? No MIGRATION.98792 07354 Information not available 12/19/2022 Are you able to care for yourself? Yes MIGRATION.93149 66550 Information not available 12/19/2022 Do you have difficulty dressing or bathing? No MIGRATION.42642 71421 Information not available 12/19/2022 What is your exercise level? None MIGRATION.18444 20708 Information not available 12/19/2022 Mental Status Question Answer Note LastModified by Organizat ion Details LastModified Time Do you have difficulty concentrating, remembering or making decisions? No MIGRATION.[id number] 6 Information not available 12/19/2022 Family History Nothing Reported Notes:Mother 91 yea rs old Father 70 years old 1 Brothers 1 Living 2 Sisters 2 both from Cancer likely lung Mother Hx ASHD Father Hx Ca of Lung, COPD Brother Hx COPD (1) Medical History Condition Response NERVE DISEASE N BLINDNESS N RHEUMATIC FEVER N KIDNEY STONES N BLADDER PROBLEMS N MRSA N OTHER # 1 N POLIO N LUNG DISEASE/DISORDER N HISTORY OF DRUG ABUSE N RADIATION / CHEMOTHERAPY N COPD N Other # 2 N BLOOD DISEASES N EAR OR HEARING PROBLEMS N MUMPS N SHINGLES N DEPRESSION (INCLUDING POST ) N BOWEL PROBLEMS N STROKE/TIA N ULCERS N BENIGN PROSTATIC [...] INSOMNIA N HIGH CHOLESTEROL / HYPERLIPIDEMIA Y EYE PROBLEMS N HYPERTHYROIDISM N NEUROLOGICAL PROBLEMS Y EDEMA N CHRONIC PAIN SYNDROME N HYPOTHYROIDISM N CAROTID BLOCKAGE N CONSTIPATION N BACK / NECK PROBLEMS N HAVE YOU BEEN HOSPITALIZED OR SEEN IN [facility] IN THE PAST YEAR ? N ATHEROSCLEROSIS N BREAST PROBLEMS N DIALYSIS N ECZEMA N OSTEOPOROSIS N ARTHRITIS Y NO SIGNIFICANT PAST MEDICAL HISTORY N APPENDICITIS N DIABETES, TYPE N BAD TEETH N ENT N HEARTBURN / REFLUX N AUTISM SPECTRUM DISORDER (ASD) N HEPATITIS / LIVER DISEASE N GOUT N SLEEP DISORDER N ALZHEIMER'S DISEASE N Brain Problems N DEMENTIA N HERPES N SEIZURES/EPILEPSY N HEADACHES/MIGRAINES N VASCULAR DISEASE N PACEMAKER N Blood Disorder N DIZZINESS N HEART DISEASE/HEART PROBLEMS N KIDNEY DISEASE N MULTIPLE SCLEROSIS N CANCER: SPECIFY N CARDIAC ARRHYTHMIA N ATRIAL FIBRILLATION N Gall Stones N PULMONARY EMBOLISM N AUTOIMMUNE DISEASE N Gynecological History Statement/Question Response Date of Last Mammogram 04/28/2020 Date of Last Colonoscopy 02/06/2019 Most Recent Bone Density Obstetrics History GPAL:G 0 P 0 0 0 0 Immunizations Vaccine Type Date Status Note Provider Nam e and Address Organization Details Recorded Time Tdap 7 completed Not Available [facility] 12/09/2023 23:36:52 Td (adult), 2 Lf tetanus toxoid, preservative free, adsorbed 7 completed Not Available [facility] 12/09/2023 23:36:52 Past Encounters Encounter ID Performer Location Encounter Start Date Encounter Closed Date Diagnosis/Indication Diagnosis SNOMED-CT Code Diagnosis ICD10 Code Diagnosis Note [id number] [facility] Internal Med [facility] [address] [address] 01/12/2021 00:00:00 01/12/2021 11:45:56 [id number] [facility] ENT [place] [id number] [place] [address] 01/17/2021 00:00:00 01/17/2021 12:32:52 [id number] [facility] Internal [facility] [place] [address] 04/21/2021 00:00:00 04/21/2021 12:43:37 [id number] [facility] Internal Med [facility] [address] [address] 07/31/2021 00:00:00 07/31/2021 15:42:25 [id number] [facility] Internal Med [place] [address] 11/14/2021 00:00:00 11/14/2021 11:14:20 [id number] [facility] Internal Med Jayden ewing [facility] [place] [address] 02/20/2022 00:00:00 02/20/2022 14:46:35 [id number] [facility] Internal Med Jayden ewing [address] [place] [address] [place] [address] 05/15/2022 00:00:00 05/15/2022 11:05:36 [id number] [facility] Internal Med Jayden ewing [address] [place] [address] [place] [address] 09/11/2022 00:00:00 09/11/2022 11:27:01 [id number] Tanvir Davalos MD [facility] Internal [facility] Jayden ewing [address] [place] [address] [place] [address] 01/08/2023 11:25:54 01/08/2023 12:29:22 Coronary arteriosclerosis 76569097 I25.10 Essential hypertension 00640347 I10 Gastroesop hageal reflux disease 697739908 K21.9 Hypercholesterolemia 136 11266 E78.00 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.79 R10.9 Restless legs 04315293 G 25.81 [id number] Tanvir Davalos MD [facility] Internal Med Jayden ewing [address] [place] [address] [place] [address] 05/21/2023 10:33:25 05/21/2023 11:03:58 Coronary arteriosclerosis 28288252 I25.10 Hypercholesterolemia 136 19818 E78.00 Ulcerative colitis 79032 004 K51.90 Lightheadedness 23963214 8 R42 Obese class I 4731912974 69045 E66.9 Gastroesop hageal reflux disease 436384428 K21.9 [id number] Tanvir Davalos MD [facility] Internal Med Jayden ewing [address] [place] [address] [place] [address] 09/17/2023 10:43:31 09/17/2023 11:27:27 Adult health examination 390335837 Z00.00 Screening for disorder 072102062 Z13.9 Coronary arteriosclerosis 65523657 I25.10 Essential hypertension 64896833 I10 Hypercholesterolemia 136 47634 E78.00 Gastroesop hageal reflux disease 437190473 K21.9 Obese class I 6690741715 80261 E66.9 [id number] Tanvir Davalos MD [facility] Internal Med [address] [place] [address] 01/06/2024 15:46:48 01/06/2024 16:15:26 Coronary arteriosclerosis 17263214 I25.10 Essential hypertension 45549029 I10 Hypercholesterolemia 136 07022 E78.00 Left lower quadrant pain 627363308 R10.32 [id number] Tanvir Davalos MD [facility] Internal [place] [address] [place] [address] [place] [address] 01/24/2024 14:37:52 01/24/2024 15:32:06 Essential hypertension 14536642 I10 Atrial fibrillation 4943 6004 I48.91 Hypercholesterolemia 136 45517 E78.00 Gastroesop hageal reflux disease without esophagitis 169841293 K21.9 [id number] Tanvir Davalos MD [facility] Internal Med [place] [address] [place] [address] [place] [address] 04/28/2024 10:28:42 04/28/2024 10:59:21 Coronary arteriosclerosis 68933005 I25.10 Atrial fibrillation 4943 6004 I48.91 Essential hypertension 74078269 I10 Hypercholesterolemia 136 96124 E78.00 Gastroesop hageal reflux disease without esophagitis 665590630 K21.9 [id number] Tanvir Davalos MD [facility] Internal Med [place] [address] [place] [address] [place] [address] 09/01/2024 10:45:52 09/01/2024 11:53:16 Atrial fibrillation 88030916 I48.91 Coronary arteriosclerosis 57577278 I25.10 Essential hypertension 52538473 I10 Gastroesop hageal reflux disease 273311272 K21.9 Abscess of face 83499434 4 L02.01 [id number] Tanvir Davalos MD [facility] Primary Care [place] [address] [facility] [address] [place] [address] 12/29/2024 10:42:44 12/29/2024 11:46:14 Essential hypertension 23019955 I10 Atrial fibrillation 4943 6004 I48.91 Gastroesop hageal reflux disease 267759871 K21.9 Obese class I 5155313997 92960 E66.9 Ulcerative colitis 31285 004 K51.90 Health Concerns Section Related Observation LastModified by Organization Detai ls LastModified Time None Recorded Concern Status LastModified by Organization Details LastModified Time None Recorded Advance Directives Directive Y: Payers Encounter Date Sequence Insurance Name Policy Number Policy Gerber Covered Member ID Gerber Member ID Guarantor Name 01/06/2024 1 [place] Nikky Garcia Oestricker [id number] Nikky Garcia Oestricker 01/06/2024 2 [employer] [place] - PLAN G (MEDICARE SUPPLEMENT) Nikky Garcia Oestricker [id number] Nikky Garcia Oestricker 01/24/2024 1 [place] Nikky Garcia Oestricker [id number] E66 Nikky Garcia Oestricker 01/24/2024 2 [employer] [place] - PLAN G (MEDICARE SUPPLEMENT) Nikky Garcia Oestricker [id number] Nikky Jose Oestricker 04/28/2024 1 [place] Nikky Garcia Oestricker [id number] E66 Nikky Garcia Oestricker 04/28/2024 2 [employer] [place] - PLAN G (MEDICARE SUPPLEMENT) Nikky Garcia Oestricker [id number] Nikky Jose Oestricker 09/01/2024 1 [place] Nikky Garcia Oestricker [id number] [id number] Nikky Garcia Oestricker 09/01/2024 2 [employer] [place] - [employer] G (MEDICARE SUPPLEMENT) Nikky Garcia Oestricker [id number] Nikky Jose Oestricker 12/29/2024 1 [place] Nikky Pena [id number] [id number] Nikky Pena 12/29/2024 2 [employer] [place] - [employer] [place] (MEDICARE SUPPLEMENT) Nikky Pena [id number] Nikky Pena Notes Date Note Type Note Provider Name and Address Organization Details Recorded Time 4 text/html Patient Name: Nikky PenaDate Of Service: Saturday ( 01.06.2024 ): 1940 [...] Cough And FlushingCapoten CoughStrattera Vomitting Vaccination and Pdvdtwtppoml4029-88 Tetanus Booster Surgical Prolqoa3957-21 Lap Ventral Hernia Repair (Mesh)2016-01 Lap Txshmpdvpnvex2133-08 Rt. Rotator Iwajs3218-33 Lt. Knee Tscrheaijgk4390-48 Rt. Knee Replacement Preventative Bnozels5705/21/2023 ALBUMIN 4.4 G/DL N004/28/2020 MAMMOGRAM COLONOSCOPY (10 YEARS) / DEXA SCAN Social HistorySOCIAL HISTORY:Does not smoke cigarettes. 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 Wmaueqgflll13-00-9559: CT of abdomen and pelvis unremarkable. No [...] Cough And FlushingCapoten CoughStrattera Vomitting Vaccination and Guwowqvqseqz2601-53 Tetanus Booster Surgical Bbmwktn7888-47 Lap Ventral Hernia Repair (Mesh)2015- Lap Rlqmafukwrqjd9327-63 Rt. Rotator Owjnu2105-13 Lt. Knee Fpstkqetiis9775-25 Rt. Knee Replacement Preventative Zycahkd0701/07/2024 ALBUMIN 4.6 G/DL H004/28/2020 MAMMOGRAM COLONOSCOPY (10 [...] Hx: COPD (1) Tanvir Davalos MD [address], [place], [address], [place] - [facility] [email or web address] 01/24/2024 15:18:28 4 text/html Patient Name: Nikky Kaufmante Of Service: Saturday ( 04.28.2024 ): 1940 [...] Systemic Symptoms:none Medication Reconciliation: from medication list. Gktrhvkycvp91-07-9710: CT of abdomen and pelvis unremarkable. No [...] Metoprolol Succinate. Rate control: controlled ventricular response [id number] Criteria: Age > 75 and and considered [...] Cough And FlushingCapoten CoughStrattera Vomitting Vaccination and Jojsozglkrwn5584-64 Tetanus Booster Surgical Txiajmq4201-41 Lap Ventral Hernia Repair (Mesh)2015- Lap Jjtiywntosiqy2472-38 Rt. Rotator Uoxmf2143-55 Lt. Knee Crblcjwxgty7386-51 Rt. Knee Replacement Preventative Buuqlnw3302/04/2024 CFTQRCGSTUJAH06/19/2024 ALBUMIN 4.6 G/DL H004/28/2020 MAMMOGRAM COLONOSCOPY (10 [...] 82 0-130 MG/DL Tanvir Davalos MD [address] [facility], [facility] [address], [place], [address], [facility] [employer] 04/28/2024 10:55:24 4 text/html Patient Name: Nikky ePnaDate Of Service: Saturday ( 09.01.2024 ): 1940 [...] Systemic Symptoms:none Medication Reconciliation: from medication list. Nvuhgzqpjow71-95-9525: CT of abdomen and pelvis unremarkable. No [...] Metoprolol Succinate. Rate control: controlled ventricular response [id number]-SMEs Criteria: congestive heart failure for embolic phenomenon. [...] And FlushingCapoten CoughStrattera Vomitting Vaccination and Immunization(X) 2005-07 TETANUS BOOSTER Surgical Oxgcxru4097-55 Lap Ventral Hernia Repair (Mesh)2016-01 Lap Bfxbrfversoef8351-13 Rt. Rotator Hgdwb9776-85 Lt. Knee Nkveugbstpz6599-21 Rt. Knee Replacement Preventative Testing( ) 07/30/2024 [...] Hx: COPD (1) Tanvir Davalos MD [address] [facility], [facility] [address], [place], [address], [facility] [employer] 09/01/2024 11:47:06 5 text/html Patient Name: Nikky Garcia JeanDate Of Service: Saturday ( 12.29.2024 ): 1940 Age: 84 There has been approximately a 3 lb weight gain since 09/01/2024. This represents approximately a 1.5% change in weight. Weight change attributable to lifestyle changes. Vital Signs:Blood Pressure: Sitting Rt. Arm 122/78Pulse: Sitting 69 /min and RegularRespiratory Rate: 12Height 68 in or 1.7 mWeight 199 lb or 90.3 kgBMI 30.3Temperature: 97 F or 36.1 CPulse Oximetry: 99 % at rest on no oxygen Chief Complaint: Addressed in HPI Problems or conditions discussed in the HPI were the only ones reviewed during the encounter.Only social and family history addressed in the HPI were reviewed during this encounter. Attendant(s): NoneConstitutional and Systemic Symptoms:none Medication Reconciliation: from medication list. [id number]: CT of abdomen and pelvis unremarkable. No [...] restriction and Entresto, Lasix and Metoprolol Succinate. #2. Atrial Fibrillation: Type: Persistent with recurrent episodes lasting longer than 7 days. Further classification: Non-valvular. Associated history of HTN. No attending hx of any shortness of breath, palpitations, syncopal or neurological symptoms. Current medications: Metoprolol Succinate. Rate control: controlled ventricular response [id number] Criteria: hypertension, Age > 75 and and considered moderate risk for embolic phenomenon. Anticoagulation: Eliquis #3. Hx of esophageal reflux currently stable. Hx of Complications: none The severity, duration and intensity of symptoms have improved. Frequency: most meals Treatment consists medications taken on a regular basis. Current therapy includes no medication. There has been no nausea, eructation, vomiting, [...] with chronic prolonged use of PPI inhibitors. #4. Hx of obesity. Currently Class 1 Obesity BMI 30-34.99. Has tried numerous dietary support and supplements with no benefit. Instructed on the health consequences of the obese status particularly cancer - diabetes and heart disease. Discussed other modalities of weight loss no . Potential candidate for bariatric surgery: No. Wishes to be evaluated by Dietary: No and was offered to be evaluated and instructed by assembly stock supervisor on weight loss diet.#5. Ulcerative colitis clinically stable currently taking mesalamine with no recent exacerbations. Active Medication ListProtonix 40 MG (FOR SUSPENSION, DELAYED RELEASE - ORAL) One DailyLatanoprost .05 MG/ML SOLUTION/ DROPS Every Night At BedtimeAspirin 81 MG TABLET Once DailyEliquis 5 MG TABLET, FILM COATED One Twice A DayEntresto 24; 26 MG; MG TABLET, FILM COATED One Half Pill Twice A DayLasix 40 MG TABLET Once DailyPotassium Chloride 20 MEQ TABLET, EXTENDED RELEASE One Tablet DailyMesalamine 400 MG CAPSULE, DELAYED RELEASE Take 2 Capsultes Twice A DayMetoprolol Succinate 100 MG CAPSULE, EXTENDED RELEASE Take One And Half Tablets For Atrial Fib Adverse Drug Reactions ReviewedPlavix Excessive BruisingVasotec CoughAvapro Cough And FlushingCapoten CoughStrattera Vomitting Vaccination and Immunization(X) 2004- TETANUS BOOSTER Surgical [id number] Lap Ventral Hernia Repair (Mesh)2015- Lap [id number] Rt. Rotator [id number] Lt. Knee [id number] Rt. Knee Replacement Preventative Testing( ) 07/30/2024 [...] Hx: COPD (1) Tanvir Davalos MD [address] [facility], [facility] [address], [place], [address], [facility] 12/29/2024 11:42:08 OBGyn Episode No OBEpisode recorded.
--- OUTSIDE RECORDS SUMMARY | 2025-02-01 08:57 | XMS_ITS | Clinical Summary ---
Author Organization [facility] [employer] Address [address] [place] [address] Care Team Providers Care Conservation Specialist Name Role Phone Tanvir Davalos MD Primary Care Provider [phone] Source Comments [facility] [employer],non-owned Affiliates and Associated Physician Practices is amultiple site organization consisting of ambulatory clinics and hospital sitesin [place], [place], [place] and [place]. This disclosure is being madepursuant to the Care Everywhere program and may not contain all information available regarding this patient. Last updated 18.[facility] Allergies Active Allergy Reactions Criticality Noted Date Comments Aspirin Other 01/29/2022 Clopidogrel Other 01/29/2022 Meperidine 09/07/2014 Morphine Other Low 10/22/2019 Upset stomach Ranexa Other 07/05/2015 Medications * Be aware that medications may not be up to date on this document. Alwaysverify current medications with the patient. piroxicam (FELDENE) 20 MG capsule Take 1 Cap by mouth once daily. 30 Cap 11 4 Active Additional Information Patient not taking.Reported on [...] 137 mcg (0.1 %) nasal spray aerosol [address] (DELZICOL) 400 MG capsule 2 Active Social History Tobacco Use Types Packs/Day [...] more drinks on one occasion? 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
--- OUTSIDE RECORDS SUMMARY | 2025-02-01 08:57 | XMS_ITS | Referral Summary ---
Author Organization [facility] Address [address] [place] [address] Care Team Providers Care Environmental Aide Name Role Phone Tanvir Davalos MD Primary Care Provider Encounters Date Type Department Care Team Description 12/15/2024 Telephone [facility] Cardiology [address] [place] [address] Adalgisa Randolph MD from Last [...] on file Legal Sex Female 8:38 PM DATABASE MANAGEMENT SYSTEM SPECIALIST Gender Identity Not on file Sexual Orientation Not on file Last Filed Vital Signs Vital Sign Reading Time Taken Comments Blood Pressure 142/76 09/28/2024 10:56 AM DATABASE MANAGEMENT SYSTEM SPECIALIST Pulse 64 09/28/2024 10:56 AM DATABASE MANAGEMENT SYSTEM SPECIALIST Temperature 36.2 C (97.2 F) 04/27/2022 10:59 AM CDT Respiratory Rate 16 03/10/2021 11:00 AM CDT Oxygen Saturation 95% 09/28/2024 10:56 AM DATABASE MANAGEMENT SYSTEM SPECIALIST Inhaled Oxygen Concentration - - Weight 90.3 kg (199 lb) 09/28/2024 10:56 AM DATABASE MANAGEMENT SYSTEM SPECIALIST Height 172.7 cm (5' 8 ) 09/28/2024 10:56 AM DATABASE MANAGEMENT SYSTEM SPECIALIST Body Mass Index 30.26 09/28/2024 10:56 AM DATABASE MANAGEMENT SYSTEM SPECIALIST Plan of Treatment Not on file Medical Devices Implanted Type Area Employment Evaluator/Case Manager Device Identifier Shelf Expiration Date Model / Serial / Lot [employer]/C R Bard [id number] Monofilament Soft Lightweight Low Profile Square - [id number] - [id number] Implanted:Qty: 1 on 03/09/2021 by Jesu Breen MD at [facility] Mesh N/A: Abdomen [employer] R Bard [id number] 10/17/2025 [id number] / [id number] / [id number] Insurance MEDICARE [facility] MEDICARE MEDICARE [facility] Advance Directives For more information, please contact: [phone] * Full Code (Latest Code Status on File) Date Activated Date Inactivated Comments 03/09/2021 3:21 PM 03/10/2021 6:44 PM Care Teams Environmental Aide Relationship Specialty Start Date End Date Tanvir Davalos MD [address] [facility] [address] [place] [address] PCP - General Internal Medicine 08/21/19
--- OUTSIDE RECORDS SUMMARY | 2025-02-01 08:57 | XMS_ITS | Clinical Summary ---
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 DESIGNER Gender Identity Not on file Sexual Orientation Not on file Obstetrics History Last Filed Vital Signs Vital Sign Reading Time Taken Comments Blood Pressure 142/76 09/28/2024 10:56 AM BUILDING COMPONENTS DESIGNER Pulse 64 09/28/2024 10:56 AM BUILDING COMPONENTS DESIGNER Temperature 36.2 C (97.2 F) 04/27/2022 10:59 AM CDT Respiratory Rate 16 03/10/2021 11:00 AM CDT Oxygen Saturation 95% 09/28/2024 10:56 AM BUILDING COMPONENTS DESIGNER Inhaled Oxygen Concentration - - Weight 90.3 kg (199 lb) 09/28/2024 10:56 AM BUILDING COMPONENTS DESIGNER Height 172.7 cm (5' 8 ) 09/28/2024 10:56 AM BUILDING COMPONENTS DESIGNER Body Mass Index 30.26 09/28/2024 10:56 AM BUILDING COMPONENTS DESIGNER Plan of Treatment Health Maintenance Due Date Last Done Comments Depression Screening 1942 Osteoporosis Screening-Bone Density Scan 1942 Hepatitis B Screening 01/02/1960 Pneumococcal vaccine 65+ (1 of 2 - PCV) 1961 Zoster Vaccine (1 of 2) 01/02/1992 Well Visit 65+ 2007 Fall Risk Assessment 03/10/2022 03/10/2021 Influenza Vaccine (Season Ended) 2025 DTaP/Tdap/Td Vaccine (3 - Td or Tdap) 02/27/202707/2017, 02/27/2017 Medical Devices Implanted Type Area Tapper Shank Device Identifier Shelf Expiration Date Model / Serial / Lot [employer]/C R Bard [id number] Monofilament Soft Lightweight Low Profile Square - [id number] - [id number] Implanted:Qty: 1 on 03/09/2021 by Jesu Breen MD at [facility] Mesh N/A: Abdomen [employer] R Bard [id number] 10/17/2025 [id number] / [id number] / [id number] Insurance MEDICARE [facility] MEDICARE MEDICARE [place] [address] Advance Directives For more information, please contact: [phone] * Full Code (Latest Code Status on File) Date Activated Date Inactivated Comments 03/09/2021 3:21 PM 03/10/2021 6:44 PM Care Teams Shirt Sorter Relationship Specialty Start Date End Date Tanvir Davalos MD [address] [facility] [address] [address] PCP - General Internal Medicine 08/21/19
--- OUTSIDE RECORDS SUMMARY | 2025-02-01 08:58 | XMS_ITS | CONTINUITY OF CARE DOCUMENT ---
Author Name doris george Address Unknown Organization [facility] Address [address] [address] [place] [address] Phone [phone] Care Team Providers Care Laundry Or Dry Cleaners Counter Clerk Name Role Phone Han COOPER, Reji Unavailable SANDI COOPER, NANDA Unavailable SANDI COOPER, NANDA Unavailable [phone] PROBLEMS Condition Status Date Provider Notes CardiomyopathyEf now 60% active Reji ledbetter MD Abdominal pain s/p c. diff , has ventral hernia active Reji Short MD EPISTAXIS, RECURRENT S/P CAUTERIZATION active Reji Short MD ARTHRITIS STATUS POST KNEE AND SHOULDER SURGERY active Reji Short MD CARDIOMYOPATHY EF 45 %, ECHO 05, IMPROVED TO 60% 03/24/13 completed - Reji Short MD HTN CONTROLLED active Reji Short MD Hypercholesterolemia, mixed active Trina Hodges CAD false pos stress test , tortous LAD, no significant CAD active Reji Short MD abnormal nuclear stress test with inferior wall ischemia 05/04 ENCOUNTERS Date Type Provider Location Encounter Diag nosis - In-person encounter Office Visit Reji Short MD [facility] - In-person encounter Office Visit Reji Short MD [facility] - In-person encounter Office Visit Reji Short MD [facility] - In-person encounter Office Visit Reji Short MD [facility] - In-person encounter Office Visit Reji Short MD [facility] CARDIOMYOPATHY EF 45 %, ECHO 05, IMPROVED TO 60% 03/24/13Abdominal pain s/p c. diff , has ventral herniaCardiomyopathyEf now 60% - In-person encounter Office Visit Reji Short MD [facility] CAD false pos stress test , tortous LAD, no significant CAD - In-person encounter Office Visit Reji Short MD [facility] CAD false pos stress test , tortous LAD, no significant CADAbdominal pain s/p c. diff , has ventral hernia - In-person encounter Office Visit Reji Short MD [facility] CAD false pos stress test , tortous LAD, no significant CAD - In-person encounter Office Visit Reji Short MD [facility] - In-person encounter Office Visit Reji Short MD [facility] EPISTAXIS, RECURRENT S/P CAUTERIZATION - In-person encounter Office Visit Reji Short MD [facility] - In-person encounter Office Visit Lori Hernandez MD [facility] - In-person encounter Office Visit Reji Short MD [facility] - In-person encounter Office Visit Reji Short MD [facility] CAD false pos stress test , [...] minor Shearer oxygen saturation, [facility]ximetry 96 [facility] 16 /min Dov [place] pulse rate 79 /min [place] weight E&M 204 [lb_av] Dov Shearer height E&M 68.5 [in_i] [place] Body Mass Index (Ratio) 30.98 kg/m2 [...] /min Dov [place] pulse rate 78 /min [place] weight E&M 192 [lb_av] Dov [place] [...] Caceres kelly oxygen saturation, oximetry 96 % lAfonzo [place] respiratory rate E&M 16 /min [place] [...] Gorge Bonnerdney respiratory rate E&M 16 /min oGrge Yrn weight E&M 185.6 [lb_av] Gorge Yrn [...] RN pulse rate 76 /min Stephanie Hernandez FILLING STATION ATTENDANT respiratory rate E&M 22 /min Stephanie mancia FILLING STATION ATTENDANT blood pressure, diastolic 94 mm[Hg] Ruben Hernandez FILLING STATION ATTENDANT blood pressure, systolic 141 mm[Hg] Zak Hernandez FILLING STATION ATTENDANT weight E&M 180 [lb_av] Stephanie Hernandez FILLING STATION ATTENDANT blood pressure, diastolic, left arm 102 m [...] Normal Absolute Neutrophil count 3001 cells/mcL [employer] [id number] Normal mean platelet volume 10.0 fL [employer] [...] Normal cholesterol, serum 167 mg/dL [facility]200 Normal triglyceride, serum, fasting 74 mg/dL [facility] HDL cholesterol, serum 93 mg/dL [facility] cholesterol/HDL ratio, serum 1.6 [facility] lipoprotein, beta, serum, point, quantitative, calculated 38 mg/dL [facility] cholesterol, serum 146 mg/dL [facility] alanine aminotransferase (SGPT), serum 12 1/L [facility] aspartate aminotransferase (SGOT), serum 16 1/L [facility] creatinine, serum 0.87 mg/dL [facility] potassium, serum 4.4 mmol/L [facility] sodium, serum 140 mmol/L [facility] lipoprotein, beta, serum, point, quantitative, calculated 61 mg/dL [facility] cholesterol, serum 154 mg/dL [facility] alanine aminotransferase (SGPT), serum 15 1/L aspartate aminotransferase (SGOT), serum 18 1/L [facility] creatinine, serum 0.92 mg/dL [facility] potassium, serum 4.8 mmol/L [facility] sodium, serum 138 mmol/L [facility] lipoprotein, beta, serum, point, quantitative, calculated 61 mg/dL [facility] cholesterol, serum 164 mg/dL [facility] alanine aminotransferase (SGPT), serum 17 1/L aspartate aminotransferase (SGOT), serum 22 1/L [facility] creatinine, serum 1.00 mg/dL [facility] potassium, serum 4.9 mmol/L [facility] sodium, serum 141 mmol/L [facility] very low density lipoproteins 27 mg/dL [facility] triglyceride, serum, fasting 134 mg/dL [facility] HDL cholesterol, serum 75 mg/dL [facility] LDL cholesterol, serum 63 mg/dL [facility] cholesterol, serum 165 mg/dL [facility] globulins, serum, total 2.5 g/dL [facility] Estimated Glomerular Filtration Rate (calc) 62 mL/min/{1.73_ m2} [facility] albumin/globulin ratio, serum 1.8 [facility] protein, total, serum 7.0 g/dL [facility] albumin, serum 4.5 g/dL [facility] bilirubin, serum, total 0.7 mg/dL [facility] alkaline phosphatase, serum 91 1/L alanine aminotransferase (SGPT), serum 33 1/L aspartate aminotransferase (SGOT), serum 24 1/L [facility] calcium, serum 9.5 mg/dL [facility] blood glucose, fasting 85 mg/dL [facility] creatinine, serum 0.94 mg/dL [facility] urea nitrogen, blood 12 mg/dL [facility] carbon dioxide, serum, total 25 mmol/L chloride, serum 103 mmol/L potassium, serum 4.4 mmol/L [facility] sodium, serum 139 mmol/L [facility] very low density lipoproteins 22 mg/dL [facility] triglyceride, serum, fasting 109 mg/dL [facility] HDL cholesterol, serum 77 mg/dL [facility] LDL cholesterol, serum 68 mg/dL [facility] cholesterol, serum 167 mg/dL [facility] globulins, serum, total 2.7 g/dL [facility] Estimated Glomerular Filtration Rate (calc) 59 mL/min/{1.73_ m2} [facility] albumin/globulin ratio, serum 1.7 [facility] protein, total, serum 7.2 g/dL [facility] albumin, serum 4.5 g/dL [facility] bilirubin, serum, total 0.5 mg/dL [facility] alkaline phosphatase, serum 103 1/L [facility] alanine aminotransferase (SGPT), serum 14 1/L [facility] aspartate aminotransferase (SGOT), serum 18 1/L [facility] calcium, serum 9.8 mg/dL [facility] blood glucose, fasting 91 mg/dL [facility] creatinine, serum 0.98 mg/dL [facility] urea nitrogen, blood 16 mg/dL [facility] carbon dioxide, serum, total 23 mmol/L [facility] chloride, serum 105 mmol/L [facility] potassium, serum 4.3 mmol/L [facility] sodium, serum 139 mmol/L [facility] triglyceride, serum, fasting 141 mg/dL [facility] HDL cholesterol, serum 69 mg/dL [facility] LDL cholesterol, serum 62 mg/dL [facility] cholesterol, serum 159 mg/dL [facility] albumin/globulin ratio, serum 1.7 [facility] protein, total, serum 7.1 g/dL [facility] albumin, serum 4.5 g/dL [facility] bilirubin, serum, total 0.7 mg/dL [facility] alkaline phosphatase, serum 105 1/L [facility] alanine aminotransferase (SGPT), serum 18 1/L [facility] aspartate aminotransferase (SGOT), serum 21 1/L [facility] calcium, serum 9.5 mg/dL [facility] blood glucose, fasting 79 mg/dL [facility] creatinine, serum 0.85 mg/dL [facility] urea nitrogen, blood 12 mg/dL [facility] carbon dioxide, serum, total 22 mmol/L [facility] chloride, serum 102 mmol/L [facility] potassium, serum 4.4 mmol/L [facility] sodium, serum 138 mmol/L [facility] albumin/globulin ratio, serum 1.6 [facility] protein, total, serum 7.5 g/dL [facility] albumin, serum 4.6 g/dL [facility] bilirubin, serum, total 0.8 mg/dL [facility] alkaline phosphatase, serum 102 1/L [facility] alanine aminotransferase (SGPT), serum 20 1/L [facility] aspartate aminotransferase (SGOT), serum 23 1/L [facility] calcium, serum 9.9 mg/dL [facility] blood glucose, fasting 91 mg/dL [facility] creatinine, serum 0.91 mg/dL [facility] urea nitrogen, blood 10 mg/dL [facility] carbon dioxide, serum, total 22 mmol/L [facility] chloride, serum 101 mmol/L [facility] potassium, serum 4.5 mmol/L [facility] sodium, serum 139 mmol/L [facility] triglyceride, serum, fasting 140 mg/dL [facility] HDL cholesterol, serum 69 mg/dL [facility] LDL cholesterol, serum 59 mg/dL [facility] cholesterol, serum 156 mg/dL [facility] HISTORY OF MEDICATION USE Medication Status Instructions Dates Provider Indications Com ments PROTONIX 40 MG ORAL TABLET DELAYED RELEASE active Once a day Trina Hodges TYLENOL 325 MG ORAL TABLET completed 1 tab daily as needed for pain - [facility] TRAMADOL HCL 50 MG ORAL TABLET completed 1 tab daily as needed for pain - [facility] DELZICOL 400 MG ORAL CAPSULE DELAYED RELEASE active 2 caps 3x daily [facility] CENTRUM ADULTS ORAL TABLET completed 1 tab daily - [facility] FERROUS SULFATE 325 (65 FE) MG ORAL TABLET completed ONE PER DAY - [facility] ACID CONTROL MAXIMUM STRENGTH 20 MG [...] exercise, f requency, days per week yes [facility] alcohol use, average drinks per day none [facility] alcohol use no [place] caffeine use, averag e drinks per day no Dov drug use no [place] passive cigarette sm kenneth exposure no [facility] smoking status Never smoker Dov [facility] social history E&M Marital Statu s: L mihir with family/friends E thnicity: Reji Short MD social history reviewed E&M revi ewed - no changes required eRji Short MD physical exercise, f requency, days [...] alcohol use, average drinks per day none [place] alcohol use no Dov She[place] caffeine use, averag e drinks per day no [place] She[place] drug use no Dov She[place] passive [...] ation, patient education and counseling yes Lori Hrenandez MD social history reviewed E&M reviewed Devyn [...] Payer name Policy type / Coverage type [place] red libertarian ID [place] MED[place] Medicare [id number] [facility] [place] [phone] ADVANCE DIRECTIVES Name Date DISCUSSED [...] used Afrin. Counseled to avoid that as assisted solution. Reji Short MD Cardiology Reji Short MD Cardiology:Echo on a rrival for next visit. O rders: C omplete Echo ([id number]) Reji Short MD Cardiology:Elevated today. Will increase [...] Tabs (Amlodipine besylate) ..... One tab daily Reij Short MD FOLLOW UP: H er updated [...] completed EKG Reji Short MD completed SNOMED-CT: [id number] Current Medications Documented Reji Short MD completed SNOMED-CT: [id number] Physical Exam, Performed: Pulse Exam of Foot Reji Short MD completed EKG Reji Short MD completed SNOMED-CT: [id number] Current Medications Documented Reji Short MD completed EKG Reji Short MD completed EKG Reji Short MD completed EKG Reji Short MD completed Schedule Followup Lori cook MD in 2 to 3 months completed ePrescribe - Check t his box if eRx is used Reji Short MD completed EKG Reji Short MD completed
--- OUTSIDE RECORDS SUMMARY | 2025-02-01 08:58 | XMS_ITS | Continuity of Care Document ---
Author Organization [facility] Address [address] [facility] [address] [place] [address] Phone Care Team Providers Care Handle Sewer Name Role Phone Rivas Francois Unavailable Unavailable [...] Copied on Encounter Office[facility]outpat ient Visit, [facility], [address], [place], [place], [id number], [place] tel:[phone] [facility] No Information 2-201 0 Alessandro Hathaway. [address] [place] [address] , [address], [place], [place], [facility], . tel:[phone] [facility], [address] [place] [address] [address], [place], [place], [address], [place] tel:[phone] [facility] No Information 4-201 0 Alessandro Hathaway. [address] [place] [address] , [address], [place], [place], [facility], . tel:[phone] Referring Provider: Rivas Garcia, [address] [place] [address] [address], [place], [place], [facility]. tel:[phone] [facility], [address] [place] [address] [address], [place], [place], [id number], [place] tel:[phone] [facility] No Information 0-201 0 Alessandro Hathaway. [address] [place] [address] , [address], [place], [place], [facility], . tel:[phone] Referring Provider: Rivas Garcia, [address] [place], [place] [address]ate Center [address], [place], [place], [facility]. tel:[phone] [facility]pat ient Visit, [facility], [address] [place] [address] [address], [place], [place], [id number], [place] tel:[phone] [facility] No Information 8-201 0 Alessandro Hathaway. [address] [place] [address] Center , [address], [place], [facility], . tel:[phone] Office/outpat ient Visit, [facility], [address], [place], [place], [address], [place] tel:[phone] [facility] No Information Oct-0 5-200 9 Alessandro Hathaway. [address] [place], [place] [address]ate Center , [address], [place], [facility], [place]. tel:[phone] [facility], [address], [place], [place], [address], [place] tel:[phone] [facility] No Information February-2 9-200 9 Doiyuni Hathaway. [address] [place], [place] [address]ate Center , [address], [place], [facility], [place]. tel:[phone] Referring Provider: Rivas Garcia, [address] [place], [place] [address]ate Center [address], [place], [facility]. tel:[phone] [facility], [address] [place] [address] [address], [place], [place], [address], [place] tel:[phone] [facility] No Information 2 8-200 9 Alessandro Hathaway. [address] [place], [place] [address]ate Center , [address], [place], [facility], [place]. tel:[phone] Referring Provider: Rivas Garcia, [address] [place], [place] [address]ate Center [address], [place], [facility]. tel:[phone] [facility], [address] [place] [address] [address], [place], [place], [address], [place] tel:[phone] SEC [facility] No Information 2 2-200 8 Alessandro Hathaway. [address] [place], [place] [address]ate Center , [address], [place], [address], [place]. tel:[phone] Office/outpat ient Visit, Est [facility], [address], [place], [place], [address], [place] tel:[phone] [facility] No Information May-1 3-200 8 Alessandro Hathaway. [address] , [address], [place], [facility], . tel:[phone] Referring Provider: Rivas Garcia, [facility] [address], [place], [facility]. tel:[phone] [facility], [address] [place] [address] [address], [place], [place], [address], [place] tel:[phone] [facility] [place] No Information Apr-3 0-200 8 Alessandro Hathaway. [address] [place] [address] Center , [address], [place], [facility], [place]. tel:[phone] Referring Provider: Rivas Garcia, [address] [place], [place] [address]ate Center [address], [place], [facility]. tel:[phone] [facility], [address] [place] [address] [address], [place], [place], [id number], tel:[phone] [facility] No Information Apr-1 5-200 8 Alessandro Hathaway. [address] [place] [address] , [address], [place], [facility], [place]. tel:[phone] Referring Provider: Rivas Garcia, [address] [place], [place] [address]ate Center [address], [place], [facility]. tel:[phone] Office/outpat ient Visit, [facility], [address] [place] [address] [address], [place], [place], [id number], [place] tel:[phone] [facility] No Information Dec-1 0-200 7 Alessandro Hathaway. [address] [place] [address] Center , [address], [place], [facility], [place]. tel:[phone] Office/outpat ient Visit, [facility], [address] [place] [address] [address], [place], [place], [address], [place] tel:[phone] [facility] No Information Naren-0 9-200 7 Alessandro Hathaway. [facility] [place], [address], [place], [facility], . tel:[phone] Referring Provider: Adalgisa [facility] [address], [place], [facility]. tel:[phone] [facility], [address] [place] [address] [address], [place], [place], [address], tel:[phone] [facility] No Information Mar-1 3-200 7 Alessandro Hathaway. Adalgisa [facility] [address], [place], [facility], . tel:[phone] Referring Provider: Adalgisa [facility] [address], [place], [facility]. tel:[phone] [facility], [address] [place] [address] [address], [place], [place], [address], tel:[phone] [facility] No Information Mar-0 7-200 7 Alessandro Hathaway. [facility] [address], [place], [facility], . tel:[phone] Referring Provider: Adalgisa [facility] [address], [place], [facility]. tel:[phone] Family History Family Member Type Diagnosis Age At Onset No Information Payers Payer name Insurance type Covered alliance party ID Authorluisa aubree(s) [place] [id number] Social History Type Description Quantity Date Captured [...]
--- OUTSIDE RECORDS SUMMARY | 2025-02-01 08:58 | XMS_ITS | Continuity of Care Document ---
Author Organization [facility] Address [address] [place] [address] Phone Care Team Providers Care Sugar Trucker Name Role Phone Kayla Calloway Unavailable Unavaila ble Advance Directives Directive Yes / No Effective Date File Name No Information Encounters Encounter Description Practice Location Reason(s) For Visit Diagnoses Date Provider Providers Copied on Encounter [facility], [address], [place], [place], [address], [place] tel:[phone] [facility] No Information Claudio Garza. [address] , [facility] [address], [place], [place], [address], [place]. tel:[phone] Family History Family Member Type Diagnosis Age [...]
[2025-02-01 09:24] LABS: Basophils Absolute Auto 0.2 K/mm3 (0.0-0.1); Basophils Percent Auto 2.2 % (0.2-1.2); Eosinophils Absolute Auto 0.5 K/mm3 (0-0.3); Eosinophils Percent Auto 6.1 % (0-4.4); Hematocrit 38.1 % (37.0-47.0); Hemoglobin 11.6 g/dL (12.0-15.0); Immature Granulocyte Absolute 0.03 K/mm3 (0.00-0.031); Immature Granulocyte Percent A 0.4 % (0-0.5); Lymphocytes Absolute Auto 1.74 K/mm3 (0.9-3.2); Lymphocytes Percent Auto 23.5 % (18.3-44.2); Mean Corpuscular HGB Conc 30.4 g/dl (32-36); Mean Corpuscular Hemoglobin 25.2 pg (26-34); Mean Corpuscular Volume 82.6 fl (80-100); Mean Platelet Volume 10.4 fl (7.4-10.4); Monocytes Absolute Auto 1.1 K/mm3 (0.1-0.6); Monocytes Percent Auto 15.2 % (2.6-8.5); Neutrophils Absolute Auto 3.9 K/mm3 (1.3-6.7); Neutrophils Percent Auto 52.6 % (45.5-73.1); Platelet Count Result 416 k/mm3 (150-375); Red Blood Count 4.61 M/mm3 (4.2-5.4); Red Cell Distribution Width 16.7 % (11.5-14.5); White Blood Count 7.4 K/mm3 (4.5-10.0)
[2025-02-01 09:37] LABS: Alanine Aminotransferase 16 U/L (6-35); Albumin Level 4.2 g/dL (3.5-5.1); Alkaline Phosphatase 93 U/L (38-126); Anion Gap 7 mmol/L (4-12); Aspartate Amino Transferase 24 U/L (14-36); Bilirubin,Total 0.7 mg/dL (0.2-1.3); Blood Urea Nitrogen 13 mg/dL (7-17); CRP 0.7 mg/dL (<1.0); Calcium 9.6 mg/dL (8.4-10.2); Carbon Dioxide 25 mmol/L (22-30); Chloride 104 mmol/L (98-107); Cholesterol 165 mg/dL (0-200); Estimated Glomerular Filt Rate 52; Glucose 97 mg/dL (65-110); HDL Direct 59 mg/dL; Potassium 4.4 mmol/L (3.4-5.0); Sodium 136 mmol/L (137-145); Triglycerides 143 mg/dL (<150)
[2025-02-01 09:47] LABS: LDL Cholesterol Direct 64 mg/dL
== END 2025-02-01 08:38 | disposition home or self-care (01) ==
PROVIDERS: PCP Internal Medicine; Visit Provider Internal Medicine
DX: I10 Essential (primary) hypertension (principal); K21.9 Gastro-esophageal reflux disease without esophagitis; K51.90 Ulcerative colitis, unspecified, without complications
CPT/HCPCS: 36415; 80053; 80061; 82607; 83735; 84439; 84443; 85025; 86140

== ENCOUNTER 2025-02-17 12:33 | Outpatient (CLI) | payer MEDICARE, OTHER, SELFPAY ==
--- NOTE | ~2025-02-17 | XR_ITS ---
XR abdomen/kub 1V Ordering provider: Tosin Marie APRN History: . f/u fecal impaction . Comparison: January 15, 2025 FINDINGS: BOWEL: Nonobstructive bowel gas pattern. Fecal material is loaded in the colon. ORGANOMEGALY: None. SIGNIFICANT PATHOLOGIC CALCIFICATIONS: None. OTHER: No free air is seen under the diaphragm. Degenerative changes of the spine. Pubic symphysitis. IMPRESSION: NO ACUTE ABDOMINAL FINDINGS. Constipation. Reviewed, dictated and finalized at location A.
--- OUTSIDE RECORDS SUMMARY | 2025-02-17 13:27 | XMS_ITS | Clinical Summary ---
Author Organization [facility] Address [address] [place] [address] Care Team Providers Care Pharmacy Tech Name Role Phone Tanvir Davalos MD Primary Care Provider [phone] Source Comments [facility],non-owned Affiliates and Associated Physician Practices is amultiple site organization consisting of ambulatory clinics and hospital sitesin [place], [place], [place] and [place]. This disclosure is being madepursuant to the Care Everywhere program and may not contain all information available regarding this patient. 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
--- OUTSIDE RECORDS SUMMARY | 2025-02-17 13:27 | XMS_ITS | Clinical Summary ---
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 Gender Identity Not on file Sexual Orientation Not on file Obstetrics History Last Filed Vital Signs Vital Sign Reading Time Taken Comments Blood Pressure 142/76 09/28/2024 10:56 AM CORPORATE ACCOUNT EXECUTIVE Pulse 64 09/28/2024 10:56 AM CORPORATE ACCOUNT EXECUTIVE Temperature 36.2 C (97.2 F) 04/27/2022 10:59 AM CDT Respiratory Rate 16 03/10/2021 11:00 AM CDT Oxygen Saturation 95% 09/28/2024 10:56 AM CORPORATE ACCOUNT EXECUTIVE Inhaled Oxygen Concentration - - Weight 90.3 kg (199 lb) 09/28/2024 10:56 AM CORPORATE ACCOUNT EXECUTIVE Height 172.7 cm (5' 8 ) 09/28/2024 10:56 AM CORPORATE ACCOUNT EXECUTIVE Body Mass Index 30.26 09/28/2024 10:56 AM CORPORATE ACCOUNT EXECUTIVE Plan of Treatment Health Maintenance Due Date [...] 02/27/202707/2017, 02/27/2017 Medical Devices Implanted Type Area Property Caretaker Device Identifier Shelf Expiration Date Model / Serial / Lot [employer]/C R Bard [id number] Bard [id number] Monofilament Soft Lightweight Low Profile Square - [id number] - [id number] Implanted:Qty: 1 on 03/09/2021 by Jesu Breen MD at [facility] Mesh N/A: Abdomen [employer] [id number] 10/17/2025 [id number] / [id number] / [id number] Insurance MEDICARE [facility] MEDICARE MEDICARE [facility] [place] [address] Advance Directives For more information, please contact: [phone] * Full Code (Latest Code Status on File) Date Activated Date Inactivated Comments 03/09/2021 3:21 PM 03/10/2021 6:44 PM Care Teams Guest Relations Representative Relationship Specialty Start Date End Date Tanvir Davalos MD [address] [facility] [address] [address] PCP - General Internal Medicine 08/21/19
--- OUTSIDE RECORDS SUMMARY | 2025-02-17 13:27 | XMS_ITS | Referral Summary ---
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 Gender Identity Not on file Sexual Orientation Not on file Last Filed Vital Signs Vital Sign Reading Time Taken Comments Blood Pressure 142/76 09/28/2024 10:56 AM RADIAL DRILL PRESS OPERATOR Pulse 64 09/28/2024 10:56 AM RADIAL DRILL PRESS OPERATOR Temperature 36.2 C (97.2 F) 04/27/2022 10:59 AM CDT Respiratory Rate 16 03/10/2021 11:00 AM CDT Oxygen Saturation 95% 09/28/2024 10:56 AM RADIAL DRILL PRESS OPERATOR Inhaled Oxygen Concentration - - Weight 90.3 kg (199 lb) 09/28/2024 10:56 AM RADIAL DRILL PRESS OPERATOR Height 172.7 cm (5' 8 ) 09/28/2024 10:56 AM RADIAL DRILL PRESS OPERATOR Body Mass Index 30.26 09/28/2024 10:56 AM RADIAL DRILL PRESS OPERATOR Plan of Treatment Not on file Medical Devices Implanted Type Area Rn Document Improvement Device Identifier Shelf Expiration Date Model / Serial / Lot [employer]/C R Bard [id number] Bard [id number] Monofilament Soft Lightweight Low Profile Square - [id number] - [id number] Implanted:Qty: 1 on 03/09/2021 by Jesu Breen MD at [facility] Mesh N/A: Abdomen [employer] [id number] 10/17/2025 [id number] / [id number] / [id number] Insurance MEDICARE [facility] MEDICARE MEDICARE [facility] Advance Directives For more information, please contact: [phone] * Full Code (Latest Code Status on File) Date Activated Date Inactivated Comments 03/09/2021 3:21 PM 03/10/2021 6:44 PM Care Teams Ethologist Relationship Specialty Start Date End Date Tanvir Davalos MD [address] [facility] [address] [place] [address] PCP - General Internal Medicine 08/21/19
--- OUTSIDE RECORDS SUMMARY | 2025-02-17 13:28 | XMS_ITS | Data Portability ---
Author Organization [place] [employer], Main Office Address [address] [place] [address] Assessment No assessment recorded. Plan of Treatment Reminders Order Date Submit Date Provider Last Modified By Organization Details Last Modified Time Details Appointments None recorded. Lab C-reactive protein, quantitativ e, serum or plasma 2024 025 [email or web address] [facility] - Outpatient Lab, [address] [place], [address], 5 10:05:00 magnesium, serum or plasma 2024 025 [email or web address] [facility] - Outpatient Lab, [address] [place], [address], 5 10:05:00 vitamin B12, serum [email or web address] [place] [address] Outpatient Lab, [address] [place], [address], 5 10:05:00 CBC w/ auto diff [email or web address] [place] [address] - Outpatient Lab, [address] [place], [address], 5 10:04:59 CMP, serum or plasma [id number] [place] [address] - Outpatient Lab, [address] [place], [address], 5 10:04:59 lipid panel, serum [email or web address] [place] [address] Outpatient Lab, [address] [place], [address], 5 10:04:59 TSH, serum or plasma 2024 025 [email or web address] [facility] Outpatient Lab, [address] [place], [address], 5 10:04:59 T4, free, serum 2024 025 [email or web address] [facility] Outpatient Lab, [address] [place], [address], 5 10:04:59 vitamin B12, serum 2023 024 [email or web address] [facility] Outpatient Lab, [address] [place], [address], 4 10:39:33 magnesium, serum or plasma 2023 024 [email or web address] [facility] Outpatient Lab, [address] [place], [address], 4 10:39:34 lipid panel, serum 2023 024 [facility] Outpatient Lab, [address] [place], [address], 4 10:39:33 CMP, serum or plasma 2023 024 [facility] Outpatient Lab, [address] [place], [address], 4 10:39:33 CBC w/ auto diff 2023 [facility] [address] [place], [address], 4 13:04:40 CMP, serum or plasma 2023 024 [facility] Outpatient Lab, [address] [place], [address], 4 13:30:49 amylase + lipase, serum 2023 024 [email or web address] [facility] - Outpatient Lab, [address], [place], [address], 4 09:51:02 Referral None recorded. Procedures None recorded. Surgeries None recorded. Imaging None recorded. Medication Orders doxycycline hyclate 100 mg capsule 2023 024 [email or web address] [id number], [address], [place], [place], [id number], 5 11:25:27 Patient TargetsNo targets recorded. Patient Instructions Encounter Date Encounter Id Patient Instructions Last Modified By Organization Details Last Modified Time 01/06/2024 [id number] Abdominal pain, coronary artery disease, hypertension and [...] abdominal pain. Keep Appt: Sat 09[email or web address] 01/06/2024 16:09:23 01/24/2024 [id number] Follow-up hypertension, paroxysmal atrial fibrillation, hyperlipidemia and [...] recognize, using context, where substitutions have occurred. [email or web address] Not available 01/24/2024 15:12:30 04/28/2024 [id number] Follow-up talbert ry artery disease, paroxysmal atrial [...] have occurred. Not available 04/28/2024 10:55:01 09/01/2024 [id number] Follow-up talbert ry artery disease, essential hypertension, [...] recognize, using context, where substitutions have occurred. [email or web address] Not available 09/01/2024 11:45:56 12/29/2024 [id number] Essential hypertension, paroxysmal atrial fibrillation, GERD and [...] Created: Tanvir Davalos M.D. 12.29.2024 10:41 AM [email or web address] Not available 12/29/2024 11:41:42 Reason for Referral None Reported. Results Created Date Observation Date Name Description Value Unit Range Abnormal Flag Note LastModifiedBy Organization Detail LastModifiedTime 01/07/2001/07/2024 CBC/C OMPLE TE BLD COUNT W/DIF F white blood cells 8.8 x10'3 /uL 4.2-10 .8 Not Available [facility] (Lab) [address] [place], [address], 01/07/2024 13:04:40 01/07/20 24 01/07/2024 CBC/C OMPLE TE BLD COUNT W/DIF F red blood cells 4.58 x10'6 /uL 3.80-5 .20 Not Available [facility] (Lab) [address] [place], [address], 01/07/2024 13:04:40 01/07/20 24 01/07/2024 CBC/C OMPLE TE BLD COUNT W/DIF F hemoglobin 12.0 g/dL 12.0-1 5.6 Not Available [facility] (Lab) [address] [place], [address], 01/07/2024 13:04:40 01/07/20 24 01/07/2024 CBC/C OMPLE TE BLD COUNT W/DIF F hematocrit 39.1 % 35.7-4 5.7 Not Available [facility] (Lab) [address] [place], [address], 01/07/2024 13:04:40 01/07/20 24 01/07/2024 CBC/C OMPLE TE BLD COUNT W/DIF F mean red cell volume 85.4 fL 82.0-9 9.0 Not Available [facility] (Lab) [address] [place], [address], 01/07/2024 13:04:40 01/07/20 24 01/07/2024 CBC/C OMPLE TE BLD COUNT W/DIF F mean red cell hemoglobin 26.2 pg 27.0-3 3.0 low Not Available [facility] (Lab) [address] [place], [address], 01/07/2024 13:04:40 01/07/20 24 01/07/2024 CBC/C OMPLE TE BLD COUNT W/DIF F mean RBC HGB concentratio n 30.7 g/dL 31.0-3 6.0 low Not Available [facility] (Lab) [address] [place], [address], 01/07/2024 13:04:40 01/07/20 24 01/07/2024 CBC/C OMPLE TE BLD COUNT W/DIF F red cell distribution width 16.5 % 11.8-1 5.5 high Not Available [facility] (Lab) [address] [place], [address], 01/07/2024 13:04:40 01/07/20 24 01/07/2024 CBC/C OMPLE TE BLD COUNT W/DIF F platelets 443 x10'3 /uL 150-40 0 high Not Available [facility] (Lab) [address] [place], [address], 01/07/2024 13:04:40 01/07/20 24 01/07/2024 CBC/C OMPLE TE BLD COUNT W/DIF F mean platelet volume 11.5 fL 9.0-12 .4 Not Available [facility] (Lab) [address] [place], [address], 01/07/2024 13:04:40 01/07/20 24 01/07/2024 CBC/C OMPLE TE BLD COUNT W/DIF F neutrophils 61.0 % 39.0-7 2.0 Not Available [facility] (Lab) [address] [place], [address], 01/07/2024 13:04:40 01/07/20 24 01/07/2024 CBC/C OMPLE TE BLD COUNT W/DIF F lymphocytes 22.4 % 16.0-4 7.0 Not Available [facility] (Lab) [address] [place], [address], 01/07/2024 13:04:40 01/07/20 24 01/07/2024 CBC/C OMPLE TE BLD COUNT W/DIF F monocytes 11.6 % 5.0-12 .0 Not Available [facility] (Lab) [address] [place], [address], 01/07/2024 13:04:40 01/07/20 24 01/07/2024 CBC/C OMPLE TE BLD COUNT W/DIF F eosinophils 3.0 % 1.0-7. 0 Not Available [facility] (Lab) [address] [place], [address], 01/07/2024 13:04:40 01/07/20 24 01/07/2024 CBC/C OMPLE TE BLD COUNT W/DIF F basophils 1.7 % 0.0-2. 0 Not Available [facility] (Lab) [address] [place], [address], 01/07/2024 13:04:40 01/07/20 24 01/07/2024 CBC/C OMPLE TE BLD COUNT W/DIF F immature granulocytes 0.3 % 0.00-0 .50 Not Available [facility] (Lab) [address] [place], [address], 01/07/2024 13:04:40 01/07/20 24 01/07/2024 CBC/C OMPLE TE BLD COUNT W/DIF F neutrophils, absolute count 5.34 x10'3 /uL 1.5-8. 0 Not Available [facility] (Lab) [address] [place], [address], 01/07/2024 13:04:40 01/07/20 24 01/07/2024 CBC/C OMPLE TE BLD COUNT W/DIF F lymphocytes, absolute count 1.96 x10'3 /uL 1.07-3 .43 Not Available [facility] (Lab) [address] [place], [address], 01/07/2024 13:04:40 01/07/20 24 01/07/2024 CBC/C OMPLE TE BLD COUNT W/DIF F monocytes, absolute count 1.02 x10'3 /uL 0.29-0 .99 high Not Available [facility] (Lab) [address] [place], [address], 01/07/2024 13:04:40 01/07/20 24 01/07/2024 CBC/C OMPLE TE BLD COUNT W/DIF F eosinophils, absolute count 0.26 x10'3 /uL 0.02-0 .53 Not Available [facility] (Lab) [address] [place], [address], 01/07/2024 13:04:40 01/07/20 24 01/07/2024 CBC/C OMPLE TE BLD COUNT W/DIF F basophils, absolute count 0.15 x10'3 /uL 0.01-0 .08 high Not Available [facility] (Lab) [address] [place], [address], 01/07/2024 13:04:40 01/07/20 24 01/07/2024 CBC/C OMPLE TE BLD COUNT W/DIF F immature granulocytes ,absolute 0.03 x10'3 /uL 0.00-0 .05 Not Available [facility] (Lab) [address] [place], [address], 01/07/2024 13:04:40 01/07/20 24 01/07/2024 CBC/C OMPLE TE BLD COUNT W/DIF F nucleated red blood cells 0.0 % -0 Not Available [facility] (Lab) [address] [place], [address], 01/07/2024 13:04:40 01/07/20 24 01/07/2024 CBC/C OMPLE TE BLD COUNT W/DIF F NRBC# 0.00 x10'3 /uL Not Available [facility] (Lab) [address] [place], [address], 01/07/2024 13:04:40 01/07/20 24 01/07/2024 COMPR EHENS SUNSHINE METAB OLIC PANEL sodium 139 mmol/ L 137-14 5 Not Available [facility] (Lab) [address] [place], [address], 01/07/2024 13:30:49 01/07/20 24 01/07/2024 COMPR EHENS SUNSHINE METAB OLIC PANEL potassium 5.1 mmol/ L 3.5-5. 1 Not Available [facility] (Lab) [address] [place], [address], 01/07/2024 13:30:49 01/07/20 24 01/07/2024 COMPR EHENS SUNSHINE METAB OLIC PANEL chloride 104 mmol/ L 98-107 Not Available [facility] (Lab) [address] [place], [address], 01/07/2024 13:30:49 01/07/20 24 01/07/2024 COMPR EHENS SUNSHINE METAB OLIC PANEL carbon dioxide 27 mmol/ L 22-30 Not Available [facility] (Lab) [address] [place], [address], 01/07/2024 13:30:49 01/07/20 24 01/07/2024 COMPR EHENS SUNSHINE METAB OLIC PANEL anion gap 13.1 mmol/ L 14-22 low Not Available [facility] (Lab) [address] [place], [address], 01/07/2024 13:30:49 01/07/20 24 01/07/2024 COMPR EHENS SUNSHINE METAB OLIC PANEL glucose 107 mg/dL 70-99 high Not Available [facility] (Lab) [address] [place], [address], 01/07/2024 13:30:49 01/07/20 24 01/07/2024 COMPR EHENS SUNSHINE METAB OLIC PANEL BUN 13 mg/dL 8-19 Not Available [facility] (Lab) [address] [place], [address], 01/07/2024 13:30:49 01/07/20 24 01/07/2024 COMPR EHENS SUNSHINE METAB OLIC PANEL creatinine 0.92 mg/dL 0.66-1 .25 Not Available [facility] (Lab) [address] [place], [address], 01/07/2024 13:30:49 01/07/20 24 01/07/2024 COMPR EHENS SUNSHINE METAB OLIC PANEL GFR 58 Refer ence Range : Gordon ge GFR Healt hy Adult : >60 [...] calcu lator is avail able on the [facility] websi te: https ://ww w.kid conor.o rg/pr ofess ional s/kdo qi/gf r_cal culat or Not Available [facility] (Lab) [address] [place], [address], 01/07/2024 13:30:49 01/07/20 24 01/07/2024 COMPR EHENS SUNSHINE METAB OLIC PANEL alkaline phosphatase 92 U/L 38-126 Not Available [facility] (Lab) [address] [place], [address], 01/07/2024 13:30:49 01/07/20 24 01/07/2024 COMPR EHENS SUNSHINE METAB OLIC PANEL alanine aminotransfe rase 42 U/L 0-35 high Not Available [facility] (Lab) [address] [place], [address], 01/07/2024 13:30:49 01/07/20 24 01/07/2024 COMPR EHENS SUNSHINE METAB OLIC PANEL aspartate aminotransfe rase 42 U/L 15-37 high Not Available [facility] (Lab) [address] [place], [address], 01/07/2024 13:30:49 01/07/20 24 01/07/2024 COMPR EHENS SUNSHINE METAB OLIC PANEL bilirubin, total 1.30 mg/dL 0.20-1 .30 Not Available [facility] (Lab) [address] [place], [address], 01/07/2024 13:30:49 01/07/20 24 01/07/2024 COMPR EHENS SUNSHINE METAB OLIC PANEL calcium 9.9 mg/dL 8.4-10 .2 Not Available [facility] (Lab) [address] [place], [address], 01/07/2024 13:30:49 01/07/20 24 01/07/2024 COMPR EHENS SUNSHINE METAB OLIC PANEL total protein 7.5 g/dL 6.3-8. 2 Not Available [facility] (Lab) [address] [place], [address], 01/07/2024 13:30:49 01/07/20 24 01/07/2024 COMPR EHENS SUNSHINE METAB OLIC PANEL albumin 4.6 g/dL 3.0-4. 4 high Not Available [facility] (Lab) [address] [place], [address], 01/07/2024 13:30:49 01/07/20 24 01/07/2024 COMPR EHENS SUNSHINE METAB OLIC PANEL globulin 2.9 g/dL 2.6-4. 2 Not Available [facility] (Lab) [address] [place], [address], 01/07/2024 13:30:49 01/07/20 24 01/07/2024 COMPR EHENS SUNSHINE METAB OLIC PANEL A/G ratio 1.6 ratio 1.0-2. 0 Not Available [facility] (Lab) [address] [place], [address], 01/07/2024 13:30:49 01/07/20 24 01/07/2024 AMYLA SE SERUM amylase 38 U/L 30-110 Not Available [facility] (Lab) [address] [place], [address], 01/07/2024 13:30:51 01/07/20 24 01/07/2024 LIPAS E SERUM lipase 50 U/L 23-300 Not Available [facility] (Lab) [address] [place], [address], 01/07/2024 13:30:55 01/07/20 24 01/07/2024 CREAT ININE , I-STA T creatinine 1.0 mg/dL 0.6-1. 3 Not Available [facility] (Lab) [address] [place], [address], 01/09/2024 10:35:05 05/14/20 24 05/14/2024 LIPID PANEL cholesterol 205 mg/dL 140-19 9 high NIH HANG NSUS RECOM MENDA TION FOR JAYLIN STERO L: ADULT CHILD LOW RISK: <200 <170 BORDE RLINE : <200- 239 ----- HIGH RISK: >240 >200 Not Available [facility] (Lab) [address] [place], [address], 05/14/2024 13:15:24 05/14/20 24 05/14/2024 LIPID PANEL triglyceride s 160 mg/dL 0-150 high NIH HANG NSUS REPOR T RECOM MENDA TION FOR TRIGL YCERI MICHAEL: ADULT CHILD LOW RISK: <150 ----- BODER LINE: 150-1 99 ----- HIGH RISK: >200 ----- Not Available [facility] (Lab) [address] [place], [address], 05/14/2024 13:15:24 05/14/20 24 05/14/2024 LIPID PANEL HDL cholesterol 64 mg/dL 40- Not Available [facility] (Lab) [address] [place], [address], 05/14/2024 13:15:24 05/14/20 24 05/14/2024 LIPID PANEL [...] BE REPOR ERIN. Not Available [facility] (Lab) [address] [place], [address], 05/14/2024 13:15:24 05/14/20 24 05/14/2024 COMPR EHENS SUNSHINE METAB OLIC PANEL sodium 138 mmol/ L 137-14 5 Not Available [facility] (Lab) [address] [place], [address], 05/14/2024 13:15:30 05/14/20 24 05/14/2024 COMPR EHENS SUNSHINE METAB OLIC PANEL potassium 4.7 mmol/ L 3.5-5. 1 Not Available [facility] (Lab) [address] [place], [address], 05/14/2024 13:15:30 05/14/20 24 05/14/2024 COMPR EHENS SUNSHINE METAB OLIC PANEL chloride 107 mmol/ L 98-107 Not Available [facility] (Lab) [address] [place], [address], 05/14/2024 13:15:30 05/14/20 24 05/14/2024 COMPR EHENS SUNSHINE METAB OLIC PANEL carbon dioxide 26 mmol/ L 22-30 Not Available [facility] (Lab) [address] [place], [address], 05/14/2024 13:15:30 05/14/20 24 05/14/2024 COMPR EHENS SUNSHINE METAB OLIC PANEL anion gap 9.7 mmol/ L 14-22 low Not Available [facility] (Lab) [address] [place], [address], 05/14/2024 13:15:30 05/14/20 24 05/14/2024 COMPR EHENS SUNSHINE METAB OLIC PANEL glucose 101 mg/dL 70-99 high Not Available [facility] (Lab) [address] [place], [address], 05/14/2024 13:15:30 05/14/20 24 05/14/2024 COMPR EHENS SUNSHINE METAB OLIC PANEL BUN 30 mg/dL 8-19 high Not Available [facility] (Lab) [address] [place], [address], 05/14/2024 13:15:30 05/14/20 24 05/14/2024 COMPR EHENS SUNSHINE METAB OLIC PANEL creatinine 1.20 mg/dL 0.66-1 .25 Not Available [facility] (Lab) [address] [place], [address], 05/14/2024 13:15:30 05/14/20 24 05/14/2024 COMPR EHENS SUNSHINE METAB OLIC PANEL GFR 43 Refer ence Range : Gordon ge GFR Healt hy Adult : >60 [...] or ethni c subgr oups, such as [facility] nics. Outsi de the valid ated [...] calcu lator is avail able on the [facility] websi te: https :[email or web address] munoz.zuleika perdomo.o nyasia/pr hinaess ional s/kdo qi/gf r_cal culat or Not Available [facility] (Lab) [address] [place], [address], 05/14/2024 13:15:30 05/14/20 24 05/14/2024 COMPR EHENS SUNSHINE METAB OLIC PANEL alkaline phosphatase 132 U/L 38-126 high Not Available [facility] (Lab) [address] [place], [address], 05/14/2024 13:15:30 05/14/20 24 05/14/2024 COMPR EHENS SUNSHINE METAB OLIC PANEL alanine aminotransfe rase 14 U/L 0-35 Not Available [facility] (Lab) [address] [place], [address], 05/14/2024 13:15:30 05/14/20 24 05/14/2024 COMPR EHENS SUNSHINE METAB OLIC PANEL aspartate aminotransfe rase 27 U/L 15-37 Not Available [facility] (Lab) [address] [place], [address], 05/14/2024 13:15:30 05/14/20 24 05/14/2024 COMPR EHENS SUNSHINE METAB OLIC PANEL bilirubin, total 0.90 mg/dL 0.20-1 .30 Not Available [facility] (Lab) [address] [place], [address], 05/14/2024 13:15:30 05/14/20 24 05/14/2024 COMPR EHENS SUNSHINE METAB OLIC PANEL calcium 10.1 mg/dL 8.4-10 .2 Not Available [facility] (Lab) [address] [place], [address], 05/14/2024 13:15:30 05/14/20 24 05/14/2024 COMPR EHENS SUNSHINE METAB OLIC PANEL total protein 7.8 g/dL 6.3-8. 2 Not Available [facility] (Lab) [address] [place], [address], 05/14/2024 13:15:30 05/14/20 24 05/14/2024 COMPR EHENS SUNSHINE METAB OLIC PANEL albumin 4.4 g/dL 3.0-4. 4 Not Available [facility] (Lab) [address] [place], [address], 05/14/2024 13:15:30 05/14/20 24 05/14/2024 COMPR EHENS SUNSHINE METAB OLIC PANEL globulin 3.4 g/dL 2.6-4. 2 Not Available [facility] (Lab) [address] [place], [address], 05/14/2024 13:15:30 05/14/20 24 05/14/2024 COMPR EHENS SUNSHINE METAB OLIC PANEL A/G ratio 1.3 ratio 1.0-2. 0 Not Available [facility] (Lab) [address] [place], [address], 05/14/2024 13:15:30 05/14/20 24 05/14/2024 MAGNE SIUM magnesium 2.1 mg/dL 1.6-2. 3 Not Available [facility] (Lab) [address] [place], [address], 05/14/2024 13:15:34 05/14/20 24 05/14/2024 VITAM IN B12 (AUGUST FERMIN ) vb12 426 pg/mL 239-93 1 Not Available [facility] (Lab) [address] [place], [address], 05/14/2024 14:18:48 12/12/19 24 12/12/2023 XR, hand No observ ation record ed. 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 During the uneven [...] [facility] [address] [place] [address] Patien t Name: NIKKY DAMON Access ion #: [id number] Sex: F : 1939 3 Dictat [...] c steato sis All CT scans at [facility] are perfor med [...] at 2023 08:02: 05 AM Page [address] (Imaging) [address], [place], [address], 01/08/2024 09:05:58 01/13/20 24 01/13/2024 XR, chest , 1 view No observ ation record ed. [address] [facility], [place], [address], 01/14/2024 07:56:45 01/13/20 24 01/13/2024 CT, chest , w/ contr ast No observ ation record ed. [address] [address], [place], [address], 01/14/2024 08:01:25 01/14/20 24 01/14/2024 US, echo ardio gram No observ ation record ed. [address] [address], [place], [address], 01/14/2024 16:53:27 01/24/20 24 elect giovanna hoffmanngr am No observ ation record ed. [place] [id number] Not Available 2023 15:46:26 07/16/20 24 06/23/2024 sleep study , diagn ostic (PROC ) No observ ation record ed. [address] [address], [place], [address], 07/16/2024 14:27:19 09/28/20 24 09/01/2024 sleep study , diagn ostic (PROC ) No observ ation record ed. [address], [place], [address], 09/28/2024 17:44:11 01/16/20 25 01/15/2025 XR, abdom en No observ ation record ed. [address] [address], [place], [address], 01/19/2025 09:09:42 Result Notes None recorded. 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 Not Available [facility] 4 23:36:51 Gastroesop hageal reflux disease 979739174 Active Not Available [facility] 4 23:36:51 Gastroesop hageal reflux disease without esophagiti s 431176678 Active Not Available [facility] 4 23:36:51 Anemia 140029018 Active Not Available [facility] 4 23:36:51 Knee pain Active Not Available [facility] 4 23:36:52 Restless legs 07333016 Active 2021 Not Available [facility] 4 23:36:52 Umbilical hernia 885942538 Active Not Available [facility] 4 23:36:52 Nausea 083045058 Active 2021 Not Available [facility] 4 23:36:52 Clostridiu m difficile colitis 632428982 Active Not Available [facility] 4 23:36:52 Coronary arterioscl erosis 23691992 Active Not Available [facility] 4 23:36:52 Essential hypertensi on 03009407 Active Not Available [facility] 4 23:36:52 Ulcerative colitis 20826331 Active Not Available [facility] 4 23:36:52 Hemorrhoid s 19056262 Active Not Available [facility] 4 23:36:52 Lightheade dness 533231204 Active 2022 Not Available [facility] 4 23:36:52 Obese class I 2066816654563 07 Active 2022 Not Available [facility] 4 23:36:52 Insomnia 661363225 Active 2022 Not Available [facility] 4 23:36:51 Anxiety 55276333 Active 2022 Not Available [facility] 4 23:36:52 Chronic insomnia 696309480 Active 2022 Not Available [facility] 4 23:36:52 Acute sinusitis 86587819 Active 2022 Not Available [facility] 4 23:36:51 Left lower quadrant pain 289574347 Active 2023 Tanvir Davalos MD [address], [place], [address] , [facility] 4 16:04:13 Gastroente ritis 27471122 Active 2023 Leena Bolton CMA null, [facility] 4 11:29:35 Atrial fibrillati on 36894077 Active 2023 Tanvir Davalos MD [address], [address], [place], [address] , [facility] 4 15:06:42 Abscess of face 585078930 Active 2023 Tanvir Davalos MD [address], [address], [place], [address] , [facility] 4 11:46:39 Problem Notes None recorded. Procedures Surgical History Date Name Laterality Status Provider Name and Address Organization Details Recorded Time 09/17/20 Medicare Wellness CPT Code, subsequent completed Greer Gong RN [facility] [employer] 09/17/2023 11:01:34 02/07/20 Date of Last Colonoscopy completed Not Available Formerly [facility], [facility]–1983 12/19/2022 05:54:09 Imaging Results Imaging Date Name Status LastModified by Organization Details LastModified Time 12/12/2023 XR, hand completed [place] [address], [place], [address], 12/13/2023 08:01:26 01/08/2024 CT, abdomen + pelvis, w/ contrast completed [address] (Imaging) [address] [place], [address], 01/08/2024 09:05:58 01/13/2024 XR, chest, 1 view [address], [address], 01/14/2024 07:56:45 01/13/2024 CT, chest, w/ contrast completed [address], [address], 01/14/2024 08:01:25 01/14/2024 US, echocardiogram completed [address], [address], 01/14/2024 16:53:27 01/24/2024 electrocardiogram completed [place] [address] Informa tion not available 01/24/2024 15:46:26 06/23/2024 sleep study, diagnostic (PROC) completed [address], [address], 07/16/2024 14:27:19 09/01/2024 sleep study, diagnostic (PROC) completed [address], [address], 09/28/2024 17:44:11 01/15/2025 XR, abdomen completed [address], [address], 01/19/2025 09:09:42 Procedure Notes None recorded. Medical Equipment None Reported. Allergies Allergen ID Allergen Name Allergen Category Reaction Reaction Severity Criticality Documentation Date Start Date Code Code System Note Provider Name and Address Organization Details Recorded Time 51369 Plavix medicatio n Not available Not available Not available 12/19/2022 70087 2 RxNorm bleed ing Not Available [employer] 3 06:04:11 76961 Demerol medicatio n vomiting severe Not available 12/19/2022 99157 1 RxNorm Not Available [facility], [facility]–1983 3 06:04:11 49074 Product containin g angiotens in II receptor antagonis t (product) medicatio n cough Not available Not available 12/19/2022 21150 008 SNOMED Not Available [facility], [facility] 3 06:04:11 56533 Product containin g angiotens in-conver ting enzyme inhibitor (product) medicatio n cough Not available Not available 12/19/2022 12180 009 SNOMED Not Available [facility], [facility] 3 06:04:12 68782 aspirin medicatio n Not available Not available Not available 12/19/2022 1191 RxNorm bleed ing Not Available [facility], [facility] 3 06:04:12 Medications Name Sig Start Date [...] azelastine 137 mcg (0.1 %) nasal spray Maynard 2 sprays twice a day by intranasa [...] completed Not Available Not Available Not Available [place] 5 mg-325 mg tablet Take 1 tablet [...] mg-100 mg tablets in a dose pack (Moderate Renal Dose) TAKE 1 TABLET (NIRMATRE LVIR) + [...] Updated DateTime 4 172.72 cm 30.9 kg/m2 39996.2 5 g 108 /min 98.1 [degF] 94 % 94 % 120 mm[Hg] 64 mm[Hg] Jayde Montez [employer] 4 15:59:08 Date Recorded Body height Body mass index (BMI) Body weight Heart rate Body temperature Oxygen saturation Oxygen saturation in Arterial blood by Pulse oximetry Systolic blood pressure Diastolic blood pressure Provider Name and Address Organization Details Last Updated DateTime 4 172.72 cm 29.6 kg/m2 93040.5 1 g 92 /min 97 [degF] 96 % 96 % 102 mm[Hg] 78 mm[Hg] Jayde Montez [employer] 4 14:45:37 Date Recorded Body height Body mass index (BMI) Body weight Heart rate Body temperature Oxygen saturation Oxygen saturation in Arterial blood by Pulse oximetry Systolic blood pressure Diastolic blood pressure Provider Name and Address Organization Details Last Updated DateTime 4 172.72 cm 28.7 kg/m2 85984.9 6 g 63 /min 97.4 [degF] 98 % 98 % 118 mm[Hg] 80 mm[Hg] Whitney Yang HERMELINDAJose [email or web address] [facility] 4 10:38:40 Date Recorded Body height Body mass index (BMI) Body weight Heart rate Body temperature Oxygen saturation Oxygen saturation in Arterial blood by Pulse oximetry Systolic blood pressure Diastolic blood pressure Provider Name and Address Organization Details Last Updated DateTime 4 172.72 cm 29.8 kg/m2 31418.1 g 60 /min 97 [degF] 98 % 98 % 120 mm[Hg] 82 mm[Hg] MAGDY Garcia [employer] [facility] [employer] [facility] 4 11:07:16 Date Recorded Body height Body mass index (BMI) Body weight Heart rate Body temperature Oxygen saturation Oxygen saturation in Arterial blood by Pulse oximetry Systolic blood pressure Diastolic blood pressure Provider Name and Address Organization Details Last Updated DateTime 5 172.72 cm 30.3 kg/m2 43332.8 8 g 69 /min 97 [degF] 99 % 99 % 122 mm[Hg] 78 mm[Hg] Jayde Montez [employer] 5 11:25:09 Social History Question Answer Notes LastModified by Organization Details LastModified Time Tobacco Smoking Status Never Smoker Not Available [facility] 12/19/2022 05:53:27 Do You Have An Advance Directive? Yes MIGRATION.0301 004179 Information not available 12/19/2022 What Is Your Level Of Alcohol Consumption? None MIGRATION.0301 156254 Information not available 12/19/2022 Are You Blind Or Do You Have Difficulty Seeing? No MIGRATION.0301 387068 Information not available 12/19/2022 Are You Deaf Or Do You Have Serious Difficulty Hearing? No MIGRATION.0301 213502 Information not available 12/19/2022 What Type Of Diet Are You Following? REGULAR MIGRATION.0301 823176 Information not available 12/19/2022 Do You Or Have You Ever Used E-cigarettes Or Vape? Never Used Electronic Cigarettes MIGRATION.0301 250491 Information not available 12/19/2022 Have There Been Any Changes To Your Family Or Social Situation? Yes Patient Has Lost 5-6 Family Members/f riends In The Past 13 Months. MIGRATION.0301 725995 Information not available 12/19/2022 What Is The Fluoride Status Of Your Home? Unknown MIGRATION.0301 127129 Information not available 12/19/2022 Are There Any Guns Present In Your Home? Yes MIGRATION.0301 725775 Information not available 12/19/2022 Do You Use Insect Repellent Routinely? No MIGRATION.0301 428912 Information not available 12/19/2022 [facility] M[facility].0301 797536 Information not available 12/19/2022 Guns Present In The Home? Yes [email or web address] Information not available 09/17/2023 Are You Able To Care For Yourself? Yes [email or web address] Information not available 09/17/2023 Are You Blind Or Do Yo Have Difficulty Seeing? No [email or web address] Information not available 09/17/2023 Are You Deaf Or Do You Have Serious Difficulty Hearing? No [email or web address] Information not available 09/17/2023 Live Alone Of With Others? 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 Yes [email or web address] Information not available 09/17/2023 What Was The Date Of Your Most Recent Tobacco Screening? 09/17/2023 [email or web address] Information not available 09/17/2023 Do You Have Any Pets? No [email or web address] Information not available 09/17/2023 What Is Your Relationship Status? MIGRATION.0301 623850 Information not available 12/19/2022 Do You Use Your Seat Belt Or Car Seat Routinely? No MIGRATION.0301 016029 Information not available 12/19/2022 Do You Have Smoke And Carbon Monoxide Detectors In Your Home? Yes MIGRATION.0301 429721 Information not available 12/19/2022 Are You Passively Exposed To Smoke? No MIGRATION.0301 133162 Information not available 12/19/2022 Do You Or Have You Ever Used Smokeless Tobacco? Never Used Smokeless Tobacco MIGRATION.0301 058178 Information not available 12/19/2022 Are There Any Smokers In Your House? No MIGRATION.0301 663579 Information not available 12/19/2022 How Much Tobacco Do You Smoke? No MIGRATION.0301 814509 Information not available 12/19/2022 Do You Feel Stressed (tense, Restless, Nervous, Or Anxious, Or Unable To Sleep At Night)? [id number] MIGRATION.0301 546656 Information not available 12/19/2022 Do You Use Sunscreen Routinely? No MIGRATION.0301 639445 Information not available 12/19/2022 Has Tobacco Cessation Counseling Been Provided? No MIGRATION.0301 592246 Information not available 12/19/2022 Do You Have Any Dietary Restrictions? No MIGRATION.0301 629253 Information not available 12/19/2022 Do You Or Have You Ever Used Any Other Forms Of Tobacco Or Nicotine? No MIGRATION.0301 224696 Information not available 12/19/2022 Sex: Unknown Functional Status Question Answer Note LastModified by Organizat ion Details LastModified Time Do you have difficulty walking or climbing stairs? Yes having knee problems MIGRATION.02699 33495 Information not available 12/19/2022 Do you have transportation difficulties? No MIGRATION.24534 02102 Information not available 12/19/2022 Are you able to walk? YESWOREST MIGRATION.97414 33759 Information not available 12/19/2022 Do you have difficulty doing errands alone? No MIGRATION.68376 74143 Information not available 12/19/2022 Are you able to care for yourself? Yes MIGRATION.96861 89657 Information not available 12/19/2022 Do you have difficulty dressing or bathing? No MIGRATION.55874 07822 Information not available 12/19/2022 What is your exercise level? None MIGRATION.89659 47303 Information not available 12/19/2022 Mental Status Question Answer Note LastModified by Organizat ion Details LastModified Time Do you have difficulty concentrating, remembering or making decisions? No MIGRATION.006233332 6 Information not available 12/19/2022 Family History [...] ARTERY DISEASE (CAD) Y ADDICTION CONCERNS N ENDOMETRIOSIS N Impotence N USE OF BLOOD THINNERS N SKIN [...] GLAUCOMA N FOOT PROBLEM N DIVERTICULITIS N CHICKENPOX N SLEEP APNEA N INFECTIOUS DISEASE N HEART ARRHYTHMIA N PROSTATE N INSOMNIA N HIGH CHOLESTEROL / HYPERLIPIDEMIA Y HYPERTHYROIDISM N EYE PROBLEMS N NEUROLOGICAL PROBLEMS Y EDEMA N CHRONIC PAIN SYNDROME N HYPOTHYROIDISM N CAROTID BLOCKAGE N CONSTIPATION N BACK / NECK PROBLEMS N HAVE YOU BEEN HOSPITALIZED OR SEEN IN [facility] IN THE PAST YEAR ? N [...] Brain Problems N HERPES N DEMENTIA N HEADACHES/MIGRAINES N SEIZURES/EPILEPSY N VASCULAR DISEASE N PACEMAKER N Blood Disorder N DIZZINESS N HEART DISEASE/HEART PROBLEMS N KIDNEY DISEASE N MULTIPLE SCLEROSIS N CARDIAC ARRHYTHMIA N CANCER: SPECIFY N ATRIAL FIBRILLATION N Gall Stones N [...] preservative free, adsorbed 7 completed Not Available [facility] 12/09/2023 23:36:52 Past Encounters Encounter ID Performer Location Encounter Start Date Encounter Closed Date Diagnosis/Indication Diagnosis SNOMED-CT Code Diagnosis ICD10 Code Diagnosis Note [id number] Tanvir Davalos MD S_[facility] Internal Med [facility] [address] [address] 01/12/2021 00:00:00 01/12/2021 11:45:56 [id number] S_[facility] E[facility] [place] [id number] [facility] [address] [place] [address] 01/17/2021 00:00:00 01/17/2021 12:32:52 [id number] Tanvir Davalos MD [facility] Internal Med [place] [address] [place] [address] [place] [address] 04/21/2021 00:00:00 04/21/2021 12:43:37 [id number] Tanvir Davalos MD [facility] Internal Med [facility] [address] [address] 07/31/2021 00:00:00 07/31/2021 15:42:25 [id number] MD DELMY BillsS_[facility]G Internal Med [place] [address] [place] [address] [place] [address] 11/14/2021 00:00:00 11/14/2021 11:14:20 [id number] Tanvir Davalos MD [facility] Internal Med [place] [address] [place] [address] [place] [address] 02/20/2022 00:00:00 02/20/2022 14:46:35 [id number] Tanvir Davalos MD [facility] Internal Med [place] [address] [place] [address] [place] [address] 05/15/2022 00:00:00 05/15/2022 11:05:36 [id number] Tanvir Davalos MD [facility] Internal Med [place] [address] [place] [address] [place] [address] 09/11/2022 00:00:00 09/11/2022 11:27:01 [id number] Tanvir Davalos MD [facility] Internal Med [place] [address] [place] [address] [place] [address] 01/08/2023 11:25:54 01/08/2023 12:29:22 Coronary arteriosclerosis 77757381 I25.10 Essential hypertension 61030819 I10 Gastroesop hageal reflux disease 025775977 K21.9 Hypercholesterolemia 136 73854 E78.00 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 R10.9 Restless legs 15645269 G 25.81 [id number] Tanvir Davalos MD [facility] Internal Med [place] [address] [place] [address] y , [place] [address] 05/21/2023 10:33:25 05/21/2023 11:03:58 Coronary arteriosclerosis 31649655 I25.10 Hypercholesterolemia 136 04220 E78.00 Ulcerative colitis 49883 004 K51.90 Lightheadedness 91752035 8 R42 Obese class I 4881076689 72856 E66.9 Gastroesop hageal reflux disease 210718262 K21.9 [id number] Tanvir Davalos MD [facility] Internal Med [place] [address] [place] [address] [place] [address] 09/17/2023 10:43:31 09/17/2023 11:27:27 Adult health examination 893771011 Z00.00 Screening for disorder 044567424 Z13.9 Coronary arteriosclerosis 80181162 I25.10 Essential hypertension 22189843 I10 Hypercholesterolemia 136 05658 E78.00 Gastroesop hageal reflux disease 761929972 K21.9 Obese class I 7856898483 23946 E66.9 [id number] Tanvir Davalos MD [facility] Internal Med [facility] [address] [facility] [address] [place] [address] 01/06/2024 15:46:48 01/06/2024 16:15:26 Coronary arteriosclerosis 92458536 I25.10 Essential hypertension 33310158 I10 Hypercholesterolemia 136 22421 E78.00 Left lower quadrant pain 856114419 R10.32 [id number] Tanvir Davalos MD [facility] Internal Med [place] [address] [place] [address] [place] [address] 01/24/2024 14:37:52 01/24/2024 15:32:06 Essential hypertension 33169930 I10 Atrial fibrillation 4943 6004 I48.91 Hypercholesterolemia 136 73836 E78.00 Gastroesop hageal reflux disease without esophagitis 966847477 K21.9 [id number] Tanvir Davalos MD [facility] Internal Med [place] [address] [place] [address] [place] [address] 04/28/2024 10:28:42 04/28/2024 10:59:21 Coronary arteriosclerosis 89993422 I25.10 Atrial fibrillation 4943 6004 I48.91 Essential hypertension 84548460 I10 Hypercholesterolemia 136 50498 E78.00 Gastroesop hageal reflux disease without esophagitis 197330990 K21.9 [id number] Tanvir Davalos MD [facility] Internal Med [place] [address] [place] [address] [place] [address] 09/01/2024 10:45:52 09/01/2024 11:53:16 Atrial fibrillation 96013741 I48.91 Coronary arteriosclerosis 66149413 I25.10 Essential hypertension 25808380 I10 Gastroesop hageal reflux disease 655047401 K21.9 Abscess of face 79378810 4 L02.01 [id number] Tanvir Davalos MD [facility] [place] [address] [facility] [address] [place] [address] 12/29/2024 10:42:44 12/29/2024 11:46:14 Essential hypertension 61947180 I10 Atrial fibrillation 4943 6004 I48.91 Gastroesop hageal reflux disease 156646745 K21.9 Obese class I 0469691781 99334 E66.9 Ulcerative colitis 26820 004 K51.90 Health Concerns Section Related Observation LastModified by Organization Detai ls LastModified Time None Recorded Concern Status LastModified by Organization Details LastModified Time None Recorded Advance Directives Directive Y: Payers Encounter Date Sequence Insurance Name Policy Number Policy Gerber Covered Member ID Gerber Member ID Guarantor Name 01/06/2024 1 [place] Nikky Garcia Oestricker [id number] Nikky Garcia Oestricker 01/06/2024 2 [employer] [place] (MEDICARE SUPPLEMENT) Nikky Garcia Oestricker [id number] Nikky Jose Oestricker 01/24/2024 1 [place] Nikky Garcia Oestricker [id number] Nikky Garcia Oestricker 01/24/2024 2 [employer] [place] (MEDICARE SUPPLEMENT) Nikky Garcia Oestricker [id number] Nikky Jose Oestricker 04/28/2024 1 [place] Nikky Garcia Oestricker [id number] Nikky Garcia Oestricker 04/28/2024 2 [employer] [place] (MEDICARE SUPPLEMENT) Nikky Jose Oestricker [id number] Nikky Jose Oestricker 09/01/2024 1 [place] Nikky Garcia Oestricker [id number] [id number] Nikky Garcia Oestricker 09/01/2024 2 [employer] [place] (MEDICARE SUPPLEMENT) Nikky Tillmanicker [id number] Nikky Manjarrezer 12/29/2024 1 [place] Nikky Manjarrezer [id number] E66 Nikky Manjarrezer 12/29/2024 2 [employer] [place] (MEDICARE SUPPLEMENT) Nikky Tillmanicker [id number] Nikky Pena Notes Date Note Type [...] Cough And FlushingCapoten CoughStrattera Vomitting Vaccination and Tycyoufkfvlp2487-06 Tetanus Booster Surgical Stobtoc4135-97 Lap Ventral Hernia Repair (Mesh)2016-01 Lap Mxnffhzezmlus6717-32 Rt. Rotator Bbbxd1064-52 Lt. Knee Cighulijvcs9970-98 Rt. Knee Replacement Preventative Vseowki7105/21/2023 ALBUMIN 4.4 G/DL N004/28/2020 MAMMOGRAM COLONOSCOPY (10 [...] Hx: COPD (1) Tanvir Davalos MD [address] [facility], [facility] [address], [place], [address], [facility] [employer] 01/06/2024 16:09:49 4 text/html Patient Name: Nikky [...] and arthralgia Medication Reconciliation: from medication list. Ajkqsjorrnu72-87-9944: CT of abdomen and pelvis unremarkable. No [...] Cough And FlushingCapoten CoughStrattera Vomitting Vaccination and Emdpyniundhp3018-61 Tetanus Booster Surgical Opfrlme3157-12 Lap Ventral Hernia Repair (Mesh)2016-01 Lap Mjuplabaiwbcx4367-01 Rt. Rotator Jtupn1380-33 Lt. Knee Uqxiguraipa4584-03 Rt. Knee Replacement Preventative Letfxgr1801/07/2024 ALBUMIN 4.6 G/DL 04/28/2020 MAMMOGRAM COLONOSCOPY (10 [...] Hx: COPD (1) Tanvir Davalos MD [address] [facility], [facility] [address], [place], [address], [place] [facility] [employer] [facility] 01/24/2024 15:18:28 4 text/html Patient Name: Nikky TillmanickerDate Of Service: Saturday ( 04.28.2024 ): 1940 [...] Systemic Symptoms:none Medication Reconciliation: from medication list. [id number]: CT of abdomen and pelvis unremarkable. No [...] Metoprolol Succinate. Rate control: controlled ventricular response [id number] Criteria: Age > 75 and and considered [...] Cough And FlushingCapoten CoughStrattera Vomitting Vaccination and Ptzrysimizjy8072-14 Tetanus Booster Surgical Qlpewvi3857-95 Lap Ventral Hernia Repair (Mesh)2016-01 Lap Qsnizunxfdshw8206-96 Rt. Rotator Tqrgn1012-12 Lt. Knee Lldkrhmhopl4227-79 Rt. Knee Replacement Preventative Bgbecjx8102/04/2024 HDTGXRXOYPOJN29/19/2024 ALBUMIN 4.6 G/DL H004/28/2020 MAMMOGRAM COLONOSCOPY (10 [...] 82 0-130 MG/DL Tanvir Davalos MD [address] [facility], [facility] [address], [place], [address], [place] [employer] [facility] 04/28/2024 10:55:24 4 text/html Patient Name: Nikky [...] Systemic Symptoms:none Medication Reconciliation: from medication list. Qrbbwegzsrx27-33-4053: CT of abdomen and pelvis unremarkable. No [...] Metoprolol Succinate. Rate control: controlled ventricular response [id number] Criteria: congestive heart failure for embolic phenomenon. [...] Vaccination and Immunization(X) 2004- TETANUS BOOSTER Surgical Qfzzedz0903-36 Lap Ventral Hernia Repair (Mesh)2015- Lap Pjjufzmfvmtaa1170-26 Rt. Rotator Ryzvo7924-96 Lt. Knee Faepuysilwc6886-52 Rt. Knee Replacement Preventative Testing( ) 07/30/2024 [...] Hx: COPD (1) Tanvir Davalos MD [address] [facility], [facility] [address], [place], [address], [facility] [employer] 09/01/2024 11:47:06 5 text/html Patient Name: Nikky PenaDate Of Service: Saturday ( 12.29.2024 ): 1940 [...] Systemic Symptoms:none Medication Reconciliation: from medication list. Osgnkwyqtme40-60-5971: CT of abdomen and pelvis unremarkable. No [...] Metoprolol Succinate. Rate control: controlled ventricular response [id number] Criteria: hypertension, Age > 75 and and [...] offered to be evaluated and instructed by surgical garment inspector on weight loss diet.#5. Ulcerative colitis clinically [...] Vaccination and Immunization(X) 2004- TETANUS BOOSTER Surgical Sbaisjb5919-44 Lap Ventral Hernia Repair (Mesh)2016-01 Lap Rvrpojqoqogbj3295-79 Rt. Rotator Oixxu1477-50 Lt. Knee Qpsbkoodsie7657-83 Rt. Knee Replacement Preventative Testing( ) 07/30/2024 [...] Hx: COPD (1) Tanvir Davalos MD [address] [facility], [facility] [address], [place], [address], [place] [facility] [employer] 12/29/2024 11:42:08 OBGyn Episode No OBEpisode recorded.
--- OUTSIDE RECORDS SUMMARY | 2025-02-17 13:28 | XMS_ITS | CONTINUITY OF CARE DOCUMENT ---
Author Name doris george Address Unknown Organization [facility] Address [address] [address] [place] [address] Phone [phone] Care Team Providers Care Degreaser Operator Name Role Phone Han COOPER, Reji Unavailable SANDI COOPER, NANDA Unavailable SANDI COOPER, NANDA Unavailable PROBLEMS Condition Status Date Provider Notes Hypercholesterolemia, mixed active Trina Hodges HTN CONTROLLED active Reji Short MD ARTHRITIS STATUS POST KNEE AND SHOULDER SURGERY active Reji Short MD EPISTAXIS, RECURRENT S/P CAUTERIZATION active Reji Short MD Abdominal pain s/p c. diff , has ventral hernia active Reji Short MD CardiomyopathyEf now 60% active Reji ledbetter MD CARDIOMYOPATHY EF 45 %, ECHO 05, IMPROVED TO 60% 03/24/13 completed - Reji Short MD CAD false pos stress test , tortous LAD, no significant CAD active Reji Short MD abnormal nuclear stress test with inferior wall ischemia 05/04 ENCOUNTERS Date Type Provider Location Encounter Diag nosis - In-person encounter Office Visit Reji Short MD [facility] - In-person encounter Office Visit Reji Short MD [facility] - In-person encounter Office Visit Reji Short MD [facility] - In-person encounter Office Visit Reji Short MD [facility] - In-person encounter Office Visit Reji Short MD [facility] CARDIOMYOPATHY EF 45 %, ECHO 05, IMPROVED TO 60% 03/24/13Abdominal pain s/p c. diff , has ventral herniaCardiomyopathyEf now 60% - In-person encounter Office Visit Reji Short MD [facility] CAD false pos stress test , tortous LAD, no significant CAD - In-person encounter Office Visit Reji Short MD [facility] CAD false pos stress test , tortous LAD, no significant CADAbdominal pain s/p c. diff , has ventral hernia - In-person encounter Office Visit Reji Short MD [facility] CAD false pos stress test , tortous LAD, no significant CAD - In-person encounter Office Visit Reji Short MD [facility] - In-person encounter Office Visit Reji Short MD [facility] EPISTAXIS, RECURRENT S/P CAUTERIZATION - In-person encounter Office Visit Reji Short MD [facility] - In-person encounter Office Visit Lori Hernandez MD [facility] - In-person encounter Office Visit Reji Short MD [facility] - In-person encounter Office Visit Reji Short MD [facility] CAD false pos stress test , [...] [place] oxygen saturation, [facility]xim[facility] 96 [facility] /min [facility] [place] pulse rate 79 /min [place] weight E&M 204 [lb_av] [place] height E&M 68.5 [in_i] [place] Body Mass Index (Ratio) 30.98 kg/m2 [...] /min [place] [place] pulse rate 78 /min [place] weight E&M 192 [lb_av] Dov [place] [...] RN pulse rate 76 /min Stephanie Hernandez PASSENGER TIRE BUILDER respiratory rate E&M 22 /min Stephanie mancia PASSENGER TI[employer] BUILDER blood pressure, diastolic 94 mm[Hg] Ruben Hernandez PASSENGER TI[employer] BUILDER blood pressure, systolic 141 mm[Hg] Zak Hernandez PASSENGER TI[employer] BUILDER weight E&M 180 [lb_av] Stephanie Hernandez PASSENGER TIRE BUILDER blood pressure, diastolic, left arm 102 m m[Hg] Devyn Duffy RN blood pressure, systolic, left arm 139 mm [Hg] Devyn Zamnas RN blood pressure, diastolic, right arm 91 [...] Normal Absolute Neutrophil count 3001 cells/mcL [facility] [id number] Normal mean platelet volume 10.0 fL [facility] [...] = 46 Normal cholesterol, serum 167 mg/dL [facility] 125-200 Normal triglyceride, serum, fasting 74 mg/dL [facility] HDL cholesterol, serum 93 mg/dL [facility] cholesterol/HDL ratio, serum 1.6 [facility] lipoprotein, beta, serum, point, quantitative, calculated 38 mg/dL [facility] cholesterol, serum 146 mg/dL [facility] alanine aminotransferase (SGPT), serum 12 1/L [facility] aspartate aminotransferase (SGOT), serum 16 1/L [facility] creatinine, serum 0.87 mg/dL [facility] potassium, serum 4.4 mmol/L [facility] sodium, serum 140 mmol/L [facility] lipoprotein, beta, serum, point, quantitative, calculated 61 mg/dL [facility] cholesterol, serum 154 mg/dL [facility] alanine aminotransferase (SGPT), serum 15 1/L aspartate aminotransferase (SGOT), serum 18 1/L [facility] creatinine, serum 0.92 mg/dL [facility] potassium, serum 4.8 mmol/L [facility] sodium, serum 138 mmol/L [facility] lipoprotein, beta, serum, point, quantitative, calculated 61 mg/dL [facility] cholesterol, serum 164 mg/dL [facility] alanine aminotransferase (SGPT), serum 17 1/L aspartate aminotransferase (SGOT), serum 22 1/L [facility] creatinine, serum 1.00 mg/dL [facility] potassium, serum 4.9 mmol/L [facility] sodium, serum 141 mmol/L [facility] very low density lipoproteins 27 mg/dL [facility] triglyceride, serum, fasting 134 mg/dL [facility] HDL cholesterol, serum 75 mg/dL [facility] LDL cholesterol, serum 63 mg/dL [facility] cholesterol, serum 165 mg/dL [facility] globulins, serum, total 2.5 g/dL [facility] Estimated Glomerular Filtration Rate (calc) 62 mL/min/{1.73_ m2} [facility] albumin/globulin ratio, serum 1.8 [facility] protein, total, serum 7.0 g/dL [facility] albumin, serum 4.5 g/dL [facility] bilirubin, serum, total 0.7 mg/dL [facility] alkaline phosphatase, serum 91 1/L alanine aminotransferase (SGPT), serum 33 1/L aspartate aminotransferase (SGOT), serum 24 1/L [facility] calcium, serum 9.5 mg/dL [facility] blood glucose, fasting 85 mg/dL [facility] creatinine, serum 0.94 mg/dL [facility] urea nitrogen, blood 12 mg/dL [facility] carbon dioxide, serum, total 25 mmol/L chloride, serum 103 mmol/L potassium, serum 4.4 mmol/L [facility] sodium, serum 139 mmol/L [facility] very low density lipoproteins 22 mg/dL [facility] triglyceride, serum, fasting 109 mg/dL [facility] HDL cholesterol, serum 77 mg/dL [facility] LDL cholesterol, serum 68 mg/dL [facility] cholesterol, serum 167 mg/dL [facility] globulins, serum, total 2.7 g/dL [facility] Estimated Glomerular Filtration Rate (calc) 59 mL/min/{1.73_ m2} [facility] albumin/globulin ratio, serum 1.7 [facility] protein, total, serum 7.2 g/dL [facility] albumin, serum 4.5 g/dL [facility] bilirubin, serum, total 0.5 mg/dL [facility] alkaline phosphatase, serum 103 1/L [facility] alanine aminotransferase (SGPT), serum 14 1/L [facility] aspartate aminotransferase (SGOT), serum 18 1/L [facility] calcium, serum 9.8 mg/dL [facility] blood glucose, fasting 91 mg/dL [facility] creatinine, serum 0.98 mg/dL [facility] urea nitrogen, blood 16 mg/dL [facility] carbon dioxide, serum, total 23 mmol/L [facility] chloride, serum 105 mmol/L [facility] potassium, serum 4.3 mmol/L [facility] sodium, serum 139 mmol/L [facility] triglyceride, serum, fasting 141 mg/dL [facility] HDL cholesterol, serum 69 mg/dL [facility] LDL cholesterol, serum 62 mg/dL [facility] cholesterol, serum 159 mg/dL [facility] albumin/globulin ratio, serum 1.7 [facility] protein, total, serum 7.1 g/dL [facility] albumin, serum 4.5 g/dL [facility] bilirubin, serum, total 0.7 mg/dL [facility] alkaline phosphatase, serum 105 1/L [facility] alanine aminotransferase (SGPT), serum 18 1/L [facility] aspartate aminotransferase (SGOT), serum 21 1/L [facility] calcium, serum 9.5 mg/dL [facility] blood glucose, fasting 79 mg/dL [facility] creatinine, serum 0.85 mg/dL [facility] urea nitrogen, blood 12 mg/dL [facility] carbon dioxide, serum, total 22 mmol/L [facility] chloride, serum 102 mmol/L [facility] potassium, serum 4.4 mmol/L [facility] sodium, serum 138 mmol/L [facility] albumin/globulin ratio, serum 1.6 [facility] protein, total, serum 7.5 g/dL [facility] albumin, serum 4.6 g/dL [facility] bilirubin, serum, total 0.8 mg/dL [facility] alkaline phosphatase, serum 102 1/L [facility] alanine aminotransferase (SGPT), serum 20 1/L [facility] aspartate aminotransferase (SGOT), serum 23 1/L [facility] calcium, serum 9.9 mg/dL [facility] blood glucose, fasting 91 mg/dL [facility] creatinine, serum 0.91 mg/dL [facility] urea nitrogen, blood 10 mg/dL [facility] carbon dioxide, serum, total 22 mmol/L [facility] chloride, serum 101 mmol/L [facility] potassium, serum 4.5 mmol/L [facility] sodium, serum 139 mmol/L [facility] triglyceride, serum, fasting 140 mg/dL [facility] HDL cholesterol, serum 69 mg/dL [facility] LDL cholesterol, serum 59 mg/dL [facility] cholesterol, serum 156 mg/dL [facility] HISTORY OF MEDICATION USE Medication Status Instructions Dates Provider Indications Com ments PROTONIX 40 MG ORAL TABLET DELAYED RELEASE active Once a day Trina Hodges TYLENOL 325 MG ORAL TABLET completed 1 tab daily as needed for pain - [facility] TRAMADOL HCL 50 MG ORAL TABLET completed 1 tab daily as needed for pain - [facility] DELZICOL 400 MG ORAL CAPSULE DELAYED RELEASE active 2 caps 3x daily [facility] CENTRUM ADULTS ORAL TABLET completed 1 tab daily - [facility] FERROUS SULFATE 325 (65 FE) MG ORAL TABLET completed ONE PER DAY - [facility] ACID CONTROL MAXIMUM STRENGTH 20 MG [...] exercise, f requency, days per week yes [facility] alcohol use, average drinks per day none [facility] alcohol use no [place] caffeine use, averag e drinks per day no Dov drug use no [place] passive cigarette sm kenneth exposure no [facility] smoking status Never smoker Dov [facility] social history E&M Marital Statu s: L [...] alcohol use, average drinks per day none [place] alcohol use no Dov [place] caffeine use, averag e drinks per day no [place] drug use no Dov [place] passive [...] Duffy RN social history reviewed E&M reviewed eDvyn Duffy RN smoking status never smoker Devyn [...] Payer name Policy type / Coverage type [place] red democrat ID [place] MEDIC[place] Medicare [id number] [facility] [employer] [phone] ADVANCE DIRECTIVES Name Date DISCUSSED [...] used Afrin. Counseled to avoid that as shelter solution. Reji Short MD Cardiology Reji Short MD Cardiology:Echo on a rrival for next visit. O rders: C omplete Echo ([id number]-96103) Reji Short MD Cardiology:Elevated today. Will increase [...] completed EKG Reji Short MD completed SNOMED-CT: [id number] Current Medications Documented Reji Short MD completed SNOMED-CT: [id number] Physical Exam, Performed: Pulse Exam of Foot Reji Short MD completed EKG Reji Short MD completed SNOMED-CT: [id number] Current Medications Documented Reji Short MD completed EKG Reji Short MD completed EKG Reji Short MD completed EKG Reji Short MD completed Schedule Followup Lori cook MD in 2 to 3 months completed ePrescribe - Check t his box if eRx is used Reji Short MD completed EKG Reji Short MD completed
== END 2025-02-17 12:34 | disposition home or self-care (01) ==
PROVIDERS: PCP Internal Medicine; Visit Provider Nurse Practitioner
DX: K56.41 Fecal impaction (principal)
CPT/HCPCS: 74018

== ENCOUNTER 2025-05-30 11:39 | Emergency (ER) | payer MEDICARE, OTHER, SELFPAY ==
--- OUTSIDE RECORDS SUMMARY | 2025-05-30 11:41 | XMS_ITS | Continuity of Care Document ---
Author Organization [facility] Address [address] [place] [address] Phone Care Team Providers Care Network Support Analyst Name Role Phone Kayla Calloway Unavailable Unavaila ble Advance Directives Directive Yes / No Effective Date File Name No Information Encounters Encounter Description Practice Location Reason(s) For Visit Diagnoses Date Provider Providers Copied on Encounter [facility], [address], [place], [place], [id number], [place] tel:[phone] [facility] No Information Claudio Garza. [address] [facility] [address], [place], [place], [id number], [place]. tel:[phone] Family History Family Member Type Diagnosis Age [...]
--- OUTSIDE RECORDS SUMMARY | 2025-05-30 11:42 | XMS_ITS | Clinical Summary ---
Author Organization [facility] Address [address] [place] [address] Care Team Providers Care Candy Counter Clerk Name Role Phone Tanvir Davalos MD Primary Care Provider [phone] Source Comments [facility],non-owned Affiliates and Associated Physician Practices is amultiple site organization consisting of ambulatory clinics and hospital sitesin [place], [place], [place] and [place]. This disclosure is being madepursuant to the Care Everywhere program and may not contain all information available regarding this patient. 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
--- OUTSIDE RECORDS SUMMARY | 2025-05-30 11:42 | XMS_ITS | Clinical Summary ---
Author Organization [facility] Address [address] [place] [address] Care Team Providers Care Private Branch Exchange Repairer Name Role Phone Tanvir Davalos MD Primary [...] hernia, without obstruction or gangre ne 04/15/2020 Surgical History Surgery Date Site/Laterality Comments COLECTOMY [...] on file Legal Sex Female 8:38 PM DEPARTMENT HEAD Gender Identity Not on file Sexual Orientation Not on file Obstetrics History Last Filed Vital Signs Vital Sign Reading Time Taken Comments Blood Pressure 142/76 09/28/2024 10:56 AM DEPARTMENT HEAD Pulse 64 09/28/2024 10:56 AM DEPARTMENT HEAD Temperature 36.2 C (97.2 F) 04/27/2022 10:59 AM CDT Respiratory Rate 16 03/10/2021 11:00 AM CDT Oxygen Saturation 95% 09/28/2024 10:56 AM DEPARTMENT HEAD Inhaled Oxygen Concentration - - Weight 90.3 kg (199 lb) 09/28/2024 10:56 AM DEPARTMENT HEAD Height 172.7 cm (5' 8) 09/28/2024 10:56 AM DEPARTMENT HEAD Body Mass Index 30.26 09/28/2024 10:56 AM DEPARTMENT HEAD Plan of Treatment Health Maintenance Due Date Last Done Comments Depression Screening 1940 Osteoporosis Screening-Bone Density Scan 1940 Hepatitis B Screening 01/02/1960 Pneumococcal vaccine 65+ (1 of 1 - PCV) 01/02/1992 Zoster Vaccine (1 of 2) 01/02/1992 Well Visit 65+ 2007 Fall Risk Assessment 03/10/2022 03/10/2021 Influenza Vaccine (#1) 2025 DTaP/Tdap/Td Vaccine (3 - Td or Tdap) 02/27/202707/2017, 02/27/2017 Medical Devices Implanted Type Area Membership Correspondent Device Identifier Shelf Expiration Date Model / Serial / Lot [employer] Bard [id number] Monofilament Soft Lightweight Low Profile Square - [id number] - [id number] Implanted:Qty: 1 on 03/09/2021 by Jesu Breen MD at [facility] Mesh N/A: Abdomen [employer] [id number] 10/17/2025 [id number] / [id number] / [id number] Insurance [facility] Advance Directives For more information, please contact: [phone] * Full Code (Latest Code Status on File) Date Activated Date Inactivated Comments 03/09/2021 3:21 PM 03/10/2021 6:44 PM Care Teams Private Branch Exchange Repairer Relationship Specialty Start Date End Date Tanvir Davalos MD [address] [address] PCP - General Internal Medicine 08/21/19
--- OUTSIDE RECORDS SUMMARY | 2025-05-30 11:42 | XMS_ITS | Continuity of Care Document ---
Author Organization [employer] [facility] Address [address] [place] [phone] Phone Care Team Providers Care Commutator Undercutter Name Role Phone Rivas Francois Unavailable Unavailable [...] Copied on Encounter Office/outpat ient [facility], [facility], [address], [place], [place], [address], [place] tel:[phone] SEC [facility] [place] No Information 2-201 0 Alessandro Hathaway. [address] [place] [address] , [address], [place], [place], [facility], . tel:[phone] Formerly [facility] Eye [facility], [address] [place] [address] [address], [place], [place], [address], [place] tel:[phone] SEC [facility] No Information 4-201 0 Alessandro Hathaway. [address] [place] [address] , [address], [place], [facility], . tel:[phone] Referring Provider: Rivas Garcia, [address] [place] [address] [address], [place], [facility]. tel:[phone] Formerly [facility] Eye [facility], [address] [place] [address] [address], [place], [place], [address], [place] tel:[phone] SEC [facility] No Information 0-201 0 Alessandro Hathaway. [address] [place] [address] , [address], [place], [facility], . tel:[phone] Referring Provider: Rivas Garcia, [address] [place], [place] [address]ate Center [address], [place], [facility]. tel:[phone] [facility]pat ient [facility], [facility], [address] [place] [address] [address], [place], [place], [address], [place] tel:[phone] SEC [facility] [place] No Information 8-201 0 Alessandro Hathaway. [address] [place] [address] Center , [address], [place], [facility], . tel:[phone] Office/outpat ient Visit, [facility] Eye [facility], [address], [place], [place], [address], [place] tel:[phone] SEC [facility] No Information Oct-0 5-200 9 Alessandro Hathaway. [address] [place], [place] [address]ate Center , [address], [place], [facility], [place]. tel:[phone] Formerly [facility] Eye [facility], [address], [place], [place], [address], [place] tel:[phone] SEC [facility] No Information February-2 9-200 9 Doiyuni Hathaway. [address] [place], [place] [address]ate Center , [address], [place], [facility], [place]. tel:[phone] Referring Provider: Rivas Garcia, [address] [place], [place] [address]ate Center [address], [place], [facility]. tel:[phone] Formerly [facility] Eye [facility], [address] [place] [address] [address], [place], [place], [address], [place] tel:[phone] SEC [facility] No Information 2 8-200 9 Alessandro Hathaway. [address] [place], [place] [address]ate Center , [address], [place], [facility], [place]. tel:[phone] Referring Provider: Rivas Garcia, [address] [place], [place] [address]ate Center [address], [place], [facility]. tel:[phone] Formerly [facility] Eye [facility], [address] [place] [address] [address], [place], [place], [address], [place] tel:[phone] SEC [facility] Corporate Center No Information 2 2-200 8 Alessandro Hathaway. [address] [place], [place] [address]ate Center , [address], [place], [address], [place]. tel:[phone] Office/outpat ient Visit, Est Former[facility] Eye [facility], [address], [place], [place], [address], [place] tel:[phone] SEC [facility] [place] No Information May-1 3-200 8 Alessandro Hathaway. [address] , [address], [place], [facility], . tel:[phone] Referring Provider: Rivas Garcia, [facility] [address], [place], [facility]. tel:[phone] Formerly [facility] Eye [facility], [address] [place] [address] [address], [place], [place], [address], [place] tel:[phone] SEC [facility] [place] No Information Apr-3 0-200 8 Alessandro Hathaway. [address] [place] [address] Center , [address], [place], [facility], [place]. tel:[phone] Referring Provider: Rivas Garcia, [address] [place], [place] [address]ate Center [address], [place], [facility]. tel:[phone] Former[facility] Eye [facility], [address] [place] [address] [address], [place], [place], [address], tel:[phone] SEC [facility] [place] No Information Apr-1 5-200 8 Alessandro Hathaway. [address] [place] [address] , [address], [place], [facility], [place]. tel:[phone] Referring Provider: Rivas Garcia, [address] [place], [place] [address]ate Center [address], [place], [facility]. tel:[phone] Office/outpat ient Visit, [facility] Eye [facility], [address] [place] [address] [address], [place], [place], [address], [place] tel:[phone] SEC [facility] [place] No Information Dec-1 0-200 7 Alessandro Hathaway. [address] [place] [address] Center , [address], [place], [facility], [place]. tel:[phone] Office/outpat ient Visit, [facility] Eye [facility], [address] [place] [address] [address], [place], [place], [address], [place] tel:[phone] SEC [facility] [place] No Information Naren-0 9-200 7 Alessandro Hathaway. Ad[facility] [place], [address], [place], [facility], . tel:[phone] Referring Provider: Adalgisa [facility] [address], [place], [facility]. tel:[phone] Formerly [facility] Eye [facility], [address] [place] [address] [address], [place], [place], [address], tel:[phone] SEC [facility] [place] No Information Mar-1 3-200 7 Alessandro Hathaway. Ad[facility] [address], [place], [facility], . tel:[phone] Referring Provider: Adalgisa [facility] [address], [place], [facility]. tel:[phone] [facility], [address] [place] [address] [address], [place], [place], [address], tel:[phone] SEC [facility] [place] No Information Mar-0 7-200 7 Alessandro Hathaway. [facility] [address], [place], [facility], . tel:[phone] Referring Provider: Adalgisa [facility] [address], [place], [facility]. tel:[phone] Family History Family Member Type Diagnosis Age At Onset No Information Payers Payer name Insurance type Covered alliance party ID Authorluisa aubree(s) [place] [id number] Social History Type Description Quantity Date Captured [...]
[2025-05-30 11:49] VITALS: BP 135/73; PULSE 86; RESP 18; TEMP 36.4; O2SAT 95
--- OUTSIDE RECORDS SUMMARY | 2025-05-30 12:08 | XMS_ITS | Clinical Summary ---
Author Organization [facility] [employer] Address [address] [place] [address] Care Team Providers Care Art Instructor Name Role Phone Tanvir Davalos MD Primary Care Provider [phone] Source Comments [facility] [employer],non-owned Affiliates and Associated Physician Practices is amultiple site organization consisting of ambulatory clinics and hospital sitesin [place], [place], [place] and [place]. This disclosure is being madepursuant to the Care Everywhere program and may not contain all information available regarding this patient. Last updated 18.[facility] [employer] Allergies Active Allergy Reactions Criticality Noted Date [...] on file Legal Sex Female 6:06 AM YACHT BUILDER Gender Identity Not on file Sexual Orientation [...] age to complete this topic Insurance MEDICARE [place] [id number] MEDICARE Care Teams Art Instructor Relationship Specialty Start Date End Date Tanvir Davalos MD [address] [place] [address] [address] [place] [address] PCP - General Internal Medicine 01/04/22
--- OUTSIDE RECORDS SUMMARY | 2025-05-30 12:08 | XMS_ITS | Continuity of Care Document ---
Author Organization [employer] [facility] Address [address] [place] [phone] Phone Care Team Providers Care Archery Equipment Hay Sorter Name Role Phone Rivas Francois Unavailable Unavailable [...] Copied on Encounter Office/outpat ient Visit, [facility], [address], [place], [place], [address], [place] tel:[phone] SEC [facility] [place] No Information 2-201 0 Alessandro Hathaway. [address] [place] [address] , [address], [place], [facility], . tel:[phone] [facility], [address] [place] [address] [address], [place], [place], [address], [place] tel:[phone] [facility] No Information 4-201 0 Alessandro Hathaway. [address] [place] [address] , [address], [place], [facility], . tel:[phone] Referring Provider: Rivas Garcia, [address] [place] [address] [address], [place], [facility]. tel:[phone] [facility], [address] [place] [address] [address], [place], [place], [address], [place] tel:[phone] [facility] No Information 0-201 0 Alessandro Hathaway. [address] [place] [address] , [address], [place], [facility], . tel:[phone] Referring Provider: Rivas Garcia, [address] [place], [place] [address]ate Center [address], [place], [facility]. tel:[phone] Office/outpat ient Visit, [facility], [address] [place] [address] [address], [place], [place], [address], [place] tel:[phone] [facility] [place] No Information 8-201 0 Alessandro Hathaway. [address] [place] [address] Center , [address], [place], [facility], . tel:[phone] Office/outpat ient Visit, [facility] Eye [facility], [address], [place], [place], [address], [place] tel:[phone] [facility] No Information Oct-0 5-200 9 Alessandro Hathaway. [address] [place], [place] [address]ate Center , [address], [place], [facility], [place]. tel:[phone] [facility], [address], [place], [place], [address], [place] tel:[phone] [facility] No Information February-2 9-200 9 Doiyuni Hathaway. [address] [place], [place] [address]ate Center , [address], [place], [facility], [place]. tel:[phone] Referring Provider: Rivas Garcia, [address] [place], [place] [address]ate Center [address], [place], [facility]. tel:[phone] [facility], [address] [place] [address] [address], [place], [place], [address], [place] tel:[phone] [facility] No Information 2 8-200 9 Alessandro Hathaway. [address] [place], [place] [address]ate Center , [address], [place], [facility], [place]. tel:[phone] Referring Provider: Rivas Garcia, [address] [place], [place] [address]ate Center [address], [place], [facility]. tel:[phone] [facility], [address] [place] [address] [address], [place], [place], [address], [place] tel:[phone] SEC [facility] Corporate Center No Information 2 2-200 8 Alessandro Hathaway. [address] [place], [place] [address]ate Center , [address], [place], [address], [place]. tel:[phone] Office/outpat ient Visit, Est [facility], [address], [place], [place], [address], [place] tel:[phone] SEC [facility] [place] No Information May-1 3-200 8 Alessandro Hathaway. [address] , [address], [place], [facility], . tel:[phone] Referring Provider: Rivas Garcia, [facility] [address], [place], [facility]. tel:[phone] [facility], [address] [place] [address] [address], [place], [place], [address], [place] tel:[phone] SEC [facility] [place] No Information Apr-3 0-200 8 Alessandro Hathaway. [address] [place] [address] Center , [address], [place], [facility], [place]. tel:[phone] Referring Provider: Rivas Garcia, [address] [place], [place] [address]ate Center [address], [place], [facility]. tel:[phone] [facility], [address] [place] [address] [address], [place], [place], [address], tel:[phone] SEC [facility] [place] No Information Apr-1 5-200 8 Alessandro Hathaway. [address] [place] [address] , [address], [place], [facility], [place]. tel:[phone] Referring Provider: Rivas Garcia, [address] [place], [place] [address]ate Center [address], [place], [facility]. tel:[phone] Office/outpat ient Visit, [facility] Eye [facility], [address] [place] [address] [address], [place], [place], [address], [place] tel:[phone] SEC [facility] [place] No Information Dec-1 0-200 7 Alessandro Hathaway. [address] [place] [address] Center , [address], [place], [facility], [place]. tel:[phone] Office/outpat ient Visit, [facility], [address] [place] [address] [address], [place], [place], [address], [place] tel:[phone] [facility] [place] No Information Naren-0 9-200 7 Alessandro Hathaway. [facility] [address] [place], [address], [place], [facility], . tel:[phone] Referring Provider: Adalgisa [facility] [address], [place], [facility]. tel:[phone] [facility], [address] [place] [address] [address], [place], [place], [address], tel:[phone] SEC [facility] [place] No Information Mar-1 3-200 [address] [facility] [address], [place], [facility], . tel:[phone] Referring Provider: Adalgisa [facility] [address], [place], [facility]. tel:[phone] [facility], [address] [place] [address] [address], [place], [place], [address], tel:[phone] SEC [facility] [place] No Information Mar-0 7-200 7 Alessandro Hathaway. [facility] [address], [place], [facility], . tel:[phone] Referring Provider: Adalgisa [facility] [address], [place], [facility]. tel:[phone] Family History Family Member Type Diagnosis Age At Onset No Information Payers Payer name Insurance type Covered alliance party ID Authorluisa aubree(s) [place] [id number] Social History Type Description Quantity Date Captured [...]
--- OUTSIDE RECORDS SUMMARY | 2025-05-30 12:08 | XMS_ITS | Clinical Summary ---
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 Gender Identity Not on file Sexual Orientation Not on file Obstetrics History Last Filed Vital Signs Vital Sign Reading Time Taken Comments Blood Pressure 142/76 09/28/2024 10:56 AM BLUE LEATHER SORTER Pulse 64 09/28/2024 10:56 AM BLUE LEATHER SORTER Temperature 36.2 C (97.2 F) 04/27/2022 10:59 AM CDT Respiratory Rate 16 03/10/2021 11:00 AM CDT Oxygen Saturation 95% 09/28/2024 10:56 AM BLUE LEATHER SORTER Inhaled Oxygen Concentration - - Weight 90.3 kg (199 lb) 09/28/2024 10:56 AM BLUE LEATHER SORTER Height 172.7 cm (5' 8) 09/28/2024 10:56 AM BLUE LEATHER SORTER Body Mass Index 30.26 09/28/2024 10:56 AM BLUE LEATHER SORTER Plan of Treatment Health Maintenance Due Date [...] 02/27/202707/2017, 02/27/2017 Medical Devices Implanted Type Area Lead Project Engineer Device Identifier Shelf Expiration Date Model / Serial / Lot [employer]/C R Bard [id number] Monofilament Soft Lightweight Low Profile Square - [id number] - [id number] Implanted:Qty: 1 on 03/09/2021 by Jesu Breen MD at [facility] Mesh N/A: Abdomen [employer] [id number] 10/17/2025 [id number] / [id number] / [id number] Insurance [facility] Advance Directives For more information, please contact: [phone] * Full Code (Latest Code Status on File) Date Activated Date Inactivated Comments 03/09/2021 3:21 PM 03/10/2021 6:44 PM Care Teams Director Of Development Relationship Specialty Start Date End Date Tanvir Davalos MD [address] [address] PCP - General Internal Medicine 08/21/19
--- OUTSIDE RECORDS SUMMARY | 2025-05-30 12:08 | XMS_ITS | Continuity of Care Document ---
Author Organization [email or web address] Address [address] [place] [address] Phone Care Team Providers Care Arcade Game Technician Name Role Phone Kayla Calloway Unavailable Unavaila ble Advance Directives Directive Yes / No Effective Date File Name No Information Encounters Encounter Description Practice Location Reason(s) For Visit Diagnoses Date Provider Providers Copied on Encounter [facility] [facility], [address], [place], [place], [address], [place] tel:[phone] [facility] No Information Claudio Garza. [address] [facility] [address], [place], [place], [address], [place]. tel:[phone] Family History Family Member Type Diagnosis Age At Onset No Information Payers Payer name Insurance type Covered democrat ID Authoriza tion(s) No Information Social History [...]
--- NOTE | 2025-05-30 12:57 | ED.GENADULT ---
HPI - General Adult General Chief complaint: Nausea/Vomiting/Diarrhea Stated complaint: PCP wanting test for C-diff Time Seen by Provider: 05/30/25 12:03 History of Present Illness HPI narrative: 85-year-old female presents to the emergency department for evaluation for diarrhea over the last 2 days. Patient does have prior history C diff. patient has been started on a Z-Marcello for suspected pneumonia. Patient has been taking a probiotic. Patient states that after she takes the antibiotic she does have a watery stool but then the stools do become more firm after the watery bowel movement. Patient does have some for muscular abdominal pain secondary to coughing, patient has no abdominal tenderness to palpation. Patient denies any pain with urination. Patient does have history of hypertension, arthritis, depression, cardiomyopathy, also of colitis, C diff Related Data Home Medications ?Medication ?Instructions ?Recorded ?Confirmed ?Last Taken ?Type aspirin 81 mg capsule 81 mg PO HS ##0 04/17/22 02/12/25 03/24/24 History pantoprazole 40 mg tablet,delayed 40 mg PO DAILY 11/13/23 02/12/25 03/25/24 07:00 History release azelastine 137 mcg (0.1 %) nasal 1 spray intranasal Q12H PRN 02/18/24 02/12/25 Unknown History spray Allergy Symptoms latanoprost 0.005 % eye drops 1 drp EACH EYE DAILY 02/18/24 02/12/25 03/24/24 History metoprolol succinate 100 mg 150 mg PO HS Atrial fibrillation 02/18/24 02/12/25 03/24/24 History tablet,extended release 24 hr acetaminophen 325 mg tablet 650 mg PO Q4-6H PRN Pain 05/11/24 02/12/25 Unknown History Allergies Allergy/AdvReac Type Severity Reaction Status Date / Time adhesive tape Allergy Blister Verified 02/12/25 09:58 meperidine (From Demerol) AdvReac Unknown Nausea and Verified 02/12/25 09:58 Vomiting morphine AdvReac Nausea Verified 02/12/25 09:58 Review of Systems Review of Systems: All systems reviewed & are unremarkable except as noted in HPI and below PMFSH Past Medical History Medical History Cardiomyopathy Steatohepatitis Depression Glaucoma Ulcerative colitis History of Clostridioides difficile infection Arthritis Myocardial infarction 2006 Hypertension Claustrophobia History of adverse reaction to anesthesia Surgical History Surgical History History of bilateral knee arthroplasty History of hysterectomy History of repair of right rotator cuff History of colonoscopy with polypectomy History of uterosacral colpopexy History of ventral hernia repair History of partial colectomy For hemorrhoidal bleeding. Family History Family History Other History of bone cancer History of lung cancer Social History Social History Smoking packs per day: 0 Smoking cigarettes per day: 0.0 Years smoked: 0 Smoking pack-years: 0.00 Smoking status: Never smoker Second hand tobacco smoke exposure: No Alcohol intake: current Alcohol use details: Beer 1/3 bottle every other day Substance use: never Substance use type: does not use Do You Feel Safe in your Home?: Yes Lack of Transportation: No Lack of Food: Never True Current Housing: I Have Housing Concerned About Future Housing: No Difficulty Paying Gas/Electric Bills: No Difficulty Paying for Meds: No Currently Unemployed: No Education: High School Diploma/GED Difficulty w/ Childcare or Family Care: No Living arrangements: alone Gender identity (if verbalized by the patient): Female Sexual Orientation (if Verbalized by the Patient): Straight or Heterosexual Spiritual care concerns: No Exam Narrative: APPEARANCE: Well appearing, no pain, no distress, well-nourished. HEAD: normocephalic, atraumatic. EYES: PERRLA/EOMI, conjunctivae clear. NOSE: Normal no drainage EARS:TMS clear with good light reflex. THROAT: Pharynx clear, no exudate. NECK: Supple. No adenopathy, no masses. RESPIRATORY: Airway patent, respirations nonlabored. Clear to auscultation bilaterally, no rales, rhonchi, wheezing. CARDIOVASCULAR: Regular rate and rhythm without murmurs rubs or gallops. ABDOMINAL: Normal bowel sounds with no abdominal tenderness to palpation, nonsurgical abdomen MUSCULOSKELETAL: Moves all extremities. Strength/ROM intact, No edema, No calf tenderness. NEURO: Alert. Cranial nerves II through XII intact. Good gait. Good coordination SKIN: Warm, dry. Normal Color Course Vital Signs Vital signs: Vital Signs Temperature 97.6 F 05/30/25 11:49 Pulse Rate 86 05/30/25 11:49 Respiratory Rate 18 05/30/25 11:49 Blood Pressure 135/73 05/30/25 11:49 Pulse Oximetry 95 05/30/25 11:49 Oxygen Delivery Room Air 05/30/25 11:49 Temperature 97.6 F 05/30/25 11:49 Pulse Rate 86 05/30/25 11:49 Respiratory Rate 18 05/30/25 11:49 Blood Pressure 135/73 05/30/25 11:49 Pulse Oximetry 95 05/30/25 11:49 Oxygen Delivery Room Air 05/30/25 11:49 Medical Decision Making MDM Narrative Medical decision making narrative: 85-year-old female presents to the emergency department for evaluation for C diff. Patient declined any labs and patient was unable to provide a stool sample. Patient declined to wait to provide a stool sample and prefers to have outpatient follow-up. Patient was recommended to switch to a clear liquid diet and patient will continue to take her probiotic. Differential Diagnosis Differential Diagnosis: C diff, acute kidney injury, dehydration Vital Signs Vital Signs: Vital Signs Temperature 97.6 F 05/30/25 11:49 Pulse Rate 86 05/30/25 11:49 Respiratory Rate 18 05/30/25 11:49 Blood Pressure 135/73 05/30/25 11:49 Pulse Oximetry 95 05/30/25 11:49 Oxygen Delivery Room Air 05/30/25 11:49 Temperature 97.6 F 05/30/25 11:49 Pulse Rate 86 05/30/25 11:49 Respiratory Rate 18 05/30/25 11:49 Blood Pressure 135/73 05/30/25 11:49 Pulse Oximetry 95 05/30/25 11:49 Oxygen Delivery Room Air 05/30/25 11:49 Discharge Plan Discharge Clinical Impression: Diarrhea Patient Disposition: Home Condition: Stable Instructions: Antibiotic Form, Clear Liquid Diet (ED), Acute Diarrhea (ED) Additional Instructions: Clear liquid diet for the next 1-3 days. Probiotic as directed. You are unable to provide a stool sample in the emergency department. Have close follow-up with her primary care physician in order to provide a stool sample for ruling out C diff. If you have any worsening symptoms then please call or return to the emergency department. Patient Language: Bulgarian Prescriptions: No Action mesalamine 400 mg capsule (with del rel tablets) 800 mg PO BID 90 Days Qty: 360 2RF pantoprazole 40 mg tablet,delayed release (DR/EC) 40 mg PO DAILY latanoprost 0.005 % drops 1 drp EACH EYE DAILY metoprolol succinate 100 mg tablet extended release 24 hr 150 mg PO HS azelastine 137 mcg (0.1 %) Aerosol,[place] 1 spray INTRANASAL Q12H PRN (Reason: Allergy Symptoms) Rx Instructions: administer into each nostril acetaminophen 325 mg tablet 650 mg PO Q4-6H PRN (Reason: Pain) aspirin 81 mg Capsule 81 mg PO HS Qty: 0 Eliquis 5 mg Tablet 5 mg PO Q12HR 30 Days Qty: 60 0RF Entresto 24-26 mg Tablet 1 tablet PO Q12HR 30 Days Qty: 60 0RF Follow-up/Referrals: Anoop,Tanvir Alexandra MD [Primary Care Provider] -
== END 2025-05-30 13:12 | disposition home or self-care (01) ==
PROVIDERS: Emergency Provider Emergency Medicine; PCP Internal Medicine
DX: R19.7 Diarrhea, unspecified (principal); I10 Essential (primary) hypertension; H40.9 Unspecified glaucoma; I25.2 Old myocardial infarction
CPT/HCPCS: 96360; 99283

== ENCOUNTER 2025-05-31 12:18 | Emergency (ER) | payer MEDICARE, OTHER, SELFPAY ==
[2025-05-31] VITALS (7 sets, daily range): BP systolic 106–124; BP diastolic 53–88; PULSE 46–107; RESP 16–21; TEMP 36.6; O2SAT 95–98
--- NOTE | ~2025-05-31 | XR_ITS ---
Clinical history: Dyspnea. Weakness. TECHNIQUE: Frontal and lateral images of the chest were obtained. COMPARISON: Chest x-ray 01/13/2024. Findings can Heart is mildly enlarged, unchanged. No pneumothorax. No pleural effusion. No free air in the diaphra gm. Small opacities in the mid and lower lungs, greater on the right. Differential includes atelectasis/s carring or infiltrates. The findings are similar to the study from 01/13/2024. IMPRESSION: 1.Small opacities in the mid and lower lungs, greater on the right. Differential includes atelectasis /scarring or infiltrates. The findings are similar to the study from 01/13/2024. Reviewed, dictated and finalized at location A. IMPRESSION: 1.Small opacities in the mid and lower lungs, greater on the right. Differentia l includes atelectasis/scarring or infiltrates. The findings are similar to the study from 01/13/2024.
--- OUTSIDE RECORDS SUMMARY | 2025-05-31 12:20 | XMS_ITS | Clinical Summary ---
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 Gender Identity Not on file Sexual Orientation Not on file Obstetrics History Last Filed Vital Signs Vital Sign Reading Time Taken Comments Blood Pressure 142/76 09/28/2024 10:56 AM BOAT DETAILER Pulse 64 09/28/2024 10:56 AM BOAT DETAILER Temperature 36.2 C (97.2 F) 04/27/2022 10:59 AM CDT Respiratory Rate 16 03/10/2021 11:00 AM CDT Oxygen Saturation 95% 09/28/2024 10:56 AM BOAT DETAILER Inhaled Oxygen Concentration - - Weight 90.3 kg (199 lb) 09/28/2024 10:56 AM BOAT DETAILER Height 172.7 cm (5' 8) 09/28/2024 10:56 AM BOAT DETAILER Body Mass Index 30.26 09/28/2024 10:56 AM BOAT DETAILER Plan of Treatment Health Maintenance Due Date [...] 02/27/202707/2017, 02/27/2017 Medical Devices Implanted Type Area Box Press Operator Device Identifier Shelf Expiration Date Model / Serial / Lot [employer]/C R Bard [id number] Monofilament Soft Lightweight Low Profile Square - [id number] - [id number] Implanted:Qty: 1 on 03/09/2021 by Jesu Beren MD at [facility] Mesh N/A: Abdomen [employer] R Bard [id number] 10/17/2025 [id number] / [id number] / [id number] Insurance MEDICARE [facility] Advance Directives For more information, please contact: [phone] * Full Code (Latest Code Status on File) Date Activated Date Inactivated Comments 03/09/2021 3:21 PM 03/10/2021 6:44 PM Care Teams Manager Product Support Relationship Specialty Start Date End Date Tanvir Davalos MD [address] [address] PCP - General Internal Medicine 08/21/19
--- OUTSIDE RECORDS SUMMARY | 2025-05-31 12:20 | XMS_ITS | Continuity of Care Document ---
Author Organization [facility] Address [address] [place] [address] Phone Care Team Providers Care Distillery Worker General Name Role Phone Kayla Calloway Unavailable Unavaila ble Advance Directives Directive Yes / No Effective Date File Name No Information Encounters Encounter Description Practice Location Reason(s) For Visit Diagnoses Date Provider Providers Copied on Encounter [facility], [address], [place], [place], [id number], [place] tel:[phone] [facility] No Information Claudio Garza. [address] , [facility] [address], [place], [place], [address], [place]. tel:[phone] Family History Family Member Type Diagnosis Age At Onset No Information Payers Payer name Insurance type Covered republican ID Authoriza tion(s) No Information Social History [...]
--- OUTSIDE RECORDS SUMMARY | 2025-05-31 12:20 | XMS_ITS | Continuity of Care Document ---
Author Organization [facility] Address [address] [facility] [address] [place] [address] Phone Care Team Providers Care Lien Searcher Name Role Phone Rivas Francois Unavailable Unavailable [...] Copied on Encounter [facility], [address], [place], [place], [id number], [place] tel:[phone] [facility] [place] No Information 2-201 0 Alessandro Hathaway. [address] [place] [address] , [address], [place], [place], [facility], . tel:[phone] [facility], [address] [place] [address] [address], [place], [place], [address], [place] tel:[phone] [facility] No Information 4-201 0 Alessandro Hathaway. [address] [place] [address] , [address], [place], [place], [facility], . tel:[phone] Referring Provider: Rivas Garcia, [address] [place] [address] [address], [place], [place], [facility]. tel:[phone] [facility], [address] [place] [address] [address], [place], [place], [address], [place] tel:[phone] [facility] No Information 0-201 0 Alessandro Hathaway. [address] [place] [address] , [address], [place], [facility], . tel:[phone] Referring Provider: Rivas Garcia, [address] [place], [place] [address]ate Center [address], [place], [facility]. tel:[phone] [facility], [facility], [address] [place] [address] [address], [place], [place], [address], [place] tel:[phone] [facility] [place] No Information 8-201 0 Alessandro Hathaway. [address] [place] [address] Center , [address], [place], [facility], . tel:[phone] Office/outpat ient Visit, [facility], [address], [place], [place], [id number], [place] tel:[phone] [facility] No Information Oct-0 5-200 9 Alessandro Hathaway. [address] [place], [place] [address]ate Center , [address], [place], [facility], [place]. tel:[phone] [facility], [address], [place], [place], [address], [place] tel:[phone] [facility] No Information February-2 9-200 9 Doiyuni Hathaway. [address] [place], [place] [address]ate Center , [address], [place], [facility], [place]. tel:[phone] Referring Provider: Rivas Garcia, [address] [place], [place] [address]ate Center [address], [place], [facility]. tel:[phone] [facility], [address] [place] [address] [address], [place], [place], [address], [place] tel:[phone] [facility] No Information 2 8-200 9 Alessandro Hathaway. [address] [place], [place] [address]ate Center , [address], [place], [facility], [place]. tel:[phone] Referring Provider: Rivas Garcia, [address] [place], [place] [address]ate Center [address], [place], [facility]. tel:[phone] [facility], [address] [place] [address] [address], [place], [place], [address], [place] tel:[phone] [facility] Corporate Center No Information 2 2-200 8 Alessandro Hathaway. [address] [place], [place] [address]ate Center , [address], [place], [address], [place]. tel:[phone] Office/outpat ient Visit, [facility], [address], [place], [place], [address], [place] tel:[phone] [facility] [place] No Information May-1 3-200 8 Alessandro Hathaway. [address] , [address], [place], [facility], . tel:[phone] Referring Provider: Rivas Garcia, [facility] [address], [place], [facility]. tel:[phone] [facility], [address] [place] [address] [address], [place], [place], [address], [place] tel:[phone] [facility] [place] No Information Apr-3 0-200 8 Alessandro Hathaway. [address] [place] [address] Center , [address], [place], [facility], [place]. tel:[phone] Referring Provider: Rivas Garcia, [address] [place], [place] [address]ate Center [address], [place], [facility]. tel:[phone] [facility], [address] [place] [address] [address], [place], [place], [address], tel:[phone] [facility] [place] No Information Apr-1 5-200 8 Alessandro Hathaway. [address] [place] [address] , [address], [place], [facility], [place]. tel:[phone] Referring Provider: Rivas Garcia, [address] [place], [place] [address]ate Center [address], [place], [facility]. tel:[phone] Office/outpat ient Visit, [facility], [address] [place] [address] [address], [place], [place], [address], [place] tel:[phone] [facility] [place] No Information Dec-1 0-200 7 Alessandro Hathaway. [address] [place] [address] Center , [address], [place], [facility], [place]. tel:[phone] Office/outpat ient Visit, [facility], [address] [place] [address] [address], [place], [place], [address], [place] tel:[phone] [facility] [place] No Information Naren-0 9-[address] [facility] [address], [address], [place], [facility], . tel:[phone] Referring Provider: Adalgisa [facility] [address], [place], [facility]. tel:[phone] [facility], [address] [place] [address] [address], [place], [place], [address], tel:[phone] [facility] [place] No Information Mar-1 3-200 7 Alessandro Hathaway. Ad[facility]isa [facility] [address], [place], [facility], . tel:[phone] Referring Provider: Adalgisa [facility] [address], [place], [facility]. tel:[phone] [facility], [address] [place] [address] [address], [place], [place], [address], tel:[phone] [facility] [place] No Information Mar-0 7-200 7 Alessandro Hathaway. [facility] [address], [place], [facility], . tel:[phone] Referring Provider: Adalgisa [facility] [address], [place], [facility]. tel:[phone] Family History Family Member Type Diagnosis Age At Onset No Information Payers Payer name Insurance type Covered republican ID Authorluisa aubree(s) [place] [id number] Social History Type Description Quantity Date Captured [...]
--- OUTSIDE RECORDS SUMMARY | 2025-05-31 12:20 | XMS_ITS | Clinical Summary ---
Author Organization [facility] Address [address] [place] [address] Care Team Providers Care Wildlife Conservation Professor Name Role Phone Tanvir Davalos MD Primary Care Provider [phone] Source Comments [facility],non-owned Affiliates and Associated Physician Practices is amultiple site organization consisting of ambulatory clinics and hospital sitesin [place], [place], [place] and [place]. This disclosure is being madepursuant to the Care Everywhere program and may not contain all information available regarding this patient. 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
--- NOTE | 2025-05-31 12:28 | ECG_ITS ---
Test Date: 2025-05-31 12:33:55 Measurements Intervals [place] Rate: 106 P: 0 [place]: 0 QRS: 6 QRSD: 83 T: 64 QT: 351 QTc: 466 Interpretive Statements ATRIAL FIBRILLATION WITH RAPID VENTRICULAR RESPONSE MINIMAL Q WAVES- HIGH LATERAL LEADS NONSPECIFIC ST & T-WAVE ABNORMALITY- ANT/INF LEADS BASELINE ARTIFACT- V1-V2 ABNORMAL ECG No previous ECG available for comparison Electronically Signed On 05-31-2025 13:21:35 CDT by Jairo Spivey D.O.
[2025-05-31 13:08] LABS: Hematocrit 42.6 % (37.0-47.0); Hemoglobin 12.7 g/dL (12.0-15.0); Immature Granulocyte Percent A 0.5 % (0-0.5); Lymphocytes Absolute Auto 2.51 K/mm3 (0.9-3.2); Mean Corpuscular HGB Conc 29.8 g/dl (32-36); Mean Corpuscular Hemoglobin 23.9 pg (26-34); Mean Corpuscular Volume 80.1 fl (80-100); Nucleated Red Blood Cells Absolute Auto 0.000 K/mm3 (0.0-0.012); Nucleated Red Blood Cells Perc 0.0 % (0.0-0.2); Platelet Count Result 404 k/mm3 (150-375); Red Blood Count 5.32 M/mm3 (4.2-5.4); White Blood Count 9.4 K/mm3 (4.5-10.0)
[2025-05-31 13:26] LABS: INR 1.4; Prothrombin Time 16.9 Seconds (11.1-14.7)
[2025-05-31 13:28] LABS: Alanine Aminotransferase 20 U/L (6-35); Albumin Level 4.2 g/dL (3.5-5.1); Alkaline Phosphatase 81 U/L (38-126); Anion Gap 13 mmol/L (4-12); Aspartate Amino Transferase 33 U/L (14-36); Bilirubin,Total 0.7 mg/dL (0.2-1.3); Blood Urea Nitrogen 21 mg/dL (7-17); Calcium 9.7 mg/dL (8.4-10.2); Carbon Dioxide 18 mmol/L (22-30); Chloride 105 mmol/L (98-107); Estimated CRCL calculation 35 ml/min; Estimated Glomerular Filt Rate 41; Glucose 118 mg/dL (65-110); Partial Thromboplastin Time 50.9 Seconds (22.3-36.8); Potassium 4.1 mmol/L (3.4-5.0); Sodium 136 mmol/L (137-145); Total Protein 8.1 g/dL (6.3-8.2)
[2025-05-31 13:30] LABS: Anisocytosis 1+; Hypochromasia 1+; Ovalocytes 1+; Schistocytes None Seen
--- OUTSIDE RECORDS SUMMARY | 2025-05-31 13:30 | XMS_ITS | Clinical Summary ---
Author Organization [facility] Address [address] [place] [address] Care Team Providers Care Sand Miller Name Role Phone Tanvir Davalos MD Primary Care Provider [phone] Source Comments [facility],non-owned Affiliates and Associated Physician Practices is amultiple site organization consisting of ambulatory clinics and hospital sitesin [place], [place] and [place]. This disclosure is being madepursuant to the Care Everywhere program and may not contain all information available regarding this patient. 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
--- OUTSIDE RECORDS SUMMARY | 2025-05-31 13:30 | XMS_ITS | Clinical Summary ---
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 Gender Identity Not on file Sexual Orientation Not on file Obstetrics History Last Filed Vital Signs Vital Sign [place] Time Taken Comments Blood Pressure 142/76 09/28/2024 10:56 AM SATELLITE TV TECHNICIAN INSTALLER Pulse 64 09/28/2024 10:56 AM SATELLITE TV TECHNICIAN INSTALLER Temperature 36.2 C (97.2 F) 04/27/2022 10:59 AM CDT Respiratory Rate 16 03/10/2021 11:00 AM CDT Oxygen Saturation 95% 09/28/2024 10:56 AM SATELLITE TV TECHNICIAN INSTALLER Inhaled Oxygen Concentration - - Weight 90.3 kg (199 lb) 09/28/2024 10:56 AM SATELLITE TV TECHNICIAN INSTALLER Height 172.7 cm (5' 8) 09/28/2024 10:56 AM SATELLITE TV TECHNICIAN INSTALLER Body Mass Index 30.26 09/28/2024 10:56 AM SATELLITE TV TECHNICIAN INSTALLER Plan of Treatment Health Maintenance Due Date [...] 02/27/202707/2017, 02/27/2017 Medical Devices Implanted Type Area Human Resources Supervisor Device Identifier Shelf Expiration Date Model / Serial / Lot [employer]/C R Bard [id number] Monofilament Soft Lightweight Low Profile Square - [id number] - [id number] Implanted:Qty: 1 on 03/09/2021 by Jesu Breen MD at [facility] Mesh N/A: Abdomen [employer]/C R Bard [id number] 10/17/2025 [id number] / [id number] / [id number] Insurance MEDICARE [facility] Advance Directives For more information, please contact: [phone] * Full Code (Latest Code Status on File) Date Activated Date Inactivated Comments 03/09/2021 3:21 PM 03/10/2021 6:44 PM Care Teams Insurance Inspector Relationship Specialty Start Date End Date Tanvir Davalos MD [address] [address] PCP - General Internal Medicine 08/21/19
[2025-05-31 13:31] LABS: NT Pro B Type Natriuretic Pept 4650 pg/mL (19.9-100); Troponin I < 0.012 ng/mL (0.000-0.034)
--- NOTE | 2025-05-31 14:06 | ECG_ITS ---
Test Date: 2025-05-31 14:10:25 Measurements Intervals [place] Rate: 126 P: 0 [place]: 0 QRS: 9 QRSD: 84 T: 91 QT: 280 QTc: 405 Interpretive Statements ATRIAL FIBRILLATION WITH RAPID VENTRICULAR RESPONSE LEFT VENTRICULAR HYPERTROPHY WITH ST-T CHANGE MINIMAL Q WAVES- HIGH LATERAL LEADS NONSPECIFIC ST & T-WAVE ABNORMALITY- ANTEROLAT/INF LEADS ABNORMAL ECG Compared to ECG 05/31/2025 12:33:55 HEART RATE HAS INCREASED Electronically Signed On 05-31-2025 14:29:07 CDT by Jairo Spivey D.O.
[2025-05-31] MEDS: LACTATED RINGERS 1,000 ML 500 ML IV CONT (14:43)
--- NOTE | 2025-05-31 14:43 | ED_ITS ---
HPI - General Adult General Chief complaint: Shortness of Breath/Dyspnea Stated complaint: shortness of breath Time Seen by Provider: 05/31/25 12:55 History of Present Illness HPI narrative: 85-year-old female returns to the emergency department for evaluation of exertional fatigue. Patient was started on a Z-Marcello on Saturday. Patient reports he has had persistent symptoms. Patient was evaluated emergency department yesterday for concern for C diff. Patient has not had any diarrhea stools since she was last evaluated. Patient is in AFib with rate control but has had some episodes of rapid heart rate. Patient denies any chest pain. Patient denies lower extremity swelling. Patient does have history of CHF, AFib Related Data Home Medications ?Medication ?Instructions ?Recorded ?Confirmed ?Last Taken ?Type aspirin 81 mg capsule 81 mg PO HS ##0 04/17/22 02/12/25 03/24/24 History pantoprazole 40 mg tablet,delayed 40 mg PO DAILY 11/13/23 02/12/25 03/25/24 07:00 History release azelastine 137 mcg (0.1 %) nasal 1 spray intranasal Q12H PRN 02/18/24 02/12/25 Unknown History spray Allergy Symptoms latanoprost 0.005 % eye drops 1 drp EACH EYE DAILY 02/18/24 02/12/25 03/24/24 History metoprolol succinate 100 mg 150 mg PO HS Atrial fibrillation 02/18/24 02/12/25 03/24/24 History tablet,extended release 24 hr acetaminophen 325 mg tablet 650 mg PO Q4-6H PRN Pain 05/11/24 02/12/25 Unknown History Allergies Allergy/AdvReac Type Severity Reaction Status Date / Time adhesive tape Allergy Blister Verified 05/31/25 12:51 meperidine (From Demerol) AdvReac Unknown Nausea and Verified 05/31/25 12:51 Vomiting morphine AdvReac Nausea Verified 05/31/25 12:51 Review of Systems 2 Review of Systems: All systems reviewed & are unremarkable except as noted in HPI and below PMFSH Past Medical History Medical History Cardiomyopathy Steatohepatitis Depression Glaucoma Ulcerative colitis History of Clostridioides difficile infection Arthritis Myocardial infarction 2005 Hypertension Claustrophobia History of adverse reaction to anesthesia Surgical History Surgical History History of bilateral knee arthroplasty History of hysterectomy History of repair of right rotator cuff History of colonoscopy with polypectomy History of uterosacral colpopexy History of ventral hernia repair History of partial colectomy For hemorrhoidal bleeding. Family History Family History Other History of bone cancer History of lung cancer Social History Social History Smoking packs per day: 0 Smoking cigarettes per day: 0.0 Years smoked: 0 Smoking pack-years: 0.00 Smoking status: Never smoker Second hand tobacco smoke exposure: No Alcohol intake: current Alcohol use details: Beer 1/3 bottle every other day Substance use: never Substance use type: does not use Do You Feel Safe in your Home?: Yes Lack of Transportation: No Lack of Food: Never True Current Housing: I Have Housing Concerned About Future Housing: No Difficulty Paying Gas/Electric Bills: No Difficulty Paying for Meds: No Currently Unemployed: No Education: High School Diploma/GED Difficulty w/ Childcare or Family Care: No Living arrangements: alone Gender identity (if verbalized by the patient): Female Sexual Orientation (if Verbalized by the Patient): Straight or Heterosexual Spiritual care concerns: No Exam 2 Narrative: APPEARANCE: Well appearing, no pain, no distress, well-nourished. HEAD: normocephalic, atraumatic. EYES: PERRLA/EOMI, conjunctivae clear. NOSE: Normal no drainage EARS:TMS clear with good light reflex. THROAT: Pharynx clear, no exudate. NECK: Supple. No adenopathy, no masses. RESPIRATORY: Airway patent, respirations nonlabored. Clear to auscultation bilaterally, no rales, rhonchi, wheezing. CARDIOVASCULAR: AFib rate controlled ABDOMINAL: Soft, nontender, nondistended, normal bowel sounds MUSCULOSKELETAL: Moves all extremities. Strength/ROM intact, No edema, No calf tenderness. NEURO: Alert. Cranial nerves II through XII intact. Good gait. Good coordination SKIN: Warm, dry. Normal Color Course Vital Signs Vital signs: Vital Signs Temperature 97.9 F 05/31/25 12:26 Pulse Rate 46 L 05/31/25 12:26 Respiratory Rate 16 05/31/25 12:26 Pulse Oximetry 95 05/31/25 12:26 Oxygen Delivery Room Air 05/31/25 12:26 Temperature 97.8 F 05/31/25 17:14 Pulse Rate 93 05/31/25 17:14 Respiratory Rate 21 H 05/31/25 17:14 Blood Pressure 118/88 05/31/25 17:14 Pulse Oximetry 96 05/31/25 17:14 Oxygen Delivery Room Air 05/31/25 12:47 Medical Decision Making MDM Narrative Medical decision making narrative: 85-year-old female presents to the emergency department for evaluation for increased generalized weakness. Patient is in AFib but is rate controlled the majority of her time here, review of previous EKG shows she has always been and atrial fibrillation. Patient is on metoprolol and on Eliquis. Patient is currently afebrile with no leukocytosis hemoglobin 12.7. Patient does have mild SU but no other concerning changes to her CMP. Patient's troponin was negative. Patient's proBNP is elevated at 4650. Chest x-ray show possible pneumonia but also shows chronic findings that are unchanged. Patient was treated with a L lactated Ringer's. Patient states she is unable to provide a stool sample for possible C diff. Patient declined to provide a urine sample. Patient reports that she does prefer to be discharged home with the med. Patient had almost completed her treatment with the azithromycin, this will be repeated and she will also be provided additional Augmentin. Patient was encouraged close follow-up with primary care physician. Patient was educated on reasons to return to the emergency department. Differential Diagnosis Differential Diagnosis: UTI, COVID, RSV, influenza, pneumonia, dehydration, acute kidney injury Vital Signs Vital Signs: Vital Signs Temperature 97.9 F 05/31/25 12:26 Pulse Rate 46 L 05/31/25 12:26 Respiratory Rate 16 05/31/25 12:26 Pulse Oximetry 95 05/31/25 12:26 Oxygen Delivery Room Air 05/31/25 12:26 Temperature 97.8 F 05/31/25 17:14 Pulse Rate 93 05/31/25 17:14 Respiratory Rate 21 H 05/31/25 17:14 Blood Pressure 118/88 05/31/25 17:14 Pulse Oximetry 96 05/31/25 17:14 Oxygen Delivery Room Air 05/31/25 12:47 Lab Data Lab results reviewed: Yes I reviewed the patient's lab results. 05/31/25 13:02 05/31/25 13:02 Labs: Lab Results 05/31/25 Range/Units 13:02 WBC 9.4 (4.5-10.0) K/mm3 RBC 5.32 (4.2-5.4) M/mm3 Hgb 12.7 (12.0-15.0) g/dL Hct 42.6 (37.0-47.0) % MCV 80.1 (80-100) fl MCH 23.9 L (26-34) pg MCHC 29.8 L (32-36) g/dl RDW 18.8 H (11.5-14.5) % Plt Count 404 H (150-375) k/mm3 MPV 10.5 H (7.4-10.4) fl Immature Gran % (Auto) 0.5 (0-0.5) % Neut % (Auto) 58.2 (45.5-73.1) % Lymph % (Auto) 26.8 (18.3-44.2) % [place] % (Auto) 10.5 H (2.6-8.5) % Eos % (Auto) 2.8 (0-4.4) % Baso % (Auto) 1.2 (0.2-1.2) % Lymph # (Auto) 2.51 (0.9-3.2) K/mm3 [place] # (Auto) 1.0 H (0.1-0.6) K/mm3 Eos # (Auto) 0.3 (0-0.3) K/mm3 Baso # (Auto) 0.1 (0.0-0.1) K/mm3 Abs Immat Gran (auto) 0.05 H (0.00-0.031) K/mm3 Absolute Neuts (auto) 5.4 (1.3-6.7) K/mm3 Absolute Nucleated RBC 0.000 (0.0-0.012) K/mm3 Band Neutrophils % Not Reportable Nucleated RBC % 0.0 (0.0-0.2) % Platelet Estimate Slightly increased (Adequate) Hypochromasia 1+ Anisocytosis 1+ Ovalocytes 1+ Schistocytes None seen PT 16.9 H (11.1-14.7) Seconds INR 1.4 APTT 50.9 H (22.3-36.8) Seconds Sodium 136 L (137-145) mmol/L Potassium 4.1 (3.4-5.0) mmol/L Chloride 105 (98-107) mmol/L Carbon Dioxide 18 L (22-30) mmol/L Anion Gap 13 H (4-12) mmol/L BUN 21 H (7-17) mg/dL Creatinine 1.25 H (0.7-1.0) mg/dL Estim Creat Clear Calc 35 ml/min Estimated GFR 41 L (59 - ) Glucose 118 H (65-110) mg/dL Calcium 9.7 (8.4-10.2) mg/dL Total Bilirubin 0.7 (0.2-1.3) mg/dL AST 33 (14-36) U/L ALT 20 (6-35) U/L Alkaline Phosphatase 81 (38-126) U/L Troponin I < 0.012 (0.000-0.034) ng/mL NT-Pro-B Natriuret Pep 4650 H (19.9-100) pg/mL Total Protein 8.1 (6.3-8.2) g/dL Albumin 4.2 (3.5-5.1) g/dL Imaging Data Radiologist's impression: Impressions Chest X-Ray 05/31/25 13:47 IMPRESSION: 1.Small opacities in the mid and lower lungs, greater on the right. Differential includes atelectasis/scarring or infiltrates. The findings are similar to the study from 01/13/2024. ECG Data EKG #1: EKG Interpretation: normal rate, atrial fibrillation, non-specific ST changes and no acute changes Discharge Plan Discharge Clinical Impression: Generalized weakness, Pneumonia Patient Disposition: Home Condition: Stable Instructions: Antibiotic Form Additional Instructions: You are being provided additional prescription for azithromycin. Augmentin as directed until completed. Have close follow-up with your primary care physician. If you have any worsening symptoms then please call or return to the emergency department. Patient Language: Occitan Prescriptions: New albuterol sulfate 90 mcg/actuation HFA aerosol inhaler 1 puff inhalation QID Qty: 6.7 0RF amoxicillin-pot clavulanate 875-125 mg tablet 1 tablet PO Q12H 7 Days Qty: 14 0RF azithromycin 250 mg tablet See Rx Instructions .ROUTE .COMPLEX Qty: 6 0RF Rx Instructions: For 250 mg dose pack: take 500 mg today (day 1), then 250 mg for 4 days (days 2-5) No Action mesalamine 400 mg capsule (with del rel tablets) 800 mg PO BID 90 Days Qty: 360 2RF pantoprazole 40 mg tablet,delayed release (DR/EC) 40 mg PO DAILY latanoprost 0.005 % drops 1 drp EACH EYE DAILY metoprolol succinate 100 mg tablet extended release 24 hr 150 mg PO HS azelastine 137 mcg (0.1 %) Aerosol,[place] 1 spray INTRANASAL Q12H PRN (Reason: Allergy Symptoms) Rx Instructions: administer into each nostril acetaminophen 325 mg tablet 650 mg PO Q4-6H PRN (Reason: Pain) aspirin 81 mg Capsule 81 mg PO HS Qty: 0 Eliquis 5 mg Tablet 5 mg PO Q12HR 30 Days Qty: 60 0RF Entresto 24-26 mg Tablet 1 tablet PO Q12HR 30 Days Qty: 60 0RF Follow-up/Referrals: Anoop,Tanvir Alexandra MD [Primary Care Provider] -
[2025-05-31] MEDS: cefTRIAXone 1 GM in SODIUM CHLORIDE 0.9% IV 50 ML 100 ML IVPB (15:01)
[2025-05-31] MEDS: AZITHROMYCIN IV 500 MG in SODIUM CHLORIDE 0.9% IV 250 ML IVPB (15:39)
== END 2025-05-31 17:16 | disposition home or self-care (01) ==
PROVIDERS: Emergency Provider Emergency Medicine; PCP Internal Medicine
DX: J18.9 Pneumonia, unspecified organism (principal); R53.1 Weakness; I50.9 Heart failure, unspecified; I11.0 Hypertensive heart disease with heart failure; I48.91 Unspecified atrial fibrillation; I42.9 Cardiomyopathy, unspecified; I25.2 Old myocardial infarction; H40.9 Unspecified glaucoma; K51.90 Ulcerative colitis, unspecified, without complications; M19.90 Unspecified osteoarthritis, unspecified site; F32.A Depression, unspecified; Z96.653 Presence of artificial knee joint, bilateral; Z90.710 Acquired absence of both cervix and uterus; Z90.49 Acquired absence of other specified parts of digestive tract; Z79.01 Long term (current) use of anticoagulants; Z79.899 Other long term (current) drug therapy; Z79.82 Long term (current) use of aspirin; R94.31 Abnormal electrocardiogram [ECG] [EKG]; I51.7 Cardiomegaly
CPT/HCPCS: 36415; 71046; 80053; 83880; 84484; 85025; 85610; 85730; 93005; 96361; 96365; 96368; 99284; J0456; J0696; J7050; J7120

== ENCOUNTER 2025-08-16 11:03 | Outpatient (CLI) | payer MEDICARE, OTHER, SELFPAY ==
[2025-08-16 11:37] LABS: Hematocrit 44.6 % (37.0-47.0); Hemoglobin 14.0 g/dL (12.0-15.0); Immature Granulocyte Percent A 0.3 % (0-0.5); Lymphocytes Absolute Auto 1.73 K/mm3 (0.9-3.2); Mean Corpuscular HGB Conc 31.4 g/dl (32-36); Mean Corpuscular Hemoglobin 27.7 pg (26-34); Mean Corpuscular Volume 88.1 fl (80-100); Nucleated Red Blood Cells Absolute Auto 0.000 K/mm3 (0.0-0.012); Nucleated Red Blood Cells Perc 0.0 % (0.0-0.2); Platelet Count Result 323 k/mm3 (150-375); Red Blood Count 5.06 M/mm3 (4.2-5.4); White Blood Count 7.6 K/mm3 (4.5-10.0)
--- OUTSIDE RECORDS SUMMARY | 2025-08-16 12:43 | XMS_ITS | Clinical Summary ---
Author Organization [facility] Address [address] [place] [address] Care Team Providers Care Certified Court Interpreter Name Role Phone Tanvir Davalos MD Primary Care Provider Allergies Active Allergy Reactions Criticality Noted Date Comments Meperidine Vomiting Low Morphine Other (See comments) Low 10/22/2019 Upset stomach Medications latanoprost (XALATAN) 0.005 % ophthalmic solutionIndicat ions:open angle glaucoma Administer 1 drop into both eyes nightly 4 08/13/20 19 Active DELZICOL 400 mg capsule (with del rel tablets)Indicat ions:Ulcerative Colitis Take 2 capsules (800 mg total) by mouth 2 (two) times a day 08/05/[address] (PROTONIX) 40 mg EC tabletIndicatio ns:gerd Take 1 tablet (40 mg total) by mouth every morning 04/14/20 20 Active azelastine (ASTELIN) 137 mcg (0.1 %) nasal spray Administer 2 sprays into each nostril as needed 01/18/20 21 Active acetaminophen 500 mg capsuleIndicati ons:Pain Take 2 capsules (1,000 mg total) by mouth every 8 (eight) hours as needed for pain 30 tablet 03/10/20 21 Active aspirin 81 mg enteric coated tablet Take 1 tablet (81 mg total) by mouth daily Active Eliquis 5 mg tablet TAKE 1 TABLET(5 MG) BY MOUTH TWICE DAILY 60 tablet 07/09/20 25 Active UNABLE TO FIND Messalamine 400mg bid Active artificial tears (SYSTANE) 0.3 % gel Apply to both eyes Active metoprolol XL (TOPROL-XL) 100 mg 24 hr tabletIndicatio ns:Paroxysmal atrial fibrillation (HCC) Take 0.5 tablets (50 mg total) by mouth daily Dose has been adjusted to 50 mg daily 45 tablet 3 08/05/20 25 Active sacubitriL-vals nitesh (ENTRESTO) 24-26 mg tabletIndicatio ns:chronic heart failure Take 1 tablet by mouth 2 (two) times a day 180 tablet 2 08/13/20 Active metoprolol XL (TOPROL-XL) 100 mg 24 hr tabletIndicatio ns:Paroxysmal atrial fibrillation (HCC) Take 0.5 tablets (50 mg total) by mouth daily 09/28/20 24 2024 Discontinued Entresto 24-26 mg tablet Take 0.5 tablets by mouth 2 (two) times a day 90 tablet 3 12/15/192024 Discontinued(O ther) Active Problems Problem Noted Date Diagnosed Date Heart failure with mid-range ejection fraction 0 03/13/2024 Abnormal stress test 03/13/2024 Nonrheumatic mitral valve regurgitation 03/13/20 Atrial fibrillation 03/13/2024 Nonrheumatic tricuspid valve regurgitation 03/13 Coronary arteriosclerosis 03/10/2021 Essential hypertension 03/10/2021 Ulcerative colitis 03/10/2021 Incisional hernia, without obstruction or gangre ne 04/15/2020 Encounters Date Type Department Care Team Description 08/13/2025 Orders Only [facility] Medical Group Cardiology [address] [place] [phone] Shonda Underwood MA 08/13/2025 Telephone [facility] Medical [facility] Cardiology [address] [place] [phone] Olivier Snyder MD generic entresto 07/20/2025 11:00 AM CDT Office Visit [facility] Medical [facility] Cardiology at [address] [place] [address] Olivier Snyder MD Atrial fibrillation, unspecified type (HCC) (Primary Dx) 07/19/2025 Telephone [facility] Medical Group Cardiology at [address] [place] [address] Olivier Snyder MD from Last 3 Months Surgical History [...] on file 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 Gender Identity Not on file Sexual Orientation Not on file Obstetrics History Last Filed Vital Signs Vital Sign Reading Time Taken Comments Blood Pressure 128/78 07/20/2025 10:57 AM CDT Pulse 70 07/20/2025 10:57 AM CDT Temperature 36.2 C (97.2 F) 04/27/2022 10:59 AM CDT Respiratory Rate 16 03/10/2021 11:00 AM CDT Oxygen Saturation 98% 07/20/2025 10:57 AM CDT Inhaled Oxygen Concentration - - Weight 89 kg (196 lb 4.8 oz) 07/20/2025 10:57 AM CDT Height 172.7 cm (5' 8) 07/20/2025 10:57 AM CDT Body Mass Index 29.85 07/20/2025 10:57 AM CDT Plan of Treatment Health Maintenance [...] 02/27/202707/2017, 02/27/2017 Medical Devices Implanted Type Area Chemical Librarian Device Identifier Shelf Expiration Date Model / Serial / Lot [employer]/C R Bard [id number] Monofilament Soft Lightweight Low Profile Square - [id number] - [id number] Implanted:Qty: 1 on 03/09/2021 by Jesu Breen MD at [facility] Mesh N/A: Abdomen [employer] [id number] 10/17/2025 [id number] / [id number] / [id number] Procedures Procedure Name Priority Date/Time Associated Diagnosis Comments ECG 12-LEAD Routine 07/20/2025 11:03 AM CDT Atrial fibrillation, unspecified type (HCC) from Last 3 Months Results * ECG 12 lead (07/20/2025 11:03 AM CDT) us Olivier Snyder MD ECG ORDERABLES Edited R esult - Final from Last 3 Months Insurance MEDICARE [facility] MEDICARE MEDICARE [facility] Advance Directives For more information, please contact: [phone] * Full Code (Latest Code Status on File) Date Activated Date Inactivated Comments 03/09/2021 3:21 PM 03/10/2021 6:[address] Interpreter Relationship Specialty Start Date End Date Tanvir Davalos MD [address] [facility] [address] [id number] PCP - General Internal Medicine 08/21/19
--- OUTSIDE RECORDS SUMMARY | 2025-08-16 12:43 | XMS_ITS | Encounter Summary ---
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 Pt reports that she feels like she is back in A-fib. Pt states she had some difficulty sleeping last night due to symptoms. She states that this am her HR has been in the 80's bp 145/93. Pt has not yet taken her morning medications. Pt denies any lower extremity swelling, states that she does not weigh herself daily. Pt has appt with [facility] tomorrow at 11:00. Pt will continue to monitor symptoms and HR. Pt advised to go to the ER for any CP or SOB that is not relieved with rest. Pt verbalizes understanding. * Telephone Encounter - Cher Aivla - 07/19/2025 8:07 AM CDT Patient called in and states that she started having trouble breathing, 07/18 at 3:30pm.Patient states that she can't walk without getting tired and out of breathe. Patient is requesting a call back to discuss. Thank you. Contact : [phone] documented in this encounter Plan of Treatment Not on file documented as of this encounter Visit Diagnoses Not on filedocumented in this encounter Care Teams Lathe Tender Relationship Specialty Start Date End Date Tanvir Davalos MD [address] [facility] [place] [address] PCP - General Internal Medicine 08/21/19 documented as of this encounter
--- OUTSIDE RECORDS SUMMARY | 2025-08-16 12:43 | XMS_ITS | Clinical Summary ---
Author Organization [facility] Address [address] 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 This disclosure is being madepursuant to the Care Everywhere program and may not contain all information available regarding this patient. 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 Gender Identity Not on file Sexual Orientation [...] Last Done Comments BONE DENSITY TESTING 1942 DTAP/TDAP/TD VACCINES (1 - Tdap) 1961 PNEUMOCOCCAL VACCINE 50+ (1 of 1 - PCV) 01/02/1992 ZOSTER VACCINE (1 of 2) 01/02/1992 Respiratory Syncytial Virus (RSV) Vaccine Pt: or over 60 yrs (1 - 1-dose 75+ series) 2017 DEPRESSION SCREENING 10/21/2024 COVID-19 VACCINE (1 - 2023-2 5 season) 2025 INFLUENZA VACCINE (#1) 2025 HEPATITIS B VACCINE [...] age to complete this topic Insurance MEDICARE [facility] [place] [id number] MEDICARE Care Teams 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
== END 2025-08-16 11:04 | disposition home or self-care (01) ==
LOC: ANHLAB 11:08
PROVIDERS: PCP Internal Medicine; Visit Provider Internal Medicine
DX: E61.1 Iron deficiency (principal); I10 Essential (primary) hypertension
CPT/HCPCS: 36415; 85025

== ENCOUNTER 2025-10-19 09:22 | Outpatient (CLI) | payer MEDICARE, OTHER, SELFPAY ==
--- OUTSIDE RECORDS SUMMARY | 2025-10-19 09:41 | XMS_ITS | Data Portability ---
Author Organization [place] [facility] [employer], Main Office Address [address] [place] [address] Assessment No assessment recorded. Plan of Treatment Reminders Order Date Submit Date Provider Last Modified By Organization Details Last Modified Time Details Appointments None recorded. Lab lipid panel, serum 2024 025 [facility], [address] [place], [address], 5 04:08:00 CMP, serum or plasma 2024 025 [facility], [address] [place], [address], 5 04:08:01 CBC w/ auto diff 2024 025 [facility], [address] [place], [address], 5 04:08:01 vitamin D, 1,25-dihydr oxy, serum [address] [facility] (Lab), [address] [place], [address], 5 13:11:20 vitamin B12, serum [address] [facility] (Lab), [address] [place], [address], 5 19:36:43 CMP, serum or plasma [address] [facility] (Lab), [address] [place], [address], 5 18:49:55 TSH, serum or plasma 2024 025 [facility], [address] [place], [address], 5 19:20:29 T4, free, serum 2024 025 [facility], [address] [place], [address], 5 19:00:09 CBC w/ auto diff 2024 025 [facility], [address] [place], [address], 5 18:11:23 C-reactive protein, quantitativ e, serum or plasma [id number] [place] [address] Outpatient Lab, [address] [place], [address], 5 10:05:00 magnesium, serum or plasma [email or web address] [place] [address] Outpatient Lab, [address] [place] [address], [address], 5 10:05:00 vitamin B12, serum [email or web address] [place] [address] Outpatient Lab, [address] [place], [address], 5 10:05:00 CBC w/ auto diff [id number] [place] [address] - Outpatient Lab, [address] [place] [address], [address], 5 10:04:59 CMP, serum or plasma [id number] [place] [address] - Outpatient Lab, [address] [place] [address], [address], 5 10:04:59 lipid panel, serum 2024 025 [email or web address] [facility] Outpatient Lab, [address] [place], [address], 5 10:04:59 TSH, serum or plasma 2024 025 [email or web address] [facility] Outpatient Lab, [address] [place], [address], 5 10:04:59 T4, free, serum 2024 025 [email or web address] [facility] Outpatient Lab, [address] [place] [address], [address], 10:04:59 Referral None recorded. Procedures None recorded. Surgeries None recorded. Imaging None recorded. Medication Orders doxycycline hyclate 100 mg capsule 2023 024 [email or web address] [id number], [address] [facility] [place], [place], [id number], 11:25:27 Patient TargetsNo targets recorded. Patient Instructions Encounter Date Encounter Id Patient Instructions Last Modified By Organization Details Last Modified Time 09/01/2024 [id number] Follow-up talbert ry artery disease, essential hypertension, [...] recognize, using context, where substitutions have occurred. [email or web address] Not available 09/01/2024 11:45:56 12/29/2024 [id number] Essential hypertension, paroxysmal atrial fibrillation, GERD and [...] Created: Tanvir Davalos M.D. 12.29.2024 10:41 AM [email or web address] Not available 12/29/2024 11:41:42 05/04/2025 [id number] [facility] risk assessment stable. Follow-up for coronary artery disease, essential hypertension, atrial fibrillation, hyperlipidemia obesity class one all clinically stable. Clinically is doing well at this time. Has had recent blood work performed. Will get a mammogram as well as a bone density scan. He is otherwise doing well. Follow-up in four months Advised on FDA Recommended Immunizations including but not limited to Influenza, COVID,Tetanus,TDAP, Pneumococcal,RSV and Shingles Additional Orders - Directives - Recommendations 1. Bone density scan 2. screening mammogram Follow Up: 4 Months Approximate Date: 09/01/2025 Portions of record are template driven. When necessary additional context will be provided. Additionally some portions have been created with voice recognition software. Occasional wrong-word or s ound-a-like substitutions may have occurred due to the inherent limitations of voice recognition software. Read the chart carefully and recognize, using context, where substitutions may have occurred. Created: Tanvir Davalos M.D. 05.04.2025 10:40 AM [email or web address] Not available 05/04/2025 11:40:43 06/09/2025 [id number] Follow-up for coronary artery disease, essential hypertension, atrial fibrillation, hyperlipidemia stable. Plan to continue current Rx check the blood work for possible fatigue. Follow-up in four months Follow Up: 4 Months Approximate Date: 10/07/2025 Portions of record are template driven. When necessary additional context will be provided. Additionally some portions have been created with voice recognition software. Occasional wrong-word or s ound-a-like substitutions may have occurred due to the inherent limitations of voice recognition software. Read the chart carefully and recognize, using context, where substitutions may have occurred. Created: Tanvir Davalos M.D. 06.09.2025 04:06 PM [email or web address] Not available 06/09/2025 17:07:01 10/06/2025 [id number] Follow-up for coronary artery disease, essential hypertension, paroxysmal atrial fibrillation and hyperlipidemia all clinically stable. Recently had a epistaxis which required hospitalization. He is stable at this time. Has also had some drainage from the umbilicus which appears to be more possible dried blood. Instructed her to take some oxide and clean this out and continue put some Neosporin on it. If this is not improved let us know. Will check a CBC and CMP along with a lipid panel. Follow-up in four months Additional Orders - Directives - Recommendations 1. Use some peroxide to clean off the umbilicus area. See if this improves the drainage. Also continue to use the Neosporin ointment. Immunizations and Vaccines 1. 2004- TETANUS BOOSTER 2. RSV Recommended 3. Shingrix Recommended 4. Influenza Recommended 5. Covid or Booster Recommended Recommended Vaccine and Immunizations Discussed With Patient! Follow Up: 4 Months Approximate Date: 02/03/2026 Portions of record are template driven. When necessary additional context will be provided. Additionally some portions have been created with voice recognition software. Occasional wrong-word or s ound-a-like substitutions may have occurred due to the inherent limitations of voice recognition software. Read the chart carefully and recognize, using context, where substitutions may have occurred. Created: Tanvir Davalos M.D. 10.06.2025 02:08 PM [email or web address] Not available 10/06/2025 15:08:43 Reason for Referral None Reported. Results Created Date Observation Date Name Description Value Unit Range Abnormal Flag Note LastModifiedBy Organization Detail LastModifiedTime 06/09/20 25 06/09/2025 CBC/C OMPLE TE BLD COUNT W/DIF F white blood cells 10.5 x10'3 /uL 4.2-10 .8 Not Available [facility] (Lab) [address] [place], [address], 06/09/2025 18:11:23 06/09/20 25 06/09/2025 CBC/C OMPLE TE BLD COUNT W/DIF F red blood cells 4.58 x10'6 /uL 4.10-5 .80 Not Available [facility] (Lab) [address] [place], [address], 06/09/2025 18:11:23 06/09/20 25 06/09/2025 CBC/C OMPLE TE BLD COUNT W/DIF F hemoglobin 11.3 g/dL 13.2-1 7.0 low Not Available [facility] (Lab) [address] [place], [address], 06/09/2025 18:11:23 06/09/20 25 06/09/2025 CBC/C OMPLE TE BLD COUNT W/DIF F hematocrit 36.6 % 39.3-5 0.0 low Not Available [facility] (Lab) [address] [place], [address], 06/09/2025 18:11:23 06/09/20 25 06/09/2025 CBC/C OMPLE TE BLD COUNT W/DIF F mean red cell volume 79.9 fL 80.0-9 7.0 low Not Available [facility] (Lab) [address] [place], [address], 06/09/2025 18:11:23 06/09/20 25 06/09/2025 CBC/C OMPLE TE BLD COUNT W/DIF F mean red cell hemoglobin 24.7 pg 27.0-3 3.0 low Not Available [facility] (Lab) [address] [place], [address], 06/09/2025 18:11:23 06/09/20 25 06/09/2025 CBC/C OMPLE TE BLD COUNT W/DIF F mean RBC HGB concentratio n 30.9 g/dL 31.0-3 6.0 low Not Available [facility] (Lab) [address] [place], [address], 06/09/2025 18:11:23 06/09/20 25 06/09/2025 CBC/C OMPLE TE BLD COUNT W/DIF F red cell distribution width 18.1 % 11.8-1 5.5 high Not Available [facility] (Lab) [address] [place], [address], 06/09/2025 18:11:23 06/09/20 25 06/09/2025 CBC/C OMPLE TE BLD COUNT W/DIF F platelets 629 x10'3 /uL 150-40 0 high Not Available [facility] (Lab) [address] [place], [address], 06/09/2025 18:11:23 06/09/20 25 06/09/2025 CBC/C OMPLE TE BLD COUNT W/DIF F mean platelet volume 10.0 fL 9.0-12 .4 Not Available [facility] (Lab) [address] [place], [address], 06/09/2025 18:11:23 06/09/20 25 06/09/2025 CBC/C OMPLE TE BLD COUNT W/DIF F neutrophils 61.6 % 39.0-7 2.0 Not Available [facility] (Lab) [address] [place], [address], 06/09/2025 18:11:23 06/09/20 25 06/09/2025 CBC/C OMPLE TE BLD COUNT W/DIF F lymphocytes 20.7 % 16.0-4 7.0 Not Available [facility] (Lab) [address] [place], [address], 06/09/2025 18:11:23 06/09/20 25 06/09/2025 CBC/C OMPLE TE BLD COUNT W/DIF F monocytes 11.8 % 5.0-12 .0 Not Available [facility] (Lab) [address] [place], [address], 06/09/2025 18:11:23 06/09/20 25 06/09/2025 CBC/C OMPLE TE BLD COUNT W/DIF F eosinophils 4.0 % 1.0-7. 0 Not Available [facility] (Lab) [address] [place], [address], 06/09/2025 18:11:23 06/09/20 25 06/09/2025 CBC/C OMPLE TE BLD COUNT W/DIF F basophils 1.3 % 0.0-2. 0 Not Available [facility] (Lab) [address] [place], [address], 06/09/2025 18:11:23 06/09/20 25 06/09/2025 CBC/C OMPLE TE BLD COUNT W/DIF F immature granulocytes 0.6 % 0.00-0 .50 high Not Available [facility] (Lab) [address] [place], [address], 06/09/2025 18:11:23 06/09/20 25 06/09/2025 CBC/C OMPLE TE BLD COUNT W/DIF F neutrophils, absolute count 6.44 x10'3 /uL 1.5-8. 0 Not Available [facility] (Lab) [address] [place], [address], 06/09/2025 18:11:23 06/09/20 25 06/09/2025 CBC/C OMPLE TE BLD COUNT W/DIF F lymphocytes, absolute count 2.17 x10'3 /uL 1.07-3 .43 Not Available [facility] (Lab) [address] [place], [address], 06/09/2025 18:11:23 06/09/20 25 06/09/2025 CBC/C OMPLE TE BLD COUNT W/DIF F monocytes, absolute count 1.23 x10'3 /uL 0.29-0 .99 high Not Available [facility] (Lab) [address] [place], [address], 06/09/2025 18:11:23 06/09/20 25 06/09/2025 CBC/C OMPLE TE BLD COUNT W/DIF F eosinophils, absolute count 0.42 x10'3 /uL 0.02-0 .53 Not Available [facility] (Lab) [address] [place], [address], 06/09/2025 18:11:23 06/09/20 25 06/09/2025 CBC/C OMPLE TE BLD COUNT W/DIF F basophils, absolute count 0.14 x10'3 /uL 0.01-0 .08 high Not Available [facility] (Lab) [address] [place], [address], 06/09/2025 18:11:23 06/09/20 25 06/09/2025 CBC/C OMPLE TE BLD COUNT W/DIF F immature granulocytes ,absolute 0.06 x10'3 /uL 0.00-0 .05 high Not Available [facility] (Lab) [address] [place], [address], 06/09/2025 18:11:23 06/09/20 25 06/09/2025 CBC/C OMPLE TE BLD COUNT W/DIF F nucleated red blood cells 0.0 % -0 Not Available [facility] (Lab) [address] [place], [address], 06/09/2025 18:11:23 06/09/20 25 06/09/2025 CBC/C OMPLE TE BLD COUNT W/DIF F NRBC# 0.00 x10'3 /uL Not Available [facility] (Lab) [address] [place], [address], 06/09/2025 18:11:23 06/09/20 25 06/09/2025 COMPR EHENS SUNSHINE METAB OLIC PANEL sodium 137 mmol/ L 137-14 5 Not Available [facility] (Lab) [address] [place], [address], 06/09/2025 18:49:55 06/09/20 25 06/09/2025 COMPR EHENS SUNSHINE METAB OLIC PANEL potassium 5.1 mmol/ L 3.5-5. 1 Not Available [facility] (Lab) [address] [place], [address], 06/09/2025 18:49:55 06/09/20 25 06/09/2025 COMPR EHENS SUNSHINE METAB OLIC PANEL chloride 105 mmol/ L 98-107 Not Available [facility] (Lab) [address] [place], [address], 06/09/2025 18:49:55 06/09/20 25 06/09/2025 COMPR EHENS SUNSHINE METAB OLIC PANEL carbon dioxide 21 mmol/ L 22-30 low Not Available [facility] (Lab) [address] [place], [address], 06/09/2025 18:49:55 06/09/20 25 06/09/2025 COMPR EHENS SUNSHINE METAB OLIC PANEL anion gap 16.1 mmol/ L 14-22 Not Available [facility] (Lab) [address] [place], [address], 06/09/2025 18:49:55 06/09/20 25 06/09/2025 COMPR EHENS SUNSHINE METAB OLIC PANEL glucose 94 mg/dL 70-99 Not Available [facility] (Lab) [address] [place], [address], 06/09/2025 18:49:55 06/09/20 25 06/09/2025 COMPR EHENS SUNSHINE METAB OLIC PANEL BUN 17 mg/dL 8-19 Not Available [facility] (Lab) [address] [place], [address], 06/09/2025 18:49:55 06/09/20 25 06/09/2025 COMPR EHENS SUNSHINE METAB OLIC PANEL creatinine 1.05 mg/dL 0.66-1 .25 Not Available [facility] (Lab) [address] [place], [address], 06/09/2025 18:49:55 06/09/20 25 06/09/2025 COMPR EHENS SUNSHINE METAB OLIC PANEL GFR 50 Refer ence Range : [place] ge GFR Healt hy Adult : >60 [...] or ethni c subgr oups, such as [facility] nics. Outsi de the valid ated [...] calcu lator is avail able on the [facility] websi te: https ://erika munoz.zuleika perdomo.o rg/pr ofess ional s/kdo qi/gf r_cal culat or Not Available [facility] (Lab) [address] [place], [address], 06/09/2025 18:49:55 06/09/20 25 06/09/2025 COMPR EHENS SUNSHINE METAB OLIC PANEL alkaline phosphatase 104 U/L 38-126 Not Available [facility] (Lab) [address] [place], [address], 06/09/2025 18:49:55 06/09/20 25 06/09/2025 COMPR EHENS SUNSHINE METAB OLIC PANEL alanine aminotransfe rase 14 U/L 0-35 Not Available [facility] (Lab) [address] [place], [address], 06/09/2025 18:49:55 06/09/20 25 06/09/2025 COMPR EHENS SUNSHINE METAB OLIC PANEL aspartate aminotransfe rase 20 U/L 15-37 Not Available [facility] (Lab) [address] [place], [address], 06/09/2025 18:49:55 06/09/20 25 06/09/2025 COMPR EHENS SUNSHINE METAB OLIC PANEL bilirubin, total 0.50 mg/dL 0.20-1 .30 Not Available [facility] (Lab) [address] [place], [address], 06/09/2025 18:49:55 06/09/20 25 06/09/2025 COMPR EHENS SUNSHINE METAB OLIC PANEL calcium 10.0 mg/dL 8.4-10 .2 Not Available [facility] (Lab) [address] [place], [address], 06/09/2025 18:49:55 06/09/20 25 06/09/2025 COMPR EHENS SUNSHINE METAB OLIC PANEL total protein 7.3 g/dL 6.3-8. 2 Not Available [facility] (Lab) [address] [place], [address], 06/09/2025 18:49:55 06/09/20 25 06/09/2025 COMPR EHENS SUNSHINE METAB OLIC PANEL albumin 4.2 g/dL 3.0-4. 4 Not Available [facility] (Lab) [address] [place], [address], 06/09/2025 18:49:55 06/09/20 25 06/09/2025 COMPR EHENS SUNSHINE METAB OLIC PANEL globulin 3.1 g/dL 2.6-4. 2 Not Available [facility] (Lab) [address] [place], [address], 06/09/2025 18:49:55 06/09/20 25 06/09/2025 COMPR EHENS SUNSHINE METAB OLIC PANEL A/G ratio 1.4 ratio 1.0-2. 0 Not Available [facility] (Lab) [address] [place], [address], 06/09/2025 18:49:55 06/09/20 25 06/09/2025 T4 FREE free T4 1.12 NG/dL 0.78-2 .19 Not Available [facility] (Lab) [address] [place], [address], 06/09/2025 19:00:09 06/09/20 25 06/09/2025 TSH thyroid-stim ulating hormone 2.740 uIU/m L 0.465- 4.680 Not Available [facility] (Lab) [address] [place], [address], 06/09/2025 19:20:29 06/09/20 25 06/09/2025 VITAM IN B12 (AUGUST FERMIN ) vb12 346 pg/mL 239-93 1 Not Available [facility] (Lab) [address] [place], [address], 06/09/2025 19:36:43 06/09/20 25 06/11/2025 CALCI TRIOL /1,25 DIHYD CARMEN VITD calcitriol(1 ,25 di-oh vit D) 45.3 pg/mL 24.8-8 1.5 Perfo rmed at: [facility] [place] [address] [facility] , [place] [address] Lab Direc tor: Yana persaud MD, Phone : [phone] Not Available [facility] (Lab) [address] [place], [address], 06/11/2025 13:11:20 06/11/20 25 06/11/2025 IRON/ TIBC PANEL total iron binding capacity 327 mcg/d L 265-47 5 Not Available [facility] (Lab) [address] [place], [address], 06/11/2025 17:15:42 06/11/20 25 06/11/2025 IRON/ TIBC PANEL % transferrin saturation 9 % 20-55 low Not Available [facility] (Lab) [address] [place], [address], 06/11/2025 17:15:42 06/11/20 25 06/11/2025 IRON/ TIBC PANEL unsaturated iron bind capacity 297 mcg/d L 126-38 2 Not Available [facility] (Lab) [address] [place], [address], 06/11/2025 17:15:42 06/11/20 25 06/11/2025 IRON/ TIBC PANEL iron 30 mcg/d L 42-175 low Not Available [facility] (Lab) [address] [place], [address], 06/11/2025 17:15:42 06/11/20 25 06/11/2025 VANDANA TIN ferritin 16 NG/mL 11.1-2 64 Not Available [facility] (Lab) [address] [place], [address], 06/11/2025 17:52:48 09/28/20 24 09/01/2024 sleep study , diagn ostic (PROC ) No observ ation record ed. [address] [address], [place], [address], 09/28/2024 17:44:11 01/16/20 25 01/15/2025 XR, abdom en No observ ation record ed. [address] [facility], [place], [address], 01/19/2025 09:09:42 02/18/2002/17/2025 XR, abdom en No observ ation record ed. [address] [address], [place], [address], 02/18/2025 05:05:30 05/14/20 25 05/14/2025 DEXA, axial skele ton Examin ation: XR DEXA-H IPS PELVIS SPINE Clinic al Indica tion: Screen ing. Compar brandon: None. Techni que: Bone minera l densit y was evalua lexii. Findin gs: Lumbar spine (L1-L4 ): BMD: 1.401 g/cm2. T-Scor e: 1.7. Z-Scor e: 2.7. Left Total Hip: BMD: 0.976 g/cm2. T-Scor e: -0.2. Z-Scor e: 1.3. Right Total Hip: BMD: 0.974 g/cm2. T-Scor e: -0.3. Z-Scor e: 1.3. The WHO fractu re risk assess ment (FRAX) was utiliz ed and the 10-yea r probab ility of a major osteop orotic fractu re in this patien t is estima lexii to be 11.9% and 10-yea r probab ility of a hip fractu re in this patien t is estima lexii to be 2.8%. Impres jerad: Based on World Health Organi zation (WHO) criter ia, this patien t falls within normal range at Lumbar Spine and Hip levels . Relate d Inform ation: 1. The T-scor e is relati ve to peak bone mass in early adulth ood, while the Z-scor e is relati ve to indivi duals of the same age and sex. 2. The campus interviews intern ationa l societ y for Clinic al Densit ometry recomm ends catego rizing the patien t accord ing to the lowest T-scor e from the total L-spin e, total hip and femora l neck utiliz ing the follow ing World Health Organi zation Criter ia: Normal range: T-scor e of - 1.0 or above. Low bone mass: T-scor e of less than -1.0, but greate r than -2.5. Osteop orosis : T-scor e of -2.5 or below. Electr onical ly Signed 025 11:[address] Elvis Kang [address] (Imaging) [address] [place], [address], 05/14/2025 13:10:11 05/14/20 25 05/14/2025 bone densi ty No observ ation record ed. [address] Radiology [address] [place], [address], 05/14/2025 13:10:28 05/14/20 25 05/14/2025 bone densi ty No observ ation record ed. [address] [place], [address], 05/14/2025 16:42:53 05/29/20 25 05/14/2025 scree vito orr t shandra, bilat [facility] [address] [place] [address] [phone] Maria Alejandra t Name: NIKKY DAMON Access ion #: [id number] Sex: F : 1939 7 Dictat ed By: April Felix Attend ing Physic preet: SHERRY DAVALOS Orderi ng Physic preet: SHERRY DAVALOS Exam Date: 2024 09:25 AM Exam Name: MG OCASIO BREAST SHANDRA BILAT Admitt ing Diagno sis(es ): PROCED URE: SCREEN ING MAMMOG IOANA WITH TOMOSY NTHESI S REASON FOR EXAM: screen ing COMPAR BRANDON: DIGITA L MAMM, BILAT SCREEN ING 2D on DOS: 04/28/20 TECHNI QUE: Bilate ral CC and MLO views obtain ed. Images were obtain ed using a Digita l Tomosy nthesi s Unit. Standa rd 2D and 3D Tomosy nthesi s images were review ed. This examin ation was analyz ed using Lunit Insigh t DBT/MM G in additi on to a radiol ogist review , an AI heather re develo ped to enhanc e the effect ivenes s of breast cancer screen ing with mammog sophia. FINDIN GS: BREAST COMPOS ITION: B - There are scatte red areas of fibrog landul ar densit y. In the right breast , no asymme trical parenc hymal patter n, gail ectura l distor tion, pleomo rphic microc alcifi cation s or masses . In the left breast , no asymme trical parenc hymal patter n, gail ectura l distor tion, pleomo rphic microc alcifi cation s or masses . IMPRES JERAD: No findin gs of malign poli. RECOMM ENDATI ON: Recomm end annual mammog ioana. ASSESS MENT: Page 1 [facility] [address], [facility] [place] [address] Patien t Name: NIKKY DAMON Access ion #: [id number] Sex: F : 1939 7 Dictat ed By: April Felix Attend ing Physic preet: SANDI CHENG Physic preet: SHERRY DAVALOS Exam Date: 2024 09:25 AM Exam Name: MG OCASIO BREAST SHANDRA BILAT Admitt ing Diagno sis(es ): BIRADS : 1 - Negati ve Electr onical ly Signed by: April Felix at 2024 17:57: 12 PM Page [address] (Imaging) [address] [facility], [place], [address], 05/30/2025 09:30:57 05/31/20 25 05/31/2025 XR, chest , 2 view No observ ation record ed. [place] [id number] [facility] [address], [place], [address], 05/31/2025 17:53:20 Result Notes Documentation Provider Name and Address Organization Details Recorded Time Dexa, Axial Skeleton : Examination: XR DEXA-HIPS PELVIS SPINE Clinical Indication: Screening. Comparison: None. Technique: Bone mineral density was evaluated. Findings: Lumbar spine (L1-L4): BMD: 1.401 g/cm2. T-Score: 1.7. Z-Score: 2.7. Left Total Hip: BMD: 0.976 g/cm2. T-Score: -0.2. Z-Score: 1.3. Right Total Hip: BMD: 0.974 g/cm2. T-Score: -0.3. Z-Score: 1.3. The WHO fracture risk assessment (FRAX) was utilized and the 10-year probability of a major osteoporotic fracture in this patient is estimated to be 11.9% and 10-year probability of a hip fracture in this patient is estimated to be 2.8%. Impression: Based on World Health Organization (WHO) criteria, this patient falls within normal range at Lumbar Spine and Hip levels. Related Information: 1. The T-score is relative to peak bone mass in early adulthood, while the Z-score is relative to individuals of the same age and sex. 2. The international society for Clinical Densitometry recommends categorizing the patient according to the lowest T-score from the total L-spine, total hip and femoral neck utilizing the following World Health Organization Criteria: Normal range: T-score of - 1.0 or above. Low bone mass: T-score of less than -1.0, but greater than -2.5. Osteoporosis: T-score of -2.5 or below. Electronically Signed 05/14/2025 11:23 Arpan Davalos MD [address] [facility], [address], [place], [address], [place] [facility] 05/14/2025 13:10:11 Problems Name Problem SNOMED Code Status Onset Date Resolution Date Notes Provider Name and Address Organization Details Recorded Time Bleeding 539399076 Active Not Available [facility] 4 23:36:51 Hyperchole sterolemia 23761681 Active Not Available [facility] 4 23:36:51 Gastroesop hageal reflux disease 528756462 Active Not Available [facility] 4 23:36:51 Gastroesop hageal reflux disease without esophagiti s 389485717 Active Not Available [facility] 4 23:36:51 Anemia 858505851 Active Not Available [facility] 4 23:36:51 Knee pain Active Not Available [facility] 4 23:36:52 Umbilical hernia 722339872 Active Not Available [facility] 4 23:36:52 Clostridiu m difficile colitis 399702193 Active Not Available [facility] 4 23:36:52 Coronary arterioscl erosis 29178303 Active Not Available [facility] 4 23:36:52 Essential hypertensi on 88352879 Active Not Available [facility] 4 23:36:52 Ulcerative colitis 52916725 Active Not Available [facility] 4 23:36:52 Hemorrhoid s 31158412 Active Not Available [facility] 4 23:36:52 Open wound 903965026 Active 2016 Not Available [facility] 4 23:36:51 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 Not Available [facility] 4 23:36:51 Nausea 471117032 Active 2021 Not Available [facility] 4 23:36:52 Restless legs syndrome 37486527 Active 2021 Not Available [facility] 4 23:36:52 Acute bronchitis 86443201 Active 2022 Not Available [facility] 4 23:36:51 Lightheade dness 096161199 Active 2022 Not Available [facility] 4 23:36:52 Obese class I 4903299783009 07 Active 2022 Not Available [facility] 4 23:36:52 Insomnia 246333312 Active 2022 Not Available [facility] 4 23:36:51 Anxiety 70340827 Active 2022 Not Available [facility] 4 23:36:52 Chronic insomnia 479578584 Active 2022 Not Available [facility] 4 23:36:52 Acute sinusitis 49668556 Active 2022 Not Available [facility] 4 23:36:51 Left lower quadrant pain 028362895 Active 2023 Tanvir Davalos MD [address], [address], [place], [address] , [facility] 4 16:04:13 Gastroente ritis 20731383 Active 2023 THUY Jara, [place] - [facility] 4 11:29:35 Atrial fibrillati on 88576609 Active 2023 Tanvir Davalos MD [address], [address], [place], [address] , [facility] 4 15:06:42 Abscess of face 471729630 Active 2023 Tanvir Davalos MD [address], [address], [place], [address] , [facility] 4 11:46:39 Senile osteoporos is 64160004 Active 2024 Toya cardenas, [place] - [facility] 5 11:45:28 Fatigue 71594284 Active 2024 Tanvir Davalos MD [address], [address], [place], [address] , [facility] 5 17:01:22 Iron deficiency 56766951 Active 2024 Tanvir Davalos MD [address], [address], [place], [address] , [place] [facility] [employer] 5 12:26:59 Serum iron below reference range 711642079 Active 2024 Jayde Montez theresa, [facility] [employer] 5 15:22:13 Problem Notes None recorded. Procedures Surgical History Date Name Laterality Status Provider Name and Address Organization Details Recorded Time 09/17/20 Medicare Wellness CPT Code, subsequent completed Greer Gong RN [facility] [employer] 09/17/2023 11:01:34 02/07/20 Date of Last Colonoscopy completed Not Available [facility] 12/19/2022 05:54:09 Imaging Results None recorded. Procedure Notes None recorded. Medical Equipment None Reported. Allergies Allergen ID Allergen Name Allergen Category Reaction Reaction Severity Criticality Documentation Date Start Date Code Code System Note Provider Name and Address Organization Details Recorded Time 56348 Plavix medicatio n Not available Not available Not available 12/19/2022 32418 2 RxNorm bleed ing Not Available [facility] 3 06:04:11 82149 Demerol medicatio n vomiting severe Not available 12/19/2022 15814 1 RxNorm Not Available [facility] 3 06:04:11 40833 Product containin g angiotens in II receptor antagonis t (product) medicatio n cough Not available Not available 12/19/2022 46851 008 SNOMED Not Available [facility] 3 06:04:11 39868 Product containin g angiotens in-conver ting enzyme inhibitor (product) medicatio n cough Not available Not available 12/19/2022 81831 009 SNOMED Not Available [facility] 3 06:04:12 72705 aspirin medicatio n Not available Not available Not available 12/19/2022 1191 RxNorm bleed ing Not Available [facility] 3 06:04:12 87009 meperidin e medicatio n Not available Not available Not available 10/01/2025 6754 RxNorm unrec ogniz ed react ion (text : Adver se react ion to subst ance, code: 47382 0009) [facility] Not Available [employer] - [employer] - prod 5 10:59:26 62361 aluminum aspirin Not available Not available Not available Not available 10/06/20252021 611 RxNorm unrec ogniz ed react ion (text : Other , code: 53113 07) ([facility]) Not Available [employer] - [employer] - prod 5 03:47:07 07224 clopidogr el medicatio n Not available Not available Not available 10/06/20252021 79753 RxNorm unrec ogniz ed react ion (text : Other , code: 61659 07) ([facility]) Not Available [employer] - [facility] 5 03:47:07 50448 morphine medicatio n Not available Not available low 10/06/20252019 7052 RxNorm Upset stoma ch unrec ogniz ed react ion (text : Other , code: 86511 07) (from [facility] e) Not Available yasmin [employer] 5 03:47:07 Medications Name Sig Start Date Stop Date Status Note LastModified by Organization Details LastModified Time amoxicillin 500 mg capsule TAKE 1 CAPSULE BY MOUTH THREE TIMES DAILY FOR 10 DAYS 10/06 completed Not Available Not Available Not Available [...] mg tablet TAKE 2 TABLETS BY MOUTH EVERY DAY FOR 1 DAY THEN TAKE 1 TABLET BY MOUTH DAILY 06/09 completed Not Available Not Available Not Available alprazolam 1 mg tablet Take 1 tablet as needed by oral route at bedtime. 06/07 completed Not Available Not Available Not Available benzonatate 200 mg capsule TAKE 1 CAPSULE BY MOUTH THREE TIMES DAILY 06/09 completed Not Available Not Available Not Available [...] No t Available Anucort-HC 25 mg suppository UNWRAP AND INSERT 1 SUPPOSITO RY RECTALLY TWICE DAILY active Not Available Not Available No t Available travoprost 0.004 % eye drops INSTILL [...] tablet,karin yed release TAKE 1 TABLET DAILY 2024 active Not Available Not Available Not Avai lable metoprolol tartrate 50 mg tablet Take 1 [...] azelastine 137 mcg (0.1 %) nasal spray Rhine 2 sprays twice a day by intranasa [...] active Not Available Not Available Not Available albuterol sulfate HFA 90 mcg/actuati on aerosol inhaler INHALE 1 PUFF BY MOUTH FOUR TIMES DAILY active Not Available Not Available No t Available Lomotil 2.5 mg-0.025 mg tablet Take 1 tablet 4 times a day by oral route as needed. 04/08 completed Not Available Not Available Not Available [place] 5 mg-325 mg tablet Take 1 tablet [...] 1 TABLET BY MOUTH EVERY 12 HOURS FOR 7 DAYS 06/09 completed Not Available Not Available Not Available [...] active Not Available Not Available Not Available FeroSul 325 mg (65 mg iron) tablet TAKE 1 TABLET BY MOUTH TWICE DAILY active Not Available Not Available No t Available Eliquis 5 mg tablet TAKE 1 [...] weight Heart rate Body temperature Oxygen saturation Systolic And Diastolic Provider Name and Address Organization Details Last Updated DateTime 5 172.72 cm 30.3 kg/m2 83300.8 8 g 69 /min 97 [degF] 99 % 122/78 mm[Hg] [facility] [employer] [facility] [employer] 5 11:25:09 Date Recorded Body height Body mass index (BMI) Body weight Heart rate Body temperature Oxygen saturation Systolic And Diastolic Provider Name and Address Organization Details Last Updated DateTime 5 172.72 cm 30.3 kg/m2 30640.6 8 g 76 /min 97 [degF] 95 % 128/64 mm[Hg] [facility] [employer] [facility] [employer] 5 11:15:28 Date Recorded Systolic And Diastolic Provider Name and Address Organization Details Last Updated DateTime 06/09/2025 144/80 mm[Hg] Tanvir Davalos MD [address] [address], [place], [address], [place] [employer] [facility] [employer] 06/09/2025 17:00:17 Date Recorded Body height Body mass index (BMI) Body weight Heart rate Body temperature Oxygen saturation Provider Name and Address Organization Details Last Updated DateTime 5 172.72 cm 29.6 kg/m2 21802.5 1 g 91 /min 98.9 [degF] 97 % [facility] [employer] 5 16:44:02 Date Recorded Body height Body mass index (BMI) Body weight Heart rate Body temperature Oxygen saturation Systolic And Diastolic Provider Name and Address Organization Details Last Updated DateTime 4 172.72 cm 29.8 kg/m2 64917.1 g 60 /min 97 [degF] 98 % 120/82 mm[Hg] MAGDY Garcia [facility] [employer] [facility] 4 11:07:16 Date Recorded Body height Body mass index (BMI) Body weight Heart rate Body temperature Oxygen saturation Systolic And Diastolic Provider Name and Address Organization Details Last Updated DateTime 5 172.72 cm 29.4 kg/m2 16162.1 2 g 71 /min 97.2 [degF] 95 % 142/80 mm[Hg] Jayde Montez [place] [facility] 5 14:56:48 Social History Question Answer Notes LastModified by Organization Details LastModified Time Tobacco Smoking Status Never Smoker Not Available [facility] 12/19/2022 05:53:27 Do You Have An Advance Directive? Yes MIGRATION.0301 [id number] Information not available 12/19/2022 Are You Blind Or Do You Have Difficulty Seeing? No MIGRATION.0301 199108 Information not available 12/19/2022 Are You Deaf Or Do You Have Serious Difficulty Hearing? No MIGRATION.0301 845561 Information not available 12/19/2022 What Type Of Diet Are You Following? REGULAR MIGRATION.0301 763393 Information not available 12/19/2022 Have There Been Any Changes To Your Family Or Social Situation? Yes Patient Has Lost 5-6 Family Members/fri ends In The Past 13 Months. MIGRATION.0301 178922 Information not available 12/19/2022 What Is The Fluoride Status Of Your Home? Unknown MIGRATION.0301 174328 Information not available 12/19/2022 Are There Any Guns Present In Your Home? Yes MIGRATION.0301 431037 Information not available 12/19/2022 Do You Use Insect Repellent Routinely? No MIGRATION.0301 749093 Information not available 12/19/2022 Where Do You Live? [place]House MIGRATION.0301 054483 Information not available 12/19/2022 Guns Present In The Home? Yes [email or web address] Information not available 09/17/2023 Are You Able To Care For Yourself? Yes [email or web address] Information not available 09/17/2023 Are You Blind Or Do Yo Have Difficulty Seeing? No [email or web address] Information not available 09/17/2023 Are You Deaf Or Do You Have Serious Difficulty Hearing? No [email or web address] Information not available 09/17/2023 Live Alone Of With Others? Alone [email or web address] Information not available 09/17/2023 Do You Have A Medical Power Of Assembler Motor Vehicle? Yes [email or web address] Information not available 09/17/2023 What Was The Date Of Your Most Recent Tobacco Screening? 09/17/2023 [email or web address] Information not available 09/17/2023 Do You Have Any Pets? No [email or web address] Information not available 09/17/2023 What Is Your Relationship Status? MIGRATION.0301 [id number] Information not available 12/19/2022 Do You Use Your Seat Belt Or Car Seat Routinely? No MIGRATION.0301 652646 Information not available 12/19/2022 Do You Have Smoke And Carbon Monoxide Detectors In Your Home? Yes MIGRATION.0301 891344 Information not available 12/19/2022 Are You Passively Exposed To Smoke? No MIGRATION.0301 391183 Information not available 12/19/2022 Are There Any Smokers In Your House? No MIGRATION.0301 495716 Information not available 12/19/2022 How Much Tobacco Do You Smoke? No MIGRATION.0301 976448 Information not available 12/19/2022 Do You Use Sunscreen Routinely? No MIGRATION.0301 426260 Information not available 12/19/2022 Has Tobacco Cessation Counseling Been Provided? No MIGRATION.0301 003839 Information not available 12/19/2022 Do You Have Difficulty Walking Or Climbing Stairs? Yes Having Knee Problems MIGRATION.0301 437259 Information not available 12/19/2022 Do You Have Any Dietary Restrictions? No MIGRATION.0301 905538 Information not available 12/19/2022 Sex: Unknown Functional Status Question Answer Note LastModified by Organizat ion Details LastModified Time Do you or have you ever used any other forms of tobacco or nicotine? No MIGRATION.653205 3094 Information not available 12/19/2022 What is your level of alcohol consumption? None MIGRATION.214549 8699 Information not available 12/19/2022 Do you or have you ever used smokeless tobacco? Never used smokeless tobacco MIGRATION.508531 8491 Information not available 12/19/2022 Do you have transportation difficulties? No MIGRATION.296502 3092 Information not available 12/19/2022 Are you able to walk independently without assistance or assistive devices? YESWOREST MIGRATION.340172 9527 Information not available 12/19/2022 Do you have difficulty doing errands alone? No MIGRATION.951655 6016 Information not available 12/19/2022 Are you able to care for yourself independently? Yes MIGRATION.043382 0279 Information not available 12/19/2022 Do you have difficulty dressing, bathing, grooming, or toileting? No MIGRATION.747961 8397 Information not available 12/19/2022 Do you or have you ever used e-cigarettes or vape? Never used electronic cigarettes MIGRATION.853079 5799 Information not available 12/19/2022 What is your exercise level? None MIGRATION.853813 5067 Information not available 12/19/2022 Mental Status Question Answer Note LastModified by Organizat ion Details LastModified Time Do you feel stressed (tense, restless, nervous, or anxious, or unable to sleep at night)? CV31002-3 MIGRATION.57734214 26 Information not available 12/19/2022 Do you have difficulty concentrating, remembering or making decisions? No MIGRATION.12841698 26 Information not available 12/19/2022 Family History Nothing [...] HAVE YOU BEEN HOSPITALIZED OR SEEN IN [facility] ER IN THE PAST YEAR ? N ATHEROSCLEROSIS [...] Immunizations Vaccine Type Date Status Note Provider [facility] e and Address Organization Details Recorded Time Tdap 7 completed Not Available [employer] 12/09/2023 23:36:52 Td (adult), 2 Lf tetanus toxoid, preservative free, adsorbed 7 completed Not Available [facility] 12/09/2023 23:36:52 Past Encounters Encounter ID Performer Location Encounter Start Date Encounter Closed Date Diagnosis/Indication Diagnosis SNOMED-CT Code Diagnosis ICD10 Code Diagnosis IMO Codes Diagnosis Note [id number] Tanvir Davalos MD [facility] [address] [facility] 24 [place] [address] 01/12/2021 00:00:00 01/12/2021 11:45:56 [id number] [facility] [place] [address] [place] [address] 01/17/2021 00:00:00 01/17/2021 12:32:52 [id number] Tanvir Davalos MD [facility] Internal [facility] [address] [facility] [place] [address] 04/21/2021 00:00:00 04/21/2021 12:43:37 [id number] Tanvir Davalos MD [facility] Internal Med [facility] [address] [facility] [address] [place] [address] 07/31/2021 00:00:00 07/31/2021 15:42:25 [id number] Tanvir Davalos MD [facility] [place] [address] [place] [address] y , [place] [address] 11/14/2021 00:00:00 11/14/2021 11:14:20 [id number] Tanvir Davalos MD [facility] [place] [address] [place] [address] [place] [address] 02/20/2022 00:00:00 02/20/2022 14:46:35 [id number] Tanvir Davalos MD [facility] [place] [address] [place] [address] [place] [address] 05/15/2022 00:00:00 05/15/2022 11:05:36 [id number] Tanvir Davalos MD [facility] Internal Med [place] [address] [place] [address] [place] [address] 09/11/2022 00:00:00 09/11/2022 11:27:01 [id number] Tanvir Davalos MD [facility] [place] [address] [place] [address] [place] [address] 01/08/2023 11:25:54 01/08/2023 12:29:22 Coronary arteriosclerosis 69198045 I25.10 Essential hypertension 92526870 I10 Gastroesop hageal reflux disease 779609814 K21.9 Hypercholesterolemia 136 28562 E78.00 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.9 Restless l egs syndrome 43432490 G25.81 [id number] Tanvir Davalos MD [facility] Med [place] [address] [place] [address] [place] [address] 05/21/2023 10:33:25 05/21/2023 11:03:58 Coronary arteriosclerosis 43900190 I25.10 Hypercholesterolemia 136 22943 E78.00 Ulcerative colitis 60876 004 K51.90 Lightheadedness 34716631 8 R42 Obese class I 3076749054 43143 E66.9 Gastroesop hageal reflux disease 306664009 K21.9 [id number] Tanvir Davalos MD [facility] Internal Med [place] [address] [place] [address] [place] [address] 09/17/2023 10:43:31 09/17/2023 11:27:27 Adult health examination 424004167 Z00.00 Screening for disorder 347009480 Z13.9 Coronary arteriosclerosis 22591950 I25.10 Essential hypertension 23334347 I10 Hypercholesterolemia 136 89554 E78.00 Gastroesop hageal reflux disease 388686657 K21.9 Obese class I 3756456626 33343 E66.9 [id number] Tanvir Davalos MD [facility] Internal Med [facility] 24 [address] [facility] 24 [place] [address] 01/06/2024 15:46:48 01/06/2024 16:15:26 Coronary arteriosclerosis 16347096 I25.10 Essential hypertension 66968975 I10 Hypercholesterolemia 136 74316 E78.00 Left lower quadrant pain 116513969 R10.32 [id number] Tanvir Davalos MD [facility] Internal Med [place] [address] [place] [address] [place] [address] 01/24/2024 14:37:52 01/24/2024 15:32:06 Essential hypertension 81470011 I10 Atrial fibrillation 4943 6004 I48.91 Hypercholesterolemia 136 77445 E78.00 Gastroesop hageal reflux disease without esophagitis 400008582 K21.9 [id number] Tanvir Davalos MD [facility] Internal Med [place] [address] [place] [address] [place] [address] 04/28/2024 10:28:42 04/28/2024 10:59:21 Coronary arteriosclerosis 91766588 I25.10 Atrial fibrillation 4943 6004 I48.91 Essential hypertension 90817055 I10 Hypercholesterolemia 136 44346 E78.00 Gastroesop hageal reflux disease without esophagitis 028319404 K21.9 [id number] Tanvir Davalos MD [facility] Med [facility] [address] [place] [address] , [place] [address] 09/01/2024 10:45:52 09/01/2024 11:53:16 Atrial fibrillation 44080407 I48.91 Coronary arteriosclerosis 49604996 I25.10 Essential hypertension 25351038 I10 Gastroesop hageal reflux disease 290536284 K21.9 Abscess of face 59725665 4 L02.01 [id number] Tanvir Davalos MD [facility] Primary Care [facility] [address] [facility] [address] [place] [address] 12/29/2024 10:42:44 12/29/2024 11:46:14 Essential hypertension 72905871 I10 Atrial fibrillation 4943 6004 I48.91 Gastroesop hageal reflux disease 630855126 K21.9 Obese class I 4641833973 67793 E66.9 Ulcerative colitis 76238 004 K51.90 [id number] Tanvir Davalos MD [facility] Internal Med [facility] [address] [address] 05/04/2025 10:49:46 05/04/2025 11:50:27 General examination of patient 029696298 Z00.00 [id number] Atrial fibrillation 4943 6004 I48.91 Coronary arteriosclerosis 36714205 I25.10 Essential hypertension 71895676 I10 Hypercholesterolemia 136 82598 E78.00 Obese class I 2070582716 37762 E66.9 [id number] Tanvir Davalos MD [facility] Med [facility] [address] [address] 06/09/2025 16:02:07 06/09/2025 17:09:20 Essential hypertension 37377874 I10 Coronary arteriosclerosis 63129373 I25.10 Hypercholesterolemia 136 98223 E78.00 Acute bronchitis 9634619 2 J20.9 Fatigue 72806756 R53.83 R53.81 R53.0 [id number] Tanvir Davalos MD [facility] Med [address] [place] [address] [place] [address] 10/06/2025 14:37:36 10/06/2025 15:12:44 Coronary arteriosclerosis 01550671 I25.10 Essential hypertension 99488830 I10 Atrial fibrillation 4943 6004 I48.91 Hypercholesterolemia 136 68059 E78.00 Health Concerns Section Related Observation LastModified by Organization Detai ls LastModified Time None Recorded Concern Status LastModified by Organization Details LastModified Time None Recorded Advance Directives Directive Y: Payers Insurance Date Sequence Insurance Name Policy Number Policy Gerber Covered Member ID Gerber Member ID Guarantor Name 10/05/2025 1 [place] Nikky Garcia Jean [id number] Nikky Garcia Jean 10/05/2025 2 [employer] [place] - PLAN G (MEDICARE SUPPLEMENT) Nikky Garcia Jean [id number] Nikky Garcia Jean Notes Date Note Type Note Provider Name and Address Organization Details Recorded Time 4 text/html Patient Name: Nikky TillmanpinoDate Of Service: Saturday ( 09.01.2024 ): 1940 [...] Systemic Symptoms:none Medication Reconciliation: from medication list. [id number]: CT of abdomen and pelvis unremarkable. No [...] Metoprolol Succinate. Rate control: controlled ventricular response [id number] Criteria: congestive heart failure for embolic phenomenon. [...] Vaccination and Immunization(X) 2005-07 [employer] [facility] Sihaopk5430-95 Lap Ventral Hernia Repair (Mesh)2016-01 Lap Etxlqiqyuyefa7680-13 Rt. Rotator [id number] Lt. Knee Pdtwtnpiffa5137-45 Rt. Knee Replacement Preventative Testing( ) 07/30/2024 [...] Hx: COPD (1) Tanvir Davalos MD [address] [facility], [facility] [address], [place], [address], [facility] 09/01/2024 11:47:06 5 text/html Patient Name: Nikky Juarez Of Service: Saturday ( 12.29.2024 ): 1940 [...] Systemic Symptoms:none Medication Reconciliation: from medication list. [id number]: CT of abdomen and pelvis unremarkable. No [...] Metoprolol Succinate. Rate control: controlled ventricular response [id number] Criteria: hypertension, Age > 75 and and [...] offered to be evaluated and instructed by carpenter's assistant on weight loss diet.#5. Ulcerative colitis clinically [...] Vaccination and Immunization(X) 2004- [employer] Surgical Miwsjwj1970-29 Lap Ventral Hernia Repair (Mesh)2015- Lap Whywhrvxbnmsu1560-66 Rt. Rotator Ezuhb1991-31 Lt. Knee Agmzfurzngh6576-29 Rt. Knee Replacement Preventative Testing( ) 07/30/2024 [...] Hx: COPD (1) Tanvir Davalos MD [address] [facility], [facility] [address], [place], [address], [facility] [email or web address] 12/29/2024 11:42:08 5 text/html Patient Name: Nikky ManjarrezerDate Of Service: Saturday ( 06.09.2025 ): 1940 Age: 85 There has been approximately a 4.5 lb weight loss since 05/04/2025. This represents approximately a 2.3% change in weight. Weight change attributable to lifestyle changes. Vital Signs:Blood Pressure: Sitting Rt. Arm 144/80Pulse: Sitting 91 /min and RegularRespiratory Rate: 16Height 68 in or 1.7 mWeight 195 lb or 88.5 kgBMI 29.6Temperature: 98.9 F or 37.2 CPulse Oximetry: 97 % at rest on no oxygen Chief Complaint: Addressed in HPI Problems or conditions discussed in the HPI were the only ones reviewed during the encounter.Only social and family history addressed in the HPI were reviewed during this encounter. Attendants(s) + NoneConstitutional and Systemic Symptoms:none Medication Reconciliation: from medication list. [id number]: CT of abdomen and pelvis unremarkable. No [...] attacks is none at all. Additional Symptoms: none, syncope, pre-syncope, vertigo, ataxia and palpitations Therapy reviewed regarding cardiovascular management includes Aspirin, [...] and Entresto, Lasix and Metoprolol Succinate. #3. Type II Hypercholesterolaemia: Currently taking medication and tolerating well. No interval complaints of any muscle pain or arthralgia. No significant liver changes with medications. Last lipid panel: fair control. Therapy reviewed regarding treatment of cholesterol management and include diet. #4. Resolving bronchitis. Clinically stable. No fever, chills or productive cough currently.: Active Medication ListProtonix 40 MG (FOR SUSPENSION, [...] CoughStrattera Vomitting Vaccination and Immunization(X) 2004- TETANUS BOOSTERImmunizations and Vaccinations Discussed and Implemented if feasible In the Office. Else referred to pharmacies. Surgical Yijwzsu6287-31 Lap Ventral Hernia Repair (Mesh)2015- Lap Rfatsgnwlvdkq2494-74 Rt. Rotator Qbymy5840-71 Lt. Knee Xqpbinnlfhf0561-92 Rt. Knee Replacement Preventative Testing: (X) Due (?) Optional( ) 05/14/2025 Mammogram( ) 05/14/2025 DEXA Scan 05/14/2027( ) 04/13/2025 Ophthalmology( ) 05/14/2024 Albumin 4.4 G/DL( ) 01/27/2019 Colonoscopy (10 Years) 01/27/2029Preventative Testing Discussed with Patient and Attendants Social HistorySOCIAL HISTORY:Does not smoke cigarettes. 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 This represents approximately a .8% change in weight. Weight change attributable to lifestyle changes. Vital Signs:Blood Pressure: Sitting Rt. Arm 142/80Pulse: Sitting 71 /min and RegularRespiratory Rate: 16Height 68 in or 1.7 mWeight 193.5 lb or 87.8 kgBMI 29.4Temperature: 97.2 F or 36.2 CPulse Oximetry: 95 % at rest on no oxygen Chief Complaint: Addressed in HPI Problems or conditions discussed in the HPI were the only ones reviewed during the encounter.Only social and family history addressed in the HPI were reviewed during this encounter. Attendants(s) + NoneConstitutional and Systemic Symptoms:none Medication Reconciliation: from medication list. [id number]: CT of abdomen and pelvis unremarkable. No [...] of hypertension and includes salt restriction and Entresto and Metoprolol Succinate. #3. Type II Hypercholesterolaemia: Currently not taking medication. No interval complaints of any muscle pain or arthralgia. No significant liver changes with medications. Last lipid panel: fair control. Therapy reviewed regarding treatment of cholesterol management and include diet. #4. Atrial Fibrillation: Type: Paroxysmal with recurrent episodes lasting less than 7 days. Further classification: Non-valvular. Associated history of essential hypertension. No attending hx of any shortness of breath, palpitations, syncopal or neurological symptoms. Current medications: Metoprolol Succinate. Rate control: rapid ventricular response [id number] Criteria: Age > 75 for embolic phenomenon. Anticoagulation: Eliquis Active Medication ListProtonix 40 MG (FOR SUSPENSION, [...] BruisingVasotec CoughAvapro Cough And FlushingCapoten CoughStrattera Vomitting (X) Vaccinations and/or Immunizations Due(X) 2005-07 TETANUS BOOSTER(X) RSV Recommended(X) Shingrix Recommended(X) Influenza Recommended(X) Covid or Booster RecommendedImmunizations and Vaccinations Discussed and Implemented if feasible In the Office. Else referred to pharmacies. Surgical Wecsgom0495-17 Lap Ventral Hernia Repair (Mesh)2016-01 Lap Owdiygroyhorw7748-57 Rt. Rotator Ippjn9171-03 Lt. Knee Zmbmumqlqrf2116-43 Rt. Knee Replacement Preventative Testing: (X) Due (?) Optional( ) 06/09/2025 Albumin 4.2 G/DL( ) 05/14/2025 Mammogram( ) 05/14/2025 DEXA Scan 05/14/2027( ) 04/13/2025 Ophthalmology( ) 01/27/2019 Colonoscopy (10 Years) 01/27/2029Preventative Testing Discussed with Patient and Any Attendants Social HistorySOCIAL HISTORY:Does not smoke cigarettes. 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 Else referred to pharmacies. Surgical Hygyltm4724-49 Lap Ventral Hernia Repair (Mesh)2016-01 Lap Pmzxeddgntotq6705-90 Rt. Rotator Surnq1327-09 Lt. Knee Axxdvpozqal5863-22 Rt. Knee Replacement Preventative Testing: (X) Due (?) Optional( ) 06/09/2025 Albumin 4.2 G/DL( ) 05/14/2025 Mammogram( ) 05/14/2025 DEXA Scan 05/14/2027( ) 04/13/2025 Ophthalmology( ) 01/27/2019 Colonoscopy (10 Years) 01/27/2029Preventative Testing Discussed with Patient and Any Attendants Tanvir Davalos MD [address] [address], [place], [address], [place] [facility] [email or web address] 10/06/2025 15:09:10 OBGyn Episode No OBEpisode recorded.
--- OUTSIDE RECORDS SUMMARY | 2025-10-19 09:41 | XMS_ITS | Clinical Summary ---
Author Organization [facility] Address [address] [place] [address] Care Team Providers Care Cupola Man Name Role Phone Tanvir Davalos MD Primary Care Provider [phone] Source Comments [facility],non-owned Affiliates and Associated Physician Practices is amultiple site organization consisting of ambulatory clinics and hospital sitesin [place], [place], [place] and [place]. This disclosure is being madepursuant to the Care Everywhere program and may not contain all information available regarding this patient. 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
--- OUTSIDE RECORDS SUMMARY | 2025-10-19 09:41 | XMS_ITS | Continuity of Care Document ---
Author Organization [place] - [facility] [employer], [facility] Internal Med [facility] 24 Address [address] [place] [address] Assessment No assessment recorded. Plan of Treatment Reminders Order Date Submit Date Provider Last Modified By Organization Details Last Modified Time Details Appointments None recorded . Lab lipid panel, serum 025 10/06/20 [facility], [address] [place], [address], 5 04:08:00 CMP, serum or plasma 025 10/06/20 [facility], [address] [place], [address], 5 04:08:01 CBC w/ auto diff 025 10/06/20 [facility], [address] [place], [address], 5 04:08:01 Referral None recorded . Procedures None recorded . Surgeries None recorded . Imaging None recorded . Medication Orders None recorded . Patient TargetsNo targets recorded. Patient Instructions Encounter Date Encounter Id Patient Instructions Last Modified By Organization Details Last Modified Time 10/06/2025 [id number] Follow-up for coronary artery disease, essential hypertension, [...] Created: Tanvir Davalos M.D. 10.06.2025 02:08 PM [email or web address] Not available 10/06/2025 15:08:43 Reason for Referral None Reported. Problems Name Problem SNOMED Code Status Onset Date Resolution Date Notes Provider Name and Address Organization Details Recorded Time Bleeding 144215186 Active Not Available [facility] 4 23:36:51 Hyperchole sterolemia 54238111 Active Not Available [facility] 4 23:36:51 Gastroesop hageal reflux disease 537758720 Active Not Available [facility] 4 23:36:51 Gastroesop hageal reflux disease without esophagiti s 732752734 Active Not Available [facility] 4 23:36:51 Anemia 312324612 Active Not Available [facility] 4 23:36:51 Knee pain Active Not Available [facility] 4 23:36:52 Umbilical hernia 567022446 Active Not Available [facility] 4 23:36:52 Clostridiu m difficile colitis 612472579 Active Not Available [facility] 4 23:36:52 Coronary arterioscl erosis 30670341 Active Not Available [facility] 4 23:36:52 Essential hypertensi on 48666739 Active Not Available [facility] 4 23:36:52 Ulcerative colitis 74969588 Active Not Available [facility] 4 23:36:52 Hemorrhoid s 65169891 Active Not Available [facility] 4 23:36:52 Open wound 927135521 Active 2016 Not Available [facility] 4 23:36:51 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 Not Available [facility] 4 23:36:51 Nausea 707105033 Active 2021 Not Available [facility] 4 23:36:52 Restless legs syndrome 02688897 Active 2021 Not Available [facility] 4 23:36:52 Acute bronchitis 37694418 Active 2022 Not Available [facility] 4 23:36:51 Lightheade dness 505188873 Active 2022 Not Available [facility] 4 23:36:52 Obese class I 4611354412355 07 Active 2022 Not Available [facility] 4 23:36:52 Insomnia 346729896 Active 2022 Not Available [facility] 4 23:36:51 Anxiety 47044809 Active 2022 Not Available [facility] 4 23:36:52 Chronic insomnia 764985096 Active 2022 Not Available [facility] 4 23:36:52 Acute sinusitis 92006557 Active 2022 Not Available [facility] 4 23:36:51 Left lower quadrant pain 155588169 Active 2023 Tanvir Davalos MD [address], [place], [address] , [facility] 4 16:04:13 Gastroente ritis 26307372 Active 2023 THUY Jara, [place] - [place] [facility] 4 11:29:35 Atrial fibrillati on 57670969 Active 2023 Tanvir Davalos MD [address], [address], [place], [address] , [place] [facility] [employer] [facility] 4 15:06:42 Abscess of face 041835342 Active 2023 Tanvir Davalos MD [address] [facility], [address], [place], [address] , [facility] [employer] [facility] 4 11:46:39 Senile osteoporos is 70412450 Active 2024 Toya cardenas, [facility] [employer] [facility] 5 11:45:28 Fatigue 93302441 Active 2024 Tanvir Davalos MD [address], [address], [place], [address] , [facility] [employer] [facility] 5 17:01:22 Iron deficiency 23473421 Active 2024 Tanvir Davalos MD [address], [address], [place], [address] , [facility] [employer] [facility] 5 12:26:59 Serum iron below reference range 601983936 Active 2024 Jayde cardenas, [facility] [employer] [facility] 5 15:22:13 Problem Notes None recorded. Procedures Surgical History Date Name Laterality Status Provider Name and Address Organization Details Recorded Time 09/17/20 23 Medicare Wellness CPT Code, subsequent completed Greer Gong RN [facility] [employer] [facility] 09/17/2023 11:01:34 02/07/20 19 Date of Last Colonoscopy completed Not Available [facility] 12/19/2022 05:54:09 Imaging Results None recorded. Procedure Notes None recorded. Medical Equipment None Reported. Allergies Allergen ID Allergen Name Allergen Category Reaction Reaction Severity Criticality Documentation Date Start Date Code Code System Note Provider Name and Address Organization Details Recorded Time 48317 Plavix medicatio n Not available Not available Not available 12/19/2022 73410 2 RxNorm bleed ing Not Available [facility] 3 06:04:11 20350 Demerol medicatio n vomiting severe Not available 12/19/2022 78520 1 RxNorm Not Available [facility] 3 06:04:11 73331 Product containin g angiotens in II receptor antagonis t (product) medicatio n cough Not available Not available 12/19/2022 55940 008 SNOMED Not Available [facility] 3 06:04:11 95594 Product containin g angiotens in-conver ting enzyme inhibitor (product) medicatio n cough Not available Not available 12/19/2022 63023 009 SNOMED Not Available [facility] 3 06:04:12 68634 aspirin medicatio n Not available Not available Not available 12/19/2022 1191 RxNorm bleed ing Not Available [facility] 3 06:04:12 35225 meperidin e medicatio n Not available Not available Not available 10/01/2025 6754 RxNorm unrec ogniz ed react ion (text : Adver se react ion to subst ance, code: 60541 0009) (from exter nal sourc e) Not Available [facility] [employer] - prod 5 10:59:26 91001 aluminum aspirin Not available Not available Not available Not available 10/06/20252021 611 RxNorm unrec ogniz ed react ion (text : Other , code: 72041 07) (from exter nal sourc e) Not Available [employer] - External Data Service - prod 5 03:47:07 62731 clopidogr el medicatio n Not available Not available Not available 10/06/20252021 34655 RxNorm unrec ogniz ed react ion (text : Other , code: 19269 07) (from exter nal sourc e) Not Available [employer] External Data Service - prod 5 03:47:07 59816 morphine medicatio n Not available Not available [facility] 10/06/20252019 7052 RxNorm Upset stoma ch unrec ogniz ed react ion (text : Other , code: 02535 07) (from exter nal sourc e) Not Available [facility] External Data Service - prod 5 03:47:07 Medications Name Sig Start Date [...] azelastine 137 mcg (0.1 %) nasal spray [place] 2 sprays twice a day by intranasa [...] completed Not Available Not Available Not Available Horatio 5 mg-325 mg tablet Take 1 tablet [...] Updated DateTime 5 172.72 cm 29.4 kg/m2 37628.1 2 g 71 /min 97.2 [degF] 95 % 142/80 mm[Hg] Jayde JAMES [place] [employer] GROUP [facility] 5 14:56:48 Social History Question Answer Notes LastModified by Organization Details LastModified Time Tobacco Smoking Status Never Smoker Not Available [facility] 12/19/2022 05:53:27 Do You Have An Advance Directive? Yes MIGRATION.300026 Information not available 12/19/2022 Are You Blind Or Do You Have Difficulty Seeing? No MIGRATION.300 190277 Information not available 12/19/2022 Are You Deaf Or Do You Have Serious Difficulty Hearing? No MIGRATION.030 952687 Information not available 12/19/2022 What Type Of Diet Are You Following? REGULAR MIGRATION.22991126 Information not available 12/19/2022 Have There Been Any Changes To Your Family Or Social Situation? Yes Patient Has Lost 5-6 Family Members/fri ends In The Past 13 Months. MIGRATION.300026 Information not available 12/19/2022 What Is The Fluoride Status Of Your Home? Unknown MIGRATION.0301 488618 Information not available 12/19/2022 Are There Any Guns Present In Your Home? Yes MIGRATION.0301 294544 Information not available 12/19/2022 Do You Use Insect Repellent Routinely? No MIGRATION.0301 899334 Information not available 12/19/2022 Where Do You Live? [place]House MIGRATION.0301 074992 Information not available 12/19/2022 Guns Present In The Home? Yes [email or web address] Information not available 09/17/2023 Are You Able To Care For Yourself? Yes [email or web address] Information not available 09/17/2023 Are You Blind Or Do Yo Have Difficulty Seeing? No [email or web address] Information not available 09/17/2023 Are You Deaf Or Do You Have Serious Difficulty Hearing? No [email or web address] Information not available 09/17/2023 Live Alone Of With Others? Alone Information not available 09/17/2023 Do You Have A Medical Power Of Cross Tie Cutter? Yes [email or web address] Information not available 09/17/2023 What Was The Date Of Your Most Recent Tobacco Screening? 09/17/2023 [email or web address] Information not available 09/17/2023 Do You Have Any Pets? No [email or web address] Information not available 09/17/2023 What Is Your Relationship Status? MIGRATION.0301 990878 Information not available 12/19/2022 Do You Use Your Seat Belt Or Car Seat Routinely? No MIGRATION.0301 666034 Information not available 12/19/2022 Do You Have Smoke And Carbon Monoxide Detectors In Your Home? Yes MIGRATION.0301 217969 Information not available 12/19/2022 Are You Passively Exposed To Smoke? No MIGRATION.0301 112091 Information not available 12/19/2022 Are There Any Smokers In Your House? No MIGRATION.0301 997182 Information not available 12/19/2022 How Much Tobacco Do You Smoke? No MIGRATION.0301 410947 Information not available 12/19/2022 Do You Use Sunscreen Routinely? No MIGRATION.0301 328851 Information not available 12/19/2022 Has Tobacco Cessation Counseling Been Provided? No MIGRATION.0301 267560 Information not available 12/19/2022 Do You Have Difficulty Walking Or Climbing Stairs? Yes Having Knee Problems MIGRATION.0301 859548 Information not available 12/19/2022 Do You Have Any Dietary Restrictions? No MIGRATION.0301 226009 Information not available 12/19/2022 Sex: Unknown Functional Status Question Answer Note LastModified by Organizat ion Details LastModified Time Do you or have you ever used any other forms of tobacco or nicotine? No MIGRATION.019823 9133 Information not available 12/19/2022 What is your level of alcohol consumption? None MIGRATION.199068 5760 Information not available 12/19/2022 Do you or have you ever used smokeless tobacco? Never used smokeless tobacco MIGRATION.622963 4030 Information not available 12/19/2022 Do you have transportation difficulties? No MIGRATION.418822 7665 Information not available 12/19/2022 Are you able to walk independently without assistance or assistive devices? YESWOREST MIGRATION.053727 3686 Information not available 12/19/2022 Do you have difficulty doing errands alone? No MIGRATION.059886 5055 Information not available 12/19/2022 Are you able to care for yourself independently? Yes MIGRATION.394166 2426 Information not available 12/19/2022 Do you have difficulty dressing, bathing, grooming, or toileting? No MIGRATION.710049 0496 Information not available 12/19/2022 Do you or have you ever used e-cigarettes or vape? Never used electronic cigarettes MIGRATION.870714 5534 Information not available 12/19/2022 What is your exercise level? None MIGRATION.872236 3650 Information not available 12/19/2022 Mental Status Question Answer Note LastModified by Organizat ion Details LastModified Time Do you feel stressed (tense, restless, nervous, or anxious, or unable to sleep at night)? [id number] MIGRATION.42146197 26 Information not available 12/19/2022 Do you have difficulty concentrating, remembering or making decisions? No MIGRATION.03904280 26 Information not available 12/19/2022 Family History [...] DISEASE/DISORDER N HISTORY OF DRUG ABUSE N COPD N RADIATION / CHEMOTHERAPY N Other # 2 N BLOOD DISEASES [...] HAVE YOU BEEN HOSPITALIZED OR SEEN IN [facility] IN THE PAST YEAR ? N [...] preservative free, adsorbed 7 completed Not Available [facility] 12/09/2023 23:36:52 Past Encounters Encounter ID Performer Location Encounter Start Date Encounter Closed Date Diagnosis/Indication Diagnosis SNOMED-CT Code Diagnosis ICD10 Code Diagnosis IMO Codes Diagnosis Note [id number] Tanvir Davalos MD [facility] Internal Med [facility] [address] [facility] [address] [place] [address] 10/06/2025 14:37:36 10/06/2025 15:12:44 Coronary arteriosclerosis 07540340 I25.10 Essential hypertension 72397333 I10 Atrial fibrillation 4943 6004 I48.91 Hypercholesterolemia 136 56090 E78.00 Health Concerns Section Related Observation LastModified by Organization Detai ls LastModified Time None Recorded Concern Status LastModified by Organization Details LastModified Time None Recorded Payers Encounter Date Sequence Insurance Name Policy Number Policy Gerber Covered Member ID Gerber Member ID Guarantor Name 10/06/2025 1 [place] Nikky Jose Jean [id number] Nikky Pena 10/06/2025 2 [employer] (MEDICARE SUPPLEMENT) Nikky Pena [id number] Nikky Pena Notes Date Note Type Note Provider Name and Address Organization Details Recorded Time 10/06/2025 text/html Patient Name: Nikky TillmanpinoDate Of Service: Saturday ( 10.06.2025 ): 1940 [...] Systemic Symptoms:none Medication Reconciliation: from medication list. [id number]: CT of abdomen and pelvis unremarkable. No [...] Metoprolol Succinate. Rate control: rapid ventricular response [id number] Criteria: Age > 75 for embolic phenomenon. [...] Shingrix Recommended(X) Influenza Recommended(X) Covid or Booster RecommendedImmunization s and Vaccinations Discussed and Implemented if feasible In the Office. Else referred to pharmacies. Surgical Vootfcq9341-29 Lap Ventral Hernia Repair (Mesh)2016-01 Lap Ntmoxdchpbprp5598-05 Rt. Rotator Rdsqi8489-27 Lt. Knee Ejiacyetoaz1904-23 Rt. Knee Replacement Preventative Testing: (X) Due [...] Shingrix Recommended(X) Influenza Recommended(X) Covid or Booster RecommendedImmunization s and Vaccinations Discussed and Implemented if feasible In the Office. Else referred to pharmacies. Surgical Cdeiioj3013-57 Lap Ventral Hernia Repair (Mesh)2015- Lap Popudowdvjgqf1021-14 Rt. Rotator Ggfej7588-93 Lt. Knee Lmzidvfugzr6366-23 Rt. Knee Replacement Preventative Testing: (X) Due (?) Optional( ) 06/09/2025 Albumin 4.2 G/DL( ) 05/14/2025 Mammogram( ) 05/14/2025 DEXA Scan 05/14/2027( ) 04/13/2025 Ophthalmology( ) 01/27/2019 Colonoscopy (10 Years) 01/27/2029Preventative Testing Discussed with Patient and Any Attendants Tanvir Davalos MD [address] [facility], [facility] [address], [place], [address], [place] [facility] 10/06/2025 15:09:10 OBGyn Episode No OBEpisode recorded.
--- OUTSIDE RECORDS SUMMARY | 2025-10-19 09:41 | XMS_ITS | Clinical Summary ---
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 Name Role Phone Tanvir Davalos MD Primary [...] (81 mg total) by mouth daily Active UNABLE TO FIND Messalamine 400mg bid Active artificial tears (SYSTANE) 0.3 % gel Apply to both eyes Active metoprolol XL (TOPROL-XL) 100 mg 24 hr tabletIndicatio ns:Paroxysmal atrial fibrillation (HCC) Take 0.5 tablets (50 mg total) by mouth daily Dose has been adjusted to 50 mg daily 45 tablet 3 10/16/20 25 Active sacubitriL-vals nitesh (ENTRESTO) 24-26 mg tabletIndicatio ns:chronic heart failure Take 1 tablet by mouth 2 (two) times a day 180 tablet 2 08/13/20 25 Active Eliquis 5 mg tablet TAKE 1 TABLET TWICE A DAY 180 tablet 3 10/12/20 25 Active Eliquis 5 mg tablet TAKE 1 TABLET(5 MG) BY MOUTH TWICE DAILY 60 tablet 07/09/20 25 025 Discontinued Active Problems Problem Noted Date Diagnosed Date Heart failure with mid-range ejection fraction 0 03/13/2024 Abnormal stress test 03/13/2024 Nonrheumatic mitral valve regurgitation 03/13/20 Atrial fibrillation 03/13/2024 Nonrheumatic tricuspid valve regurgitation 03/13 Coronary arteriosclerosis 03/10/2021 Essential hypertension 03/10/2021 Ulcerative colitis 03/10/2021 Incisional hernia, without obstruction or gangre ne 04/15/2020 Encounters Date Type Department Care Team Description 10/12/2025 Telephone [facility] Medical [facility] Cardiology [address] [place] [address] [place] [phone] Olivier Snyder MD Epistaxis (Nose Bleed) 08/13/2025 Orders Only [facility] Cardiology [address] [place] [address] [place] [phone] Shonda Underwood MA 08/13/2025 Telephone [facility] Cardiology [address] [place] [address] [place] [phone] Olivier Snyder MD generic entresto 07/20/2025 11:00 AM CDT Office Visit [facility] Cardiology at [address] [place] [address] Olivier Snyder MD Atrial fibrillation, unspecified type (HCC) (Primary Dx) from Last 3 Months Surgical History Surgery [...] on file 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 Gender Identity Not on file Sexual Orientation [...] 02/27/202707/2017, 02/27/2017 Medical Devices Implanted Type Area Farmworker Rice Device Identifier Shelf Expiration Date Model / Serial / Lot [employer]/C R Bard [id number] Monofilament Soft Lightweight Low Profile Square - [id number] - [id number] Implanted:Qty: 1 on 03/09/2021 by Jesu Breen MD at [facility] Mesh N/A: Abdomen [employer] [id number] 10/17/2025 [id number] / [id number] / [id number] Procedures Procedure Name Priority Date/Time Associated Diagnosis Comments ECG 12-LEAD Routine 07/20/2025 11:03 AM CDT Atrial fibrillation, unspecified type (HCC) from Last 3 Months Results * ECG 12 lead (07/20/2025 11:03 AM CDT) us Olivier Snyder MD ECG ORDERABLES Edited R esult - Final from Last 3 Months Insurance MEDICARE [facility] MEDICARE MEDICARE [facility] Advance Directives For more information, please contact: [phone] * Full Code (Latest Code Status on File) Date Activated Date Inactivated Comments 03/09/2021 3:21 PM 03/10/2021 6:44 PM Care Teams Building Construction Superintendent Relationship Specialty Start Date End Date Tanvir Davalos MD [address] [facility] [address] [place] [address] PCP - General Internal Medicine 08/21/19
[2025-10-19 09:53] LABS: Hematocrit 45.2 % (37.0-47.0); Hemoglobin 14.4 g/dL (12.0-15.0); Immature Granulocyte Percent A 0.4 % (0-0.5); Lymphocytes Absolute Auto 1.81 K/mm3 (0.9-3.2); Mean Corpuscular HGB Conc 31.9 g/dl (32-36); Mean Corpuscular Hemoglobin 27.9 pg (26-34); Mean Corpuscular Volume 87.6 fl (80-100); Nucleated Red Blood Cells Absolute Auto 0.000 K/mm3 (0.0-0.012); Nucleated Red Blood Cells Perc 0.0 % (0.0-0.2); Platelet Count Result 380 k/mm3 (150-375); Red Blood Count 5.16 M/mm3 (4.2-5.4); White Blood Count 9.2 K/mm3 (4.5-10.0)
[2025-10-19 10:16] LABS: Alanine Aminotransferase 15 U/L (6-35); Albumin Level 4.3 g/dL (3.5-5.1); Alkaline Phosphatase 106 U/L (38-126); Anion Gap 5 mmol/L (4-12); Aspartate Amino Transferase 24 U/L (14-36); Bilirubin,Total 0.8 mg/dL (0.2-1.3); Blood Urea Nitrogen 15 mg/dL (7-17); Calcium 9.9 mg/dL (8.4-10.2); Carbon Dioxide 26 mmol/L (22-30); Chloride 107 mmol/L (98-107); Cholesterol 188 mg/dL (0-200); Estimated Glomerular Filt Rate 52; Glucose 98 mg/dL (65-110); HDL Direct 58 mg/dL; Potassium 4.3 mmol/L (3.4-5.0); Sodium 138 mmol/L (137-145); Total Protein 7.9 g/dL (6.3-8.2); Triglycerides 137 mg/dL (<150)
== END 2025-10-19 09:23 | disposition home or self-care (01) ==
PROVIDERS: PCP Internal Medicine; Visit Provider Internal Medicine
DX: E78.00 Pure hypercholesterolemia, unspecified (principal); I10 Essential (primary) hypertension
CPT/HCPCS: 36415; 80053; 80061; 85025